=== PATIENT | female | born 1965 | race Caucasian/White ===

== ENCOUNTER → 2020-12-06 08:09 | Outpatient (BNVA) | payer BC, SELFPAY | PROVIDERS: PCP Internal Medicine; Visit Provider Internal Medicine ==

== ENCOUNTER 2020-12-14 09:26 | Outpatient (REF) | payer BC, SELFPAY ==
--- NOTE | ~2020-12-14 | XR_ITS ---
EXAMINATION: XR ANKLE, LEFT CLINICAL INFORMATION: S93.402A - Sprain of unspecified ligament of left ankle, ... COMPARISON: None TECHNIQUE: AP, lateral, and mortise views of the left ankle. FINDINGS: Soft tissues are swollen at the ankle. No fracture or malalignment. Moderate sized enthesopathic spurs are present at the Achilles tendon insertion and plantar fascial origin on the calcaneus. Ankle mortise is symmetric. Bone mineralization is normal. Joint spaces appear relatively well-preserved. XR/XR ankle LT min 3V IMPRESSION: Soft tissue swelling at the left ankle. No acute fractures.
== END 2020-12-14 09:27 | disposition home or self-care (01) ==
LOC: HO.HMGCX 09:26
PROVIDERS: PCP Internal Medicine; Visit Provider Internal Medicine
DX: Z13.89 Encounter for screening for other disorder (principal)
CPT/HCPCS: 73610

== ENCOUNTER → 2020-12-30 11:02 | Outpatient (BNVA) | payer BC, SELFPAY | PROVIDERS: PCP Internal Medicine; Visit Provider Physician Assistant ==

== ENCOUNTER 2021-01-01 05:47 | Outpatient (REF) | payer BC, SELFPAY ==
--- NOTE | ~2021-01-01 | FL_ITS ---
EXAMINATION: XR FLUOROSCOPY WITH IMAGES CLINICAL INFORMATION: Radiculopathy. COMPARISON: None. TECHNIQUE: Fluoroscopy performed by Thao Art. Fluoroscopy time: 0.6 minutes DAP: 4.72 Gycm2 Images: 2 FINDINGS: There are 2 posterior lumbar spine images revealing needle positioned inferior to right L4 and L5 pedicles with contrast opacifying the right epidural space. Visualized L4 , L5 vertebra and intervening disc heights are normal. The SI joints are normal. FL/FL guidance in treatment room IMPRESSION: Fluoroscopy provided to referring physician for pain management.
== END 2021-01-01 05:48 | disposition home or self-care (01) ==
LOC: HO.RADIR 05:47
PROVIDERS: Visit Provider Internal Medicine
DX: M54.16 Radiculopathy, lumbar region (principal)
CPT/HCPCS: 64483; 64484; J1100; Q9967

== ENCOUNTER → 2021-01-10 08:39 | Outpatient (BNVA) | payer BC, SELFPAY | PROVIDERS: PCP Internal Medicine; Visit Provider Internal Medicine ==

== ENCOUNTER → 2021-01-20 13:23 | Outpatient (BNVA) | payer BC, SELFPAY | PROVIDERS: Visit Provider Physician Assistant ==

== ENCOUNTER 2021-02-05 05:34 | Outpatient (REF) | payer BC, SELFPAY | END 2021-02-05 05:35 | disposition home or self-care (01) | LOC: HO.RADIR 05:34 | PROVIDERS: Visit Provider Internal Medicine | DX: G57.11 Meralgia paresthetica, right lower limb (principal) | CPT/HCPCS: J3300 ==

== ENCOUNTER 2021-02-11 08:00 | Outpatient (RCR) | payer BC, SELFPAY ==
--- NOTE | 2021-02-07 09:25 | MHC.PT.EP ---
[facility] [place] Office [place] Office [place] Office [address] Tiffany Coffman [address] [phone] F: [phone] F: [phone] F: [phone] F: [phone] Physical Therapy Plan of Care Date of Evaluation: Date of Surgery: NA Diagnosis: L ANKLE SPRAIN Assessment: Pt IS 55 YO F REFERRED TO PT FROM [facility] FROM [facility] WITH L ANKLE SPRAIN FROM 12/13/20 (FELL WHEN HIT FROM [facility] AT [facility]). XRAY NEGATIVE FOR FX, WORE BOOT FROM ORTHO AND USED CRUTCHES. 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 PRESENTS WITH DECREASED PROPRIOCEPTION L ANKLE WITH SLS, DECREASED ANKLE ROM AND STRENGTH. Pt IS LIMITED IN ABILITY TO EXERCISE AND HORSEBACK RIDE. SHOULD BENEFIT FROM PT. OF NOTE, Pt WITH LB/R HIP ISSUES ALSO (HAS HAD PT LAST YEAR) WITH RECENT NERVE BLOCK FOR R THIGH. FOLLOWED BY PAIN MANAGEMENT. Frequency and Duration: The patient will be seen 2X/WK X6 WKS Short Term Goals: 1. INCREASED AWARENESS ANKLE CARE 2. Pt TO REPORT OVERALL LESS SWELLING/PUFFINESS LAT ANKLE 3. LESS LIMP WITH GT (INCREASED HEEL STRIKE AND TOE PUSH) 4. ABLE TO SLS L AT LEAST 20 SEC Broomcorn Seeder Goals: 1. I HEP WITH DC EX PLAN 2. RETURN TO WORKOUTS/WALKING/HORSEBACK RIDING WITH MIN PAIN/STIFFNESS REPORTED 3. INCREASED L ANKLE ROM 5 DEGREES T/O 4. IMPROVED LEFI Treatment Plan: Modalities to reduce pain, spasms and effusion. Manual therapy to restore motion and function. Therapeutic exercise to improve strength and flexibility. Neuromuscular re-education for posture and balance. Therapeutic activities to return to functional activities of daily living. Electronically signed by: ESTRELLA DALEY PT Please sign and return to therapist. Thank you for your referral.
--- NOTE | 2021-03-07 16:26 | MHC.PT.DC ---
[facility] [place] Office [place] Office [place] Office [address] Tiffany Coffman [address] [phone] F: [phone] F: [phone] F: [phone] F: [phone] Physical Therapy Discharge Report Diagnosis: L ANKLE SPRAIN Date of Surgery: DOI 12/13/2020 Date of Evaluation: 02/07/21 Date of Discharge: 03/07/21 Treatments to Date: 2 Cancellations to Date: 2 No Shows to Date: Discharge Status: Patient Elected to Stop Discharge Summary: 03/07/21 CALLED Pt (SHE HAD CANCELLED LAST SCHEDULED VISIT ON 02/14/21) TO ASK ABOUT PT. SHE SAYS SHE'S DOING OK AND DOESNT NEED MORE PT AT THIS TIME. WILL DC CHART PER NOTE FROM BRYCE GARCES MANAGER AUDIT ON 02/11 'pt noted to have L ankle lateral edema prior to start of ex. Pt reported tired and achy after gentle ROM ex.' Pt IS 55 YO F REFERRED TO PT FROM [facility] FROM [place] WITH L ANKLE SPRAIN FROM 12/13/20 (FELL WHEN HIT FROM [facility]). XRAY NEGATIVE FOR FX, WORE BOOT FROM ORTHO AND USED CRUTCHES. 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 PRESENTS WITH DECREASED PROPRIOCEPTION L ANKLE WITH SLS, DECREASED ANKLE ROM AND STRENGTH. Pt IS LIMITED IN ABILITY TO EXERCISE AND HORSEBACK RIDE. SHOULD BENEFIT FROM PT. OF NOTE, Pt WITH LB/R HIP ISSUES ALSO (HAS HAD PT LAST YEAR) WITH RECENT NERVE BLOCK FOR R THIGH. FOLLOWED BY PAIN MANAGEMENT. Electronically signed by: ESTRELLA DALEY PT Please sign and return to therapist. Thank you for your referral.
== END 2021-03-07 16:26 | disposition home or self-care (01) ==
LOC: HO.PT 08:00
PROVIDERS: Visit Provider Physician Assistant
DX: S93.401D Sprain of unspecified ligament of right ankle, subsequent encounter (principal)
CPT/HCPCS: 97110; 97140; 97162; 97530

== ENCOUNTER 2021-04-25 08:00 | Outpatient (RCR) | payer BC, SELFPAY | END 2021-05-15 15:39 | disposition home or self-care (01) | LOC: HO.PT 08:00 | PROVIDERS: PCP Internal Medicine; Visit Provider Podiatrist | DX: M76.62 Achilles tendinitis, left leg (principal) | CPT/HCPCS: 97110; 97112; 97140; 97161 ==

== ENCOUNTER 2021-10-03 07:29 | Outpatient (REF) | payer BC, SELFPAY ==
[2021-10-03 12:02] LABS: Alanine Aminotransferase 26 U/L (0-31); Albumin Level 4.5 g/dL (3.5-5.0); Alkaline Phosphatase 87 U/L (39-117); Anion Gap 11 (12-20); Aspartate Amino Transferase 20 U/L (5-31); Bilirubin Total 0.2 mg/dL (0.0-1.0); Blood Urea Nitrogen 18 mg/dL (9-16); Calcium 9.3 mg/dL (8.4-10.2); Carbon Dioxide 27 mmol/L (22-29); Chloride 104 mmol/L (96-108); Cholesterol 266 mg/dL; Estimated Glomerular Filt Rate > 60; Glucose Fasting 100 mg/dL (60-99); HDL Cholesterol 69 mg/dL; LDL Cholesterol Calculated 184 mg/dl; Potassium 5.2 mmol/L (3.3-5.1); Sodium 137 mmol/L (135-145); Total Protein 7.3 g/dL (6.5-8.0); Triglycerides 68 mg/dL
[2021-10-08 17:33] LABS: Vitamin D 25-OH, D2 <4 ng/mL; Vitamin D 25-OH, D3 19 ng/mL; Vitamin D 25-OH, Total 19 ng/mL (30-100)
== END 2021-10-03 07:30 | disposition home or self-care (01) ==
LOC: HO.HMGCLDS 07:29
PROVIDERS: Visit Provider Internal Medicine
DX: Z00.01 Encounter for general adult medical examination with abnormal findings (principal); M25.572 Pain in left ankle and joints of left foot; G43.909 Migraine, unspecified, not intractable, without status migrainosus
CPT/HCPCS: 36415; 80053; 80061; 82306; 84443

== ENCOUNTER 2021-10-03 09:05 | Outpatient (REF) | payer BC, SELFPAY ==
--- NOTE | ~2021-10-03 | MM_ITS ---
EXAMINATION: MM SCREENING DIGITAL BREAST TOMOSYNTHESIS, BILATERAL CLINICAL INFORMATION: Screening. Asymptomatic. The lifetime risk of breast cancer based on the Tyrer-Cuzick Model is 13%. COMPARISON: Mammography: 06/13/2018, outside mammography 04/27/2009 ([facility]). TECHNIQUE: Digital breast tomosynthesis is performed in both the craniocaudal and mediolateral oblique views along with computer-aided detection (CAD). Synthesized 2D images are generated from the tomosynthesis. FINDINGS: There are scattered areas of fibroglandular density (ACR BI-RADS breast composition Category b). There are no significant masses, abnormal calcifications, or other abnormalities. Parenchymal pattern similar to prior studies. The axilla and skin contours are unremarkable. MM/MM tomosynthesis screening BI IMPRESSION: No mammographic evidence of malignancy. ASSESSMENT: BI-RADS 1: Negative RECOMMENDATION: Routine annual mammography screening. This patient's information was entered into a reminder system with a target due date for their next mammogram.
== END 2021-10-03 09:06 | disposition home or self-care (01) ==
LOC: HO.MAMMO 09:05
PROVIDERS: Visit Provider Internal Medicine
DX: Z12.31 Encounter for screening mammogram for malignant neoplasm of breast (principal)
CPT/HCPCS: 77063; 77067

== ENCOUNTER 2021-10-16 11:43 | Outpatient (REF) | payer BC, SELFPAY ==
[2021-10-16 13:27] LABS: Influenza A PCR NEGATIVE (Negative); Influenza B PCR NEGATIVE (Negative); Resp Syncy Virus RNA Qual PCR NEGATIVE (Negative); SARS COV2 PCR INHOUSE NEGATIVE (Negative)
== END 2021-10-16 11:44 | disposition home or self-care (01) ==
LOC: HO.LNP 11:43
PROVIDERS: Visit Provider Internal Medicine
DX: Z20.822 Contact with and (suspected) exposure to COVID-19 (principal); R09.89 Other specified symptoms and signs involving the circulatory and respiratory systems
CPT/HCPCS: 0241U

== ENCOUNTER 2022-03-21 08:02 | Outpatient (REF) | payer BC, SELFPAY ==
[2022-03-21 10:58] LABS: MANUAL DIFF FLAG NO
[2022-03-21 11:06] LABS: Basophils Absolute Auto 0.1 X10*3/uL (0.0-0.2); Eosinophils Absolute Auto 0.2 X10*3/uL (0.0-0.4); Eosinophils Percent Auto 2.8 % (0-4); Hematocrit 36.8 % (37.0-47.0); Imm Gran Abs Auto 0.01 X10*3/uL (0.00-0.03); Imm Gran Pct Auto 0.2 % (0.0-0.4); Lymphocytes Absolute Auto 1.7 X10*3/uL (1.2-4.9); Lymphocytes Percent Auto 27.5 % (20-40); Mean Corpuscular HGB Conc 32.6 g/dl (31.0-35.0); Mean Corpuscular Hemoglobin 29.3 pg (27.0-33.0); Mean Corpuscular Volume 89.8 fL (80.0-98.0); Mean Platelet Volume 9.9 fL (9.4-12.3); Monocytes Absolute Auto 0.5 X10*3/uL (0.1-1.2); Neutrophils Absolute Auto 3.6 x10*3/uL (2.0-8.3); Neutrophils Percent Auto 60.5 % (45-73); Platelet Count 296 X10*3/uL (160-400); Red Cell Distribution Width 11.9 % (11.0-16.0)
[2022-03-21 11:21] LABS: Estimated Average Glucose 111 mg/dL; Hemoglobin A1c % 5.5 %
[2022-03-21 11:29] LABS: Alanine Aminotransferase 20 U/L (0-31); Albumin Level 4.2 g/dL (3.5-5.0); Alkaline Phosphatase 81 U/L (39-117); Anion Gap 11 (12-20); Aspartate Amino Transferase 15 U/L (5-31); Bilirubin Total 0.3 mg/dL (0.0-1.0); Blood Urea Nitrogen 17 mg/dL (9-16); Carbon Dioxide 26 mmol/L (22-29); Chloride 107 mmol/L (96-108); Cholesterol 256 mg/dL; Estimated Glomerular Filt Rate > 60; Glucose Fasting 103 mg/dL (60-99); HDL Cholesterol 66 mg/dL; LDL Cholesterol Calculated 164 mg/dl; Potassium 4.4 mmol/L (3.3-5.1); Sodium 140 mmol/L (135-145); Total Protein 6.8 g/dL (6.5-8.0); Triglycerides 131 mg/dL
[2022-03-26 12:33] LABS: Vitamin D 25-OH, D2 <4 ng/mL; Vitamin D 25-OH, D3 14 ng/mL; Vitamin D 25-OH, Total 14 ng/mL (30-100)
== END 2022-03-21 08:03 | disposition home or self-care (01) ==
LOC: HO.HMGCLDS 08:02
PROVIDERS: PCP Internal Medicine; Visit Provider Internal Medicine
DX: R73.01 Impaired fasting glucose (principal); G43.909 Migraine, unspecified, not intractable, without status migrainosus; E55.9 Vitamin D deficiency, unspecified; D64.9 Anemia, unspecified; E78.9 Disorder of lipoprotein metabolism, unspecified; E87.5 Hyperkalemia
CPT/HCPCS: 36415; 80053; 80061; 82306; 83036; 85025

== ENCOUNTER 2022-06-12 07:26 | Outpatient (REF) | payer BC, SELFPAY ==
[2022-06-12 12:21] LABS: Cholesterol 226 mg/dL; HDL Cholesterol 72 mg/dL; LDL Cholesterol Calculated 125 mg/dl; Triglycerides 147 mg/dL
== END 2022-06-12 07:27 | disposition home or self-care (01) ==
LOC: HO.HMGCLDS 07:26
PROVIDERS: PCP Internal Medicine; Visit Provider Internal Medicine
DX: R73.01 Impaired fasting glucose (principal); E78.9 Disorder of lipoprotein metabolism, unspecified
CPT/HCPCS: 36415; 80061

== ENCOUNTER 2022-07-23 07:18 | Emergency (ER) | payer BC, SELFPAY ==
--- NOTE | ~2022-07-23 | CT_ITS ---
EXAMINATION: CT ABDOMEN AND PELVIS WITH CONTRAST CLINICAL INFORMATION: Left lower quadrant acute pain. COMPARISON: None available. TECHNIQUE: Multidetector volumetric images were obtained from the superior aspect of the liver through the pubic symphysis following administration 85 mL of Omnipaque 350 intravenous contrast. Sagittal and coronal reformatted images were obtained on the technologist's workstation. Oral contrast: No This CT examination was performed using dose optimization techniques as appropriate, variously including the following: *Automated exposure control *Adjustment of mA and/or kV according to patient size (this includes techniques or standardized protocols for targeted exams where dose is matched to indication/reason for exam; i.e. extremities or head) *Use of iterative reconstruction technique DLP: 609 mGy-cm FINDINGS: LUNG BASES: Bibasilar atelectasis LIVER, GALLBLADDER, AND BILIARY TREE: The liver is normal in size, shape, and attenuation. No focal hepatic lesion or biliary ductal dilatation is present. The gallbladder is unremarkable with no evidence of radiopaque gallstones, gallbladder wall thickening, or obvious pericholecystic inflammatory changes. PANCREAS: Unremarkable. SPLEEN: Unremarkable. ADRENAL GLANDS: Unremarkable. KIDNEYS AND URETERS: The kidneys are normal in size, shape, and attenuation. No hydronephrosis, hydroureter, or calculi seen. No perinephric stranding. BLADDER: Unremarkable. GASTROINTESTINAL TRACT: The stomach is unremarkable. Normal caliber of the small bowel. No obstruction. Colonic diverticulosis is present. Focal wall thickening with adjacent inflammation involving the proximal sigmoid colon. No free air or fluid collection. ABDOMINAL WALL: No significant hernia is appreciated. LYMPH NODES: Normal. VASCULAR: Normal caliber aorta with mild atherosclerotic calcification. PELVIC VISCERA: The uterus and adnexa are unremarkable. OSSEOUS STRUCTURES: No acute or suspicious osseous abnormality. Mild degenerative changes of the spine. Mild degenerative changes of the hips. CT/CT abdomen pelvis w IV con IMPRESSION: Sigmoid diverticulitis. No free air or fluid collection. Fleischner guidelines were followed.
[2022-07-23 07:21] VITALS: BP 151/94; PULSE 87; RESP 18; TEMP 36.6; O2SAT 98; BMI 27.6
--- NOTE | 2022-07-23 07:44 | ED_ITS ---
HPI - Abdominal Pain General Chief Complaint: Abdominal Pain Stated Complaint: lower abd pain/cramps Time Seen by Provider: 07/23/22 07:32 Source: patient Mode of arrival: ambulatory Limitations: no limitations History of Present Illness MD elicited complaint: abdominal pain Pertinent past history: none Onset (ago): hour(s) (1) Location: LLQ Severity: moderate Pain scale (0-10): 6 Quality: cramping Radiation: RLQ Migration to: no migration Exacerbating factors: movement Relieving factors: nothing Associated symptoms: denies other symptoms Related Data Previous Rx's Medication Instructions Recorded sumatriptan succinate 50 mg tablet 50 mg PO ONCE PRN migraine 08/26/21 headache 90 days #30 tabs cholecalciferol (vitamin D3) 25 25 mcg PO DAILY 90 days #90 caps 03/20/22 mcg (1,000 unit) capsule omeprazole 20 mg capsule,delayed 20 mg PO DAILY 90 days #90 caps 03/20/22 release rosuvastatin 10 mg tablet 10 mg PO DAILY 90 days #90 tabs 06/18/22 tramadol 50 mg tablet 50 mg PO DAILY 30 days #30 tabs 06/26/22 amoxicillin 875 mg-potassium 1 tab PO Q8H 10 days #30 tabs 07/23/22 clavulanate 125 mg tablet Allergies Allergy/AdvReac Type Severity Reaction Status Date / Time No Known Allergies Allergy Verified 07/23/22 07:21 [facility] Past Medical History Medical History Osteoarthritis of right hip Right lumbar radiculitis Surgical History Hx of foot surgery (~2018) Family History Family History Father No problems noted. Mother No problems noted. Brother No problems noted. Brother No problems noted. Sister No problems noted. 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 Cognitive needs: No Hearing needs: No Vision needs: Yes Physical Exam ED Vital Signs: Vital Signs - 24 hr 07/23/22 07:21 07/23/22 09:28 Temperature 98 F 98.7 F Pulse Rate 87 66 Respiratory Rate 18 16 Blood Pressure 151/94 H 134/80 Pulse Oximetry 98 97 Oxygen Delivery Method Room Air Room Air BMI result Body Mass Index 27.6 GEN: Well developed, no acute distress, alert, oriented HEENT: Normocephalic, atraumatic, normal external ears, nose appears normal, no oropharyngeal edema or exudates Eyes: Normal to appearance Neck: Supple, no lymphadenopathy Respiratory: Talks in complete sentences, no respiratory distress, clear to auscultation bilaterally Cardiovascular: Regular rate and rhythm, no murmurs rubs or gallops Abdomen: Soft, left lower quadrant, nondistended, no guarding, no rebound Back: No CVA tenderness Extremities: No clubbing cyanosis or edema Neurologic: No focal neurologic deficits, cranial nerves 2-12 intact, strength is 5/5 bilaterally Skin: No rash Course Course Course Narrative: 56-year-old female presents with left lower quadrant abdominal pain. Examination revealed tenderness without significant guarding but no rebound. She has no CVA tenderness. Broad differential diagnosis currently be considered. Patient have a CT scan. Patient will be provided with analgesics. I will also provide her with IV fluids. Reevaluation(s) Reevaluation #1: His CT scan results are back. She does in fact have diverticulitis. Will be treating for Augmentin 3 times daily for 10 days. 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 She is aware of reasons to return to the hospital. Time: 10:55 Medical Decision Making Medical Decision Making MDM Narrative: 56-year-old female presents with left lower quadrant abdominal pain. Differential diagnosis is broad. Doubt acute catastrophic abdomen such as dissection, ruptured AAA, perforated viscus, mesenteric ischemia. Most likely diagnosis is diverticulitis. Other differentials will be considered as well. Differential Diagnosis Differential Diagnoses: The differential diagnosis associated with the presentation includes (Diverticulitis, colitis, IBD, IBS, mesenteric adenitis, epiploic appendagitis, appendicitis, gastroenteritis, UTI, pyelonephritis) Left lower quadrant abdominal pain Admission/Observation Consideration of admission/observation: Escalation of care including admission/observation considered Lab Data MDM Lab Attestation statement: I reviewed the patient's lab results. 07/23/22 08:16 07/23/22 08:16 Labs: Lab Results 07/23/22 07/23/22 07/23/22 Range/Units 08:16 08:16 08:17 WBC 9.6 (4.8-10.8) X10*3/uL RBC 3.87 L (4.20-5.50) X10*6/uL Hgb 11.5 L (12.0-16.0) g/dl Hct 34.6 L (37.0-47.0) % MCV 89.4 (80.0-98.0) fL MCH 29.7 (27.0-33.0) pg MCHC 33.2 (31.0-35.0) g/dl RDW 12.1 (11.0-16.0) % Plt Count 221 D (160-400) X10*3/uL MPV 9.3 L (9.4-12.3) fL Immature Gran % (Auto) 0.3 (0.0-0.4) % Neut % (Auto) 77.7 H (45-73) % Lymph % (Auto) 11.3 L (20-40) % [place] % (Auto) 9.4 (2-11) % Eos % (Auto) 0.8 (0-4) % Baso % (Auto) 0.5 (0-2) % Lymph # (Auto) 1.1 L (1.2-4.9) X10*3/uL [place] # (Auto) 0.9 (0.1-1.2) X10*3/uL Eos # (Auto) 0.1 (0.0-0.4) X10*3/uL Baso # (Auto) 0.1 (0.0-0.2) X10*3/uL Abs Immat Gran (auto) 0.03 (0.00-0.03) X10*3/uL Absolute Neuts (auto) 7.5 (2.0-8.3) x10*3/uL Absolute Nucleated RBC 0.000 (0.0-0.012) X10*3/uL Nucleated RBC % (auto) 0.0 (0.0-0.2) /100WBC Sodium 145 (135-145) mmol/L Potassium 4.4 (3.3-5.1) mmol/L Chloride 109 H (96-108) mmol/L Carbon Dioxide 27 (22-29) mmol/L Anion Gap 13 (12-20) BUN 15 (9-16) mg/dL Creatinine 0.69 (0.5-1.4) mg/dL Estim Creat Clear Calc 94.6 Estimated GFR > 60 Random Glucose 105 (60-115) mg/dL Calcium 8.7 (8.4-10.2) mg/dL Total Bilirubin 0.3 (0.0-1.0) mg/dL AST 19 (5-31) U/L ALT 22 (0-31) U/L Alkaline Phosphatase 90 (39-117) U/L Total Protein 6.5 (6.5-8.0) g/dL Albumin 4.2 (3.5-5.0) g/dL Beta HCG, Quant < 2 mIU/mL Urine Color Yellow Urine Appearance Clear Urine pH 6.0 (5.0-9.0) Ur Specific [place] 1.025 (1.005-1.025) Urine Protein Trace (Neg-Trace) mg/dL Urine Glucose (UA) Negative (Negative) mg/dL Urine Ketones Negative (Negative) mg/dL Urine Blood Trace H (Negative) Urine Nitrite Negative (Negative) Ur Leukocyte Esterase Trace H (Negative) Urine RBC 0-2 (0-2) /HPF Urine WBC 0-5 (0-5) /HPF Ur Squamous Epith Cells 0-2 (0-2) /HPF Urine Bacteria None Seen (None Seen) Hyaline Casts 0-2 (0-2) /LPF Independent Interpretation I performed an independent interpretation of an: CT Scan (Diverticulosis with inflammatory changes in the sigmoid colon area consistent with acute diverticulitis) Radiology Impression Discussion of test interpretation with radiology: I have reviewed the radiologist's reading. ( CT/CT abdomen pelvis w IV con IMPRESSION: Sigmoid diverticulitis. No free air or fluid collection. Fleischner guidelines were followed. Dictated By:Ganesh Diggs MDSigned By:<Electronically signed by Ganesh Diggs MD in [place]>07/23/22 1007) Tests considered The following testing was considered but not selected: Ultrasound Prescription Management I considered prescription management with: Pain Medication and Antibiotic Medications Administered Discontinued Medications Generic Name Dose Route Start Last Admin Trade Name Freq PRN Reason Stop Dose Admin Sodium Chloride 1,000 mls @ 999 mls/hr 07/23/22 07:45 07/23/22 09:28 Ns IV 07/23/22 08:45 Infused .Q1H1M MARI Infusion Iohexol 100 ml 07/23/22 09:56 07/23/22 09:58 Iohexol 350 Mg/Ml 100 Ml Infus..Btl IV 07/23/22 09:57 85 ml ONCE ONE Administration Ketorolac Tromethamine 15 mg 07/23/22 07:43 07/23/22 08:20 Ketorolac Tromethamine 15 Mg/Ml Vial IVPUSH 07/23/22 07:44 15 mg ONCE ONE Administration Discharge Plan Discharge Clinical Impression: Abdominal pain, Diverticulitis Patient Disposition: Home, Self-Care Instructions: Diverticulitis (ED), Diverticulitis Diet (ED), Abdominal Pain (ED) Prescriptions: New amoxicillin-pot clavulanate 875-125 mg tablet 1 tab PO Q8H 10 Days Qty: 30 0RF No Action rosuvastatin 10 mg tablet 10 mg PO DAILY 90 Days Qty: 90 0RF sumatriptan succinate 50 mg tablet 50 mg PO ONCE PRN (Reason: migraine headache) 90 Days Qty: 30 0RF Rx Instructions: do not exceed 4 doses per 24 hrs omeprazole 20 mg capsule,delayed release(DR/EC) 20 mg PO DAILY 90 Days Qty: 90 1RF cholecalciferol (vitamin D3) 25 mcg (1,000 unit) capsule 25 mcg PO DAILY 90 Days Qty: 90 0RF tramadol 50 mg tablet 50 mg PO DAILY 30 Days Qty: 30 0RF Referrals: Rodney Jeff MD [Primary Care Provider] - 1 week
[2022-07-23] MEDS: Ketorolac Tromethamine 15 MG/ML VIAL IVPUSH (08:20)
[2022-07-23 08:21] LABS: MANUAL DIFF FLAG NO
[2022-07-23] MEDS: 0.9 % Sodium Chloride 1,000 ML 999 ML IV (08:21)
[2022-07-23 08:22] LABS: Basophils Absolute Auto 0.1 X10*3/uL (0.0-0.2); Basophils Percent Auto 0.5 % (0-2); Eosinophils Absolute Auto 0.1 X10*3/uL (0.0-0.4); Eosinophils Percent Auto 0.8 % (0-4); Hematocrit 34.6 % (37.0-47.0); Hemoglobin 11.5 g/dl (12.0-16.0); Imm Gran Abs Auto 0.03 X10*3/uL (0.00-0.03); Imm Gran Pct Auto 0.3 % (0.0-0.4); Lymphocytes Absolute Auto 1.1 X10*3/uL (1.2-4.9); Lymphocytes Percent Auto 11.3 % (20-40); Mean Corpuscular HGB Conc 33.2 g/dl (31.0-35.0); Mean Corpuscular Hemoglobin 29.7 pg (27.0-33.0); Mean Corpuscular Volume 89.4 fL (80.0-98.0); Mean Platelet Volume 9.3 fL (9.4-12.3); Monocytes Absolute Auto 0.9 X10*3/uL (0.1-1.2); Monocytes Percent Auto 9.4 % (2-11); Neutrophils Absolute Auto 7.5 x10*3/uL (2.0-8.3); Neutrophils Percent Auto 77.7 % (45-73); Platelet Count 221 X10*3/uL (160-400); Red Blood Count 3.87 X10*6/uL (4.20-5.50); Red Cell Distribution Width 12.1 % (11.0-16.0); White Blood Count 9.6 X10*3/uL (4.8-10.8)
[2022-07-23 08:30] LABS: Appearance Urine Clear; Color Urine Yellow; Glucose Urine UA Negative (Negative); Leukocyte Esterase Urine Trace (Negative); Nitrite Urine Negative (Negative); Specific Gravity - Urine 1.025 (1.005-1.025); UMIC TRIGGER UACC YES; Urine Blood Trace (Negative); Urine Ketones Negative (Negative); Urine Protein Trace mg/dL (Neg-Trace)
[2022-07-23 08:36] LABS: Bacteria Urine None Seen (None Seen); Hyaline Casts Urine 0-2 /LPF (0-2); RBC Urine 0-2 /HPF (0-2); Squamous Epithelial Cell Urine 0-2 /HPF (0-2); WBC Urine 0-5 /HPF (0-5)
[2022-07-23 08:47] LABS: Alanine Aminotransferase 22 U/L (0-31); Albumin Level 4.2 g/dL (3.5-5.0); Alkaline Phosphatase 90 U/L (39-117); Anion Gap 13 (12-20); Aspartate Amino Transferase 19 U/L (5-31); Bilirubin Total 0.3 mg/dL (0.0-1.0); Blood Urea Nitrogen 15 mg/dL (9-16); Calcium 8.7 mg/dL (8.4-10.2); Carbon Dioxide 27 mmol/L (22-29); Chloride 109 mmol/L (96-108); Creatinine Clr Calc Pharmacy 94.6; Estimated Glomerular Filt Rate > 60; Glucose Random 105 mg/dL (60-115); Potassium 4.4 mmol/L (3.3-5.1); Sodium 145 mmol/L (135-145); Total Protein 6.5 g/dL (6.5-8.0)
[2022-07-23 08:55] LABS: HCG Quantitative < 2 mIU/mL
[2022-07-23 09:28] VITALS: BP 134/80; PULSE 66; RESP 16; TEMP 37.1; O2SAT 97
[2022-07-23] MEDS: iohexoL 350 MG/ML 100 ML INFUS..BTL IV (09:58)
[2022-07-23] MEDS: Amoxicillin/Potassium Clav 875 MG TABLET PO (11:13)
== END 2022-07-23 11:24 | disposition home or self-care (01) ==
PROVIDERS: Emergency Provider Emergency Medicine; PCP Internal Medicine
DX: K57.32 Diverticulitis of large intestine without perforation or abscess without bleeding (principal); E78.5 Hyperlipidemia, unspecified; F17.210 Nicotine dependence, cigarettes, uncomplicated; Z79.02 Long term (current) use of antithrombotics/antiplatelets; Z79.899 Other long term (current) drug therapy
CPT/HCPCS: 36415; 74177; 80053; 81001; 84702; 85025; 96361; 96374; 99284; J1885; Q9967

== ENCOUNTER → 2022-09-10 07:58 | Outpatient (BNVA) | payer BC, SELFPAY | PROVIDERS: PCP Internal Medicine; Referring Provider Internal Medicine; Visit Provider Nurse Practitioner ==

== ENCOUNTER 2023-01-20 11:21 | Outpatient (AMB) | payer BC, SELFPAY ==
--- NOTE | 2023-01-20 11:23 | MHC.PC.OV ---
Vital Signs 01/20/23 11:28 Height 5 ft 4 in Weight 166 lb 6 oz BMI 28.6 BP 122/88 Blood Pressure Location Rt brachial Position Sitting Pulse 72 Pulse Source Pulse Oximeter Pulse Oximetry (%) 99 Oxygen Delivery Method Room Air Intake Visit Reasons: Annual PE Allergies No Known Allergies Allergy (Verified 01/20/23 11:23) Medication List - Last Reconciled 01/20/23 by Rodney Jeff MD cholecalciferol (vitamin D3) 25 mcg PO DAILY 90 days fluconazole (Diflucan) 150 mg PO Q3D 2 doses meloxicam 15 mg PO DAILY 14 days omeprazole 20 mg PO DAILY 90 days rosuvastatin 10 mg PO DAILY 90 days sumatriptan succinate 50 mg PO ONCE PRN 90 days Tobacco use date assessed: 01/20/23 Dental Screening Dental Screen Date: 01/20/23 Did you have a dental visit in the last 12 months?: Yes Did you have a dental problem in the last 6 months where you did not have access to dental care?: No Was dental information given to patient?: Patient has dentist HPI Annual PE HPI Details Patient is a 57-year-old female came in today for physical exam appointment Migraine headaches are stable Lipid disorder patient is taking rosuvastatin 10 mg , due for labs GERD is stable with omeprazole 20 mg she also is taking vitamin-D supplement still has not gone back to work due to chronic hip pain Pain is better, she is not taking any med just advil as needed her left leg is slightly shorter she is now wearing shoe insert Hx Rt hip surgery IFS, diet control, we will continue to monitor Mammogram was October of last year, she will call and book apt [place] [facility] [place] [facility] a year at [facility] Medical History Osteoarthritis of right hip Right lumbar radiculitis Surgical History Hx of foot surgery (~2017) Family History Father No problems noted. Mother No problems noted. Brother No problems noted. Brother No problems noted. Sister No problems noted. 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 1. Little interest or pleasure in doing things: not at all 2. Feeling down, depressed, or hopeless: not at all 3. Trouble falling or staying asleep, or sleeping too much: not at all 4. Feeling tired or having little energy: more than half the days 5. Poor appetite or overeating: more than half the days 6. Feeling bad about yourself - or that you are a failure or have let yourself or your family down: not at all 7. Trouble concentrating on things, such as reading the newspaper or watching television: not at all 8. Moving or speaking so slowly that other people could have noticed. Or the opposite - being so fidgety or restless that you have been moving around a lot more than usual: not at all 9. Thoughts that you would be better off or of hurting yourself in some way: not at all Total score: 4 Depression Screening Interpretation: Negative Depression Screening Done: Yes 55178 - PHQ-9 Billing: Yes Source: Developed by Drs. Jose Jesus, Evy Glass, Stewart Hudson and colleagues, with an educational jameel from [employer]. Thrive Questionnaire Date Thrive assessed: 08/12/22 AUDIT C Alcohol Use Questionnaire (AUDIT-C) 1. How often do you have a drink containing alcohol?: 2-4 times a month 2. How many drinks containing alcohol do you have on a typical day when you are drinking?: 3 or 4 3. How often do you have six or more drinks on one occasion?: Never Total Score: 3 Score Reviewed/Action Taken: Yes DALY-7 AMB Questionnaire DALY-7 Date DALY - 7 assessed: 01/20/23 Feeling nervous, anxious, or on edge: 0 = Not at all Not being able to stop or control worryin = Not at all Worrying too much about different things: 0 = Not at all Trouble relaxin = Not at all Being so restless that it is hard to sit still: 0 = Not at all Becoming easily annoyed or irritable: 0 = Not at all Feeling afraid as if something awful might happen: 0 = Not at all Total DALY-7 score (0-4 normal; 5-9 mild; 10-14 moderate; 15-21 severe): 0 Source: Developed by Drs. Jose Jesus, Evy Glass, Stewart Hudson and colleagues, with an educational jameel from [employer]. DALY-7 Assessment Billing DALY-7 Assessment Tool: DALY-7 Assessment 51117 Review of Systems Const Denies chills, Denies fever(s) and Denies headache(s) Eyes Denies blurry vision ENT Denies headache(s), Denies nasal discharge, Denies nasal obstruction, Denies odynophagia and Denies sinus pain Card Denies chest pain at rest and Denies chest pain with activity Resp Denies cough and Denies hemoptysis GI Denies odynophagia, Denies vomiting and Denies hematemesis Reports as per HPI Skin/Breast Reports as per HPI Neuro Denies Neuro-related abnormal movements, Denies Abnormal speech present, Denies headache(s) and Denies Sensory deficit (Neuro) Psych Denies mood swings and Denies paranoia Endo Reports as per HPI Lisandro/Lymph Reports as per HPI Aller/Immun Reports as per HPI Physical exam (Primary Care) Vital Signs: Last Vital Signs Pulse 72 01/20/23 11:28 BP 122/88 01/20/23 11:28 Pulse Ox 99 01/20/23 11:28 Oxygen Delivery Method Room Air 01/20/23 11:28 BMI result Body Mass Index 28.6 Tobacco/Smoking Status: Tobacco use Status Tobacco use date assessed 01/20/23 01/20/23 11:24 Patient Tobacco Use Status Current everyday Tobacco 01/20/23 11:24 Tobacco use type Cigarette 01/20/23 11:24 e-Cigarette/Vaping Use Never Used 01/20/23 11:24 PHQ-9: PHQ-9 Score PHQ-9: Total score 4 01/20/23 12:16 Depression Screening Interpretation: Negative Thrive Assessment: Date of Thrive Assessment Date Thrive assessed 08/12/22 01/20/23 11:24 Const General: cooperative, comfortable and no acute distress Orientation/consciousness: patient oriented x3 HENMT Head: Yes normocephalic and Yes atraumatic Eyes General: appearance normal, both eyes and all related structures Pupils: Equal, round and reactive pupils present EOM: EOMs intact bilaterally Neck Neck: Yes supple and No lymphadenopathy Thyroid: Thyroid normal Lymphatic: no lymphadenopathy noted Resp Effort & Inspection: normal respiratory effort and able to speak in complete sentences Auscultation: clear to auscultation bilaterally Cardio Heart sounds: S1 normal heart sound present and S2 normal heart sound present GI Palpation (GI): Soft to palpation and nontender Auscultation: normal bowel sounds General: Yes no CVA tenderness Back/Spine/Pelvis Back: no CVA tenderness Skin General skin exam: elasticity normal and turgor normal Neuro General: patient oriented x3 Cranial nerves: Yes Equal, round and reactive pupils present Speech: No Abnormal speech present Sensory Exam: No Sensory deficit (Neuro) Coordination: tandem gait normal and Romberg test negative Extrem General: Yes normal exam except as noted and No edema Office Procedures Flu Questionnaire Does the patient have a severe egg allergy?: No Does the patient have severe life threatening allergies?: No Does the patient have a fever or illness today?: No Has the patient ever had Guillain-[place] Syndrome?: No Has the patient ever had any past reaction to a flu shot?: No Immunizations flu vacc [id number] 6mos up(PF) 60 mcg(15 mcgx4)/0.5 mL IM syringe Performing Provider: Rodney Jeff MD Performing Location[place] [facility] [place] [facility] Administered by: Marcell Joy CMA on 01/20/23 12:03 Dose Route Admin Location Dispensed Lot Number Expiration Date NDC Inspection Machine Tender 0.5 mL IM Left Deltoid 0.5 mL [id number] 10/03/23 [id number] [employer] VIS Given Date VIS Provided VIS Publication Date 01/20/23 Single Vaccine 20 Eligibility Eligibility Date Funding Source Not VFC Eligible 01/20/23 Private Boostrix Tdap 2.5 Lf unit-8 mcg-5 Lf/0.5 mL intramuscular syringe Performing Provider: Rodney Jeff MD Performing Location: [facility] [place] Administered by: Marcell Joy CMA on 01/20/23 12:04 Dose Route Admin Location Dispensed Lot Number Expiration Date NDC Inspection Machine Tender 0.5 mL IM Right Deltoid 0.5 mL [id number] 03/12/25 [id number] [employer] VIS Given Date VIS Provided VIS Publication Date 01/20/23 Single Vaccine 20 Eligibility Eligibility Date Funding Source Not [facility] Eligible 01/20/23 Private Assessment and Plan Assessment & Plan (1) Encounter for general adult medical examination with abnormal findings: Code(s): Z00.01 - Encounter for general adult medical examination with abnormal findings (2) Migraine headache: Code(s): G43.909 - Migraine, unspecified, not intractable, without status migrainosus Qualifiers: Intractability: intractable Migraine type: other Status migrainosus presence: without status migrainosus Qualified Code(s): G43.819 - Other migraine, intractable, without status migrainosus (3) Impaired fasting blood sugar: Code(s): R73.01 - Impaired fasting glucose (4) Vitamin D deficiency: Code(s): E55.9 - Vitamin D deficiency, unspecified (5) Lipid disorder: Code(s): E78.9 - Disorder of lipoprotein metabolism, unspecified (6) Anemia: Code(s): D64.9 - Anemia, unspecified Qualifiers: Anemia type: iron deficiency Iron deficiency anemia type: other iron deficiency Qualified Code(s): D50.8 - Other iron deficiency anemias (7) History of hip replacement, total: Code(s): Z96.649 - Presence of unspecified artificial hip joint Qualifiers: Laterality: right Qualified Code(s): Z96.641 - Presence of right artificial hip joint (8) Short leg syndrome, acquired: Code(s): M21.70 - Unequal limb length (acquired), unspecified site Plan Patient is a 56-year-old female came in today for regular follow-up appointment Migraine headaches are stable Lipid disorder patient is now taking rosuvastatin 10 mg her LDL has improved to 123 GERD is stable with omeprazole 20 mg she also is taking vitamin-D supplement Patient continued to have severe pain lumbar area right-sided radiating down to the right leg along with right hip pain She is seeing specialist at [facility] and is due to have MRI of lumbar spine again. She is taking Aleve alternating with meloxicam which is not helping Patient says that she gets flare ups and she cannot function anymore because of the pain. I am starting her on tramadol 50 mg today she may take that 1 in the morning with Aleve. We will book another appointment in 3 weeks to see how she is doing with the tramadol if it is helping I will titrate it slightly more than 1 tablet a day. Patient says that she is doing all that she can she has stopped smoking and cut down on drinking and she also managed to lose 10 lb thinking it might help with the pain. Orders: Orders Hemoglobin A1c Today E55.9 - Vitamin D deficiency, unspecified, E78.9 - Disorder of lipoprotein metabolism, unspecified, G43.909 - Migraine, unspecified, not intractable, without status migrainosus, R73.01 - Impaired fasting glucose, Z00.01 - Encounter for general adult medical examination with abnormal findings Comprehensive Met. Panel Today E55.9 - Vitamin D deficiency, unspecified, E78.9 - Disorder of lipoprotein metabolism, unspecified, G43.909 - Migraine, unspecified, not intractable, without status migrainosus, R73.01 - Impaired fasting glucose, Z00.01 - Encounter for general adult medical examination with abnormal findings LDL Cholesterol Direct Today E55.9 - Vitamin D deficiency, unspecified, E78.9 - Disorder of lipoprotein metabolism, unspecified, G43.909 - Migraine, unspecified, not intractable, without status migrainosus, R73.01 - Impaired fasting glucose, Z00.01 - Encounter for general adult medical examination with abnormal findings Influenza [id number] Immunization Today Z23 - Encounter for immunization TDaP Immunization Today Z23 - Encounter for immunization Complete Blood Count Auto Diff Today E55.9 - Vitamin D deficiency, unspecified, E78.9 - Disorder of lipoprotein metabolism, unspecified, G43.909 - Migraine, unspecified, not intractable, without status migrainosus, R73.01 - Impaired fasting glucose, Z00.01 - Encounter for general adult medical examination with abnormal findings Vitamin D 25-OH (D2 and D3) Today E55.9 - Vitamin D deficiency, unspecified, E78.9 - Disorder of lipoprotein metabolism, unspecified, G43.909 - Migraine, unspecified, not intractable, without status migrainosus, R73.01 - Impaired fasting glucose, Z00.01 - Encounter for general adult medical examination with abnormal findings Coding Level of Care Code Est Pt Prev Care 40-64y(97182) Diagnoses Encounter for general adult medical examination with abnormal findings Z00.01 Other migraine without status migrainosus, intractable G43.819 Intractability: intractable Migraine type: other Status migrainosus presence: without status migrainosus Impaired fasting blood sugar R73.01 Vitamin D deficiency E55.9 Lipid disorder E78.9 Other iron deficiency anemia D50.8 Anemia type: iron deficiency Iron deficiency anemia type: other iron deficiency History of total right hip replacement Z96.641 Laterality: right Short leg syndrome, acquired M21.70 Additional Codes DALY-7 Assessment Billing - DALY-7 Assessment Tool: DALY-7 Assessment [id number] ([id number])
[2023-01-20 11:28] VITALS: BP 122/88; PULSE 72; O2SAT 99; BMI 28.6
== END 2023-01-20 12:03 | disposition home or self-care (01) ==
PROVIDERS: Visit Provider Internal Medicine
DX: Z00.00 Encounter for general adult medical examination without abnormal findings (principal); G43.819 Other migraine, intractable, without status migrainosus; R73.01 Impaired fasting glucose; E55.9 Vitamin D deficiency, unspecified; Z23 Encounter for immunization; E78.9 Disorder of lipoprotein metabolism, unspecified; D50.8 Other iron deficiency anemias; Z96.641 Presence of right artificial hip joint; M21.70 Unequal limb length (acquired), unspecified site
CPT/HCPCS: 90471; 90472; 90686; 90715; 99396

== ENCOUNTER 2023-01-20 12:07 | Outpatient (REF) | payer BC, SELFPAY ==
[2023-01-20 13:22] LABS: MANUAL DIFF FLAG NO
[2023-01-20 13:54] LABS: Basophils Absolute Auto 0.1 X10*3/uL (0.0-0.2); Basophils Percent Auto 0.9 % (0-2); Eosinophils Absolute Auto 0.1 X10*3/uL (0.0-0.4); Eosinophils Percent Auto 1.4 % (0-4); Hemoglobin 12.1 g/dl (12.0-16.0); Imm Gran Abs Auto 0.01 X10*3/uL (0.00-0.03); Imm Gran Pct Auto 0.2 % (0.0-0.4); Lymphocytes Absolute Auto 1.5 X10*3/uL (1.2-4.9); Lymphocytes Percent Auto 27.7 % (20-40); Mean Corpuscular HGB Conc 32.7 g/dl (31.0-35.0); Mean Corpuscular Hemoglobin 29.1 pg (27.0-33.0); Mean Corpuscular Volume 88.9 fL (80.0-98.0); Monocytes Absolute Auto 0.5 X10*3/uL (0.1-1.2); Monocytes Percent Auto 8.1 % (2-11); Neutrophils Absolute Auto 3.4 x10*3/uL (2.0-8.3); Neutrophils Percent Auto 61.7 % (45-73); Platelet Count 280 X10*3/uL (160-400); Red Blood Count 4.16 X10*6/uL (4.20-5.50); Red Cell Distribution Width 12.7 % (11.0-16.0); White Blood Count 5.6 X10*3/uL (4.8-10.8)
[2023-01-20 14:07] LABS: Estimated Average Glucose 103 mg/dL; Hemoglobin A1c % 5.2 % (<6.0)
[2023-01-20 14:34] LABS: Alanine Aminotransferase 31 U/L (0-31); Albumin Level 4.6 g/dL (3.5-5.0); Alkaline Phosphatase 93 U/L (39-117); Anion Gap 15 (12-20); Aspartate Amino Transferase 24 U/L (5-31); Bilirubin Total 0.3 mg/dL (0.0-1.0); Blood Urea Nitrogen 11 mg/dL (9-16); Carbon Dioxide 25 mmol/L (22-29); Chloride 105 mmol/L (96-108); Estimated Glomerular Filt Rate > 60; Glucose Random 100 mg/dL (60-115); Potassium 3.9 mmol/L (3.3-5.1); Sodium 141 mmol/L (135-145); Total Protein 7.8 g/dL (6.5-8.0)
[2023-01-21 11:13] LABS: LDL Cholesterol Direct 122 mg/dL (<100)
[2023-01-24 14:24] LABS: Vitamin D 25-OH, D2 <4 ng/mL; Vitamin D 25-OH, D3 19 ng/mL; Vitamin D 25-OH, Total 19 ng/mL (30-100)
== END 2023-01-20 12:08 | disposition home or self-care (01) ==
LOC: HO.HMGCLDS 12:07
PROVIDERS: PCP Internal Medicine; Visit Provider Internal Medicine
DX: Z00.01 Encounter for general adult medical examination with abnormal findings (principal); G43.909 Migraine, unspecified, not intractable, without status migrainosus; E55.9 Vitamin D deficiency, unspecified; E78.9 Disorder of lipoprotein metabolism, unspecified; R73.01 Impaired fasting glucose
CPT/HCPCS: 36415; 80053; 82306; 83036; 83721; 85025

== ENCOUNTER 2023-03-24 08:41 | Outpatient (AMB) | payer BC, SELFPAY ==
--- NOTE | 2023-03-24 09:18 | AM.OFFWIN_ITS ---
Intake Vital Signs 03/24/23 09:25 Height 5 ft 4 in Weight 168 lb BMI 28.8 BP 110/80 Blood Pressure Location Lt brachial Position Sitting Pulse 72 Pulse Source Pulse Oximeter Temp 97.3 F Temp Source Temporal Artery Scan Pulse Oximetry (%) 98 Oxygen Delivery Method Room Air Intake Visit Reasons: EST/sinus infection ([phone]) Intake Note: pt is here today for sinus infection started 02-27 Patient Tobacco Use Status: Current everyday Tobacco user Allergies No Known Allergies Allergy (Verified 03/24/23 09:19) Do you need a note to return to daycare/school/sports/work: Yes HPI HPI Comments History of Present Illness Details Patient is a 57-year-old female in today for a sick visit. She states that she started to feel headache, cough, lethargy, sore throat after Thanksgiving where she was around several family members including little kids, whom developed upper respiratory infections after the Thanksgiving. 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 She has taken ikav-jbq-eofmkog medicine like Robitussin with little effect. She denies any chest pain, shortness a breath, vomiting, dizziness, or diarrhea. [facility]LY [facility] Medical History Osteoarthritis of right hip Right lumbar radiculitis Surgical History Hx of foot surgery (~2018) Family History Father No problems noted. Mother No problems noted. Brother No problems noted. Brother No problems noted. Sister No problems noted. 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 Eyes: No Eye Pain, No Swelling, No Redness Cardiovascular : No Chest Pain, No SOB, No Dyspnea on Exertion, No Orthopnea, No Edema, No Palpitations Respiratory : Admits Cough, No Sputum, No Wheezing Gastrointestinal : No Nausea, No Vomiting, No Diarrhea, No Constipation, No abdominal Pain, No Hematochezia, No Melena Neuro : No Weakness, No Numbness, No Dizziness, No Headache All other systems reviewed and are negative Physical Exam Vital Signs: Last Vital Signs Temp 97.3 F 03/24/23 09:25 Pulse 72 03/24/23 09:25 BP 110/80 03/24/23 09:25 Pulse Ox 98 03/24/23 09:25 Oxygen Delivery Method Room Air 03/24/23 09:25 BMI result Body Mass Index 28.8 Const Other: Appearance: Alert.? Oriented X3.? No acute distress.? Head: Normocephalic, atraumatic, no step-offs or deformities Eyes: Pupils equal, round and reactive to light.? ENT: Pharynx cobblestoned. Septum midline. TM intact bilaterally, effusion with no erythema. No mastoid tenderness. Neck: Normal inspection.? Neck supple. CVS: Normal heart rate and rhythm.? Pulses normal.? Respiratory: No respiratory distress.? Breath sounds normal.? Neuro: Oriented X 3.? No motor deficit.? No sensory deficit. CN 2-12 intact Results AMB Rapid Strep AMB Rapid Strep Negative Last Edit by Eri Young CMA on 03/24/23 10:13 Results Reviewed Results Reviewed: Laboratory Last Values Strep Scn Rapid Clinic Negative 03/24/23 10:11 Will call patient with swab results Assessment & Plan Assessment & Plan (1) Upper respiratory infection: Comment: Patient will be given prednisone and benzonatate to be taken as prescribed. Patient has been educated on side effects of the medication and how to take them properly. Patient is agreeable to this plan. Code(s): J06.9 - Acute upper respiratory infection, unspecified Qualifiers: URI type: unspecified URI Qualified Code(s): J06.9 - Acute upper respiratory infection, unspecified Plan Take your medications as prescribed. If you were prescribed antibiotics today, it is important that you take your medication to their entirety, do not skip any doses, do not finish them early. Follow-up with your primary care provider this week. Return to the emergency department with new or worsening symptoms. Such as fevers, chills, chest pain, shortness of breath, nausea, vomiting, dizziness, headache, vision changes, lethargy In case of emergency call 911 Orders: Orders SARS-CoV2/FLU/RSV Today J06.9 - Acute upper respiratory infection, unspecified AMB Rapid Strep Screen Today Z13.9 - Encounter for screening, unspecified Medications: New benzonatate 100 mg PO BID PRN 20 caps 0RF cough prednisone 40 mg (2 x 20 mg) PO DAILY 5 tabs 0RF Coding Level of Care Code Est Pt Level 2 (21317) Diagnoses Upper respiratory tract infection, unspecified type J06.9 URI type: unspecified URI Time Spent (min) 20
[2023-03-24 09:25] VITALS: BP 110/80; PULSE 72; TEMP 36.3; O2SAT 98; BMI 28.8
== END 2023-03-24 10:40 | disposition home or self-care (01) ==
PROVIDERS: PCP Internal Medicine; Visit Provider Nurse Practitioner Primary Care
DX: J06.9 Acute upper respiratory infection, unspecified (principal); J02.9 Acute pharyngitis, unspecified
CPT/HCPCS: 87880; 99212

== ENCOUNTER 2023-03-24 13:53 | Outpatient (REF) | payer BC, SELFPAY ==
[2023-03-24 15:01] LABS: Influenza A PCR NEGATIVE (Negative); Influenza B PCR NEGATIVE (Negative); Resp Syncy Virus RNA Qual PCR NEGATIVE (Negative); SARS COV2 PCR INHOUSE NEGATIVE (Negative)
== END 2023-03-24 13:54 | disposition home or self-care (01) ==
LOC: HO.HMGCLNP 13:53
PROVIDERS: Visit Provider Nurse Practitioner Primary Care
DX: Z11.52 Encounter for screening for COVID-19 (principal); J06.9 Acute upper respiratory infection, unspecified
CPT/HCPCS: 0241U

== ENCOUNTER 2023-07-12 10:59 | Outpatient (AMB) | payer BC, SELFPAY ==
[2023-07-12 10:58] VITALS: BP 118/74; PULSE 69; TEMP 36.7; O2SAT 98; BMI 29.2
--- NOTE | 2023-07-12 10:58 | AM.OFFWIN_ITS ---
Intake Vital Signs 07/12/23 10:58 Height 5 ft 4 in Weight 170 lb BMI 29.2 BP 118/74 Blood Pressure Location Rt brachial Position Sitting Pulse 69 Pulse Source Pulse Oximeter Temp 98.1 F Temp Source Oral Pulse Oximetry (%) 98 Oxygen Delivery Method Room Air Intake Visit Reasons: EP ? UTI Intake Note: pt is here today for c/o UTI symptoms that started night. She states she has cramping and irritation. She also states she has urinary urgency. Patient Tobacco Use Status: Current everyday Tobacco user Allergies No Known Allergies Allergy (Verified 07/12/23 11:24) HPI HPI Comments History of Present Illness Details Patient presents to the walk-in today for sick visit Reports 5 days of dysuria and suprapubic abdominal pain Denies back pain, flank pain, fevers, chills, vomiting, diarrhea Denies hematuria or vaginal discharge Has been taking [id number]-rzv-[id number] azo with some improvement but symptoms persist PFSH Medical History Osteoarthritis of right hip Right lumbar radiculitis Surgical History Hx of foot surgery (~2018) Family History Father No problems noted. Mother No problems noted. Brother No problems noted. Brother No problems noted. Sister No problems noted. 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 Answers questions appropriately. Fully engaged in examination. Skin: warm, dry, intact HEENT: Normocephalic. Hearing intact. Cardiac: External chest normal in appearance. Respiratory: No cough, audible wheezing or stridor. Abdomen: without gross distension. Soft nontender. No CVA tenderness MS: No obvious swelling or deformities. Neurological: Oriented to person, place, time and situation. Thought process intact. No gait abnormalities appreciated. Psychiatric: Appropriate mood and affect. Good judgment and insight. Results AMB Urinalysis, Automated UA Leukoctes 15 Erlinda/uL Last Edit by Stephany Montaño CMA on 07/12/23 11:27 UA Nitrite Positive Last Edit by Stephany Montaño CMA on 07/12/23 11:27 UA Urobilinogen 0.2 mg/dL Last Edit by Stephany Montaño CMA on 07/12/23 11:27 UA Protein 0 mg/dL Last Edit by Stephany Montaño CMA on 07/12/23 11:27 UA pH 6.0 Last Edit by Stephany Montaño CMA on 07/12/23 11:27 UA Blood 0 Calin/uL Last Edit by Stephany Montaño CMA on 07/12/23 11:27 UA Specific [place] 1.005 Last Edit by Stephany Montaño CMA on 07/12/23 11:27 UA Ketone Negative Last Edit by Stephany Montaño CMA on 07/12/23 11:27 UA Bilirubin 0 mg/dL Last Edit by Stephany Montaño CMA on 07/12/23 11:27 UA Glucose 0 mg/dL Last Edit by tSephany Montaño CMA on 07/12/23 11:27 Results Reviewed Results Reviewed: Laboratory Last Values Urine pH (Auto) 6.0 07/12/23 11:27 Specific [place] (Auto) 1.005 07/12/23 11:27 Urine Protein (Auto) 0 mg/dL 07/12/23 11:27 Glucose (UA)(Auto) 0 mg/dL 07/12/23 11:27 Urine Ketones (Auto) Negative 07/12/23 11:27 Urine Blood (Auto) 0 Calin/uL 07/12/23 11:27 Urine Nitrite (Auto) Positive 07/12/23 11:27 Urine Bilirubin (Auto) 0 mg/dL 07/12/23 11:27 Urine Urobilinogen (Auto) 0.2 mg/dL 07/12/23 11:27 Leukocyte Esterase (Auto) 15 Erlinda/uL 07/12/23 11:27 Urinalysis reviewed Assessment & Plan Assessment & Plan (1) UTI (urinary tract infection): Code(s): N39.0 - Urinary tract infection, site not specified Plan Macrobid 100 mg p.o. q.12 hours x7 days Continue with [id number] Pyridium as needed Drink plenty of fluids Follow up with PCP or return to clinic for new fever, back pain or if symptoms persist. Orders: Orders AMB Urinalysis Automated Today Calderon Lawson MD Z13.9 - Encounter for screening, unspecified Medications: New nitrofurantoin monohyd/m-cryst 100 mg (Macrobid) must administer with a meal/food 100 mg PO Q12H 7 days 14 caps 0RF Janey Dixon APRN, [employer] Coding Level of Care Code Est Pt Level 3 (98944) Diagnoses UTI (urinary tract infection) N39.0
== END 2023-07-12 12:12 | disposition home or self-care (01) ==
PROVIDERS: PCP Internal Medicine; Visit Provider Registered Nurse Emergency
DX: R30.0 Dysuria (principal)
CPT/HCPCS: 81003; 99213

== ENCOUNTER 2023-08-13 12:51 | Outpatient (AMB) | payer BC, SELFPAY ==
--- NOTE | 2023-08-13 12:54 | A.OFFPC_ITS ---
Vital Signs 08/13/23 12:55 Height 5 ft 4 in Weight 171 lb BMI 29.3 BP 112/70 Blood Pressure Location Lt brachial Position Sitting Pulse 73 Pulse Source Pulse Oximeter Pulse Oximetry (%) 98 Oxygen Delivery Method Room Air Intake Visit Reasons: 6 month follow up/nerve pain Allergies No Known Allergies Allergy (Verified 07/12/23 11:24) Medication List - Last Reconciled 08/13/23 by Rodney Jeff MD cholecalciferol (vitamin D3) 25 mcg PO DAILY 90 days meloxicam 15 mg PO DAILY 14 days methylprednisolone 4 mg PO DAILY omeprazole 20 mg PO DAILY 90 days rosuvastatin 10 mg PO DAILY 90 days sumatriptan succinate 50 mg PO ONCE PRN 90 days tizanidine 4 mg PO BID PRN Tobacco use date assessed: 08/13/23 Dental Screening Dental Screen Date: 08/13/23 Did you have a dental visit in the last 12 months?: Yes Did you have a dental problem in the last 6 months where you did not have access to dental care?: No Was dental information given to patient?: Patient has dentist HPI 6 month follow up/nerve pain HPI Details Patient is 87-year-old female came in today for her six-month follow-up appointment 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, 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 Mother No problems noted. Brother No problems noted. Brother No problems noted. Sister No problems noted. 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 Jose Jesus, Evy Glass, Stewart Hudson and colleagues, with an educational jameel from [employer]. Review of Systems Const Denies chills and Denies fever(s) ENT Denies epistaxis and Denies nasal discharge Card Denies chest pain Resp Denies chest congestion, Denies cough and Denies hemoptysis GI Denies diarrhea and Denies nausea Skin/Breast Denies rash Neuro Reports no additional complaints Psych Reports no additional complaints Endo Reports no additional complaints Physical exam (Primary Care) Vital Signs: Last Vital Signs Pulse 73 08/13/23 12:55 BP 112/70 08/13/23 12:55 Pulse Ox 98 08/13/23 12:55 Oxygen Delivery Method Room Air 08/13/23 12:55 BMI result Body Mass Index 29.3 Tobacco/Smoking Status: Tobacco use Status Tobacco use date assessed 08/13/23 08/13/23 12:59 Patient Tobacco Use Status Current everyday Tobacco 08/13/23 12:55 Tobacco use type Cigarette 08/13/23 12:55 e-Cigarette/Vaping Use Never Used 08/13/23 12:55 Thrive Assessment: Date of Thrive Assessment Date Thrive assessed 08/12/22 08/13/23 12:55 Const General: cooperative, comfortable and no acute distress Orientation/consciousness: patient oriented x3 HENMT Head: Yes normocephalic Eyes General: appearance normal, both eyes and all related structures Neck Neck: Yes supple Resp Effort & Inspection: normal respiratory effort, no cough and no stridor Cardio Rhythm: regular rhythm Heart sounds: S1 normal heart sound present and S2 normal heart sound present Skin General skin exam: turgor normal Neuro General: patient oriented x3, tone normal and moves all extremities Extrem Right lower extremity: no edema Left lower extremity: no edema Assessment and Plan Assessment & Plan (1) Migraine headache: Code(s): G43.909 - Migraine, unspecified, not intractable, without status migrainosus Qualifiers: Intractability: intractable Migraine type: other Status migrainosus presence: without status migrainosus Qualified Code(s): G43.819 - Other migraine, intractable, without status migrainosus (2) Lipid disorder: Code(s): E78.9 - Disorder of lipoprotein metabolism, unspecified (3) Impaired fasting blood sugar: Code(s): R73.01 - Impaired fasting glucose (4) Chronic GERD: Code(s): K21.9 - Gastro-esophageal reflux disease without esophagitis (5) Right hip pain: Code(s): M25.551 - Pain in right hip (6) Muscle spasm: Code(s): M62.838 - Other muscle spasm Plan Patient is 57-year-old female came in today for her six-month follow-up appointment 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, 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 So currently she is not working She had a visit with the orthopedic this morning And she was prescribed steroid Meloxicam And muscle relaxer Patient has been having lot of muscle spasms in right upper leg She has started taking magnesium supplement [id number] GERD is stable with omeprazole She is due for labs order placed to be done fasting Continue statin for lipid control Headaches are stable patient have a script for sumatriptan Patient has impaired fasting sugar for that she is trying to control her diet She will return in February for physical exam Orders: Orders Complete Blood Count Auto Diff Today E78.9 - Disorder of lipoprotein metabolism, unspecified, G43.819 - Other migraine, intractable, without status migrainosus, R73.01 - Impaired fasting glucose Magnesium Today K21.9 - Gastro-esophageal reflux disease without esophagitis Comprehensive Art. Panel Fast Today E78.9 - Disorder of lipoprotein metabolism, unspecified, G43.819 - Other migraine, intractable, without status migrainosus, K21.9 - Gastro-esophageal reflux disease without esophagitis, M25.551 - Pain in right hip, R73.01 - Impaired fasting glucose Lipid Panel Today E78.9 - Disorder of lipoprotein metabolism, unspecified, G43.819 - Other migraine, intractable, without status migrainosus, K21.9 - Gastro-esophageal reflux disease without esophagitis, M25.551 - Pain in right hip, R73.01 - Impaired fasting glucose Coding Level of Care Code Est Pt Level 4 (23551) Complex EM visit Add On G2211 Diagnoses Other migraine without status migrainosus, intractable G43.819 Intractability: intractable Migraine type: other Status migrainosus presence: without status migrainosus Lipid disorder E78.9 Impaired fasting blood sugar R73.01 Chronic GERD K21.9 Right hip pain M25.551 Muscle spasm M62.838
[2023-08-13 12:55] VITALS: BP 112/70; PULSE 73; O2SAT 98; BMI 29.3
== END 2023-08-13 14:29 | disposition home or self-care (01) ==
PROVIDERS: PCP Internal Medicine; Visit Provider Internal Medicine
DX: G43.819 Other migraine, intractable, without status migrainosus (principal); E78.9 Disorder of lipoprotein metabolism, unspecified; R73.01 Impaired fasting glucose; K21.9 Gastro-esophageal reflux disease without esophagitis; M25.551 Pain in right hip; M62.838 Other muscle spasm
CPT/HCPCS: 99214; G2211

== ENCOUNTER 2023-08-14 07:00 | Outpatient (REF) | payer BC, SELFPAY ==
[2023-08-14 11:08] LABS: MANUAL DIFF FLAG NO
[2023-08-14 11:11] LABS: Basophils Percent Auto 0.1 % (0-2); Eosinophils Absolute Auto 0.1 X10*3/uL (0.0-0.4); Eosinophils Percent Auto 0.9 % (0-4); Hematocrit 37.5 % (37.0-47.0); Hemoglobin 12.5 g/dl (12.0-16.0); Imm Gran Abs Auto 0.04 X10*3/uL (0.00-0.03); Imm Gran Pct Auto 0.4 % (0.0-0.4); Lymphocytes Percent Auto 10.3 % (20-40); Mean Corpuscular HGB Conc 33.3 g/dl (31.0-35.0); Mean Corpuscular Hemoglobin 29.4 pg (27.0-33.0); Mean Corpuscular Volume 88.2 fL (80.0-98.0); Mean Platelet Volume 9.9 fL (9.4-12.3); Monocytes Absolute Auto 0.6 X10*3/uL (0.1-1.2); Monocytes Percent Auto 6.3 % (2-11); Neutrophils Absolute Auto 8.1 x10*3/uL (2.0-8.3); Platelet Count 282 X10*3/uL (160-400); Red Blood Count 4.25 X10*6/uL (4.20-5.50); Red Cell Distribution Width 12.5 % (11.0-16.0); White Blood Count 9.9 X10*3/uL (4.8-10.8)
[2023-08-14 11:24] LABS: Estimated Average Glucose 111 mg/dL; Hemoglobin A1C 119.3579 umol/L; Hemoglobin A1c % 5.5 % (<6.0)
[2023-08-14 11:38] LABS: Alanine Aminotransferase 25 U/L (0-31); Albumin Level 4.6 g/dL (3.5-5.0); Alkaline Phosphatase 85 U/L (39-117); Anion Gap 16 (12-20); Aspartate Amino Transferase 18 U/L (5-31); Bilirubin Total 0.2 mg/dL (0.0-1.0); Blood Urea Nitrogen 12 mg/dL (9-16); Calcium 10.2 mg/dL (8.4-10.2); Carbon Dioxide 22 mmol/L (22-29); Chloride 108 mmol/L (96-108); Cholesterol 226 mg/dL (<200); Estimated Glomerular Filt Rate > 60; Glucose Fasting 120 mg/dL (60-99); HDL Cholesterol 89 mg/dL (>40); LDL Cholesterol Calculated 121 mg/dL (<100); Magnesium 2.1 mg/dL (1.6-2.6); Potassium 4.9 mmol/L (3.3-5.1); Sodium 141 mmol/L (135-145); Total Protein 7.8 g/dL (6.5-8.0); Triglycerides 84 mg/dL (<150)
== END 2023-08-14 07:01 | disposition home or self-care (01) ==
LOC: HO.HMGCLDS 07:00
PROVIDERS: PCP Internal Medicine; Visit Provider Internal Medicine
DX: G43.819 Other migraine, intractable, without status migrainosus (principal); R73.01 Impaired fasting glucose; E78.9 Disorder of lipoprotein metabolism, unspecified; D64.9 Anemia, unspecified; K21.9 Gastro-esophageal reflux disease without esophagitis; M25.551 Pain in right hip
CPT/HCPCS: 36415; 80053; 80061; 83036; 83735; 85025

== ENCOUNTER 2023-10-22 13:59 | Outpatient (REF) | payer BC, SELFPAY ==
--- NOTE | 2023-10-22 | EMG_ITS ---
Chief complaint: Right thigh spasms, shooting pain right lower extremity, numbness/tingling on toes and bottom of both feet Reason for referral: Evaluate for neuropathy versus radiculopathy Referred by: Dr. Yahir Ba Procedure done: Right lower extremity NCS/EMG Precautions and/or limitations: None The limb temperature was monitored continuously and remained between 32-36 degrees C during the performance of the NCS. Nerve Conduction Studies Anti Sensory Summary Table ?Stim Site NR Onset (ms) Norm Onset (ms) Peak (ms) Norm Peak (ms) O-P Amp (?V) Norm O-P Amp Site1 Site2 Delta-0 (ms) Dist (cm) Anshu (m/s) Norm Anshu (m/s) Right Sup Peron Anti Sensory (Ankle) Lateral Leg ? 2.5 3.4 <4.4 7.7 >5.0 Lateral Leg Ankle 2.5 14.0 56 Left Sural Anti Sensory (Lat Mall) Calf ? 2.5 3.1 <4.0 12.4 >5.0 Calf Lat Mall 2.5 14.0 56 Right Sural Anti Sensory (Lat Mall) Calf ? 2.6 3.2 <4.0 8.4 >5.0 Calf Lat Mall 2.6 14.0 54 Motor Summary Table ?Stim Site NR Onset (ms) Norm Onset (ms) O-P Amp (mV) Norm O-P Amp iAmp (mV) Amp (1st) (%) Site1 Site2 Delta-0 (ms) Dist (cm) Anshu (m/s) Norm Anshu (m/s) Right Peroneal Motor (Ext Dig Brev) Ankle ? 3.5 <4.0 3.5 >2.5 4.1 100.0 Ankle Ext Dig Brev 3.5 0.0 B Fib ? 9.6 3.4 4.1 97.1 B Fib Ankle 6.1 32.0 52 >40 Poplt ? 10.5 3.4 4.1 97.1 Poplt B Fib 0.9 5.0 56 >40 Right Tibial Motor (Abd Jett Brev) Ankle ? 3.0 <5 10.0 >2.5 13.3 100.0 Ankle Abd Jett Brev 3.0 0.0 Knee ? 10.7 9.8 11.9 98.0 Knee Ankle 7.7 41.0 53 >40 EMG ?Side Muscle Nerve Root Ins Act Fibs Psw Amp Dur Poly Recrt Int Pat Comment Right AbdHallucis MedPlantar S1-2 Nml Nml Nml Nml Nml 0 Nml Complete Right AntTibialis Dp Br Peron L4-5 Nml Nml Nml Nml Nml 0 Nml Complete Right PostTibialis Tibial L5, S1 Nml Nml Nml Nml Nml 0 Nml Complete Right MedGastroc Tibial S1-2 Nml Nml Nml Nml Nml 0 Nml Complete Right VastusMed Femoral L2-4 Nml Nml Nml Nml Nml 0 Nml Complete Paraspinal EMG ?Side Muscle Nerve Root Ins Act Fibs Psw Comment Right Lumbar Upper Rami Nml Nml Nml Right Lumbar Mid Rami Nml Nml Nml Right Lumbar Lower Rami Nml Nml Nml FINDINGS: All motor and sensory nerves tested showed normal latencies, amplitudes and conduction velocities. Concentric needle EMG was performed in selected muscles of the right lower extremity and lumbar paraspinals. Study did not reveal signs of electric abnormalities as shown in the table above. IMPRESSION: 1. This is a normal study. 2. There is no electrodiagnostic evidence for peroneal neuropathy, tibial neuropathy, lumbosacral plexopathy, lumbar radiculopathy, or peripheral neuropathy. Thank you for your kind referral. Miriam Colin MD, JESSICA Board Certified, [place] Board of Physical Medicine and Rehabilitation (ABPMR) Board Certified, [place] Board of Electrodiagnostic Medicine (ABEM) CODIN [id number] MTDD
== END 2023-10-22 14:00 | disposition home or self-care (01) ==
LOC: HO.NEURO 13:59
PROVIDERS: PCP Internal Medicine; Visit Provider Physical Medicine & Rehabilitation
DX: M79.661 Pain in right lower leg (principal)
CPT/HCPCS: 95886; 95909

== ENCOUNTER → 2023-10-22 14:18 | Outpatient (BNV) | payer BC, SELFPAY | PROVIDERS: PCP Internal Medicine; Visit Provider Physical Medicine & Rehabilitation | DX: R20.2 Paresthesia of skin (principal); R20.0 Anesthesia of skin; M62.838 Other muscle spasm; M79.604 Pain in right leg | CPT/HCPCS: 95886; 95909 ==

== ENCOUNTER 2024-01-18 08:51 | Outpatient (AMB) | payer BC, SELFPAY ==
--- NOTE | 2024-01-18 08:55 | MHC.PC.OV ---
Vital Signs 01/18/24 08:56 Height 5 ft 4 in Weight 175 lb 2 oz BMI 30.1 BP 124/86 Blood Pressure Location Rt brachial Position Sitting Pulse 70 Pulse Source Pulse Oximeter Pulse Oximetry (%) 98 Oxygen Delivery Method Room Air Intake Visit Reasons: Regular visit Allergies No Known Allergies Allergy (Verified 07/12/23 11:24) Medication List - Last Reconciled 01/18/24 by Rodney Jeff MD cholecalciferol (vitamin D3) 25 mcg PO DAILY 90 days omeprazole 20 mg PO DAILY 90 days rosuvastatin 10 mg PO DAILY 90 days Tobacco use date assessed: 08/13/23 Dental Screening Dental Screen Date: 08/13/23 HPI Regular visit HPI Details Patient is a 58-year-old female came in today for her follow-up appointment She is still struggling with pain radiating to right leg She has seen neurologist, MRI was done, it seems as if it is not surgically relevant medical problems However since her symptoms continue and she does have disc space height reduction L4-L5 area Referral to neurosurgeon can be explored, we talked about it today briefly However at this point I am starting her on gabapentin 100 mg capsules She is to start taking 1 for a week and then to every night Patient will return for follow-up on that in 6 weeks She has seen [facility] as well, they have given her SI joint injection which did not help her Physical therapy did not help her either GERD is stable with omeprazole Lipid disorder: Continue rosuvastatin 10 mg Continue vitamin-D supplement BMI is elevated need to lose weight, which is difficult for the patient due to her back pain 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 [facility] Medical History Osteoarthritis of right hip Right lumbar radiculitis Surgical History Hx of foot surgery (~2018) Family History Father No problems noted. Mother No problems noted. Brother No problems noted. Brother No problems noted. Sister No problems noted. 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 [employer] Cognitive needs: No Hearing needs: No Vision needs: Yes Questionnaire Thrive Questionnaire Date Thrive assessed: 01/18/24 I am a: Patient What is your living situation today?: I choose not to answer this question Within the past 12 months, did the food you bought not last and you didn't have the money to get more?: Never true Within the past 12 months, did you worry whether your food would run out before you got money to buy more?: Never true Do you have trouble paying for medicines?: I choose not to answer this question Do you have trouble getting transportation to medical appointments?: No Do you have trouble paying your heating and electricity bill?: I choose not to answer this question Do you have trouble taking care of your child, family member or friend?: I choose not to answer this question Do you have trouble with day-to-day activities such as bathing, preparing meals, shopping, managing finances, etc.?: I choose not to answer this question Are you currently unemployed and looking for a job?: I choose not to answer this question Are you interested in more education?: I choose not to answer this question Please select the resources that you would like help with: None Currently or been in a relationship where the following occur: No concerns reported THRIVE Score: 0 AUDIT C Alcohol Use Questionnaire (AUDIT-C) 1. How often do you have a drink containing alcohol?: 2-4 times a month 2. How many drinks containing alcohol do you have on a typical day when you are drinking?: 3 or 4 3. How often do you have six or more drinks on one occasion?: Never Total Score: 3 Score Reviewed/Action Taken: Yes DALY-7 AMB Questionnaire DALY-7 Date DALY - 7 assessed: 01/18/24 Feeling nervous, anxious, or on edge: 0 = Not at all Not being able to stop or control worryin = Several days Worrying too much about different things: 1 = Several days Trouble relaxin = Several days Being so restless that it is hard to sit still: 0 = Not at all Becoming easily annoyed or irritable: 0 = Not at all Feeling afraid as if something awful might happen: 0 = Not at all Total DALY-7 score (0-4 normal; 5-9 mild; 10-14 moderate; 15-21 severe): 3 Source: Developed by Drs. Jose Jesus, Evy Glass, Stewart Hudson and colleagues, with an educational jameel from [employer]. DALY-7 Assessment Billing DALY-7 Assessment Tool: DALY-7 Assessment 05986 Review of Systems Const Denies chills and Denies fever(s) ENT Denies epistaxis and Denies nasal discharge Card Denies chest pain Resp Denies chest congestion, Denies cough and Denies hemoptysis GI Denies diarrhea and Denies nausea Skin/Breast Denies rash Neuro Reports no additional complaints Psych Reports no additional complaints Endo Reports no additional complaints Physical exam (Primary Care) Vital Signs: Last Vital Signs Pulse 70 01/18/24 08:56 BP 124/86 01/18/24 08:56 Pulse Ox 98 01/18/24 08:56 Oxygen Delivery Method Room Air 01/18/24 08:56 BMI result Body Mass Index 30.1 Tobacco/Smoking Status: Tobacco use Status Tobacco use date assessed 08/13/23 01/18/24 08:58 Patient Tobacco Use Status Current everyday Tobacco 01/18/24 08:58 Tobacco use type Cigarette 01/18/24 08:58 e-Cigarette/Vaping Use Never Used 01/18/24 08:58 Thrive Assessment: Date of Thrive Assessment Date Thrive assessed 01/18/24 01/18/24 09:05 Currently or been in a relationship where the following occur: No concerns reported Const General: cooperative, comfortable and no acute distress Orientation/consciousness: patient oriented x3 HENMT Head: Yes normocephalic Eyes General: appearance normal, both eyes and all related structures Neck Neck: Yes supple Resp Effort & Inspection: normal respiratory effort, no cough and no stridor Cardio Rhythm: regular rhythm Heart sounds: S1 normal heart sound present and S2 normal heart sound present Skin General skin exam: turgor normal Neuro Other: Neuro exam is nonfocal, straight leg negative bilateral General: patient oriented x3, tone normal and moves all extremities Extrem Right lower extremity: no edema Left lower extremity: no edema Coding Level of Care Code Est Pt Level 4 (53020) Diagnoses Right hip pain M25.551 Impaired fasting blood sugar R73.01 Vitamin D deficiency E55.9 Lipid disorder E78.9 Additional Codes DALY-7 Assessment Billing - DALY-7 Assessment Tool: DALY-7 Assessment 08599 ([id number]) Assessment & Plan Assessment & Plan (1) Right hip pain: Code(s): M25.551 - Pain in right hip Category: Medical (2) Impaired fasting blood sugar: Code(s): R73.01 - Impaired fasting glucose Category: Medical (3) Vitamin D deficiency: Code(s): E55.9 - Vitamin D deficiency, unspecified Category: Medical (4) Lipid disorder: Code(s): E78.9 - Disorder of lipoprotein metabolism, unspecified Category: Medical Plan Patient is a 58-year-old female came in today for her follow-up appointment She is still struggling with pain radiating to right leg She has seen neurologist, MRI was done, it seems as if it is not surgically relevant medical problems However since her symptoms continue and she does have disc space height reduction L4-L5 area Referral to neurosurgeon can be explored, we talked about it today briefly However at this point I am starting her on gabapentin 100 mg capsules She is to start taking 1 for a week and then to every night Patient will return for follow-up on that in 6 weeks She has seen [facility] as well, they have given her SI joint injection which did not help her Physical therapy did not help her either GERD is stable with omeprazole Lipid disorder: Continue rosuvastatin 10 mg Continue vitamin-D supplement BMI is elevated need to lose weight, which is difficult for the patient due to her back pain 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 Orders: Orders Comprehensive Met. Panel Today E55.9 - Vitamin D deficiency, unspecified, E78.9 - Disorder of lipoprotein metabolism, unspecified, M25.551 - Pain in right hip, R73.01 - Impaired fasting glucose LDL Cholesterol Direct Today E55.9 - Vitamin D deficiency, unspecified, E78.9 - Disorder of lipoprotein metabolism, unspecified, M25.551 - Pain in right hip, R73.01 - Impaired fasting glucose Complete Blood Count Auto Diff Today E55.9 - Vitamin D deficiency, unspecified, E78.9 - Disorder of lipoprotein metabolism, unspecified, M25.551 - Pain in right hip, R73.01 - Impaired fasting glucose Comprehensive [place]. Panel Fast Today E55.9 - Vitamin D deficiency, unspecified, E78.9 - Disorder of lipoprotein metabolism, unspecified, M25.551 - Pain in right hip, R73.01 - Impaired fasting glucose Lipid Panel Today E55.9 - Vitamin D deficiency, unspecified, E78.9 - Disorder of lipoprotein metabolism, unspecified, M25.551 - Pain in right hip, R73.01 - Impaired fasting glucose Complete Blood Count Auto Diff Today E55.9 - Vitamin D deficiency, unspecified, E78.9 - Disorder of lipoprotein metabolism, unspecified, M25.551 - Pain in right hip, R73.01 - Impaired fasting glucose Vitamin D 25-OH (D2 and D3) Today E55.9 - Vitamin D deficiency, unspecified, E78.9 - Disorder of lipoprotein metabolism, unspecified, M25.551 - Pain in right hip, R73.01 - Impaired fasting glucose Hemoglobin A1c Today E55.9 - Vitamin D deficiency, unspecified, E78.9 - Disorder of lipoprotein metabolism, unspecified, M25.551 - Pain in right hip, R73.01 - Impaired fasting glucose Medications: New gabapentin 200 mg (2 x 100 mg) PO BEDTIME 90 days 180 caps 0RF
[2024-01-18 08:56] VITALS: BP 124/86; PULSE 70; O2SAT 98; BMI 30.1
== END 2024-01-18 09:22 | disposition home or self-care (01) ==
PROVIDERS: PCP Internal Medicine; Visit Provider Internal Medicine
DX: M25.551 Pain in right hip (principal); R73.01 Impaired fasting glucose; E55.9 Vitamin D deficiency, unspecified; E78.9 Disorder of lipoprotein metabolism, unspecified

== ENCOUNTER → 2024-01-18 08:51 | Outpatient (BNVA) | payer BC, SELFPAY | PROVIDERS: PCP Internal Medicine; Visit Provider Internal Medicine | DX: M25.551 Pain in right hip (principal); R73.01 Impaired fasting glucose; E55.9 Vitamin D deficiency, unspecified; E78.9 Disorder of lipoprotein metabolism, unspecified | CPT/HCPCS: 96127 ==

== ENCOUNTER 2024-01-26 07:10 | Outpatient (REF) | payer BC, SELFPAY ==
[2024-01-26 10:08] LABS: MANUAL DIFF FLAG NO
[2024-01-26 10:18] LABS: Basophils Absolute Auto 0.1 X10*3/uL (0.0-0.2); Basophils Percent Auto 0.9 % (0-2); Eosinophils Absolute Auto 0.1 X10*3/uL (0.0-0.4); Eosinophils Percent Auto 1.8 % (0-4); Hematocrit 35.8 % (37.0-47.0); Hemoglobin 11.7 g/dl (12.0-16.0); Imm Gran Abs Auto 0.01 X10*3/uL (0.00-0.03); Imm Gran Pct Auto 0.2 % (0.0-0.4); Lymphocytes Absolute Auto 1.3 X10*3/uL (1.2-4.9); Lymphocytes Percent Auto 23.8 % (20-40); Mean Corpuscular HGB Conc 32.7 g/dl (31.0-35.0); Mean Corpuscular Hemoglobin 29.3 pg (27.0-33.0); Mean Corpuscular Volume 89.7 fL (80.0-98.0); Mean Platelet Volume 9.9 fL (9.4-12.3); Monocytes Absolute Auto 0.6 X10*3/uL (0.1-1.2); Monocytes Percent Auto 10.3 % (2-11); Neutrophils Absolute Auto 3.4 x10*3/uL (2.0-8.3); Platelet Count 265 X10*3/uL (160-400); Red Blood Count 3.99 X10*6/uL (4.20-5.50); Red Cell Distribution Width 12.1 % (11.0-16.0); White Blood Count 5.5 X10*3/uL (4.8-10.8)
[2024-01-26 10:36] LABS: Estimated Average Glucose 114 mg/dL; Hemoglobin A1c % 5.6 % (<6.0); Total Hemoglobin (HGBA1C) 2947.9497 umol/L
[2024-01-26 11:22] LABS: Alanine Aminotransferase 57 U/L (0-31); Albumin Level 4.2 g/dL (3.5-5.0); Alkaline Phosphatase 79 U/L (39-117); Anion Gap 11 (12-20); Aspartate Amino Transferase 51 U/L (5-31); Bilirubin Total 0.4 mg/dL (0.0-1.0); Blood Urea Nitrogen 11 mg/dL (9-16); Calcium 9.5 mg/dL (8.4-10.2); Carbon Dioxide 26 mmol/L (22-29); Chloride 109 mmol/L (96-108); Cholesterol 206 mg/dL (<200); Estimated Glomerular Filt Rate > 60; Glucose Fasting 103 mg/dL (60-99); HDL Cholesterol 74 mg/dL (>40); LDL Cholesterol Calculated 116 mg/dL (<100); Potassium 4.2 mmol/L (3.3-5.1); Sodium 142 mmol/L (135-145); Total Protein 7.1 g/dL (6.5-8.0); Triglycerides 81 mg/dL (<150)
[2024-01-28 05:28] LABS: LDL Cholesterol Direct 118 mg/dL (<100)
[2024-02-01 14:08] LABS: Vitamin D 25-OH, D2 <4 ng/mL; Vitamin D 25-OH, D3 22 ng/mL; Vitamin D 25-OH, Total 22 ng/mL (30-100)
== END 2024-01-26 07:11 | disposition home or self-care (01) ==
LOC: HO.HMGCLDS 07:10
PROVIDERS: PCP Internal Medicine; Visit Provider Internal Medicine
DX: R73.01 Impaired fasting glucose (principal); E55.9 Vitamin D deficiency, unspecified; E78.9 Disorder of lipoprotein metabolism, unspecified; M25.551 Pain in right hip
CPT/HCPCS: 36415; 80053; 80061; 82306; 83036; 83721; 85025

== ENCOUNTER 2024-02-04 08:30 | Outpatient (AMB) | payer BC, SELFPAY ==
--- NOTE | 2024-02-04 08:31 | MHC.PC.OV ---
Vital Signs 02/04/24 08:32 Height 5 ft 4 in Weight 171 lb BMI 29.3 BP 100/70 Blood Pressure Location Rt brachial Position Sitting Pulse 76 Pulse Source Pulse Oximeter Pulse Oximetry (%) 97 Oxygen Delivery Method Room Air Intake Visit Reasons: Annual PE Allergies No Known Allergies Allergy (Verified 02/04/24 08:33) Medication List - Last Reconciled 02/04/24 by Rodney Jeff MD gabapentin 200 mg (2 x 100 mg) PO BEDTIME 90 days omeprazole 20 mg PO DAILY 90 days rosuvastatin 10 mg PO DAILY 90 days tramadol 50 mg PO DAILY PRN 15 days Tobacco use date assessed: 02/04/24 Dental Screening Dental Screen Date: 02/04/24 Did you have a dental visit in the last 12 months?: No Did you have a dental problem in the last 6 months where you did not have access to dental care?: No Was dental information given to patient?: Patient has dentist HPI Annual PE HPI Details 58-year-old female came in today for physical examination Colonoscopy was 2020 [facility] located at [facility] patient have to call in book the appointment Due for mammogram, tells me that she will book appointment herself He continued to have back pain radiating to right leg Gabapentin did not help her, she was given 200 mg of gabapentin at night That is making patient do tired she will stop that Instead to patient may take tramadol 50 mg at night, 90 tablets sent She is aware of side effects Labs done of this month Showed hemoglobin of 11.7 which does fluctuate up and down for the patient Fasting sugar was 103 patient is aware that she is prediabetic Her LFTs are slightly elevated , we will repeat labs again in 3 months for that Vitamin-D level is low she needs to continue supplement Patient will return in 3 months for follow-up appointment For her back I have placed referral to neurosurgery for evaluation. Detail on her back please see my last visit note PFSH Medical History Osteoarthritis of right hip Right lumbar radiculitis Surgical History Hx of foot surgery (~2018) Family History Father No problems noted. Mother No problems noted. Brother No problems noted. Brother No problems noted. Sister No problems noted. 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 1. Little interest or pleasure in doing things: not at all 2. Feeling down, depressed, or hopeless: not at all 3. Trouble falling or staying asleep, or sleeping too much: not at all 4. Feeling tired or having little energy: nearly every day 5. Poor appetite or overeating: nearly every day 6. Feeling bad about yourself - or that you are a failure or have let yourself or your family down: not at all 7. Trouble concentrating on things, such as reading the newspaper or watching television: not at all 8. Moving or speaking so slowly that other people could have noticed. Or the opposite - being so fidgety or restless that you have been moving around a lot more than usual: not at all 9. Thoughts that you would be better off or of hurting yourself in some way: not at all Total score: 6 Depression Screening Interpretation: Negative Depression Screening Done: Yes 24284 - PHQ-9 Billing: Yes Source: Developed by Drs. Jose Jesus, Evy Glass, Stewart Hudson and colleagues, with an educational jameel from [employer]. Thrive Questionnaire Date Thrive assessed: 02/04/24 I am a: Patient What is your living situation today?: I choose not to answer this question Within the past 12 months, did the food you bought not last and you didn't have the money to get more?: Never true Within the past 12 months, did you worry whether your food would run out before you got money to buy more?: Never true Do you have trouble paying for medicines?: I choose not to answer this question Do you have trouble getting transportation to medical appointments?: No Do you have trouble paying your heating and electricity bill?: I choose not to answer this question Do you have trouble taking care of your child, family member or friend?: I choose not to answer this question Do you have trouble with day-to-day activities such as bathing, preparing meals, shopping, managing finances, etc.?: I choose not to answer this question Are you currently unemployed and looking for a job?: I choose not to answer this question Are you interested in more education?: I choose not to answer this question Please select the resources that you would like help with: None Currently or been in a relationship where the following occur: I choose not to answer THRIVE Score: 0 AUDIT C Alcohol Use Questionnaire (AUDIT-C) 1. How often do you have a drink containing alcohol?: Monthly or less 2. How many drinks containing alcohol do you have on a typical day when you are drinking?: 1 or 2 Total Score: 1 DALY-7 AMB Questionnaire DALY-7 Date DALY - 7 assessed: 01/18/24 Worrying too much about different things: 0 = Not at all Trouble relaxin = Not at all Source: Developed by Drs. Jose Jesus, Evy Glass, Stewart Hudson and colleagues, with an educational jameel from [employer]. Review of Systems Const Denies chills, Denies fever(s) and Denies headache(s) Eyes Denies blurry vision ENT Denies headache(s), Denies nasal discharge, Denies nasal obstruction, Denies odynophagia and Denies sinus pain Card Denies chest pain at rest and Denies chest pain with activity Resp Denies cough and Denies hemoptysis GI Denies diarrhea, Denies odynophagia, Denies vomiting and Denies hematemesis Reports as per HPI Musc Denies abnormal gait Skin/Breast Reports as per HPI Neuro Denies Neuro-related abnormal movements, Denies Abnormal speech present, Denies abnormal gait and Denies headache(s) Psych Denies mood swings and Denies paranoia Endo Reports as per HPI Lisandro/Lymph Reports as per HPI Aller/Immun Reports as per HPI Physical exam (Primary Care) Vital Signs: Last Vital Signs Pulse 76 02/04/24 08:32 BP 100/70 02/04/24 08:32 Pulse Ox 97 02/04/24 08:32 Oxygen Delivery Method Room Air 02/04/24 08:32 BMI result Body Mass Index 29.3 Tobacco/Smoking Status: Tobacco use Status Tobacco use date assessed 02/04/24 02/04/24 08:38 Patient Tobacco Use Status Former Tobacco user 02/04/24 08:38 Tobacco use type Cigarette 02/04/24 08:33 e-Cigarette/Vaping Use Never Used 02/04/24 08:33 PHQ-9: PHQ-9 Score PHQ-9: Total score 6 02/04/24 08:48 Depression Screening Interpretation: Negative Thrive Assessment: Date of Thrive Assessment Date Thrive assessed 02/04/24 02/04/24 08:38 Currently or been in a relationship where the following occur: I choose not to answer Const General: cooperative, comfortable and no acute distress Orientation/consciousness: patient oriented x3 HENMT Head: Yes normocephalic and Yes atraumatic Eyes General: appearance normal, both eyes and all related structures Pupils: Equal, round and reactive pupils present EOM: EOMs intact bilaterally Neck Neck: Yes supple and No lymphadenopathy Thyroid: Thyroid normal Lymphatic: no lymphadenopathy noted Chest Breast/axilla palpation: normal palpation of the breasts Resp Effort & Inspection: normal respiratory effort and able to speak in complete sentences Auscultation: clear to auscultation bilaterally Cardio Heart sounds: S1 normal heart sound present and S2 normal heart sound present GI Palpation (GI): Soft to palpation and nontender Auscultation: normal bowel sounds General: Yes no CVA tenderness Back/Spine/Pelvis Back: no CVA tenderness Skin General skin exam: elasticity normal and turgor normal Neuro General: patient oriented x3 and gait normal Cranial nerves: Yes Equal, round and reactive pupils present Speech: No Abnormal speech present Extrem General: Yes normal exam except as noted and No edema Coding Level of Care Code Est Pt Level 4 (83995) Est Pt Prev Care 40-64y(23582) Diagnoses Encounter for general adult medical examination with abnormal findings Z00.01 Right lumbar radiculitis M54.16 Sciatica of right side M54.31 Laterality: right LFT elevation R79.89 Impaired fasting blood sugar R73.01 Vitamin D deficiency E55.9 Other iron deficiency anemia D50.8 Anemia type: iron deficiency Iron deficiency anemia type: other iron deficiency Assessment & Plan Assessment & Plan (1) Encounter for general adult medical examination with abnormal findings: Code(s): Z00.01 - Encounter for general adult medical examination with abnormal findings Category: Medical (2) Right lumbar radiculitis: Code(s): M54.16 - Radiculopathy, lumbar region Category: Medical (3) Sciatica: Code(s): M54.30 - Sciatica, unspecified side Category: Medical Qualifiers: Laterality: right Qualified Code(s): M54.31 - Sciatica, right side (4) LFT elevation: Code(s): R79.89 - Other specified abnormal findings of blood chemistry Category: Medical (5) Impaired fasting blood sugar: Code(s): R73.01 - Impaired fasting glucose Category: Medical (6) Vitamin D deficiency: Code(s): E55.9 - Vitamin D deficiency, unspecified Category: Medical (7) Anemia: Code(s): D64.9 - Anemia, unspecified Category: Medical Qualifiers: Anemia type: iron deficiency Iron deficiency anemia type: other iron deficiency Qualified Code(s): D50.8 - Other iron deficiency anemias Plan 58-year-old female came in today for physical examination Colonoscopy was 2020 [facility] located at [facility] patient have to call in book the appointment Due for mammogram, tells me that she will book appointment herself He continued to have back pain radiating to right leg Gabapentin did not help her, she was given 200 mg of gabapentin at night That is making patient do tired she will stop that Instead to patient may take tramadol 50 mg at night, 90 tablets sent She is aware of side effects Labs done of this month Showed hemoglobin of 11.7 which does fluctuate up and down for the patient Fasting sugar was 103 patient is aware that she is prediabetic Her LFTs are slightly elevated , we will repeat labs again in 3 months for that Vitamin-D level is low she needs to continue supplement Patient will return in 3 months for follow-up appointment For her back I have placed referral to neurosurgery for evaluation. Detail on her back please see my last visit note Orders: Orders Comprehensive Met. Panel Today R79.89 - Other specified abnormal findings of blood chemistry Referrals Neurosurgery Referral M54.16 - Radiculopathy, lumbar region, M54.31 - Sciatica, right side Medications: Changed From tramadol 50 mg PO DAILY 15 days PRN 15 tabs 0RF pain To tramadol 50 mg PO .qhs 90 days 90 tabs 0RF pain
[2024-02-04 08:32] VITALS: BP 100/70; PULSE 76; O2SAT 97; BMI 29.3
== END 2024-02-04 08:59 | disposition home or self-care (01) ==
LOC: HO.HMCC 08:31
PROVIDERS: PCP Internal Medicine; Visit Provider Internal Medicine
DX: Z00.00 Encounter for general adult medical examination without abnormal findings (principal); M54.16 Radiculopathy, lumbar region; M54.31 Sciatica, right side; R73.01 Impaired fasting glucose; E55.9 Vitamin D deficiency, unspecified; D50.8 Other iron deficiency anemias

== ENCOUNTER → 2024-02-04 08:30 | Outpatient (BNVA) | payer BC, SELFPAY | PROVIDERS: PCP Internal Medicine; Visit Provider Internal Medicine ==

== ENCOUNTER 2024-02-09 13:42 | Outpatient (AMB) | payer BC, SELFPAY ==
--- NOTE | 2024-02-09 14:00 | HO.SPINEOV ---
Intake Visit Reasons: LBP Intake Note: Ms. Perez is here today c/o low back pain and stiffness that radiates down to the right leg and toes. Scholarship Counselor Required: No Allergies No Known Allergies Allergy (Verified 02/09/24 14:01) Assessment & Plan Assessment & Plan (1) Lumbar radiculopathy: Code(s): M54.16 - Radiculopathy, lumbar region Category: Medical Plan Dear Dr. Jeff, Thank you for referring Kim to our office today. She is a pleasant 58 y/o female who comes in today with a CC of low back pain with shooting pains into her right lower extremity. She reports that the radiation of pain starts in her low back shoots over the right hip, down the right lateral thigh, and terminates near the right ankle. She also has had intermittent shooting pains into her right groin in the past, but feels as though this was somewhat addressed by her right-sided total hip arthroplasty, which she had completed in 2022. She denies any known inciting incident for her low back pain but does state that she has a ?disc bulge at L4-5 that she has had for the past 7 years. 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 She has been evaluated by [facility], [facility], and has had several different interventions attempted to help alleviate her pain. She has been to physical therapy, she has tried care team coordinator scheduler, she has tried several epidural steroid injections, SI joint injections, and found none of these to be helpful. In addition to this, she has tried a plethora of ndqe-jol-okmsodi medications including Tylenol, ibuprofen, and lidocaine patches. She has also tried prescription pain control such as gabapentin and tramadol. PMH: Right total hip arthroplasty 2022. GERD, hyperlipidemia. Social hx: The patient does not smoke, reports no substance use. Medications: Omeprazole, rosuvastatin. Allergies: NKDA. Physical exam: The patient has 5/5 strength in her upper and lower extremities. Her reflexes are 2+ intact. She has no significant sensational deficits. She ambulates well and rises from a seated position without difficulty. (-) Mcbride's, (-) clonus, (-) bilateral straight leg raise, (-) Marie's. Imaging review: MRI of the lumbar spine completed at [facility] in October of this year shows some evidence of slight degenerative disc at L3-4 L4-5. There is a small posterior disc bulge at L4-5 causing what I would call mild-moderate bilateral foraminal stenosis at this level. She does have quite a bit of facet arthropathy seen in the lower portion of the lumbar spine. Impression: Kim is a pleasant 58-year-old female who comes in today with a chief complaint of low back pain and shooting pains down her right lower extremity. I can not find anything on physical exam testing or imaging that would support a surgical intervention to help alleviate this issue. She did have partial resolution of this radiculopathy after her right total hip arthroplasty so I am curious if this may be the originating cause versus her lumbar spine. She does have facet arthropathy in her lumbar spine which appears to be advanced most between L3-5. I discussed the possibility of referring her to our colleagues in pain management for both evaluation of pain control and discussion of facet injections. She is agreeable to this and I will place the referral for her. Thank you for allowing us to care for your patient. The total time spent with this visit with this patient was 45 minutes reviewing history, physical exam, MRI imaging review, and implementation of treatment plan or further diagnostic testing Soto Fall MD,PhD [facility] Coding Level of Care Code New Pt Level 4 (64033) Diagnoses Lumbar radiculopathy M54.16
== END 2024-02-09 14:50 | disposition home or self-care (01) ==
LOC: HO.HNS 13:43
PROVIDERS: PCP Internal Medicine; Referring Provider Internal Medicine; Visit Provider Physician Assistant
DX: M54.16 Radiculopathy, lumbar region (principal)
CPT/HCPCS: 99204

== ENCOUNTER 2024-02-25 09:38 | Outpatient (AMB) | payer BC, SELFPAY ==
--- NOTE | 2024-02-25 09:44 | MHC.OFFVIS ---
Vital Signs 02/25/24 09:53 Height 5 ft 4 in Weight 176 lb 2 oz BMI 30.2 BP 136/92 H Blood Pressure Location Lt brachial Position Sitting Pulse 68 Pulse Source Pulse Oximeter Pulse Oximetry (%) 96 Oxygen Delivery Method Room Air Intake Visit Reasons: Spondylosis w/o Myelopathy or Radiculopathy Intake Note: Pain today 07/13 Yoke Presser Required: No Accompanied by: Self / Same As Patient Allergies No Known Allergies Allergy (Verified 02/25/24 09:54) HPI HPI Spondylosis w/o Myelopathy or Radiculopathy: Details: Patient is a 58 years old female presents today for evaluation of right sided low back pain radiating into right lateral hip and thigh. She was seen in our office in [address] Harris and underwent injections as noted below. Patient reports her right groin pain has resolved with right hip replacement. Back pain with intermittent sciatica has been longstanding issue for patient. She reports right sided lower back pain that radiates right leg with movements, changing positions, driving, sleeping and daily activities. Pain is localized to right lateral heat in consistent with greater trochanteric bursitis. Pain is described as constant aching, cramping, numbness, tingling, tiring, sharp, cramping, heavy, and tiring. She has completed physical therapy, TENS unit and chiropractic adjustments and continues home stretching exercises is minimal improvements. Patient was evaluated by [facility] [place] this month and was deemed non-surgical and was told her pain is mostly facet-mediated. Lumbar spine MRI was completed at [place], full report is not available today. Imaging review from [facility] [place] is noted below. Recent EMG/NVC study was normal. Patient has tried to manage her symptoms with [id number] medications including Tylenol, ibuprofen, lidocaine patches as well as prescribed medication such as gabapentin and tramadol without significant pain relief. Denies any fever or chills, abdominal or groin pain, weakness, footdrop, bladder or bowel dysfunction or saddle anesthesia. Past Procedures: 02/05/21: Dx L lat femoral cutaneous nerve block w/fluoro- good relief 01/01/21:? Right L4, L5 TFESI - >50% relief that is ongoing one week out? PSSP Procedrues: 08/2023: Right Diagnostic SIJ injection- no pain relief [facility]OS Procedures: 10/2022: Right hip replacement-helped with groin pain PRIOR 12/06/20 Dr. Harris: Patient is a 55-year-old female presenting with a history of back pain and sciatica ongoing for years. Patient presents with pain in her right lower-back and buttock area radiating down to the outside of the right foot. She endorses some tingling on the right big toe. The pain is described as an ?achy? feeling associated with numbness. She is unable to sleep or function normally. Patient states she struggles to properly lay down in a comfortable position due to the pain. Movements increase the pain and heat application decrease the pain. She explicitly denies left-sided involvement. She does not feel that the pain is midline. She reports 1 incident after bowling about 8 years ago where she felt sudden, excruciating right-sided pain around the lower back and hip the following morning. Denies any other history of trauma to the right side. She did have an x-ray of the hip last year that showed mild osteoarthritis. Patient has had one BERTA in the past with minimal relief. She is undergoing physical therapy which provides temporary relief, she is also undergoing chiropractic treatment which does not provide relief, and TENs therapy which provides temporary relief. Patient uses Tylenol and Aleve which does not provide much relief either. 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 She also rides horses avidly and reports feeling better after rides. Denies impact during rides. Location Right lower-back, buttock area radiating down to the right foot Duration Many years Characteristics of symptom or complaint Achy , Tingling , associated with numbness Aggravating or associated factors Movement Relieving factors Heat application, oral medication Treatment Tylenol, Aleve [facility] Medical History (Updated 02/27/24 @ 19:00 by GREG Nicholas) Lumbar degenerative disc disease Right ankle sprain Left ankle sprain Anemia Constipation Chronic GERD Sinusitis Sore throat, chronic Vitamin D deficiency Impaired fasting blood sugar Lipid disorder Facet arthropathy Ankle pain, left Migraine headache Meralgia paresthetica of right side Osteoarthritis of right hip Right lumbar radiculitis Surgical History (Updated 02/27/24 @ 18:56 by GREG Nicholas) History of hip replacement, total Hx of foot surgery (~2018) Family History Father No problems noted. Mother No problems noted. Brother No problems noted. Brother No problems noted. Sister No problems noted. 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 Alert and oriented. Mood and affect appropriate. Follows and participates in conversation appropriately. Respiratory effort is unlabored. Able to transition from sit to stand unassisted. Able to stand and walk on toes (L5-S1) and heels (L4-L5). General: Yes no CVA tenderness Back/Spine/Pelvis Other: Patient is able to walk and stand on heels and tip toes with no difficulties demonstrating good motor tone. No limping. Mild pain with facet loading bilaterally. Demonstrates 5/5 left and 4/5 right strength of quadriceps bilaterally as well as flexion/dorsiflexion of bilateral feet against resistance. 2+ pedal pulses bilaterally. Straight leg rise with dorsiflexion negative bilaterally. +2 patellar and achilles reflexes bilaterally. Carmel sign, limited on the right Osmar?s, Pelvic compression and Stinchfield tests are positive on the right, negative on the left. No groin pain with I/E hip rotations. Significant TTP right GTB. Valsalva maneuver negative. Leg discrepancy noted, right shorter than left, patient wears right shoe inserts. Back: no CVA tenderness Cervical Spine: cervical ROM normal, No cervical muscular tenderness, No Cervical spine tenderness and No step off deformity Thoracic/Lumbar Spine: thoracic and lumbar spine normal to inspection, No Thoracic/lumbar spine scar(s), thoraco-lumbar ROM normal, Lasegue's sign negative, straight leg raise negative bilaterally, No thoracic spinal tenderness and No lumbar spinal tenderness Pelvis: no buttock tenderness Sacroiliac joints: on the right tender to palpation and on the left nontender Extrem General: Yes capillary refill normal, Yes no clubbing, cyanosis or edema and Yes no calf tenderness Results Reviewed Results Reviewed: Lumbar Spine MRI (January 2020): Diffuse disc bulge at the L4-L5 level abutting the traversing nerve root at this level without obvious compression. Mild modic changes with degeneration at L4/L5 endplates. Hip X-Ray (July 2019): Mild early degenerative arthritic changes in the hip. [facility] [place] Imaging review 02/2024, Soto Lara PA-C: MRI of the lumbar spine completed at [facility] in October of this year shows some evidence of slight degenerative disc at L3-4 L4-5. There is a small posterior disc bulge at L4-5 causing what I would call mild-moderate bilateral foraminal stenosis at this level. She does have quite a bit of facet arthropathy seen in the lower portion of the lumbar spine. NE electromyogram (EMG); NE nerve conduction velocity 11/01/23 FINDINGS: All motor and sensory nerves tested showed normal latencies, amplitudes and conduction velocities. Concentric needle EMG was performed in selected muscles of the right lower extremity and lumbar paraspinals. Study did not reveal signs of electric abnormalities as shown in the table above. IMPRESSION: 1. This is a normal study. 2. There is no electrodiagnostic evidence for peroneal neuropathy, tibial neuropathy, lumbosacral plexopathy, lumbar radiculopathy, or peripheral neuropathy. Assessment & Plan Assessment & Plan (1) Facet arthropathy: Code(s): M47.819 - Spondylosis without myelopathy or radiculopathy, site unspecified Category: Medical (2) Greater trochanteric bursitis of right hip: Code(s): M70.61 - Trochanteric bursitis, right hip Category: Medical (3) Lumbar degenerative disc disease: Code(s): M51.369 - Other intervertebral disc degeneration, lumbar region without mention of lumbar back pain or lower extremity pain Category: Medical Plan Schedule for right therapeutic GTB injection with local and fluoroscopy for ongoing right lateral hip pain. For axial low back pain, will consider lumbar diagnostic medial branch blocks for potential RFA, Sprint PNS trial or therapeutic injections. All questions were answered and the patient is in agreement of plan. Follow-up after injection and sooner as needed. Anticoagulants: Patient not on anticoagulants. Justification for interventional therapy: ? Patient with average pain > 6/10 and struggles to perform ADLs, sleep and work normally. ? Patient has tried and failed massage therapy, physical therapy, chiropractic interventions, TENS unit, NSAIDs, injections (TFESI, SIJ) The risks, consequences, alternatives, and benefits of various treatment options were discussed with the patient in great detail, including conservative management, injections and procedures. Medications: Discontinued gabapentin Discontinued Reason: Patient no longer taking 200 mg (2 x 100 mg) PO BEDTIME 90 days 180 caps 0RF Coding Level of Care Code New Pt Level 4 (12577) Complex EM visit Add On G2211 Diagnoses Facet arthropathy M47.819 Greater trochanteric bursitis of right hip M70.61 Lumbar degenerative disc disease M51.369
[2024-02-25 09:53] VITALS: BP 136/92; PULSE 68; O2SAT 96; BMI 30.2
== END 2024-02-25 10:30 | disposition home or self-care (01) ==
PROVIDERS: PCP Internal Medicine; Referring Provider Physician Assistant; Visit Provider Nurse Practitioner Family
DX: M47.819 Spondylosis without myelopathy or radiculopathy, site unspecified (principal); M70.61 Trochanteric bursitis, right hip; M51.369 Other intervertebral disc degeneration, lumbar region without mention of lumbar back pain or lower extremity pain
CPT/HCPCS: 99204

== ENCOUNTER 2024-03-07 10:04 | Outpatient (AMB) | payer BC, SELFPAY ==
[2024-03-07 10:13] VITALS: BP 122/74; PULSE 78; O2SAT 98; BMI 29.6
--- NOTE | 2024-03-07 10:13 | A.OFFPC_ITS ---
Vital Signs 03/07/24 10:13 Height 5 ft 4 in Weight 172 lb 4 oz BMI 29.6 BP 122/74 Blood Pressure Location Rt brachial Position Sitting Pulse 78 Pulse Source Pulse Oximeter Pulse Oximetry (%) 98 Oxygen Delivery Method Room Air Intake Visit Reasons: 6 weeks f/up Allergies No Known Allergies Allergy (Verified 03/07/24 10:14) Medication List - Last Reconciled 03/07/24 by Rodney Jeff MD omeprazole 20 mg PO DAILY 90 days rosuvastatin 10 mg PO DAILY 90 days Tobacco use date assessed: 03/07/24 Dental Screening Dental Screen Date: 03/07/24 Did you have a dental visit in the last 12 months?: Yes Did you have a dental problem in the last 6 months where you did not have access to dental care?: No Was dental information given to patient?: Patient has dentist HPI 6 weeks f/up HPI Details Chief Complaint Persistent lumbar pain with radiation and associated difficulty in mobility. Assessment and Plan 58-year-old female with history of lumba r disc herniation and lumbar spondylosis, presenting with chronic lumbar pain and sciatica. The patient sees multiple specialists, with a consensus that the disc herniation does not justify surgical intervention. Pain management strategies have been initiated, including a bursa injection and physical therapy. The patient experiences significant functional limitations and reports poor response to previous therapies including physical therapy. Tramadol provides some pain relief but is insufficient when taken sporadically. No neurologic deficits were noted in prior evaluations, with normal nerve conduction tests. Current symptoms and treatment plan were reviewed, and an increase in tramadol dosage was recommended to manage pain and improve functionality. 1. Chronic Lumbar Pain For chronic lumbar pain, patient education and counseling on pain management involving increased tramadol use were provided. Risk of dependence and potential side effects such as constipation were addressed, with advice on moderation and future medical review. 2. Lumbar Disc Herniation The lumbar disc herniation continues to require non-surgical management. Neurological evaluations have shown no significant nerve compression. Pain management includes bursa injections and consideration of physical therapy despite previous limited response. Further surgical intervention is not indicated at this time. 3. Sciatica The symptoms of sciatica were primarily discussed with relation to pain radiating to the lower limb. Conservative management with physical therapy and medication adjustments of tramadol were advised. Emphasis on moderating activity and use of assistive devices like a cane was discussed. 4. Lumbar Spondylosis Arthritis The patient's lumbar spondylosis was assessed with consideration of pain management strategies. Exercise, stretching, and physical therapy were recommended. Tramadol is advised to be taken up to three times daily to aid in functional activities. Follow-up and monitoring for possible need of stronger analgesics are pending patient response. Problem List - Lumbar Disc Herniation - Lumbar Spondylosis (Arthritis) - Sciatica - Chronic Lumbar Pain Patient Instructions - Take tramadol as prescribed, up to thr ee times daily, being cautious of potential side effects like constipation and dependence. - Continue with prescribed sports physical therapist apy exercises at home, focusing on lumbar strengthening and stretching. - Attend the appointment with the physic al therapist for further management guidance. - Use the assistive cane as needed for m obility support. - Schedule follow-up appointments every three months for pain management review. - Maintain a regular activity level as t olerated, avoiding activities that worsen pain. - Contact the clinic if the pain persist s, worsens, or if there are any medication-related side effects. - Book an appointment with the pharmacy if issues arise in prescription refill. [facility] Medical History Lumbar degenerative disc disease Right ankle sprain Left ankle sprain Anemia Constipation Chronic GERD Sinusitis Sore throat, chronic Vitamin D deficiency Impaired fasting blood sugar Lipid disorder Facet arthropathy Ankle pain, left Migraine headache Meralgia paresthetica of right side Osteoarthritis of right hip Right lumbar radiculitis Surgical History History of hip replacement, total Hx of foot surgery (~2018) Family History Father No problems noted. Mother No problems noted. Brother No problems noted. Brother No problems noted. Sister No problems noted. 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 Cognitive needs: No Hearing needs: No Vision needs: Yes Questionnaire Thrive Questionnaire Date Thrive assessed: 03/07/24 I am a: Patient What is your living situation today?: I choose not to answer this question Within the past 12 months, did the food you bought not last and you didn't have the money to get more?: Never true Within the past 12 months, did you worry whether your food would run out before you got money to buy more?: Never true Do you have trouble paying for medicines?: I choose not to answer this question Do you have trouble getting transportation to medical appointments?: No Do you have trouble paying your heating and electricity bill?: I choose not to answer this question Do you have trouble taking care of your child, family member or friend?: I choose not to answer this question Do you have trouble with day-to-day activities such as bathing, preparing meals, shopping, managing finances, etc.?: I choose not to answer this question Are you currently unemployed and looking for a job?: I choose not to answer this question Are you interested in more education?: I choose not to answer this question Please select the resources that you would like help with: None Currently or been in a relationship where the following occur: I choose not to answer THRIVE Score: 0 AUDIT C Alcohol Use Questionnaire (AUDIT-C) 1. How often do you have a drink containing alcohol?: Monthly or less 2. How many drinks containing alcohol do you have on a typical day when you are drinking?: 1 or 2 3. How often do you have six or more drinks on one occasion?: Never Total Score: 1 Score Reviewed/Action Taken: Yes DALY-7 AMB Questionnaire DALY-7 Date DALY - 7 assessed: 01/18/24 Source: Developed by Drs. Jose Jesus, Evy Glass, Stewart Hudson and colleagues, with an educational jameel from [employer]. Review of Systems Const Denies chills and Denies fever(s) ENT Denies epistaxis and Denies nasal discharge Card Denies chest pain Resp Denies chest congestion, Denies cough and Denies hemoptysis GI Denies diarrhea and Denies nausea Skin/Breast Denies rash Neuro Reports no additional complaints Psych Reports no additional complaints Endo Reports no additional complaints Physical exam (Primary Care) Vital Signs: Last Vital Signs Pulse 78 03/07/24 10:13 BP 122/74 03/07/24 10:13 Pulse Ox 98 03/07/24 10:13 Oxygen Delivery Method Room Air 03/07/24 10:13 BMI result Body Mass Index 29.6 Tobacco/Smoking Status: Tobacco use Status Tobacco use date assessed 03/07/24 03/07/24 10:15 Patient Tobacco Use Status Former Tobacco user 03/07/24 10:15 Tobacco use type Cigarette 03/07/24 10:15 e-Cigarette/Vaping Use Never Used 03/07/24 10:15 Thrive Assessment: Date of Thrive Assessment Date Thrive assessed 03/07/24 03/07/24 10:15 Currently or been in a relationship where the following occur: I choose not to answer Const General: cooperative, comfortable and no acute distress Orientation/consciousness: patient oriented x3 HENMT Head: Yes normocephalic Eyes General: appearance normal, both eyes and all related structures Neck Neck: Yes supple Resp Effort & Inspection: normal respiratory effort, no cough and no stridor Cardio Rhythm: regular rhythm Heart sounds: S1 normal heart sound present and S2 normal heart sound present Skin General skin exam: turgor normal Neuro General: patient oriented x3, tone normal and moves all extremities Gait exam (Neuro): Antalgic gait present Extrem Right lower extremity: no edema Left lower extremity: no edema Coding Level of Care Code Est Pt Level 4 (01157) Diagnoses Right lumbar radiculitis M54.16 Facet arthropathy M47.819 Degeneration of intervertebral disc of lumbar region, unspecified whether pain present M51.369 Disc-related pain type: unspecified whether pain present Muscle spasm M62.838 Pain management R52 Assessment & Plan Assessment & Plan (1) Right lumbar radiculitis: Code(s): M54.16 - Radiculopathy, lumbar region Category: Medical (2) Facet arthropathy: Code(s): M47.819 - Spondylosis without myelopathy or radiculopathy, site unspecified Category: Medical (3) Lumbar degenerative disc disease: Code(s): M51.369 - Other intervertebral disc degeneration, lumbar region without mention of lumbar back pain or lower extremity pain Category: Medical Qualifiers: Disc-related pain type: unspecified whether pain present Qualified Code(s): M51.369 - Other intervertebral disc degeneration, lumbar region without mention of lumbar back pain or lower extremity pain (4) Muscle spasm: Code(s): M62.838 - Other muscle spasm Category: Medical (5) Pain management: Code(s): R52 - Pain, unspecified Category: Medical Plan Chief Complaint Persistent lumbar pain with radiation and associated difficulty in mobility. Assessment and Plan 58-year-old female with history of lumbar disc herniation and lumbar spondylosis, presenting with chronic lumbar pain and sciatica. The patient sees multiple specialists, with a consensus that the disc herniation does not justify surgical intervention. Pain management strategies have been initiated, including a bursa injection and physical therapy. The patient experiences significant functional limitations and reports poor response to previous therapies including physical therapy. Tramadol provides some pain relief but is insufficient when taken sporadically. No neurologic deficits were noted in prior evaluations, with normal nerve conduction tests. Current symptoms and treatment plan were reviewed, and an increase in tramadol dosage was recommended to manage pain and improve functionality. 1. Chronic Lumbar Pain For chronic lumbar pain, patient education and counseling on pain management involving increased tramadol use were provided. Risk of dependence and potential side effects such as constipation were addressed, with advice on moderation and future medical review. 2. Lumbar Disc Herniation The lumbar disc herniation continues to require non-surgical management. Neurological evaluations have shown no significant nerve compression. Pain management includes bursa injections and consideration of physical therapy despite previous limited response. Further surgical intervention is not indicated at this time. 3. Sciatica The symptoms of sciatica were primarily discussed with relation to pain radiating to the lower limb. Conservative management with physical therapy and medication adjustments of tramadol were advised. Emphasis on moderating activity and use of assistive devices like a cane was discussed. 4. Lumbar Spondylosis Arthritis The patient's lumbar spondylosis was assessed with consideration of pain management strategies. Exercise, stretching, and physical therapy were recommended. Tramadol is advised to be taken up to three times daily to aid in functional activities. Follow-up and monitoring for possible need of stronger analgesics are pending patient response. Problem List - Lumbar Disc Herniation - Lumbar Spondylosis (Arthritis) - Sciatica - Chronic Lumbar Pain Patient Instructions - Take tramadol as prescribed, up to three times daily, being cautious of potential side effects like constipation and dependence. - Continue with prescribed physical therapy exercises at home, focusing on lumbar strengthening and stretching. - Attend the appointment with the physical therapist for further management guidance. - Use the assistive cane as needed for mobility support. - Schedule follow-up appointments every three months for pain management review. - Maintain a regular activity level as tolerated, avoiding activities that worsen pain. - Contact the clinic if the pain persists, worsens, or if there are any medication-related side effects. - Book an appointment with the pharmacy if issues arise in prescription refill. Medications: Changed From tramadol 50 mg PO .qhs 90 days 90 tabs 0RF pain To tramadol 50 mg PO Q8H 270 tabs 0RF pain 90 days
== END 2024-03-07 10:48 | disposition home or self-care (01) ==
PROVIDERS: PCP Internal Medicine; Visit Provider Internal Medicine
DX: M54.16 Radiculopathy, lumbar region (principal); M47.819 Spondylosis without myelopathy or radiculopathy, site unspecified; M51.369 Other intervertebral disc degeneration, lumbar region without mention of lumbar back pain or lower extremity pain; M62.838 Other muscle spasm; R52 Pain, unspecified

== ENCOUNTER 2024-03-13 09:39 | Outpatient (AMB) | payer BC, SELFPAY ==
--- NOTE | 2024-03-13 09:42 | MHC.OFFVIS ---
Vital Signs 03/13/24 09:44 Height 5 ft 4 in Weight 172 lb BMI 29.5 BP 118/63 Blood Pressure Location Lt brachial Position Sitting Respiration 15 Pulse 76 Pulse Source Pulse Oximeter Pulse Oximetry (%) 97 Oxygen Delivery Method Room Air Intake Visit Reasons: Right theraputic GTB Allergies No Known Allergies Allergy (Verified 03/13/24 09:45) Medication List - Last Reconciled 03/13/24 by Jeny Guadarrama LPN omeprazole 20 mg PO DAILY 90 days rosuvastatin 10 mg PO DAILY 90 days HPI HPI Right theraputic GTB: Details: 58-year-old female who presents today to the office for a right therapeutic GTB. She reports pain and tightness in her buttock region on the sides and front of her quads. The pain is more localized and is an aching sensation. She saw [facility] about two years ago and had a few MRI scans that showed worsening of the hip after the hip replacement in September 2022. She was referred to a neurologist who referred her to us. She has received sacroiliac joint injection and trochanteric bursa injections. She had done physical therapy and massage manipulation at [facility] and [facility]. She has also done stretches with the piriformis and sciatica region without much relief.?She has tried lidocaine, topical creams, and patches without any relief. 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 Denies any recent cough, cold, infection, fever or other significant changes in medical history since last office visit.? Past procedures 02/05/21: Ultrasound-guided lateral femoral cutaneous nerve block, right. 01/01/21: Transforaminal epidural steroid injection, Right L4 and L5:- >50% relief that is ongoing one week out. [facility] Medical History Lumbar degenerative disc disease Right ankle sprain Left ankle sprain Anemia Constipation Chronic GERD Sinusitis Sore throat, chronic Vitamin D deficiency Impaired fasting blood sugar Lipid disorder Facet arthropathy Ankle pain, left Migraine headache Meralgia paresthetica of right side Osteoarthritis of right hip Right lumbar radiculitis Surgical History History of hip replacement, total Hx of foot surgery (~2018) Family History Father No problems noted. Mother No problems noted. Brother No problems noted. Brother No problems noted. Sister No problems noted. 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 Alert and oriented. Mood and affect appropriate. Follows and participates in conversation appropriately. Respiratory effort is unlabored. Able to transition from sit to stand unassisted. Ambulates with bilaterally normal heel strike and toe off. Office Procedures AMB Joint Injection/Aspiration Joint Injection/Aspiration Details: Right greater trochanteric bursa injection, US guided. Primary Site: other (Right greater trochanteric bursa) Injected: 20 mg of, Kenalog, with 3 mL of (0.25% ropivacaine) and other (Around the right greater trochanter) Approach Used: other (lateral) Procedure: The patient tolerated the procedure well Coding Details: An ultrasound image of the injection was taken and stored in the permanent record. - Glenohumeral/Tronchanteric Bursa/Intraarticular (Right, US guided) Procedure code (CPT) selection complete Results Reviewed Results Reviewed: No imaging is available for review. Assessment & Plan Assessment & Plan (1) Lumbar degenerative disc disease: Code(s): M51.369 - Other intervertebral disc degeneration, lumbar region without mention of lumbar back pain or lower extremity pain Category: Medical Qualifiers: Disc-related pain type: unspecified whether pain present Qualified Code(s): M51.369 - Other intervertebral disc degeneration, lumbar region without mention of lumbar back pain or lower extremity pain (2) Lumbar radiculopathy: Code(s): M54.16 - Radiculopathy, lumbar region Category: Medical (3) Osteoarthritis of right hip: Code(s): M16.11 - Unilateral primary osteoarthritis, right hip Category: Medical (4) Greater trochanteric bursitis of right hip: Code(s): M70.61 - Trochanteric bursitis, right hip Category: Medical Plan Patient is status post right greater trochanteric bursa injection, US guided. Patient tolerated procedure well and was discharged home in stable condition with discharge instructions.? All questions were answered. Follow up as needed. Scribed for Dr. Harris by Colin Jimenez, manager medical affairs, on 03/13/2024. I, Dr. Harris, have personally reviewed and agree with the information entered by the scribe. Coding Level of Care Code Est Pt Level 4 (36062) Diagnoses Degeneration of intervertebral disc of lumbar region, unspecified whether pain present M51.369 Disc-related pain type: unspecified whether pain present Lumbar radiculopathy M54.16 Osteoarthritis of right hip M16.11 Greater trochanteric bursitis of right hip M70.61 CPT Codes Coding - Joint 7: 81070 - Glenohumeral/Tronchanteric Bursa/Intraarticular ([id number])
[2024-03-13 09:44] VITALS: BP 118/63; PULSE 76; RESP 15; O2SAT 97; BMI 29.5
== END 2024-03-13 10:13 | disposition home or self-care (01) ==
PROVIDERS: PCP Internal Medicine; Visit Provider Internal Medicine
DX: M70.61 Trochanteric bursitis, right hip (principal); M16.11 Unilateral primary osteoarthritis, right hip
CPT/HCPCS: 20611

== ENCOUNTER → 2024-03-13 09:39 | Outpatient (BNVA) | payer BC, SELFPAY | PROVIDERS: PCP Internal Medicine; Visit Provider Internal Medicine | DX: M16.11 Unilateral primary osteoarthritis, right hip (principal); M70.61 Trochanteric bursitis, right hip; M51.369 Other intervertebral disc degeneration, lumbar region without mention of lumbar back pain or lower extremity pain; M54.16 Radiculopathy, lumbar region | CPT/HCPCS: 20611; J2795; J3301 ==

== ENCOUNTER 2024-04-27 14:06 | Outpatient (AMB) | payer BC, SELFPAY ==
--- NOTE | 2024-04-27 14:17 | A.OFFVIS_ITS ---
Vital Signs 3 04/27/24 14:20 Height 5 ft 4 in Weight 166 lb BMI 28.5 BP 117/69 Blood Pressure Location Lt brachial Position Sitting Pulse 77 Pulse Source Pulse Oximeter Pulse Oximetry (%) 98 Oxygen Delivery Method Room Air Intake Visit Reasons: s/p right theraputic SIJ inj/no showed on 04/10 Intake Note: Pain today 08/12 Program Manager Transportation Required: No Accompanied by: Self / Same As Patient Allergies No Known Allergies Allergy (Verified 04/27/24 14:22) HPI Comments Details: Patient presents today to assess response to Right Therapeutic GTB on 03/13/[address] Harris. Patient reports 60% pain relief since injection with partial improvement in her daily activities and functioning, mobility and sleep. She is currently in formal PT and active home exercise program but continues to experience persistent low back pain with radiation into her right lower extremity in L4-L5 distribution with associated parasthesias, numbness and tingling, and weakness. We will proceed with Right L4-L5 TFESI injection as next steps both for diagnostic and therapeutic purposes. Denies any recent fever or chills, cough, cold, infection, abdominal or groin pain, bladder or bowel dysfunction, saddle anesthesia, foot drop or any significant changes in medical history since last office visit. Past Procedures: 03/13/24: Right Therapeutic GTB injection-60% pain relief PRIOR Dr. Harris 03/13/24: 58-year-old female who presents today to the office for a right therapeutic GTB. She reports pain and tightness in her buttock region on the sides and front of her quads. The pain is more localized and is an aching sensation. She saw [facility] about two years ago and had a few MRI scans that showed worsening of the hip after the hip replacement in September 2022. She was referred to a neurologist who referred her to us. She has received sacroiliac joint injection and trochanteric bursa injections. She had done physical therapy and massage manipulation at [facility]. She has also done stretches with the piriformis and sciatica region without much relief.?She has tried lidocaine, topical creams, and patches without any relief. 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 Denies any recent cough, cold, infection, fever or other significant changes in medical history since last office visit.? Past procedures 02/05/21: Ultrasound-guided lateral femoral cutaneous nerve block, right. 01/01/21: Transforaminal epidural steroid injection, Right L4 and L5:- >50% relief that is ongoing one week out. [facility] Medical History Lumbar degenerative disc disease Right ankle sprain Left ankle sprain Anemia Constipation Chronic GERD Sinusitis Sore throat, chronic Vitamin D deficiency Impaired fasting blood sugar Lipid disorder Facet arthropathy Ankle pain, left Migraine headache Meralgia paresthetica of right side Osteoarthritis of right hip Right lumbar radiculitis Surgical History History of hip replacement, total Hx of foot surgery (~2018) Family History Father No problems noted. Mother No problems noted. Brother No problems noted. Brother No problems noted. Sister No problems noted. 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 Alert and oriented. Mood and affect appropriate. Follows and participates in conversation appropriately. Respiratory effort is unlabored. Able to transition from sit to stand unassisted. Able to stand and walk on toes (L5-S1) and heels (L4-L5). General: Yes no CVA tenderness Back/Spine/Pelvis Other: Patient is able to walk and stand on heels and tip toes with mild difficulty on the right otherwise demonstrating good motor tone. No limping. Mild pain with facet loading bilaterally. Demonstrates 5/5 left and 4/5 right strength of quadriceps bilaterally as well as flexion/dorsiflexion of bilateral feet against resistance. 2+ pedal pulses bilaterally. Straight leg rise with dorsiflexion is positive on the right. +2 patellar and +1 achilles reflexes bilaterally. Carmel sign, limited on the right Osmar?s, Pelvic compression and Stinchfield tests are positive on the right, negative on the left. No groin pain with I/E hip rotations. Mild TTP right GTB. Valsalva maneuver negative. Leg discrepancy noted, right shorter than left, patient wears right shoe inserts. Back: no CVA tenderness Cervical Spine: cervical ROM normal, No cervical muscular tenderness, No Cervical spine tenderness and No step off deformity Thoracic/Lumbar Spine: thoracic and lumbar spine normal to inspection, No Thoracic/lumbar spine scar(s), thoraco-lumbar ROM normal, Lasegue's sign positive on the right and diffuse, No thoracic spinal tenderness and lumbar spinal tenderness at L4 and at L5 Pelvis: buttock tenderness on the right Sacroiliac joints: on the right tender to palpation and on the left nontender Extrem General: Yes capillary refill normal, Yes no clubbing, cyanosis or edema and Yes no calf tenderness Results Reviewed Results Reviewed: Assessment & Plan Assessment & Plan (1) Facet arthropathy: Code(s): M47.819 - Spondylosis without myelopathy or radiculopathy, site unspecified Category: Medical (2) Greater trochanteric bursitis of right hip: Code(s): M70.61 - Trochanteric bursitis, right hip Category: Medical (3) Lumbar degenerative disc disease: Code(s): M51.369 - Other intervertebral disc degeneration, lumbar region without mention of lumbar back pain or lower extremity pain Category: Medical Qualifiers: Disc-related pain type: unspecified whether pain present Qualified Code(s): M51.369 - Other intervertebral disc degeneration, lumbar region without mention of lumbar back pain or lower extremity pain (4) Lumbar radiculopathy: Code(s): M54.16 - Radiculopathy, lumbar region Category: Medical Plan Patient is 1.5 months status right therapeutic GTB injection with partial relief in her right hip pain. She continues to endorse right sided radiculopathy impacting her ADLs, mobility and sleep. Schedule for right L4-L5 TFESI with local and fluoroscopy for ongoing right sided radicular low back pain. All questions were answered and the patient is in agreement of plan. Follow-up after injection and sooner as needed. Anticoagulants: Patient not on anticoagulants. Justification for interventional therapy: ? Patient with average pain > 6/10 and struggles to perform ADLs, sleep and work normally. ? Patient has tried and failed massage therapy, physical therapy, chiropractic interventions, TENS unit, NSAIDs, injections The risks, consequences, alternatives, and benefits of various treatment options were discussed with the patient in great detail, including conservative management, injections and procedures. Patient is aware of hyperglycemic effects of steroid injections. Coding Level of Care Code Est Pt Level 4 (24229) Complex EM visit Add On G2211 Diagnoses Facet arthropathy M47.819 Greater trochanteric bursitis of right hip M70.61 Degeneration of intervertebral disc of lumbar region, unspecified whether pain present M51.369 Disc-related pain type: unspecified whether pain present Lumbar radiculopathy M54.16
[2024-04-27 14:20] VITALS: BP 117/69; PULSE 77; O2SAT 98; BMI 28.5
== END 2024-04-27 14:48 | disposition home or self-care (01) ==
PROVIDERS: PCP Internal Medicine; Visit Provider Nurse Practitioner Family
DX: M47.819 Spondylosis without myelopathy or radiculopathy, site unspecified (principal); M70.61 Trochanteric bursitis, right hip; M51.369 Other intervertebral disc degeneration, lumbar region without mention of lumbar back pain or lower extremity pain; M54.16 Radiculopathy, lumbar region
CPT/HCPCS: 99214

== ENCOUNTER 2024-05-09 08:38 | Outpatient (AMB) | payer BC, SELFPAY ==
[2024-05-09 08:40] VITALS: BP 122/80; PULSE 84; RESP 16; TEMP 36.9; O2SAT 98; BMI 29.4
--- NOTE | 2024-05-09 08:40 | A.OFFPC_ITS ---
Vital Signs 05/09/24 08:40 Height 5 ft 4 in Weight 171 lb 2 oz BMI 29.4 BP 122/80 Blood Pressure Location Rt brachial Position Sitting Respiration 16 Pulse 84 Pulse Source Pulse Oximeter Temp 98.4 F Temp Source Oral Pulse Oximetry (%) 98 Oxygen Delivery Method Room Air Intake Visit Reasons: 3 months follow up Allergies No Known Allergies Allergy (Verified 05/09/24 08:40) Medication List - Last Reconciled 05/09/24 by Rodney Jeff MD omeprazole 20 mg PO DAILY 90 days rosuvastatin 10 mg PO DAILY 90 days Tobacco use date assessed: 05/09/24 Dental Screening Dental Screen Date: 05/09/24 Did you have a dental visit in the last 12 months?: Yes Did you have a dental problem in the last 6 months where you did not have access to dental care?: No Was dental information given to patient?: Patient has dentist HPI 3 months follow up HPI Details The patient is a 58-year-old female presenting with chronic pain management and follow-up for lumbar spine issues. - Reports history of chronic lumbar pain related to diagnosed lumbar disc herniation, lumbar spondylosis, and sciatica on the right side. - Experienced initial improvement in phy sical therapy focused on the piriformis area, but current stagnation in progress. - Performs home exercises regularly, daniel ntains a healthy lifestyle, and has discontinued smoking and alcohol use. - Diagnostic epidural planned to evaluat e nerve involvement related to her lumbar issues. - Medications including Tramadol and Oxy codone were prescribed but not filled by the pharmacy, currently utilizes Tylenol for relief. - Current functional status significantl y impacted, unable to work for over a year. Problem List - Chronic Lumbar Pain - Lumbar Disc Herniation - Lumbar Spondylosis - Sciatica - Piriformis Syndrome Patient Instructions - Continue with prescribed physical therapy technician apy and home exercise routine as recommended. - Follow up with Dr. Juan and Dr. Alexandra Sun on respective appointment dates for further evaluation and management of back pain. - Consider exploring Social Security Dis ability benefits for potential financial assistance. - Monitor and document any changes in sy mptoms or new symptoms and report to healthcare providers. - Maintain a healthy lifestyle, includin g a nutritious diet, hydration, and avoiding smoking and alcohol. Review of Systems - Musculoskeletal: Reports chronic lumba r pain and a history of lumbar disc herniation, spondylosis, and sciatica on the right side. - Neurological: Denies changes in sensat ion or motor function. - Cardiovascular: Reports a heart rate r unning below 60 but without associated symptoms. 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 Mother No problems noted. Brother No problems noted. Brother No problems noted. Sister No problems noted. 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 1. Little interest or pleasure in doing things: not at all 2. Feeling down, depressed, or hopeless: not at all 3. Trouble falling or staying asleep, or sleeping too much: not at all 4. Feeling tired or having little energy: nearly every day 5. Poor appetite or overeating: nearly every day 6. Feeling bad about yourself - or that you are a failure or have let yourself or your family down: not at all 7. Trouble concentrating on things, such as reading the newspaper or watching television: not at all 8. Moving or speaking so slowly that other people could have noticed. Or the opposite - being so fidgety or restless that you have been moving around a lot more than usual: not at all 9. Thoughts that you would be better off or of hurting yourself in some way: not at all Total score: 6 Depression Screening Interpretation: Negative Depression Screening Done: Yes 72907 - PHQ-9 Billing: Yes Source: Developed by Drs. Jose Jesus, Evy Glass, Stewart Hudson and colleagues, with an educational jameel from [employer]. Thrive Questionnaire Date Thrive assessed: 05/09/24 I am a: Patient What is your living situation today?: I have a steady place to live Within the past 12 months, did the food you bought not last and you didn't have the money to get more?: Never true Within the past 12 months, did you worry whether your food would run out before you got money to buy more?: Never true Do you have trouble paying for medicines?: No Do you have trouble getting transportation to medical appointments?: No Do you have trouble paying your heating and electricity bill?: No Do you have trouble taking care of your child, family member or friend?: No Do you have trouble with day-to-day activities such as bathing, preparing meals, shopping, managing finances, etc.?: I choose not to answer this question Are you currently unemployed and looking for a job?: No Are you interested in more education?: No Please select the resources that you would like help with: None Currently or been in a relationship where the following occur: I choose not to answer THRIVE Score: 0 AUDIT C Alcohol Use Questionnaire (AUDIT-C) 1. How often do you have a drink containing alcohol?: Monthly or less 2. How many drinks containing alcohol do you have on a typical day when you are drinking?: 1 or 2 3. How often do you have six or more drinks on one occasion?: Never Total Score: 1 Score Reviewed/Action Taken: Yes DALY-7 AMB Questionnaire DALY-7 Date DALY - 7 assessed: 05/09/24 Feeling nervous, anxious, or on edge: 0 = Not at all Not being able to stop or control worryin = Several days Worrying too much about different things: 1 = Several days Trouble relaxin = Several days Being so restless that it is hard to sit still: 0 = Not at all Becoming easily annoyed or irritable: 1 = Several days Feeling afraid as if something awful might happen: 0 = Not at all Total DALY-7 score (0-4 normal; 5-9 mild; 10-14 moderate; 15-21 severe): 4 Source: Developed by Drs. Jose Jesus, Evy Glass, Stewart Hudson and colleagues, with an educational jameel from [employer]. DALY-7 Assessment Billing DALY-7 Assessment Tool: DALY-7 Assessment 63467 Physical exam (Primary Care) Vital Signs: Last Vital Signs Temp 98.4 F 05/09/24 08:40 Pulse 84 05/09/24 08:40 Resp 16 05/09/24 08:40 BP 122/80 05/09/24 08:40 Pulse Ox 98 05/09/24 08:40 Oxygen Delivery Method Room Air 05/09/24 08:40 BMI result Body Mass Index 29.4 Tobacco/Smoking Status: Tobacco use Status Tobacco use date assessed 05/09/24 05/09/24 08:43 Patient Tobacco Use Status Former Tobacco user 05/09/24 08:43 Tobacco use type Cigarette 05/09/24 08:43 e-Cigarette/Vaping Use Never Used 05/09/24 08:43 PHQ-9: PHQ-9 Score PHQ-9: Total score 6 05/09/24 09:08 Depression Screening Interpretation: Negative Thrive Assessment: Date of Thrive Assessment Date Thrive assessed 05/09/24 05/09/24 08:43 Currently or been in a relationship where the following occur: I choose not to answer Coding Level of Care Code Est Pt Level 3 (10895) Diagnoses Facet arthropathy M47.819 Degeneration of intervertebral disc of lumbar region, unspecified whether pain present M51.369 Disc-related pain type: unspecified whether pain present Lumbar radiculopathy M54.16 Additional Codes DALY-7 Assessment Billing - DALY-7 Assessment Tool: DALY-7 Assessment 99654 ([id number]) PHQ-9 - 14544 - PHQ-9 Billing: Yes ([id number]) Assessment & Plan Assessment & Plan (1) Facet arthropathy: Code(s): M47.819 - Spondylosis without myelopathy or radiculopathy, site unspecified Category: Medical (2) Lumbar degenerative disc disease: Code(s): M51.369 - Other intervertebral disc degeneration, lumbar region without mention of lumbar back pain or lower extremity pain Category: Medical Qualifiers: Disc-related pain type: unspecified whether pain present Qualified Code(s): M51.369 - Other intervertebral disc degeneration, lumbar region without mention of lumbar back pain or lower extremity pain (3) Lumbar radiculopathy: Code(s): M54.16 - Radiculopathy, lumbar region Category: Medical Plan The patient is a 58-year-old female presenting with chronic pain management and follow-up for lumbar spine issues. - Reports history of chronic lumbar pain related to diagnosed lumbar disc herniation, lumbar spondylosis, and sciatica on the right side. - Experienced initial improvement in physical therapy focused on the piriformis area, but current stagnation in progress. - Performs home exercises regularly, maintains a healthy lifestyle, and has discontinued smoking and alcohol use. - Diagnostic epidural planned to evaluate nerve involvement related to her lumbar issues. - Medications including Tramadol and Oxycodone were prescribed but not filled by the pharmacy, currently utilizes Tylenol for relief. - Current functional status significantly impacted, unable to work for over a year. Problem List - Chronic Lumbar Pain - Lumbar Disc Herniation - Lumbar Spondylosis - Sciatica - Piriformis Syndrome Patient Instructions - Continue with prescribed physical therapy and home exercise routine as recommended. - Follow up with Dr. Juan and Dr. Rivas on respective appointment dates for further evaluation and management of back pain. - Consider exploring Social Security Disability benefits for potential financial assistance. - Monitor and document any changes in symptoms or new symptoms and report to healthcare providers. - Maintain a healthy lifestyle, including a nutritious diet, hydration, and avoiding smoking and alcohol.
--- OUTSIDE RECORDS SUMMARY | 2024-05-09 08:55 | XMS_ITS | Data Portability ---
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 Plan of Treatment Reminders Order Date Submit Date Provider Last Modified By Organization Details Last Modified Time Details Appointments None recorded. Lab None recorded. Referral None recorded. Procedures None recorded. Surgeries None recorded. Imaging XR, hip, unilatera l, 2 or 3 view - rm 209, rthr 10/20/22 SJK, pain in right hip 2023 [email or web address] Not available 16:03:49 Medication Orders meloxicam 15 mg tablet [address] [facility]/Pharmacy #[id number], [address] [place], [address], 4 09:57:55 Medrol (Satya) 4 mg tablets in a dose pack [address]23 [address] [facility]/Pharmacy #[id number], [address] [place], [address], 4 09:57:56 tizanidin e 4 mg tablet [address] [facility]/Pharmacy #[id number], [address] [place], [address], 4 09:57:56 Patient TargetsNo targets recorded. Patient InstructionsNo instructions recorded. Reason for Referral None Reported. Results Created Date Observation Date Name Description Value Unit Range Abnormal Flag Note LastModifiedBy Organization Detail LastModifiedTime 07/20/19 24 07/21/2023 CBC WITH DIFFE RENTI AL/PL ATELE T WBC 6.0 x10e3 /uL 3.4-10 .8 Not Available [facility] ([facility]) [address] [facility], [place], [address], 07/21/2023 08:09:11 07/20/19 24 07/21/2023 CBC WITH DIFFE RENTI AL/PL ATELE T RBC 3.76 x10e6 /uL 3.77-5 .28 below low normal Not Available [facility] ([facility]) [address] [facility], [place], [address], 07/21/2023 08:09:11 07/20/19 24 07/21/2023 CBC WITH DIFFE RENTI AL/PL ATELE T hemoglobin 11.7 g/dL 11.1-1 5.9 Not Available [facility] ([facility]) [address] [facility], [place], [address], 07/21/2023 08:09:11 07/20/19 24 07/21/2023 CBC WITH DIFFE RENTI AL/PL ATELE T hematocrit 33.2 % 34.0-4 6.6 below low normal Not Available [facility] ([facility]) [address] [place], [address], 07/21/2023 08:09:11 07/20/19 24 07/21/2023 CBC WITH DIFFE RENTI AL/PL ATELE T MCV 88 fL 79-97 Not Available [facility] ([facility]) [address] [place], [address], 07/21/2023 08:09:11 07/20/19 24 07/21/2023 CBC WITH DIFFE RENTI AL/PL ATELE T MCH 31.1 pg 26.6-3 3.0 Not Available [facility] ([facility]) [address] [place], [address], 07/21/2023 08:09:11 07/20/19 24 07/21/2023 CBC WITH DIFFE RENTI AL/PL ATELE T MCHC 35.2 g/dL 31.5-3 5.7 Not Available [facility] ([facility]) [address] [facility], [place], [address], 07/21/2023 08:09:11 07/20/19 24 07/21/2023 CBC WITH DIFFE RENTI AL/PL ATELE T RDW 12.2 % 11.7-1 5.4 Not Available [facility] ([facility]) [address] [facility], [place], [address], 07/21/2023 08:09:11 07/20/19 24 07/21/2023 CBC WITH DIFFE RENTI AL/PL ATELE T platelets 255 x10e3 /uL 150-45 0 Not Available [facility] ([facility]) [address] [facility], [place], [address], 07/21/2023 08:09:11 07/20/19 24 07/21/2023 CBC WITH DIFFE RENTI AL/PL ATELE T neutrophils 58 % not estab. Not Available [facility] ([facility]) [address] [facility], [place], [address], 07/21/2023 08:09:11 07/20/19 24 07/21/2023 CBC WITH DIFFE RENTI AL/PL ATELE T lymphs 30 % not estab. Not Available [facility] ([facility]) [address] [facility], [place], [address], 07/21/2023 08:09:11 07/20/19 24 07/21/2023 CBC WITH DIFFE RENTI AL/PL ATELE T monocytes 10 % not estab. Not Available [facility] ([facility]) [address] [facility], [place], [address], 07/21/2023 08:09:11 07/20/19 24 07/21/2023 CBC WITH DIFFE RENTI AL/PL ATELE T eos 1 % not estab. Not Available [facility] ([facility]) [address] [facility], [place], [address], 07/21/2023 08:09:11 07/20/19 24 07/21/2023 CBC WITH DIFFE RENTI AL/PL ATELE T basos 1 % not estab. Not Available [facility] (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) [address] [place], [address], 07/21/2023 08:09:11 07/20/19 24 07/21/2023 CBC WITH DIFFE RENTI AL/PL ATELE T neutrophils (absolute) 3.6 x10e3 /uL 1.4-7. 0 Not Available [facility] ([facility]) [address] [place], [address], 07/21/2023 08:09:11 07/20/19 24 07/21/2023 CBC WITH DIFFE RENTI AL/PL ATELE T lymphs (absolute) 1.8 x10e3 /uL 0.7-3. 1 Not Available [facility] ([facility]) [address] [place], [address], 07/21/2023 08:09:11 07/20/19 24 07/21/2023 CBC WITH DIFFE RENTI AL/PL ATELE T monocytes(ab solute) 0.6 x10e3 /uL 0.1-0. 9 Not Available [facility] ([facility]) [address] [place], [address], 07/21/2023 08:09:11 07/20/19 24 07/21/2023 CBC WITH DIFFE RENTI AL/PL ATELE T eos (absolute) 0.1 x10e3 /uL 0.0-0. 4 Not Available [facility] ([facility]) [address] [facility], [place], [address], 07/21/2023 08:09:11 07/20/19 24 07/21/2023 CBC WITH DIFFE RENTI AL/PL ATELE T baso (absolute) 0.0 x10e3 /uL 0.0-0. 2 Not Available [facility] ([facility]) [address] [facility], [place], [address], 07/21/2023 08:09:11 07/20/19 24 07/21/2023 CBC WITH DIFFE RENTI AL/PL ATELE T immature granulocytes 0 % not estab. Not Available [facility] ([facility]) [address] [facility], [place], [address], 07/21/2023 08:09:11 07/20/19 24 07/21/2023 CBC WITH DIFFE RENTI AL/PL ATELE T immature grans (abs) 0.0 x10e3 /uL 0.0-0. 1 Not Available [facility] (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) [address] [facility], [place], [address], 07/21/2023 08:09:11 07/20/19 24 07/21/2023 SEDIM ENTAT ION RATE- WESTE RGREN sedimentatio n rate-westerg robert 15 mm/HR 0-40 Not Available [facility] ([facility]) [address] [facility], [place], [address], 07/21/2023 08:09:12 07/20/19 24 07/21/2023 C-QUIANA CTIVE PROTE IN, QUANT C-reactive protein, quant <1 mg/L 0-10 Not Available [facility] ([facility]) [address] [facility], [place], [address], 07/21/2023 08:09:12 12/04/19 24 11/01/2021 imagi ng/di agnos tic resul t No observ ation record ed. [email or web address] Not Available 11/05 06:34:32 12/04/19 24 06/27/2022 imagi ng/di agnos tic resul t No observ ation record ed. [email or web address] Not Available 11/05 06:34:39 Result Notes None recorded. Problems Name Problem SNOMED Code Status Onset Date Resolution Date Notes Provider Name and Address Organization Details Recorded Time No complaints 685200991 Active Status : 'A'; Not Available [facility] 4 09:25:19 Problem Notes None recorded. Procedures Surgical History Date Name Laterality Status Provider Name and Address Organization Details Recorded Time 4 Hip Kenalog 2cc Injection, L/R completed Fox Yip PA-C [address] [facility] [address], [place], [address], [facility] 08/13/2023 12:37:47 Imaging Results Imaging Date Name Status LastModified by Organiz ation Details LastModified Time 11/01/2021 imaging/diag nostic result completed Information not available 12/04/2023 06:34:32 06/27/2022 imaging/diag nostic result completed Information not available 12/04/2023 06:34:39 Procedure Notes None recorded. Medical Equipment None Reported. Allergies No known drug allergies Medications Name Sig Start Date Stop Date Status Note LastModified by Organization Details LastModified Time celecoxib 200 mg capsule TAKE 1 CAPSULE BY MOUTH EVERY DAY DIRECTED active Not Available Not Available No t Available amoxicillin 500 mg capsule TAKE 1 CAPSULE BY MOUTH EVERY 8 HOURS UNTIL FINISHED active Not Available Not Available No t Available tizanidine 4 mg tablet TAKE 1 TABLET BY MOUTH EVERY 8 HOURS DIRECTED FOR 7 DAYS active Not Available Not Available N ot Available fluconazole 150 mg tablet TAKE 1 TABLET TODAY, MAY TAKE 2ND DOSE 72 HOURS AFTER 1ST DOSE IF SYMPTOMS PERSIST active Not Available Not Available No t Available meloxicam 15 mg tablet TAKE 1 TABLET BY MOUTH ONCE A DAY TAKE WITH FOOD OR MILK active Not Available Not Available No t Available prednisone 20 mg tablet TAKE 2 TABLETS BY MOUTH DAILY active Not Available Not Available Not Available metronidazol e 500 mg tablet TAKE 1 TABLET BY MOUTH EVERY 8 HOURS FOR 7 DAYS active Not Available Not Available No t Available tramadol 50 mg tablet TAKE 1 TO 2 TABLETS BY MOUTH EVERY 6 HOURS NEEDED FOR MILD PAIN. DO NOT EXCEED 8 TABLETS (400MG) PER DAY. active Not Available Not Available No t Available hydromorphon e 2 mg tablet TAKE 1 TO 2 TABLETS BY MOUTH EVERY 4 HOURS NEEDED FOR MODERATE TO SEVERE PAIN active Not Available Not Available Not Available benzonatate 100 mg capsule TAKE 1 CAPSULE BY MOUTH TWICE A DAY NEEDED FOR COUGH active Not Available Not Available No t Available omeprazole 20 mg capsule,netta yed release TAKE 1 CAPSULE BY MOUTH EVERY DAY FOR 90 DAYS active Not Available Not Available No t Available levofloxacin 500 mg tablet TAKE 1 TABLET BY MOUTH EVERY DAY FOR 7 DAYS active Not Available Not Available No t Available estradiol 0.01% (0.1 mg/gram) vaginal cream INSERT 0.5 G INTRAVAGINA LLY AND APPLY TO AFFECTED AREA DAILY FOR 2 WEEKS, THEN TWICE WEEKLY. active Not Available Not Available No t Available methylpredni solone 4 mg tablets in a dose pack TAKE 6 TABLETS ON DAY 1 DIRECTED ON PACKAGE AND DECREASE BY 1 TAB EACH DAY FOR A TOTAL OF 6 DAYS active Not Available Not Available No t Available ondansetron 4 mg disintegrati ng tablet TAKE 1 TABLET BY MOUTH EVERY 8 HOURS NEEDED FOR NAUSEA/VOMI TING active Not Available Not Available No t Available rosuvastatin 10 mg tablet 10 MG ORALLY DAILY FOR 90 DAYS active Not Available Not Available No t Available nitrofuranto in monohydrate/ macrocrystal s 100 mg capsule TAKE 1 CAPSULE BY MOUTH EVERY 12 HOURS FOR 7 DAYS WITH MEALS active Not Available Not Available N ot Available Vitals Date Recorded Body height Body mass index (BMI) Body weight Provider Name and Address Organization Details Last Updated DateTime 08/13/2023 165.1 cm 27.6 kg/m2 26402.33 g MYRNA MACARIO [facility] 08/13/2023 09:29:50 Social History None recorded. Functional Status None recorded. Mental Status None recorded. Family History Nothing Reported. Medical History No medical history recorded. Gynecological HistoryNo gynecological history recorded. Obstetrics History GPAL:G 0 P 0 0 0 0 Past Encounters Encounter ID Performer Location Encounter Start Date Encounter Closed Date Diagnosis/Indication Diagnosis SNOMED-CT Code Diagnosis ICD10 Code Diagnosis Note [id number] [facility] [address] [place], [place] [address] 08/13/2023 09:06:51 08/25/2023 16:03:49 History of total replacement of right hip joint 2762984027 95612 Z96.641 Trochanter ic bursitis of right hip 9688700635 37257 M70.61 Lumbar radiculopathy 128 764182 M54.16 Health Concerns Section Related Observation LastModified by Organization Detai ls LastModified Time None Recorded Concern Status LastModified by Organization Details LastModified Time None Recorded Advance Directives Directive None Recorded Payers Encounter Date Sequence Insurance Name Policy Number Policy Escobedo Covered Member ID Escobedo Member ID Guarantor Name 08/13/2023 1 LIANG-[place]: LIANG (PPO) [id number] 1 Fox Gorman [id number] Kim Gorman Notes Date Note Type Note Provider Name and Address Organization Details Recorded Time 08/13/2023 text/html I am seeing the patient today under the supervision of Dr. Fleming who was available but who did not see the patient. HPI:Patient is a 57-year-old female with a history of a right total hip replacement by Dr. Toth on 10/20/2022. Patient saw him at her three-month follow-up and was diagnosed with some trochanteric bursitis and received a cortisone injection at that point. This injection provided her with good relief for a few months after that period patient was subsequently seen by myself approximately 4 months ago.At that time pain wasn't that significance so we discussed some light stretching, pulling back on some of the activities that she was doing as well as continuing with meloxicam which she was prescribed at that point. Patient states over the last 6 weeks she has had pretty significant increasing pain. Pain is located on the lateral aspect of her right hip. Denies any groin pain. States that she does get pain in the anterior aspect of her thigh. She gets sharp stabbing pain occasionally with muscle spasms in this region. Patient also complains of mild numbness and tingling in her foot occasionally. Of note she does have a history of low back problems and has received multiple rounds of physical therapy as well as previous injections into the spine. Denies any recent injuries or falls. Patient has tried to stay active with walking, stretching as well as doing yoga. She has been utilizing ibuprofen as well as CBD oil as-needed for pain relief. Denies any changes to her bowel or bladder. Denies any saddle paresthesias. Past family, medical, social history and review of systems has been reviewed, updated and is located in the patient? s chart. Examination:Well appearing 57-year-old female in no acute distress. She is alert and oriented x3. She ambulates with a symmetric gait. Right hip reveals no erythema,Warmth, ecchymosis, or swelling. Well-healed surgical incision. There is tenderness to palpation over the greater trochanter. No tenderness palpation over the anterior aspect of the hip over the ASIS or CONTRERAS.Mild tenderness over the distal anterior thigh. Range of motion of the hip full with flexion, internal and external rotation. None of these maneuvers elicit discomfort within the hip joint. Mild stiffness at the endpoints. Negative KERRIE test. Patient did have some spasming of her quadriceps muscle with Stinchfield testing. No pain elicited.Negative straight leg raise. Calf is soft and nontender. 2 views of the right hip obtained and reviewed in the office today reveal right total hip arthroplasty in good alignment. No evidence of any osteolyses or loosening. No evidence of any stem subsidence. X-rays unchanged from previous. No evidence of fracture. Impression:Right hip trochanteric bursitis, quadriceps muscle spasms, possible lumbar radiculopathy Plan:Reassured the patient today that her right total hip replacement is in good alignment and based on her symptoms doesn't seem like this is the main concern today. I do think that the patient has developed some trochanteric bursitis. There is a possibility that she does have some lumbar radicular symptoms with the numbness and tingling occurring in the foot. I did have a conversation with her and encouraged her to follow-up with her primary care physician for electrolyte testing to make sure everything is normal. Patient does actually have a PCP appointment this afternoon. In terms of her pain we discussed treatment options. Patient denied outpatient therapy today but states that she will continue doing her exercises for her lower back as well as her right hip on her own. She was given a prescription today for Medrol Dosepak, meloxicam as well as tizanidine. I did staff counselor the patient on how to utilize all these medications. Also opted for a bursal injection today. Please see procedure note for this injection. She will continue to monitor her symptoms over the next couple of weeks. We will schedule a follow-up in about 8 weeks for reevaluation. Patient agrees with this treatment plan. At this time all patient's questions and concerns were answered today. Fox Yip PA-C [address] [place], [place] [address] [address], [place], [address], [facility] 08/13/2023 12:38:45 OBGyn Episode No OBEpisode recorded.
== END 2024-05-09 09:39 | disposition home or self-care (01) ==
PROVIDERS: PCP Internal Medicine; Visit Provider Internal Medicine
DX: M47.819 Spondylosis without myelopathy or radiculopathy, site unspecified (principal); M51.369 Other intervertebral disc degeneration, lumbar region without mention of lumbar back pain or lower extremity pain; M54.16 Radiculopathy, lumbar region

== ENCOUNTER → 2024-05-09 08:38 | Outpatient (BNVA) | payer BC, SELFPAY | PROVIDERS: PCP Internal Medicine; Visit Provider Internal Medicine | DX: M47.819 Spondylosis without myelopathy or radiculopathy, site unspecified (principal); M51.369 Other intervertebral disc degeneration, lumbar region without mention of lumbar back pain or lower extremity pain; M54.16 Radiculopathy, lumbar region | CPT/HCPCS: 96127 ==

== ENCOUNTER 2024-05-18 07:32 | Outpatient (REF) | payer BC, SELFPAY ==
--- NOTE | ~2024-05-18 | FL_ITS ---
EXAMINATION: FL GUIDANCE ONLY HISTORY: M54.16 - Radiculopathy, lumbar region COMPARISON: None available. TECHNIQUE: Fluoroscopy time: 0.1 minutes. Cumulative Dose: 6.13 mGy. DAP: 0.0472 mGym2 Images: 3. FINDINGS: Fluoroscopic spot films of the lumbar spine demonstrate a needle and contrast in the region of the right L4-5 facet joint. FL/FL guidance in treatment room IMPRESSION: Fluoroscopy during procedure. Please see procedure report for additional information. Electronically signed by: Jose Desir MD 05/18/2024 10:36 AM JOSE WOLFE
--- OUTSIDE RECORDS SUMMARY | 2024-05-18 07:34 | XMS_ITS ---
Author Organization [facility] Address [address] [place] [address] Care Team Providers Care Process Development Technician Name Role Phone Tomer JONES, Rodney Primary Care Provider Joss Can Unavailable [phone] Rashad Cisneros [phone] Encounters Encounter Location Date Provider Diagnosis [address] [id number] 05/18/2024 Rashad Cisneros Plan Of Treatment Next Appt Details Provider Name:Rashad Cisneros, 05/18/2024 02:00:00 PM, [address] [place] [address], [address], Progress Notes * Kim GORMAN ADOB:[birth year] (58 yo F)Acc No.[id number]:05/18/2024 Progress Note Patient:?Kim GORMAN Provider:?Rashad Cisneros D.P.M. :1965???Age:58 Y???Sex:Female D ate:05/18/2024 Address:[address] [place] [address] [id number] Pcp:Rodney Jeff MD Subjective: * Chief Complaints: * ??? * Medical History:? Objective: * Vitals:? Assessment: Plan: * Treatment: * Images: * The named appointment provid er may or may not be the originator of this progress note, and it is not deemed complete until electronically signed by the appointment provider. Sign off status: Pending * Provider:?Rashad Cisneros D.P.M. Date:?05/06 Generated for Tejal lee/Ruben/Rashid on:?05/18/2024 07:34 AM EST
--- OUTSIDE RECORDS SUMMARY | 2024-05-18 07:34 | XMS_ITS | Patient Health Record ---
Author Organization [facility] Address [address] [place] [address] Care Team Providers Care Supervisor Elementary Education Name Role Phone Tomer JONES, [facility] Primary Care Provider Joss Can Unavailable [phone] Rashad Cisneros Unavailable [phone] Allergies No Known Allergies Reason For Referral No Information Medications Medication SIG (Take, Route, Frequency, Duration) Notes Start Date End Date Status Diclofenac Not-Takin g Augmentin 500-125 MG 1 tablet Orally merry ry 8 hrs for 10 days 03/14/2019 Not-Taking Diflucan 200 MG 1 tablet Orally Once a day for 10 day(s) Not-Taking Immunizations Vaccine Route Administration Date Status Comme nts Influenza Unknown 02/10/2019 Administered Social History Tobacco Use: Social History Observation Description Date Details (start date - stop date) Current Smoker NA - NA Tobacco Use/Smoking Question Answer Notes Are you a: current smoker How often do you smoke cigarettes? some days, bu t not every day How many cigarettes a day do you smoke? 11-20 How soon after you wake up d o you smoke your first cigarette? after 60 minutes Are you interested in quitting? Thinking about q uitting Additional Findings: Tobacco User Modera te cigarette smoker (10-19 cigs/day) Additional Findings: Tobacco Non-User Current no n-smoker Alcohol Screen Question Answer Notes Did you have a drink containing alcohol in the p ast year? Yes Points 0 Interpretation Negative Tobacco use other than smoking: Question Answer Notes Are you an other tobacco user? No Problems Problem Type SNOMED Code ICD Code Onset Dates Problem Status W/U Status Risk Notes Problem Acquired hallux rigidus (6478426) Hallux rigidus, right foot (M20.21) Active confirmed Plan Of Treatment Pending Test Test Name Order Date X ray : Foot, left 2V 12/28/2017 X ray : Foot, right 3V 03/14/2018 X ray : Foot, right 3V 03/23/2018 X ray : Foot, right 3V 11/15/2017 52347 I&D ABSCESS- SIMPLE,SINGLE 019 , C4456-VGLME/INJECT, JOINT/BURSA 0 06/10/2018,[id number] TENDON SHEATH/LIGAMENT 0 06/10/2018,[id number] TENDON SHEATH/LIGAMENT 1 05/19/2020 Next Appt Details Provider Name:Rashad Cisneros, 05/18/2024 02:00:00 PM, [address] [facility], [place], [address], Insurance Providers Payer Name Payer Address Payer Phone Subscriber Number Group Number Insured Name Patient Relationship to Insured Coverage Start Date Coverage End Date [facility] [address] [place] [address] [phone] [id number] Fox Gorman Spouse - patient is the spouse of the insured Medical (General) History Medical History History ICD Code Chicken pox Surgical History Surgery Date(Month/Year) Vidhya Bergman 03/10/2018
== END 2024-05-18 07:33 | disposition home or self-care (01) ==
LOC: CF 07:32
PROVIDERS: Visit Provider Internal Medicine
DX: M54.16 Radiculopathy, lumbar region (principal)
CPT/HCPCS: 64483; J1100; J2003; Q9967

== ENCOUNTER 2024-05-18 09:17 | Outpatient (AMB) | payer BC, SELFPAY ==
[2024-05-18 09:22] VITALS: BP 100/68; PULSE 69; O2SAT 98; BMI 29.2
--- NOTE | 2024-05-18 09:22 | A.OFFVIS_ITS ---
Vital Signs 05/18/24 09:22 Height 5 ft 4 in Weight 170 lb BMI 29.2 BP 100/68 Blood Pressure Location Lt brachial Position Sitting Pulse 69 Pulse Source Pulse Oximeter Pulse Oximetry (%) 98 Oxygen Delivery Method Room Air Intake Visit Reasons: Right L4-L5 TFESI Supervisor Shipfitters Required: No Allergies No Known Allergies Allergy (Verified 05/18/24 09:23) Medication List - Last Reconciled 05/18/24 by Maeve Delarosa, SUBSURFACE AUGMENTEE OPERATOR omeprazole 20 mg PO DAILY 90 days rosuvastatin 10 mg PO DAILY 90 days HPI HPI Right L4-L5 TFESI: Details: Patient presents for scheduled procedure. Denies any recent cough, cold, infection, fever or other significant changes in medical history since last office visit. [facility] Medical History Lumbar degenerative disc disease Right ankle sprain Left ankle sprain Anemia Constipation Chronic GERD Sinusitis Sore throat, chronic Vitamin D deficiency Impaired fasting blood sugar Lipid disorder Facet arthropathy Ankle pain, left Migraine headache Meralgia paresthetica of right side Osteoarthritis of right hip Right lumbar radiculitis Surgical History History of hip replacement, total Hx of foot surgery (~2018) Family History Father No problems noted. Mother No problems noted. Brother No problems noted. Brother No problems noted. Sister No problems noted. 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 The patient was placed in the prone position on the fluoroscopy table. The lumbosacral area was prepped with chloraprep, allowed to dry and draped in ster ile fashion. Using fluoroscopy, the skin overlying our target was anesthetized with 0.5% lidocaine. A 22 gauge 3.5 inch spinal needle was advanced to the safe triangle in the upper pole of the right L4 foramen. No paresthesias were elicited with needle placement and aspiration was negative for blood and CSF. Correct needle position was confirmed with approximately 1 ml contrast dye (Omnipaque 180 mg/ml) injected under real-time fluoroscopy. No evidence of vascular or intrathecal uptake was seen and there was both epidural and peripheral spread of the contrast agent. 10 mg dexamethasone plus 1 ml containing 0.5% lidocaine was slowly injected. The needle was flushed and removed. The skin was cleansed and a sterile bandages were applied. The patient tolerated the procedure well and no complications were encountered. Following the procedure the patient's vital signs were stable. The patient was discharged home in good condition with post-procedural instructions. Time Out: Immediately prior to the procedure, the following was verbally confirmed that there is a signed consent form and that the correct patient, planned procedure, site and side are consistent with documentation and that necessary equipment and/or blood products are available prior to the start of the case. Complications: none EBL: <5 cc 71125 - Lumbar/Sacral Procedure code (CPT) selection complete Assessment & Plan Assessment & Plan (1) Lumbar radiculopathy: Code(s): M54.16 - Radiculopathy, lumbar region Category: Medical Plan Patient is status post right L4-5 TFESI. Patient tolerated procedure well and was discharged home in stable condition with discharge instructions. All questions were answered. We will follow-up via telephone or in clinic to assess response to therapy. A follow-up appointment was made during today's visit. Orders: Orders FL guidance in treatment room Today Janey Dixon APRN, INSURANCE LICENSING SUPERVISOR M54.16 - Radiculopathy, lumbar region AMB Transforaminal Epidural Steroid Injection Today Todd Harris MD M54.16 - Radiculopathy, lumbar region Coding Level of Care Code Procedure Only Diagnoses Lumbar radiculopathy M54.16 CPT Codes Transforaminal Epidural Steroid Inj - TESI 3: 81928 - Lumbar/Sacral ([id number])
--- OUTSIDE RECORDS SUMMARY | 2024-05-18 09:42 | XMS_ITS | Data Portability ---
Author Organization [facility] Address [address] [place] [address] Care Team Providers Care General Manager [employer] Name Role Phone FERNANDO OROZCO Primary Care Provider [phone] Assessment No assessment recorded. Plan of Treatment [...] Medication Orders meloxicam [address] [id number], [address] [place], [address], 4 09:57:55 Medrol (Satya) 4 mg tablets in a dose pack [address] [id number], [address] [place], [address], 4 09:57:56 tizanidin e 4 mg tablet [address] [id number], [address] [place], [address], 4 09:57:56 Patient TargetsNo targets recorded. Patient InstructionsNo instructions recorded. Reason for Referral None Reported. Results Created Date Observation Date Name Description Value Unit Range Abnormal Flag Note LastModifiedBy Organization Detail LastModifiedTime 07/20/19 24 07/21/2023 CBC WITH DIFFE RENTI AL/PL ATELE T WBC 6.0 x10e3 /uL 3.4-10 .8 Not Available [facility] ([facility]) [address] [facility], [place], [address], 07/21/2023 08:09:11 07/20/19 24 07/21/2023 CBC WITH DIFFE RENTI AL/PL ATELE T RBC 3.76 x10e6 /uL 3.77-5 .28 below low normal Not Available [facility] ([facility]) [address] [facility], [place], [address], 07/21/2023 08:09:11 07/20/19 24 07/21/2023 CBC WITH DIFFE RENTI AL/PL ATELE T hemoglobin 11.7 g/dL 11.1-1 5.9 Not Available [facility] ([facility]) [address] [facility], [place], [address], 07/21/2023 08:09:11 07/20/19 24 07/21/2023 CBC WITH DIFFE RENTI AL/PL ATELE T hematocrit 33.2 % 34.0-4 6.6 below low normal Not Available [facility] ([facility]) [address] [place], [address], 07/21/2023 08:09:11 07/20/19 24 07/21/2023 CBC WITH DIFFE RENTI AL/PL ATELE T MCV 88 fL 79-97 Not Available [facility] ([facility]) [address] [place], [address], 07/21/2023 08:09:11 07/20/19 24 07/21/2023 CBC WITH DIFFE RENTI AL/PL ATELE T MCH 31.1 pg 26.6-3 3.0 Not Available [facility] ([facility]) [address] [place], [address], 07/21/2023 08:09:11 07/20/19 24 07/21/2023 CBC WITH DIFFE RENTI AL/PL ATELE T MCHC 35.2 g/dL 31.5-3 5.7 Not Available [facility] ([facility]) [address] [facility], [place], [address], 07/21/2023 08:09:11 07/20/19 24 07/21/2023 CBC WITH DIFFE RENTI AL/PL ATELE T RDW 12.2 % 11.7-1 5.4 Not Available [facility] ([facility]) [address] [facility], [place], [address], 07/21/2023 08:09:11 07/20/19 24 07/21/2023 CBC WITH DIFFE RENTI AL/PL ATELE T platelets 255 x10e3 /uL 150-45 0 Not Available [facility] ([facility]) [address] [facility], [place], [address], 07/21/2023 08:09:11 07/20/19 24 07/21/2023 CBC WITH DIFFE RENTI AL/PL ATELE T neutrophils 58 % not estab. Not Available [facility] ([facility]) [address] [facility], [place], [address], 07/21/2023 08:09:11 07/20/19 24 07/21/2023 CBC WITH DIFFE RENTI AL/PL ATELE T lymphs 30 % not estab. Not Available [facility] ([facility]) [address] [facility], [place], [address], 07/21/2023 08:09:11 07/20/19 24 07/21/2023 CBC WITH DIFFE RENTI AL/PL ATELE T monocytes 10 % not estab. Not Available [facility] ([facility]) [address] [facility], [place], [address], 07/21/2023 08:09:11 07/20/19 24 07/21/2023 CBC WITH DIFFE RENTI AL/PL ATELE T eos 1 % not estab. Not Available [facility] ([facility]) [address] [facility], [place], [address], 07/21/2023 08:09:11 07/20/19 24 07/21/2023 CBC WITH DIFFE RENTI AL/PL ATELE T basos 1 % not estab. Not Available [facility] ([facility]) [address] [facility], [place], [address], 07/21/2023 08:09:11 07/20/19 24 07/21/2023 CBC WITH DIFFE RENTI AL/PL ATELE T immature cells WOOL TAMPER Not Available [facility] ([facility]) [address] [place], [address], 07/21/2023 08:09:11 07/20/19 24 07/21/2023 CBC WITH DIFFE RENTI AL/PL ATELE T neutrophils (absolute) 3.6 x10e3 /uL 1.4-7. 0 Not Available [facility] ([facility]) [address] [place], [address], 07/21/2023 08:09:11 07/20/19 24 07/21/2023 CBC WITH DIFFE RENTI AL/PL ATELE T lymphs (absolute) 1.8 x10e3 /uL 0.7-3. 1 Not Available [facility] ([facility]) [address] [place], [address], 07/21/2023 08:09:11 07/20/19 24 07/21/2023 CBC WITH DIFFE RENTI AL/PL ATELE T monocytes(ab solute) 0.6 x10e3 /uL 0.1-0. 9 Not Available [facility] ([facility]) [address] [place], [address], 07/21/2023 08:09:11 07/20/19 24 07/21/2023 CBC WITH DIFFE RENTI AL/PL ATELE T eos (absolute) 0.1 x10e3 /uL 0.0-0. 4 Not Available [facility] ([facility]) [address] [facility], [place], [address], 07/21/2023 08:09:11 07/20/19 24 07/21/2023 CBC WITH DIFFE RENTI AL/PL ATELE T baso (absolute) 0.0 x10e3 /uL 0.0-0. 2 Not Available [facility] ([facility]) [address] [facility], [place], [address], 07/21/2023 08:09:11 07/20/19 24 07/21/2023 CBC WITH DIFFE RENTI AL/PL ATELE T immature granulocytes 0 % not estab. Not Available [facility] ([facility]) [address] [facility], [place], [address], 07/21/2023 08:09:11 07/20/19 24 07/21/2023 CBC WITH DIFFE RENTI AL/PL ATELE T immature grans (abs) 0.0 x10e3 /uL 0.0-0. 1 Not Available [facility] ([facility]) [address] [facility], [place], [address], 07/21/2023 08:09:11 07/20/19 24 07/21/2023 CBC WITH DIFFE RENTI AL/PL ATELE T NRBC WOOL TAMPER Not Available [facility] ([facility]) [address] [facility], [place], [address], 07/21/2023 08:09:11 07/20/19 24 07/21/2023 CBC WITH DIFFE RENTI AL/PL ATELE T hematology comments: WOOL TAMPER Not Available [facility] ([facility]) [address] [facility], [place], [address], 07/21/2023 08:09:11 07/20/19 24 07/21/2023 SEDIM ENTAT ION RATE- WESTE RGREN sedimentatio n rate-westerg robert 15 mm/HR 0-40 Not Available [facility] ([facility]) [address] [facility], [place], [address], 07/21/2023 08:09:12 07/20/19 24 07/21/2023 C-QUIANA CTIVE PROTE IN, QUANT C-reactive protein, quant <1 mg/L 0-10 Not Available [facility] ([facility]) [address] [facility], [place], [address], 07/21/2023 08:09:12 12/04/19 24 11/01/2021 imagi ng/di [...] Address Organization Details Recorded Time No complaints [id number] Active Status : 'A'; Not Available [facility] 4 09:25:19 Problem Notes None recorded. Procedures Surgical History Date Name Laterality Status Provider Name and Address Organization Details Recorded Time 4 Hip Kenalog 2cc Injection, L/R completed Fox Yip PA-C [address] [facility] [address], [place], [address], [facility] 08/13/2023 12:37:47 Imaging Results [...] Updated DateTime 08/13/2023 165.1 cm 27.6 kg/m2 16510.33 g MYRNA MACARIO Chaves N [facility] 08/13/2023 09:29:50 Social History None recorded. Functional Status None recorded. Mental Status None recorded. Family History Nothing Reported. Medical History No medical history recorded. Gynecological HistoryNo gynecological history recorded. Obstetrics History GPAL:G 0 P 0 0 0 0 Past Encounters Encounter ID Performer Location Encounter Start Date Encounter Closed Date Diagnosis/Indication Diagnosis SNOMED-CT Code Diagnosis ICD10 Code Diagnosis Note [id number] [facility] [address], [place] [address] 08/13/2023 09:06:51 08/25/2023 16:03:49 History of total replacement of right hip joint 5880760373 50946 Z96.641 Trochanter ic bursitis of right hip 0087415419 10856 M70.61 Lumbar radiculopathy 128 383686 M54.16 Health Concerns Section Related Observation LastModified by Organization Detai ls LastModified Time None Recorded Concern Status LastModified by Organization Details LastModified Time None Recorded Advance Directives Directive None Recorded Payers Encounter Date Sequence Insurance Name Policy Number Policy Escobedo Covered Member ID Escobedo Member ID Guarantor Name 08/13/2023 1 [place]: LIANG (PPO) [id number] 1 Fox Gorman [id number] Kim Gorman Notes Date Note Type [...] meloxicam as well as tizanidine. I did corporate counselor the patient on how to utilize [...] concerns were answered today. Fox Yip PA-C [address] [place], [place] [address] [address], [place], [address], [facility] 08/13/2023 12:38:45 OBGyn Episode No OBEpisode recorded.
== END 2024-05-18 10:13 | disposition home or self-care (01) ==
LOC: HO.PMCPRC 09:17
PROVIDERS: PCP Internal Medicine; Visit Provider Internal Medicine
DX: M54.16 Radiculopathy, lumbar region (principal)
CPT/HCPCS: 64483

== ENCOUNTER 2024-06-08 08:30 | Outpatient (AMB) | payer BC, SELFPAY ==
--- NOTE | 2024-06-08 08:34 | A.OFFPC_ITS ---
Intake Visit Reasons: Percocet initiation Allergies No Known Allergies Allergy (Verified 06/08/24 08:34) Medication List - Last Reconciled 06/08/24 by Rodney Jeff MD omeprazole 20 mg PO DAILY 90 days rosuvastatin 10 mg PO DAILY 90 days Tobacco use date assessed: 06/08/24 Dental Screening Dental Screen Date: 06/08/24 Did you have a dental visit in the last 12 months?: Yes Did you have a dental problem in the last 6 months where you did not have access to dental care?: No Was dental information given to patient?: Patient has dentist HPI Percocet initiation HPI Details History - The patient is a 58-year-old female pr esenting with severe back and right leg pain. - The pain has markedly increased over t he past week, leading to immobility. - Previous pain relief attempts with pedro apentin and sacroiliac joint injection were ineffective. - An MRI indicated disc space reduction at L4-L5, associated with atrophy and tendinopathy. i dont have that report - Scheduled nerve injection is planned, based on MRI findings. through specialist - Discussions around pain management inc luded the use of narcotics as needed, with attention to potential side effects such as drowsiness, addiction risk, and constipation. Problem List - Tendinopathy - Pain radiating to the right leg - Lumbar disc space reduction at L4-L5 Patient Instructions - Take narcotic pain medication only as needed for severe pain; it is not required to take it routinely. - Be cautious of drowsiness and do not d rive while taking this medication. - Monitor and address potential side eff ects like constipation. - Use caution and only take it once to a ssess the body's response. 21 tabs sent of percocet we will set up another visit in 2 wks to follow up Review of Systems - General: No fever no chills - Neurological: No headaches no dizziness - Ear nose throat: No sore throat no hearing difficulty no ear pain - Cardiovascular: No syncope, no chest pain, no palpitations - Gastrointestinal: No nausea vomiting or diarrhea - Endocrine: No polyuria polydipsia no heat intolerance - Genitourinary: No dysuria , no blood in urine [facility] History Lumbar degenerative disc disease Right ankle sprain Left ankle sprain Anemia Constipation Chronic GERD Sinusitis Sore throat, chronic Vitamin D deficiency Impaired fasting blood sugar Lipid disorder Facet arthropathy Ankle pain, left Migraine headache Meralgia paresthetica of right side Osteoarthritis of right hip Right lumbar radiculitis Surgical History History of hip replacement, total Hx of foot surgery (~2018) Family History Father No problems noted. Mother No problems noted. Brother No problems noted. Brother No problems noted. Sister No problems noted. 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 Jose Jesus, Evy Glass, Stewart Hudson and colleagues, with an educational jameel from [employer]. Physical exam (Primary Care) Tobacco/Smoking Status: Tobacco use Status Tobacco use date assessed 06/08/24 06/08/24 08:35 Patient Tobacco Use Status Former Tobacco user 06/08/24 08:35 Tobacco use type Cigarette 06/08/24 08:35 e-Cigarette/Vaping Use Never Used 06/08/24 08:35 Thrive Assessment: Date of Thrive Assessment Date Thrive assessed 05/09/24 06/08/24 08:35 Telehealth Telehealth Telehealth Platform: [facility] Location of provider rendering services: practice address Location of patient: address on file Patient Identification confirmed using: Name, : Yes Telehealth method: video (attempted) Patient verbally consented to treatment: Yes Patient verbally consented to billing insurance company: Yes Patient informed of any privacy concerns related to visit: Yes Minutes spent on Phone/Video with Pt.: 13 Coding Level of Care Code Tele Est Pt Level 3 (17009) Diagnoses Pain management R52 Degeneration of intervertebral disc of lumbar region, unspecified whether pain present M51.369 Disc-related pain type: unspecified whether pain present Facet arthropathy M47.819 Lumbar radiculopathy M54.16 Assessment & Plan Assessment & Plan (1) Pain management: Code(s): R52 - Pain, unspecified Category: Medical (2) Lumbar degenerative disc disease: Code(s): M51.369 - Other intervertebral disc degeneration, lumbar region without mention of lumbar back pain or lower extremity pain Category: Medical Qualifiers: Disc-related pain type: unspecified whether pain present Qualified Code(s): M51.369 - Other intervertebral disc degeneration, lumbar region without mention of lumbar back pain or lower extremity pain (3) Facet arthropathy: Code(s): M47.819 - Spondylosis without myelopathy or radiculopathy, site unspecified Category: Medical (4) Lumbar radiculopathy: Code(s): M54.16 - Radiculopathy, lumbar region Category: Medical Plan History - The patient is a 58-year-old female presenting with severe back and right leg pain. - The pain has markedly increased over the past week, leading to immobility. - Previous pain relief attempts with gabapentin and sacroiliac joint injection were ineffective. - An MRI indicated disc space reduction at L4-L5, associated with atrophy and tendinopathy. i dont have that report - Scheduled nerve injection is planned, based on MRI findings. through specialist - Discussions around pain management included the use of narcotics as needed, with attention to potential side effects such as drowsiness, addiction risk, and constipation. Problem List - Tendinopathy - Pain radiating to the right leg - Lumbar disc space reduction at L4-L5 Patient Instructions - Take narcotic pain medication only as needed for severe pain; it is not required to take it routinely. - Be cautious of drowsiness and do not drive while taking this medication. - Monitor and address potential side effects like constipation. - Use caution and only take it once to assess the body's response. 21 tabs sent of percocet we will set up another visit in 2 wks to follow up Medications: New oxycodone-acetaminophen 5-325 mg (Percocet) Partial Fill upon patient request. 1 tab PO Q8H 7 days PRN 21 tabs 0RF pain M47.819 - Spondylosis without myelopathy or radiculopathy, site unspecified, M51.369 - Other intervertebral disc degeneration, lumbar region without mention of lumbar back pain or lower extremity pain, M54.16 - Radiculopathy, lumbar region, R52 - Pain, unspecified
--- OUTSIDE RECORDS SUMMARY | 2024-06-08 08:54 | XMS_ITS ---
Author Organization [facility] [place] k[place] Address [address] [place] [address] Care Team Providers Care Phone Screener Name Role Phone Tomer JONES, [facility] Primary [facility] Provider Rashad Coronado [phone] Allergies No Known Allergies REASON FOR VISIT Foot pain Medications Medication SIG (Take, Route, Frequency, Duration) Notes Start Date End Date Status Omeprazole Active Rosuvastatin Calcium 10 MG 1 tablet Orally Once a day Active Diclofenac Not-Takin g Diflucan 200 MG 1 tablet Orally Once a day for 10 day(s) Not-Taking Augmentin 500-125 MG 1 tablet Orally merry ry 8 hrs for 10 days 03/14/2019 Not-Taking Social History Tobacco Use: Social History Observation Description Date Details (start date - stop date) Never Smoker NA - NA Alcohol Screen Question Answer Notes Did you have a drink containing alcohol in the p ast year? Yes Points 0 Interpretation Negative Tobacco use other than smoking: Question Answer Notes Are you an other tobacco user? No Tobacco Control (Standard) Question Answer Notes Tobacco use: Nonsmoker Additional Findings: Tobacco non-user Current no nsmoker Vital Signs Height 5ft 5 in in 05/18/2024 Weight 162.6 lbs 05/18/2024 BMI 27.06 kg/m2 05/18/2024 Blood pressure systolic 131 mm Hg 05/18/19 25 Blood pressure diastolic 84 mm Hg 025 Heart Rate 76 /min 05/18/2024 Encounters Encounter Location Date Provider Diagnosis [address] [place] [address] 05/18/2024 Rashad Cisneros Pain in left foot M79.672 and Metatarsalgia, left foot M77.42 Assessments Encounter Date Diagnosis (ICD Code) Assessment Notes Treatment Notes Treatment Clinical Notes Section Notes 05/18/2024 Pain in left foot (ICD-10 - M79.672) 05/18/2024 Metatarsalgia, left foot (ICD-10 - M77.42) Plan Of Treatment Next Appt Details Follow Up: prn, Reason: Progress Notes * Kim GORMAN ADOB:[birth year] (58 yo F)Acc No.[id number]:05/18/2024 Progress Note Patient:?Kim GORMAN A Provider:?Rashad Cisneros D.P.M. :1965???Age:58 Y???Sex:Female D ate:05/18/2024 Address:[address] [place] [address] Pcp:Rodney Jeff MD Subjective: * Chief Complaints: * ???Foot pain * HPI: ???Foot Pain:?Location:?Bottom, Forefoot, LEFT. Pt feels she has a leg length discrepancy with the left limb being shorter.?Duration:?several months.?Onset:?secondary to right hip rplacement surgery.?Course:?worse.?Aggravated:?standing, walking.?Treatments:?rest/alter normal daily activity.?Severity/Quality:?moderate.? * ROS:?General/Constitutional:?Nausea?denies.?Vomiting?denies.?Hunger Thirst?denies.?Loss appetite?denies.?Chills?denies.?Fatigue?denies.?Fever?denies.?Night Sweats?denies.?Unexplained weight loss?denies.?Unexplained weight gain?denies.?HEENTM:?Dentures?denies.?Dizziness?denies.?Glasses/contacts?admits.?Retinopathy?de nies.?Blurred/double vision?denies.?TMJ?denies.?Discharge/drainage?denies.?Implants?denies.?Sore throat?denies.?Dental implants?denies.?Hard of hearing ?denies.?Difficulty chewing/swallowing/speaking?denies.?Nose bleeds?denies.?Sore mouth?denies.?Respiratory:?On Oxygen?denies.?Pneumonia/pleurisy?denies.?Bronchitis?denies.?Emphysema?denies.?C oughing?denies.?Cough blood?denies.?Shortness of breath?denies.?Wheezing?denies.?Cardiovascular:?Pacemaker?denies.?MVP?denies.?WPW?denies.?CHF?denies.?Heart attack?denies.?Septal defect?denies.?Rapid beat?denies.?Chest pain ?denies.?Atrial Fib.?denies.?Murmur/Palpitations?denies.?Gastrointestinal:?Hemorrhoids?denies.?Stomach/Abdominal pain?denies.?Dark blood stool?denies.?Irritable bowel ?denies.?Constipation?denies.?Diarrhea?denies.?Hematology:?Swelling?denies.?Clots?denies.?Varicose Veins?denies.?Bruising?denies.?Bleeding problem?denies.?Genitourinary:?Blood urine?denies.?Frequent/Painfu/urination/bladder control?denies.?Kidney stones?denies.?Infection (UTI)?denies.?Nephropathy?denies.?sex trans dis (STD)?denies.?Prostate?denies.?Musculoskeletal:?Hammertoes?denies.?Bunions?denies.?Back Pain?denies.?Muscle Cramps/ Resting?denies.?Muscle cramps / walking?denies.?Generalized aches and pains?denies.?Weakness?denies.?Integ.:?[place]?denies.?Scars?denies.?Corns/calluses?denies.?Ingrown nails?denies.?Painful nails?denies.?Open Sores?denies.?Rashes?denies.?Neurologic:?Difficulty sleeping?denies.?Brain disorder?denies.?Numbness?denies.?Balance trouble?denies.?Confusion?denies.?Fainting/blackouts?denies.?Tingling?denies.?Tr emors?denies.? * Medical History:? * Surgical History:?Kee R 03/10/2018Hip replacement right 10/20/2022 * Hospitalization/Major Diagno stic Procedure:?Denies Past Hospitalization * Family History:?Mother: leonel elliott, diagnosed with Other malignant neoplasm of unspecified site.?Father: .?Maternal Grand Father: heart attack.?Siblings: cancer.?Spouse: alive.? * Social History:?Tobacco Use:?Tobacco use other than smoking?Are you an other tobacco user??No ?Tobacco Control (Standard)?Tobacco use:?Nonsmoker ?Additional Findings: Tobacco non-user?Current nonsmoker ???Drugs/Alcohol:?Drugs?Have you used drugs other than those for medical reasons in the past 12 months??No ?Alcohol Screen?Did you have a drink containing alcohol in the past year??Yes ?Points?0 ?Interpretation?Negative ???Miscellaneous:?Caffeine: yes. ?Children: no. ?Exercise: yes, gym, 2-3 times per week. ?Marital status: . 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 * Medications:?TakingOmeprazol e Rosuvastatin Calcium 10 MG Tablet 1 tablet Orally Once a day Taking Omeprazole Taking Rosuvastatin Calcium 10 MG Tablet 1 tablet Orally Once a day Not-Taking/PRNDiclofenac Diflucan 200 MG Tablet 1 tablet Orally Once a day Augmentin 500-125 MG Tablet 1 tablet Orally every 8 hrs Medication List reviewed and reconciled with the patientNot-Taking/PRN Diclofenac Not-Taking/PRN Diflucan 200 MG Tablet 1 tablet Orally Once a day Not-Taking/PRN Augmentin 500-125 MG Tablet 1 tablet Orally every 8 hrs Medication List reviewed and reconciled with the patient * Allergies:?N.K.D.A.yes[Aller gies Verified] Objective: * Vitals:?Ht:5ft 5 in, Wt:162. 6, BMI:27.06, Shoe size:8.5, BP:131/84mm Hg, HR:76/min, Ht-cm: 165.1 cm, Wt-k.75 kg. * Examination: ???General Examination: ?GENERAL APPEARANCE:?Reveals a pleasant, alert, well-nourished, well- developed, well hydrated individual, who demonstrates proper attention to hygiene/body habitus, and is in no acute distress, Pt serves as own?historian for office visit today.?ORIENTED:?person, place, and time.?Neurological: ?SENSORY:?Neurological exam reveals intact sensorium, pain sensation normal, vibration sensation intact, pinprick sensation is normal in the lower extremities, Pt denies, anesthesia, burning, paresthesia, tingling, B/L.?TINEL'S COMPRESSION:? Negative tarsal tunnel, veronika pedis, and medial calcaneal nerves, Left.?DEEP TENDON REFLEXES:?Achilles, 2/4, B/L.?Vascular: ?DP PULSES (B):?3/4, B/L.?PT PULSES (B):?3/4, B/L.?CAPILLARY FILL TIME:?immediate, all digits, B/L.?TROPHIC CONDITION-TEXTURE/ELASTICITY/TURGOR/HAIR GROWTH (B):?normal, B/L.?TEMPERTURE GRADIENT (C):?warm to cool, proximal to distal, B/L.?PIGMENTATION:?normal, B/L.?EDEMA (C):?absent, B/L.?Dermatologic: ?SKIN FINDINGS:?Skin exam reveals normal texture, elasticity, and turgor. There are no masses. The interspaces are clear.?Orthopedic: ?MUSCLE STRENGTH:?5/5 all groups in a symmetrical fashion , B/L.?GAIT ABNORMALITY:?WNL.? No pelvis or shoulder tilt, imbalance or any other sign of leg length?discrepancy..?MPJ PATHOLOGY:?minimal pain sub 1-5 MPJ's with ROM.?FOOTWEAR:?Shoe gearwere inspected and noted to be worn, but in good condition giving proper support at the present time.? Assessment: * Assessment: 1.?Metatarsalgia, left foot - M77.42 (Primary)???Specify :Acute problem, Uncomplicated (3)???2.?Pain in left foot - M79.672??? Plan: * Treatment: * Procedure Codes:? * Preventive Medicine:? ??Counseling:?Discussion:?-13: Office or other outpatient visit for the evaluation and management of an established patient, which required a medically appropriate history and/or examination and LOW level of DECISION MAKING for: 1 STABLE ACUTE UNCOMPLICATED PROBLEM, 2 OR MORE MINOR PROBLEMS, OR 1 STABLE CHRONIC PROBLEM, THAT POSE(S) A LOW RISK FOR MORBIDITY/MORTALITY. The visit on the day of the encounter encompassed interpreting the data and educating the patient as to the nature of their condition, treatment options available according to their individual PMH, meds, allergies, and overall health/living conditions, as well as any potential risks or complications that may occur from a failure to adhere to, and participate in, the recommended course of therapy. The discussion included a complete verbal, and/or written explanation of the examination results, any x-rays taken, the proposed diagnosis, and outline of the treatment plan. A schedule for future care needs was also explained. The patient verbalized an understanding of the instructions at this time and agreed to be an active participant in their treatment. If the patient should think of any questions or concerns after the visit, I have encouraged the patient to call the office.?Metatarsalgea:?I explained to the patient the possible etiologies of their Metatarsalgea Foot pain, including foot type/shoegear/activity level/exercise routine and the risks/benefits of all the different treatment options for pain including: No treatment at all, Rest, Ice, NSAIDs(only if well tolerated after meals), New/supportive Shoe gear, Strappings and Tapings, Foot/Ankle AFO Bracing, Stretching exercises, Deep Tissue Massage, Arch support/shoe inserts, Custom orthoses, Topical analgesics including Aspercream/Voltaren gel, Physical Therapy, Cortisone injection therapy, EPAT/ESWT. Advantages and disadvantages of each option were discussed and the patients questions re: shoe gear, custom vs prefabricated inserts, activity level, PO vs Topical medications (and their respective potential complications/drug interactions/side effects), and consistency in home treatment regimens for optimal success were answered to their verbally confirmed satisfaction.?Orthotics:?I explained to the patient the benefits of OT use. I explained that orthoses are medically necessary to decrease the foot pain through proper mechanical control, support of their foot, decrease pain under the painful metatarsal by supplementing the soft tissue, cushion the forefoot by supplementing the soft tissue.?P.R.I.C.E.:?The patient was counseled on the use of P.R.I.C.E. and NSAIDS (if well tolerated) to aid in the recovery from their painful condition.?Shoe Gear Counseling:?The patient and I reviewed the types of shoes they should be wearing. My recommendation included obtaining a well-fitted shoe with a good supportive, non-foldable nor twistable sole, plenty of toe/room for the forefoot, and proper arch support. Based on todays examination, I recommended the patient look for new shoes, by having their feet professionally measured. We discussed that generally the best time of the day for a shoe fitting is the afternoon. Different shoes types and brands to best match the patients occupation and vocation were discussed. Specific brand selection will be up to the patient, their individual foot condition/deformities, and fit. The patient and I reviewed the standard new shoe break in period by wearing them for a few hours a day while checking for redness or sores as wear time is increased. The patient verbally confirmed to understanding the information discussed.? * Follow Up:?prn * Images: * Sign off status: Completed true * Provider:?Rashad Cisneros D.P.M. Date:?05/06 Generated for Tejal lee/Ruben/Braydenitting on:?06/08/2024 08:54 AM EST History and Physical Notes * HPI (History of Present Illness) Category Sub-Category Detail Notes Category Not es Foot Pain Location: Bottom, Forefoot , LEFT. Pt feels she has a leg length discrepancy with the left limb being shorter Duration: several months Onset: secondary to right h ip rplacement surgery Course: worse Aggravated: standing, walking Treatments: rest/alter normal da colin activity Severity/Quality: moderate Misc: Examination Category Sub-Category Detail Notes Category Not es Neurological SENSORY: Neurological exa m reveals intact sensorium, pain sensation normal, vibration sensation intact, pinprick sensation is normal in the lower extremities, Pt denies, anesthesia, burning, paresthesia, tingling, B/L TINEL'S COMPRESSION: Negative tarsal courtney fidelina, veronika pedis, and medial calcaneal nerves, Left DEEP TENDON REFLEXES: Achilles, 2/4, B/L Dermatologic SKIN FINDINGS: Skin exam reveal s normal texture, elasticity, and turgor. There are no masses. The interspaces are clear Orthopedic GAIT ABNORMALITY: WNL. No pelvis or shoulder tilt, imbalance or any other sign of leg length discrepancy. FOOTWEAR: Shoe gearwere inspec guanako and noted to be worn, but in good condition giving proper support at the present time MPJ PATHOLOGY: minimal pain sub 1-5 MPJ's with ROM MUSCLE STRENGTH: 5/5 all groups in a symmetrical fashion , B/L General Examination GENERAL APPEARANCE: Reveals a pleasant, alert, well- nourished, well-developed, well hydrated individual, who demonstrates proper attention to hygiene/body habitus, and is in no acute distress, Pt serves as own historian for office visit today ORIENTED: person, place, and t alina Vascular DP PULSES (B): 3/4, B/L PT PULSES (B): 3/4, B/L CAPILLARY FILL TIME: immediate, all digi ts, B/L TEMPERTURE GRADIENT (C): warm to cool, p roximal to distal, B/L TROPHIC CONDITION-TEXTURE/ELASTICITY/TURGOR/HAIR GROWTH (B): normal, B/L EDEMA (C): absent, B/L PIGMENTATION: normal, B/L
--- OUTSIDE RECORDS SUMMARY | 2024-06-08 08:54 | XMS_ITS | Patient Health Record ---
[facility] [place] Address [address] [place] [address] Care Team Providers Care Talent Acquisition Lead Name Role Phone Tomer JONES, [facility] Provider Rashad Coronado [phone] Allergies No Known Allergies Reason For Referral [...] 8 hrs for 10 days 03/14/2019 Not-Taking Immunizations Vaccine Route Administration Date Status [...] Tobacco non-user Current no nsmoker Vital Signs Heart Rate 76 /min 05/18/2024 Blood pressure diastolic 84 mm Hg 05/18/2024 Height 5ft 5 in in 05/18/2024 Blood pressure systolic 131 mm Hg 05/18/2024 Weight 162.6 lbs 05/18/2024 BMI 27.06 kg/m2 05/18/2024 Encounters Encounter [facility] Date [facility] [place] [address] 05/18/2024 Rashad Cisneros Pain in left foot M79.672 and Metatarsalgia, left foot M77.42 Assessments Encounter Date Diagnosis (ICD Code) Assessment Notes Treatment Notes Treatment Clinical Notes Section Notes 05/18/2024 Metatarsalgia, left foot (ICD-10 - M77.42) 05/18/2024 Pain in left foot (ICD-10 - M79.672) Plan Of Treatment Pending Test Test Name Order Date X ray : Foot, left 2V 12/28/2017 X ray : Foot, right 3V 03/14/2018 X ray : Foot, right 3V 03/23/2018 X ray : Foot, right 3V 11/15/2017 [id number] I&D ABSCESS- SIMPLE,SINGLE 019 [id number], [id number]/INJECT, JOINT/BURSA 0 06/10/2018 [id number] TENDON SHEATH/LIGAMENT 0 06/10/2018 [id number] TENDON SHEATH/LIGAMENT 1 05/19/2020 Insurance Providers Payer Name Payer Address Payer Phone Subscriber Number Group Number Insured Name Patient Relationship to Insured Coverage Start Date Coverage End Date [facility] [address] [place] [address] [id number] Spouse - patient is the spouse of the insured 3 Medical (General) History Medical History History ICD Code Chicken pox Surgical History Surgery Date(Month/Year) Vidhya Bergman 03/10/2018 Hip replacement right 10/20/2022
== END 2024-06-08 09:01 | disposition home or self-care (01) ==
LOC: HO.HMCC 08:30
PROVIDERS: PCP Internal Medicine; Visit Provider Internal Medicine
DX: M51.369 Other intervertebral disc degeneration, lumbar region without mention of lumbar back pain or lower extremity pain (principal); M47.819 Spondylosis without myelopathy or radiculopathy, site unspecified; M54.16 Radiculopathy, lumbar region

== ENCOUNTER → 2024-06-08 08:30 | Outpatient (BNVA) | payer BC, SELFPAY | PROVIDERS: PCP Internal Medicine; Visit Provider Internal Medicine ==

== ENCOUNTER 2024-06-22 08:04 | Outpatient (AMB) | payer BC, SELFPAY ==
--- NOTE | 2024-06-22 08:15 | A.OFFPC_ITS ---
Intake Visit Reasons: f/u after starting pain med Allergies No Known Allergies Allergy (Verified 06/22/24 08:16) Medication List - Last Reconciled 06/22/24 by Rodney Jeff MD omeprazole 20 mg PO DAILY 90 days oxycodone-acetaminophen 5-325 mg (Percocet) 1 tab PO Q8H PRN 7 days rosuvastatin 10 mg PO DAILY 90 days Tobacco use date assessed: 06/22/24 Dental Screening Dental Screen Date: 06/22/24 Did you have a dental visit in the last 12 months?: Yes Did you have a dental problem in the last 6 months where you did not have access to dental care?: No Was dental information given to patient?: Patient has dentist HPI f/u after starting pain med HPI Details History - The patient is a 58-year-old female pr esenting with chronic pain management. - Reports enduring back and right leg pa in, historically severe but presently manageable. Pain intensity fluctuates, with significant discomfort experienced during a five-day episode three weeks prior. - Underwent a corticosteroid injection a t pain management two months ago in the trochanteric bursa region, leading to temporary relief before reemergence of symptoms. - Uses lidocaine cream, acetaminophen, a nd ibuprofen intermittently to manage pain's impact on daily functioning. - Previously pursued physical therapy wi th initial success, yet benefits have waned over time. - Demonstrates reluctance towards utiliz ing prescribed Percocet, owing to concerns over side effects, preferring treatments less likely to disrupt routine and mobility. - Numerous orthopedics consulted previou sly, with current hesitancy towards additional referrals due to underwhelming past experiences. Problem List - Chronic Pain - Right Leg Pain - Trochanteric Bursitis Patient Instructions - Begin with half a Percocet tablet if p ain becomes intolerable, increasing to a full tablet if necessary, while monitoring effects. - Consider taking prescribed medication at night to manage nighttime pain. - Explore non-pharmacological pain manag ement strategies during the day, such as regular breaks and pacing activities. - Resume activity gradually, such as nei ghborhood walks, ensuring alignment with pain tolerance. - Maintain communication regarding pain levels and medication efficacy. - Contact if further assistance or more medication is needed. Review of Systems. - General: No fever no chills - Neurological: No headaches no dizziness - Ear nose throat: No sore throat no hearing difficulty no ear pain - Cardiovascular: No syncope, no chest pain, no palpitations - Gastrointestinal: No nausea vomiting or diarrhea PFSH Medical History Lumbar degenerative disc disease Right ankle sprain Left ankle sprain Anemia Constipation Chronic GERD Sinusitis Sore throat, chronic Vitamin D deficiency Impaired fasting blood sugar Lipid disorder Facet arthropathy Ankle pain, left Migraine headache Meralgia paresthetica of right side Osteoarthritis of right hip Right lumbar radiculitis Surgical History History of hip replacement, total Hx of foot surgery (~2018) Family History Father No problems noted. Mother No problems noted. Brother No problems noted. Brother No problems noted. Sister No problems noted. 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 How often do you have a drink containing alcohol?: Monthly or less 2. How many drinks containing alcohol do you have on a typical day when you are drinking?: 1 or 2 3. How often do you have six or more drinks on one occasion?: Never Total Score: 1 Score Reviewed/Action Taken: Yes DALY-7 AMB Questionnaire DALY-7 Date DALY - 7 assessed: 05/09/24 Source: Developed by Drs. Jose Jesus, Evy Glass, Stewart Hudson and colleagues, with an educational jameel from [employer]. Physical exam (Primary Care) Tobacco/Smoking Status: Tobacco use Status Tobacco use date assessed 06/22/24 06/22/24 08:16 Patient Tobacco Use Status Former Tobacco user 06/22/24 08:16 Tobacco use type Cigarette 06/22/24 08:16 e-Cigarette/Vaping Use Never Used 06/22/24 08:16 Thrive Assessment: Date of Thrive Assessment Date Thrive assessed 05/09/24 06/22/24 08:16 Telehealth Telehealth Telehealth Platform: [employer] Location of provider rendering services: practice address Patient Identification confirmed using: Name, : Yes Telehealth method: video Patient verbally consented to treatment: Yes Patient verbally consented to billing insurance company: Yes Patient informed of any privacy concerns related to visit: Yes Minutes spent on Phone/Video with Pt.: 12 Coding Level of Care Code Tele Est Pt Level 3 (14383) Diagnoses Pain management R52 Degeneration of intervertebral disc of lumbar region, unspecified whether pain present M51.369 Disc-related pain type: unspecified whether pain present Facet arthropathy M47.819 Lumbar radiculopathy M54.16 Assessment & Plan Assessment & Plan (1) Pain management: Code(s): R52 - Pain, unspecified Category: Medical (2) Lumbar degenerative disc disease: Code(s): M51.369 - Other intervertebral disc degeneration, lumbar region without mention of lumbar back pain or lower extremity pain Category: Medical Qualifiers: Disc-related pain type: unspecified whether pain present Qualified Code(s): M51.369 - Other intervertebral disc degeneration, lumbar region without mention of lumbar back pain or lower extremity pain (3) Facet arthropathy: Code(s): M47.819 - Spondylosis without myelopathy or radiculopathy, site unspecified Category: Medical (4) Lumbar radiculopathy: Code(s): M54.16 - Radiculopathy, lumbar region Category: Medical Plan History - The patient is a 58-year-old female presenting with chronic pain management. - Reports enduring back and right leg pain, historically severe but presently manageable. Pain intensity fluctuates, with significant discomfort experienced during a five-day episode three weeks prior. - Underwent a corticosteroid injection at pain management two months ago in the trochanteric bursa region, leading to temporary relief before reemergence of symptoms. - Uses lidocaine cream, acetaminophen, and ibuprofen intermittently to manage pain's impact on daily functioning. - Previously pursued physical therapy with initial success, yet benefits have waned over time. - Demonstrates reluctance towards utilizing prescribed Percocet, owing to concerns over side effects, preferring treatments less likely to disrupt routine and mobility. - Numerous orthopedics consulted previously, with current hesitancy towards additional referrals due to underwhelming past experiences. Problem List - Chronic Pain - Right Leg Pain - Trochanteric Bursitis Patient Instructions - Begin with half a Percocet tablet if pain becomes intolerable, increasing to a full tablet if necessary, while monitoring effects. - Consider taking prescribed medication at night to manage nighttime pain. - Explore non-pharmacological pain management strategies during the day, such as regular breaks and pacing activities. - Resume activity gradually, such as neighborhood walks, ensuring alignment with pain tolerance. - Maintain communication regarding pain levels and medication efficacy. - Contact if further assistance or more medication is needed. Review of Systems. - General: No fever no chills - Neurological: No headaches no dizziness - Ear nose throat: No sore throat no hearing difficulty no ear pain - Cardiovascular: No syncope, no chest pain, no palpitations - Gastrointestinal: No nausea vomiting or diarrhea
== END 2024-06-22 08:42 | disposition home or self-care (01) ==
LOC: HO.HMCC 08:04
PROVIDERS: PCP Internal Medicine; Visit Provider Internal Medicine
DX: M51.369 Other intervertebral disc degeneration, lumbar region without mention of lumbar back pain or lower extremity pain (principal); M47.819 Spondylosis without myelopathy or radiculopathy, site unspecified; M54.16 Radiculopathy, lumbar region

== ENCOUNTER → 2024-06-22 08:04 | Outpatient (BNVA) | payer BC, SELFPAY | PROVIDERS: PCP Internal Medicine; Visit Provider Internal Medicine ==

== ENCOUNTER 2024-07-14 10:43 | Outpatient (AMB) | payer BC, SELFPAY ==
[2024-07-14 10:45] VITALS: BP 112/74; PULSE 56; O2SAT 98; BMI 28.4
--- NOTE | 2024-07-14 10:45 | A.OFFPC_ITS ---
Vital Signs 07/14/24 10:45 Height 5 ft 4 in Weight 165 lb 6 oz BMI 28.4 BP 112/74 Blood Pressure Location Rt brachial Position Sitting Pulse 56 Pulse Source Pulse Oximeter Pulse Oximetry (%) 98 Oxygen Delivery Method Room Air Intake Visit Reasons: pain in her left thumb Allergies No Known Allergies Allergy (Verified 07/14/24 10:45) Medication List - Last Reconciled 07/14/24 by Rodney Jeff MD omeprazole 20 mg PO DAILY 90 days oxycodone-acetaminophen 5-325 mg (Percocet) 1 tab PO Q8H PRN 7 days rosuvastatin 10 mg PO DAILY 90 days Tobacco use date assessed: 07/14/24 Dental Screening Dental Screen Date: 07/14/24 Did you have a dental visit in the last 12 months?: Yes Did you have a dental problem in the last 6 months where you did not have access to dental care?: No Was dental information given to patient?: Patient has dentist HPI pain in her left thumb HPI Details History - The patient is a 58-year-old female pr esenting with right thumb pain, suspected to be related to tendinitis. - The symptoms have persisted for over a month despite interventions including rest, ice, and ibuprofen. - Pain is described as occurring when gr asping objects and involves the thumb and adjoining areas. - The patient has made significant lifes tyle changes, including weight loss, yoga, and smoking cessation, contributing to improvement in other unrelated pains. - The patient noted that activities such as prolonged grasping and knitting may be aggravating factors. Problem List - Tendinitis left thumb Patient Instructions - Limit use of the right thumb and avoid activities involving repetitive thumb movement. - Attend the scheduled appointment with a hand specialist in [place]. - Consider a cortisone injection for rel ief of pain and inflammation. - Continue with lifestyle practices that have been effective in overall health improvement. Review of Systems - General: No fever no chills - Neurological: No headaches no dizziness - Ear nose throat: No sore throat no hearing difficulty no ear pain - Cardiovascular: No syncope, no chest pain, no palpitations - Gastrointestinal: No nausea vomiting or diarrhea - Endocrine: No polyuria polydipsia no heat intolerance - Genitourinary: No dysuria , no blood in urine Physical Exam General: No acute distress HEENT: No acute findings Neck: Supple Respiratory system: Able to talk in full sentences, no audible wheeze Cardiovascular: S1-S2 regular in rate and rhythm Gastrointestinal: No pain Extremities: Tenderness noted over extensor left thumb tendon with pressure, ROM intact, Nonvascular intact MENTAL HEALTH NURSE: Alert awake oriented x3 motor sensory intact Skin: Normal turgor [facility] Medical History Lumbar degenerative disc disease Right ankle sprain Left ankle sprain Anemia Constipation Chronic GERD Sinusitis Sore throat, chronic Vitamin D deficiency Impaired fasting blood sugar Lipid disorder Facet arthropathy Ankle pain, left Migraine headache Meralgia paresthetica of right side Osteoarthritis of right hip Right lumbar radiculitis Surgical History History of hip replacement, total Hx of foot surgery (~2018) Family History Father No problems noted. Mother No problems noted. Brother No problems noted. Brother No problems noted. Sister No problems noted. 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 1. Little interest or pleasure in doing things: not at all 2. Feeling down, depressed, or hopeless: not at all 3. Trouble falling or staying asleep, or sleeping too much: not at all 4. Feeling tired or having little energy: not at all 5. Poor appetite or overeating: not at all 6. Feeling bad about yourself - or that you are a failure or have let yourself or your family down: not at all 7. Trouble concentrating on things, such as reading the newspaper or watching television: not at all 8. Moving or speaking so slowly that other people could have noticed. Or the opposite - being so fidgety or restless that you have been moving around a lot more than usual: not at all 9. Thoughts that you would be better off or of hurting yourself in some way: not at all Total score: 0 Depression Screening Interpretation: Negative Depression Screening Done: Yes 94457 - PHQ-9 Billing: Yes Source: Developed by Drs. Jose Jesus, Evy Glass, Stewart Hudson and colleagues, with an educational jameel from [employer]. Thrive Questionnaire Date Thrive assessed: 07/14/24 I am a: Patient What is your living situation today?: I have a steady place to live Within the past 12 months, did the food you bought not last and you didn't have the money to get more?: Never true Within the past 12 months, did you worry whether your food would run out before you got money to buy more?: Never true Do you have trouble paying for medicines?: No Do you have trouble getting transportation to medical appointments?: No Do you have trouble paying your heating and electricity bill?: No Do you have trouble taking care of your child, family member or friend?: No Do you have trouble with day-to-day activities such as bathing, preparing meals, shopping, managing finances, etc.?: I choose not to answer this question Are you currently unemployed and looking for a job?: No Are you interested in more education?: No Please select the resources that you would like help with: None Currently or been in a relationship where the following occur: I choose not to answer THRIVE Score: 0 AUDIT C Alcohol Use Questionnaire (AUDIT-C) 1. How often do you have a drink containing alcohol?: Monthly or less 2. How many drinks containing alcohol do you have on a typical day when you are drinking?: 1 or 2 3. How often do you have six or more drinks on one occasion?: Never Total Score: 1 Score Reviewed/Action Taken: Yes DALY-7 AMB Questionnaire DALY-7 Date DALY - 7 assessed: 07/14/24 Feeling nervous, anxious, or on edge: 0 = Not at all Not being able to stop or control worryin = Not at all Worrying too much about different things: 0 = Not at all Trouble relaxin = Not at all Being so restless that it is hard to sit still: 0 = Not at all Becoming easily annoyed or irritable: 0 = Not at all Feeling afraid as if something awful might happen: 0 = Not at all Total DALY-7 score (0-4 normal; 5-9 mild; 10-14 moderate; 15-21 severe): 0 Source: Developed by Drs. Jose Jesus, Evy Glass, Stewart Hudson and colleagues, with an educational jameel from [employer]. DALY-7 Assessment Billing DALY-7 Assessment Tool: DALY-7 Assessment 14727 Physical exam (Primary Care) Vital Signs: Last Vital Signs Pulse 56 07/14/24 10:45 BP 112/74 07/14/24 10:45 Pulse Ox 98 07/14/24 10:45 Oxygen Delivery Method Room Air 07/14/24 10:45 BMI result Body Mass Index 28.4 Tobacco/Smoking Status: Tobacco use Status Tobacco use date assessed 07/14/24 07/14/24 10:54 Patient Tobacco Use Status Former Tobacco user 07/14/24 10:54 Tobacco use type Cigarette 07/14/24 10:54 e-Cigarette/Vaping Use Never Used 07/14/24 10:54 PHQ-9: PHQ-9 Score PHQ-9: Total score 0 07/14/24 10:54 Depression Screening Interpretation: Negative Thrive Assessment: Date of Thrive Assessment Date Thrive assessed 07/14/24 07/14/24 10:54 Currently or been in a relationship where the following occur: I choose not to answer Coding Level of Care Code Est Pt Level 3 (80515) Diagnoses Tendinitis, de Quervain's M65.4 Additional Codes DALY-7 Assessment Billing - DALY-7 Assessment Tool: DALY-7 Assessment 07750 ([id number]) PHQ-9 - 93599 - PHQ-9 Billing: Yes ([id number]) Assessment & Plan Assessment & Plan (1) Tendinitis, de Quervain's: Code(s): M65.4 - Radial styloid tenosynovitis [de Quervain] Category: Medical Plan History - The patient is a 58-year-old female presenting with right thumb pain, suspected to be related to tendinitis. - The symptoms have persisted for over a month despite interventions including rest, ice, and ibuprofen. - Pain is described as occurring when grasping objects and involves the thumb and adjoining areas. - The patient has made significant lifestyle changes, including weight loss, yoga, and smoking cessation, contributing to improvement in other unrelated pains. - The patient noted that activities such as prolonged grasping and knitting may be aggravating factors. Problem List - Tendinitis left thumb Patient Instructions - Limit use of the right thumb and avoid activities involving repetitive thumb movement. - Attend the scheduled appointment with a hand specialist in [place]. - Consider a cortisone injection for relief of pain and inflammation. - Continue with lifestyle practices that have been effective in overall health improvement. Orders: Referrals Orthopedics Referral M65.4 - Radial styloid tenosynovitis [de Quervain]
--- OUTSIDE RECORDS SUMMARY | 2024-07-14 11:38 | XMS_ITS | Patient Health Record ---
[facility] David Address [address] [place] [address] Care Team Providers Care Battery Service Technician Name Role Phone Tomer JONES, [facility] Provider Rashad Coronado [phone] Allergies No Known Allergies Reason For Referral [...] 05/18/2024 Encounters Encounter Location Date [facility] [address] [place] [address] ALENA Gee [address] 05/18/2024 Rashad Cisneros Pain in left foot [...] X ray : Foot, right 3V 11/15/2017 76975 I&D ABSCESS- SIMPLE,SINGLE 019 73585, [id number]/INJECT, JOINT/BURSA 0 06/10/2018 [id number] TENDON SHEATH/LIGAMENT 0 06/10/2018 74500,[id number] TENDON SHEATH/LIGAMENT 1 05/19/2020 Insurance Providers Payer Name Payer Address Payer Phone Subscriber Number Group Number Insured Name Patient Relationship to Insured Coverage Start Date Coverage End Date [facility] [address] [place] [address] [id number] Spouse - patient is the spouse of the insured 3 Medical (General) History Medical History History ICD Code Chicken pox Surgical History Surgery Date(Month/Year) Vidhya Bergman 03/10/2018 Hip replacement right 10/20/2022
--- OUTSIDE RECORDS SUMMARY | 2024-07-14 11:38 | XMS_ITS ---
[facility] [place] Address [address] [place] [address] Care Team Providers Care Liberal Arts Dean Name Role Phone [facility]er [facility], [facility] Primary [facility] Provider Rashad Coronado [phone] Allergies No Known Allergies REASON FOR VISIT [...] 05/18/2024 Encounters Encounter Location Date Provider Diagnosis [address] [place] [address] 05/18/2024 Rashad Cisneros Pain in left foot M79.672 and Metatarsalgia, left foot M77.42 Assessments Encounter Date Diagnosis (ICD Code) Assessment Notes Treatment Notes Treatment Clinical Notes Section Notes 05/18/2024 Pain in left foot (ICD-10 - M79.672) 05/18/2024 Metatarsalgia, left foot (ICD-10 - M77.42) Plan Of Treatment Next Appt Details Follow Up: prn, Reason: Progress Notes * Kim GORMAN ADOB:[birth year] (58 yo F)Acc No.[id number]:05/18/2024 Progress Note Patient:?Kim GORMAN A Provider:?Rashad Cisneros D.P.M. :1965???Age:58 Y???Sex:Female D ate:05/18/2024 Address:[address] [place] [address] Pcp:Rodney Jeff MD Subjective: * Chief Complaints: [...] per week. ?Marital status: . 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 * Medications:?TakingOmeprazol e Rosuvastatin Calcium 10 [...] Cisneros D.P.M. Date:?05/06 Generated for Tejal lee/Ruben/Braydenitting on:?07/14/2024 11:38 AM EDT History and Physical Notes * HPI (History [...] any other sign of leg length discrepancy. FOOTWEAR EVALUATION: Shoe gearwere inspe cted and noted to be worn, but in [...]
== END 2024-07-14 14:32 | disposition home or self-care (01) ==
LOC: HO.HMCC 10:44
PROVIDERS: PCP Internal Medicine; Visit Provider Internal Medicine
DX: M65.4 Radial styloid tenosynovitis [de Quervain] (principal)

== ENCOUNTER → 2024-07-14 10:43 | Outpatient (BNVA) | payer BC, SELFPAY | PROVIDERS: PCP Internal Medicine; Visit Provider Internal Medicine | DX: M65.4 Radial styloid tenosynovitis [de Quervain] (principal) | CPT/HCPCS: 96127 ==

== ENCOUNTER 2024-07-19 10:36 | Outpatient (AMB) | payer BC, SELFPAY ==
--- NOTE | 2024-07-19 10:41 | AM.OFFWIN_ITS ---
Intake Vital Signs 07/19/24 10:43 Weight 163 lb BP 120/80 Blood Pressure Location Rt brachial Position Sitting Pulse 76 Pulse Source Pulse Oximeter Temp 98.2 F Temp Source Oral Pulse Oximetry (%) 100 Oxygen Delivery Method Room Air Intake Visit Reasons: EP-lt lower abd pain Intake Note: Patient here for left lower abdominal pain/diverticulitis? she has had this several times Patient Tobacco Use Status: Former Tobacco user Allergies No Known Allergies Allergy (Verified 07/19/24 10:42) Do you need a note to return to daycare/school/sports/work: No HPI HPI Comments History of Present Illness Details Patient is a 58yo F who presents to [facility] with LLQ pain She has hx of diverticulosis Hx of diverticulisis in 2022 managed in ER and by PCP with antibiotics She had a flare up of diverticulosis a few weeks ago and used liquid diet and bland diet and symptoms slight improvement She said once again now Day 3 of symptoms Feels like LLQ pain, pressure, urgency to urinate + urinary frequency Constant it is pressure LLQ; no pain scale given She has had some constipation a few weeks ago which triggered all of her symptom s (she believes) Increased fiber in diet with benifiber which increased flatulence No diarrhea; last BM yesterday No blood or melena noted No dysuria or hematuria She denies fever or chills PFSH Medical History Lumbar degenerative disc disease Right ankle sprain Left ankle sprain Anemia Constipation Chronic GERD Sinusitis Sore throat, chronic Vitamin D deficiency Impaired fasting blood sugar Lipid disorder Facet arthropathy Ankle pain, left Migraine headache Meralgia paresthetica of right side Osteoarthritis of right hip Right lumbar radiculitis Surgical History History of hip replacement, total Hx of foot surgery (~2018) Family History Father No problems noted. Mother No problems noted. Brother No problems noted. Brother No problems noted. Sister No problems noted. 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 Cognitive needs: No Hearing needs: No Vision needs: Yes Review of Systems Const Denies chills, Denies fatigue, Denies fever(s), Denies night sweats and Denies poor appetite ENT Denies nasal discharge and Denies throat swelling Card Denies chest pain and Denies dyspnea Resp Denies cough and Denies dyspnea GI Reports abdominal pain, Denies melena, Denies hematochezia, Reports constipation, Denies diarrhea, Denies nausea and Denies vomiting Denies genital lesions, Denies dysuria, Reports pelvic pain (pressure), Denies urinary incontinence, Reports urinary hesitancy and Reports urinary urgency Musc Denies back pain Skin/Breast Denies rash Endo Denies fatigue Aller/Immun Denies throat swelling Physical Exam Vital Signs: Last Vital Signs Temp 98.2 F 07/19/24 10:43 Pulse 76 07/19/24 10:43 BP 120/80 07/19/24 10:43 Pulse Ox 100 07/19/24 10:43 Oxygen Delivery Method Room Air 07/19/24 10:43 General: Non-toxic, NAD. Speaking full sentences. Skin: Warm dry throughout Respiratory: CTA bilaterally. No wheezes, rales or rhonchi Cardiac: RRR. No murmur Abdominal: BS present. + tendrness to deep palpation suprapubic and LLQ. No rebound or guarding. No palpable masses. No abdominal distention or pusatile mass. MSK: Full ROM extremities. Neurology: Alert. No aphasia or facial droop.Gait without abnormality Psych: Good mood and affect Results AMB Urinalysis, Automated UA Leukoctes 0 Erlinda/uL Last Edit by ANNAMARIA Workman on 07/19/24 11:33 UA Nitrite Negative Last Edit by ANNAMARIA Workman on 07/19/24 11:33 UA Urobilinogen 0.2 mg/dL Last Edit by ANNAMARIA Workman on 07/19/24 11:33 UA Protein 0 mg/dL Last Edit by ANNAMARIA Workman on 07/19/24 11:33 UA pH 6.0 Last Edit by ANNAMARIA Workman on 07/19/24 11:33 UA Blood 0 Calin/uL Last Edit by ANNAMARIA Workman on 07/19/24 11:33 UA Specific [place] 1.010 Last Edit by ANNAMARIA Workman on 07/19/24 11:33 UA Ketone Negative Last Edit by ANNAMARIA Workman on 07/19/24 11:33 UA Bilirubin 0 mg/dL Last Edit by ANNAMARIA Workman on 07/19/24 11:33 UA Glucose 0 mg/dL Last Edit by ANNAMARIA Workman on 07/19/24 11:33 Results Reviewed Results Reviewed: Laboratory Last Values Urine pH (Auto) 6.0 07/19/24 11:32 Specific [place] (Auto) 1.010 07/19/24 11:32 Urine Protein (Auto) 0 mg/dL 07/19/24 11:32 Glucose (UA)(Auto) 0 mg/dL 07/19/24 11:32 Urine Ketones (Auto) Negative 07/19/24 11:32 Urine Blood (Auto) 0 Calin/uL 07/19/24 11:32 Urine Nitrite (Auto) Negative 07/19/24 11:32 Urine Bilirubin (Auto) 0 mg/dL 07/19/24 11:32 Urine Urobilinogen (Auto) 0.2 mg/dL 07/19/24 11:32 Leukocyte Esterase (Auto) 0 Erlinda/uL 07/19/24 11:32 Assessment & Plan Assessment & Plan (1) Abdominal pain: Code(s): R10.9 - Unspecified abdominal pain Qualifiers: Abdominal location: left lower quadrant Qualified Code(s): R10.32 - Left lower quadrant pain Plan: Patient seen and evaluated. No acute abdomen on examination and her vital signs are stable U/a: negative Pt has already tried to first bland/liquid diet for uncomplicated outpatient tx diverticulitis She does not warrant ER eval due to non-acute abdomen and afebrile with stable vital signs. Will prescribe Augmenin to take and continue liquid/bland diet Discussed GI referral with pt and she will discuss with PCP. Clinical note sent to PCP Discussed ER s/s and patient gave verbal understanding and had no additional questions or concerns at time of discharge All questions answered Orders: Orders AMB Urinalysis Automated Today Z13.9 - Encounter for screening, unspecified Medications: New amoxicillin-pot clavulanate 875-125 mg 1 tab PO BID 14 tabs 0RF Coding Level of Care Code Est Pt Level 3 (05245) Diagnoses Left lower quadrant abdominal pain R10.32 Abdominal location: left lower quadrant
[2024-07-19 10:43] VITALS: BP 120/80; PULSE 76; TEMP 36.8; O2SAT 100
--- OUTSIDE RECORDS SUMMARY | 2024-07-19 12:30 | XMS_ITS | Data Portability ---
Author Organization [facility], [facility] Address [address] [place] [address] Care Team Providers Care Telephone Lines Repairer Name Role Phone FERNANDO OROZCO Primary Care [...] Medication Orders meloxicam 15 mg tablet 2023 [facility]acy #[id number], [address] [place], [address], 4 09:57:55 Medrol (Satya) 4 mg tablets in a dose pack 2023 024 [facility]arm[facility] #[id number], [address] [place], [address], 4 09:57:56 tizanidin e 4 mg tablet 2023 024 [facility] #[id number], [address] [place], [address], 4 09:57:56 Patient TargetsNo targets recorded. Patient InstructionsNo instructions recorded. Reason for Referral None Reported. Results Created Date Observation Date Name Description Value Unit Range Abnormal Flag Note LastModifiedBy Organization Detail LastModifiedTime 07/20/19 24 07/21/2023 CBC WITH DIFFE RENTI AL/PL ATELE T WBC 6.0 x10e3 /uL 3.4-10 .8 Not Available [facility] ([facility]) [address] [facility] [address], [place], [address], 07/21/2023 08:09:11 07/20/19 24 07/21/2023 CBC WITH DIFFE RENTI AL/PL ATELE T RBC 3.76 x10e6 /uL 3.77-5 .28 below low normal Not Available [facility] ([facility]) [address] [facility], [place], [address], 07/21/2023 08:09:11 07/20/19 24 07/21/2023 CBC WITH DIFFE RENTI AL/PL ATELE T hemoglobin 11.7 g/dL 11.1-1 5.9 Not Available [facility] ([facility]) [address] [facility], [place], [address], 07/21/2023 08:09:11 07/20/19 24 07/21/2023 CBC WITH DIFFE RENTI AL/PL ATELE T hematocrit 33.2 % 34.0-4 6.6 below low normal Not Available [facility] ([facility]) [address] [place], [address], 07/21/2023 08:09:11 07/20/19 24 07/21/2023 CBC WITH DIFFE RENTI AL/PL ATELE T MCV 88 fL 79-97 Not Available [facility] ([facility]) [address] [place], [address], 07/21/2023 08:09:11 07/20/19 24 07/21/2023 CBC WITH DIFFE RENTI AL/PL ATELE T MCH 31.1 pg 26.6-3 3.0 Not Available [facility] ([facility]) [address] [place], [address], 07/21/2023 08:09:11 07/20/19 24 07/21/2023 CBC WITH DIFFE RENTI AL/PL ATELE T MCHC 35.2 g/dL 31.5-3 5.7 Not Available [facility] ([facility]) [address] [facility], [place], [address], 07/21/2023 08:09:11 07/20/19 24 07/21/2023 CBC WITH DIFFE RENTI AL/PL ATELE T RDW 12.2 % 11.7-1 5.4 Not Available [facility] ([facility]) [address] [facility], [place], [address], 07/21/2023 08:09:11 07/20/19 24 07/21/2023 CBC WITH DIFFE RENTI AL/PL ATELE T platelets 255 x10e3 /uL 150-45 0 Not Available [facility] ([facility]) [address] [facility], [place], [address], 07/21/2023 08:09:11 07/20/19 24 07/21/2023 CBC WITH DIFFE RENTI AL/PL ATELE T neutrophils 58 % not estab. Not Available [facility] ([facility]) [address] [facility], [place], [address], 07/21/2023 08:09:11 07/20/19 24 07/21/2023 CBC WITH DIFFE RENTI AL/PL ATELE T lymphs 30 % not estab. Not Available [facility] ([facility]) [address] [facility], [place], [address], 07/21/2023 08:09:11 07/20/19 24 07/21/2023 CBC WITH DIFFE RENTI AL/PL ATELE T monocytes 10 % not estab. Not Available [facility] ([facility]) [address] [facility], [place], [address], 07/21/2023 08:09:11 07/20/19 24 07/21/2023 CBC WITH DIFFE RENTI AL/PL ATELE T eos 1 % not estab. Not Available [facility] ([facility]) [address] [facility], [place], [address], 07/21/2023 08:09:11 07/20/19 24 07/21/2023 CBC WITH DIFFE RENTI AL/PL ATELE T basos 1 % not estab. Not Available [facility] ([facility]) [address] [facility], [place], [address], 07/21/2023 08:09:11 07/20/19 24 07/21/2023 CBC WITH DIFFE RENTI AL/PL ATELE T immature cells PIPE INSPECTOR Not Available [facility] ([facility]) [address] [place], [address], 07/21/2023 08:09:11 07/20/19 24 07/21/2023 CBC WITH DIFFE RENTI AL/PL ATELE T neutrophils (absolute) 3.6 x10e3 /uL 1.4-7. 0 Not Available [facility] ([facility]) [address] [place], [address], 07/21/2023 08:09:11 07/20/19 24 07/21/2023 CBC WITH DIFFE RENTI AL/PL ATELE T lymphs (absolute) 1.8 x10e3 /uL 0.7-3. 1 Not Available [facility] ([facility]) [address] [place], [address], 07/21/2023 08:09:11 07/20/19 24 07/21/2023 CBC WITH DIFFE RENTI AL/PL ATELE T monocytes(ab solute) 0.6 x10e3 /uL 0.1-0. 9 Not Available [facility] ([facility]) [address] [place], [address], 07/21/2023 08:09:11 07/20/19 24 07/21/2023 CBC WITH DIFFE RENTI AL/PL ATELE T eos (absolute) 0.1 x10e3 /uL 0.0-0. 4 Not Available [facility] ([facility]) [address] [facility], [place], [address], 07/21/2023 08:09:11 07/20/19 24 07/21/2023 CBC WITH DIFFE RENTI AL/PL ATELE T baso (absolute) 0.0 x10e3 /uL 0.0-0. 2 Not Available [facility] ([facility]) [address] [facility], [place], [address], 07/21/2023 08:09:11 07/20/19 24 07/21/2023 CBC WITH DIFFE RENTI AL/PL ATELE T immature granulocytes 0 % not estab. Not Available [facility] ([facility]) [address] [facility], [place], [address], 07/21/2023 08:09:11 07/20/19 24 07/21/2023 CBC WITH DIFFE RENTI AL/PL ATELE T immature grans (abs) 0.0 x10e3 /uL 0.0-0. 1 Not Available [facility] ([facility]) [address] [facility], [place], [address], 07/21/2023 08:09:11 07/20/19 24 07/21/2023 CBC WITH DIFFE RENTI AL/PL ATELE T NRBC PIPE INSPECTOR Not Available [facility] ([facility]) [address] [facility], [place], [address], 07/21/2023 08:09:11 07/20/19 24 07/21/2023 CBC WITH DIFFE RENTI AL/PL ATELE T hematology comments: PIPE INSPECTOR Not Available [facility] ([facility]) [address] [facility], [place], [address], 07/21/2023 08:09:11 07/20/19 24 07/21/2023 SEDIM ENTAT ION RATE- WESTE RGREN sedimentatio n rate-westerg robert 15 mm/HR 0-40 Not Available [facility] ([facility]) [address] [facility], [place], [address], 07/21/2023 08:09:12 07/20/19 24 07/21/2023 C-QUIANA CTIVE PROTE IN, QUANT C-reactive protein, quant <1 mg/L 0-10 Not Available [facility] ([facility]) [address] [facility], [place], [address], 07/21/2023 08:09:12 12/04/19 24 11/01/2021 imagi ng/di [...] Address Organization Details Recorded Time No complaints 492903257 Active Status : 'A'; Not Available [facility] 4 09:25:19 Problem Notes None recorded. Procedures Surgical History Date Name Laterality Status Provider Name and Address Organization Details Recorded Time 4 Hip Kenalog 2cc Injection, L/R completed Fox Yip PA-C [address], [place], [address], [facility] 08/13/2023 12:37:47 Imaging Results [...] Updated DateTime 08/13/2023 165.1 cm 27.6 kg/m2 45414.33 g MYRNA MACARIO Chaves N [facility] 08/13/2023 09:29:50 Social History None recorded. Functional Status None recorded. Mental Status None recorded. Family History Nothing Reported. Medical History No medical history recorded. Gynecological HistoryNo gynecological history recorded. Obstetrics History GPAL:G 0 P 0 0 0 0 Past Encounters Encounter ID Performer Location Encounter Start Date Encounter Closed Date Diagnosis/Indication Diagnosis SNOMED-CT Code Diagnosis ICD10 Code Diagnosis Note [id number] GEMMA Camacho [address], [place] [address] 08/13/2023 09:06:51 08/25/2023 16:03:49 History of total replacement of right hip joint 1601363062 87575 Z96.641 Trochanter ic bursitis of right hip 1923636436 93014 M70.61 Lumbar radiculopathy 128 389688 M54.16 Health Concerns Section Related Observation LastModified by Organization Detai ls LastModified Time None Recorded Concern Status LastModified by Organization Details LastModified Time None Recorded Advance Directives Directive None Recorded Payers Encounter Date Sequence Insurance Name Policy Number Policy Escobedo Covered Member ID Escobedo Member ID Guarantor Name 08/13/2023 1 [place]: LIANG (PPO) [id number] 1 Fox Gorman [id number] Kim Gorman Notes Date Note Type [...] meloxicam as well as tizanidine. I did adult school counselor the patient on how to utilize [...] concerns were answered today. Fox Yip PA-C [address] [place], [place] [address] [address], [place], [address], [facility] 08/13/2023 12:38:45 OBGyn Episode No OBEpisode recorded.
--- OUTSIDE RECORDS SUMMARY | 2024-07-19 12:31 | XMS_ITS | Patient Health Record ---
[facility] Organization [facility] Address [address] [place] [address] Care Team Providers Care Valve Seater Operator Name Role Phone Tomer JONES, [facility] Primary Care Provider Rashad Coronado [phone] Allergies No Known Allergies Reason For Referral [...] 05/18/2024 Encounters Encounter Location Date [facility] [address] [place] [address] [place] [address] 05/18/2024 Rashad Cisneros Pain in left foot [...] X ray : Foot, right 3V 11/15/2017 84475 I&D ABSCESS- SIMPLE,SINGLE 019 19698, [id number]/INJECT, JOINT/BURSA 0 06/10/2018 10434,[id number] TENDON SHEATH/LIGAMENT 0 06/10/2018 24488,[id number] TENDON SHEATH/LIGAMENT 1 05/19/2020 Insurance Providers Payer Name Payer Address Payer Phone Subscriber Number Group Number Insured Name Patient Relationship to Insured Coverage Start Date Coverage End Date [facility] [address] [place] [address] [phone] [id number] Fox Gorman Spouse - patient is the spouse of the insured 3 Medical (General) History Medical History History ICD Code Chicken pox Surgical History Surgery Date(Month/Year) Vidhya Bergman 03/10/2018 Hip replacement right 10/20/2022
--- OUTSIDE RECORDS SUMMARY | 2024-07-19 12:31 | XMS_ITS ---
[facility] Organization [facility] [place] Address [address] [place] [address] Care Team Providers Care Orchid Worker Name Role Phone Tomer JONES, [facility] Primary Care Provider Rashad Coronado [phone] Allergies No Known Allergies REASON FOR VISIT [...] 05/18/2024 Encounters Encounter Location Date Provider Diagnosis [address] [place] [id number] 05/18/2024 Rashad Cisneros Pain in left foot M79.672 and Metatarsalgia, left foot M77.42 Assessments Encounter Date Diagnosis (ICD Code) Assessment Notes Treatment Notes Treatment Clinical Notes Section Notes 05/18/2024 Pain in left foot (ICD-10 - M79.672) 05/18/2024 Metatarsalgia, left foot (ICD-10 - M77.42) Plan Of Treatment Next Appt Details Follow Up: prn, Reason: Progress Notes * Kim GORMAN ADOB:[birth year] (58 yo F)Acc No.[id number]:05/18/2024 Progress Note Patient:?Kim GORMAN A Provider:?Rashad Cisneros D.P.M. :1965???Age:58 Y???Sex:Female D ate:05/18/2024 Address:[address] [place] [address] Pcp:Rodney Jeff MD Subjective: * Chief Complaints: [...] per week. ?Marital status: . 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 * Medications:?TakingOmeprazol e Rosuvastatin Calcium 10 MG [...] Cisneros D.P.M. Date:?05/06 Generated for Tejal lee/Ruben/Braydenitting on:?07/19/2024 12:30 PM EDT History and Physical Notes * HPI [...]
== END 2024-07-19 12:11 | disposition home or self-care (01) ==
PROVIDERS: PCP Internal Medicine; Visit Provider Physician Assistant
DX: R10.32 Left lower quadrant pain (principal); Z13.9 Encounter for screening, unspecified

== ENCOUNTER → 2024-07-19 10:36 | Outpatient (BNVA) | payer BC, SELFPAY | PROVIDERS: PCP Internal Medicine; Visit Provider Physician Assistant | DX: R10.32 Left lower quadrant pain (principal) | CPT/HCPCS: 81003 ==

== ENCOUNTER 2024-07-25 10:07 | Outpatient (AMB) | payer BC, SELFPAY ==
--- NOTE | 2024-07-25 10:12 | A.OFFPC_ITS ---
Vital Signs 07/25/24 10:13 Height 5 ft 4 in Weight 166 lb BMI 28.5 BP 104/70 Blood Pressure Location Rt brachial Position Sitting Respiration 16 Pulse 64 Pulse Source Pulse Oximeter Temp 98.2 F Temp Source Oral Pulse Oximetry (%) 98 Oxygen Delivery Method Room Air Intake Visit Reasons: F/U abdominal pain from walk-in Allergies No Known Allergies Allergy (Verified 07/25/24 10:12) Medication List - Last Reconciled 07/25/24 by Rodney Jeff MD amoxicillin-pot clavulanate 875-125 mg 1 tab PO BID omeprazole 20 mg PO DAILY 90 days oxycodone-acetaminophen 5-325 mg (Percocet) 1 tab PO Q8H PRN 7 days rosuvastatin 10 mg PO DAILY 90 days Tobacco use date assessed: 07/25/24 Dental Screening Dental Screen Date: 07/25/24 Did you have a dental visit in the last 12 months?: Yes Did you have a dental problem in the last 6 months where you did not have access to dental care?: No Was dental information given to patient?: Patient has dentist HPI F/U abdominal pain from walk-in HPI Details History - The patient is a 58-year-old female pr esenting with persistent abdominal pain. Left lower quadrant - She reports a history of diverticuliti s, with the last episode occurring approximately one year ago. - The current symptoms began about six w eeks ago, with the pain described as a persistent low-level ache varying from significant to mild. - Previous episodes of diverticulitis grijalva ve included severe symptoms post- surgery, but currently, she denies fever, shaking, or hot/cold flashes. - She experiences a sensation of needing to urinate frequently, with little relief upon urination. - She attempted dietary modifications, i ncluding soft and liquid diets, which provided temporary relief, but symptoms recurred a few weeks later. - she was evaluated in our walk-in clini c on July 19 this month and was prescribed Augmentin (Amoxicillin/Clavulanate) has not improved symptoms, and the patient reports that urinalysis was unremarkable. - A CT scan for diverticulitis was condu cted last year, confirming diverticulosis. She was feeling the same symptoms at that time as well Problem List - Diverticulitis - Diverticulosis Patient Instructions - Take the prescribed antibiotics, Metro nidazole and Levofloxacin, as directed. - Adhere to a diet primarily consisting of liquids or soft foods to aid recovery and minimize the workload on the digestive tract. - An appointment with a gastroenterologi st will be scheduled to further evaluate and manage gastrointestinal issues. - Contact healthcare provider if symptom s worsen or if new symptoms, such as fever or severe abdominal pain, occur. Review of Systems - General: No fever no chills - Neurological: No headaches no dizziness - Ear nose throat: No sore throat no hearing difficulty no ear pain - Cardiovascular: No syncope, no chest pain, no palpitations - Gastrointestinal: No nausea vomiting or diarrhea - Endocrine: No polyuria polydipsia no heat intolerance - Genitourinary: No dysuria , no blood in urine Physical Exam General: No acute distress HEENT: No acute findings Neck: Supple Respiratory system: Able to talk in full sentences, no audible wheeze Cardiovascular: S1-S2 regular in rate and rhythm Gastrointestinal: Pain present, left lower quadrant, bowel sounds positive no guarding rebound Extremities: No new findings SEWAGE PLANT ATTENDANT: Alert awake oriented x3 motor sensory intact Skin: Normal turgor [facility] Medical History Lumbar degenerative disc disease Right ankle sprain Left ankle sprain Anemia Constipation Chronic GERD Sinusitis Sore throat, chronic Vitamin D deficiency Impaired fasting blood sugar Lipid disorder Facet arthropathy Ankle pain, left Migraine headache Meralgia paresthetica of right side Osteoarthritis of right hip Right lumbar radiculitis Surgical History History of hip replacement, total Hx of foot surgery (~2018) Family History Father No problems noted. Mother No problems noted. Brother No problems noted. Brother No problems noted. Sister No problems noted. 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 Cognitive needs: No Hearing needs: No Vision needs: Yes Questionnaire Thrive Questionnaire Date Thrive assessed: 05/09/24 I am a: Patient What is your living situation today?: I have a steady place to live Within the past 12 months, did the food you bought not last and you didn't have the money to get more?: Never true Within the past 12 months, did you worry whether your food would run out before you got money to buy more?: Never true Do you have trouble paying for medicines?: No Do you have trouble getting transportation to medical appointments?: No Do you have trouble paying your heating and electricity bill?: No Do you have trouble taking care of your child, family member or friend?: No Do you have trouble with day-to-day activities such as bathing, preparing meals, shopping, managing finances, etc.?: I choose not to answer this question Are you currently unemployed and looking for a job?: No Are you interested in more education?: No Please select the resources that you would like help with: None Currently or been in a relationship where the following occur: I choose not to answer THRIVE Score: 0 DALY-7 AMB Questionnaire DALY-7 Date DALY - 7 assessed: 07/14/24 Source: Developed by Drs. Jose Jesus, Evy Glass, Stewart Hudson and colleagues, with an educational jameel from [employer]. Physical exam (Primary Care) Vital Signs: Last Vital Signs Temp 98.2 F 07/25/24 10:13 Pulse 64 07/25/24 10:13 Resp 16 07/25/24 10:13 BP 104/70 07/25/24 10:13 Pulse Ox 98 07/25/24 10:13 Oxygen Delivery Method Room Air 07/25/24 10:13 BMI result Body Mass Index 28.5 Tobacco/Smoking Status: Tobacco use Status Tobacco use date assessed 07/25/24 07/25/24 10:16 Patient Tobacco Use Status Former Tobacco user 07/25/24 10:16 Tobacco use type Cigarette 07/25/24 10:16 e-Cigarette/Vaping Use Never Used 07/25/24 10:16 Thrive Assessment: Date of Thrive Assessment Date Thrive assessed 05/09/24 07/25/24 10:16 Currently or been in a relationship where the following occur: I choose not to answer Coding Level of Care Code Est Pt Level 4 (92242) Diagnoses Acute diverticulitis K57.92 Assessment & Plan Assessment & Plan (1) Acute diverticulitis: Code(s): K57.92 - Diverticulitis of intestine, part unspecified, without perforation or abscess without bleeding Category: Medical Plan History - The patient is a 58-year-old female presenting with persistent abdominal pain. Left lower quadrant - She reports a history of diverticulitis, with the last episode occurring approximately one year ago. - The current symptoms began about six weeks ago, with the pain described as a persistent low-level ache varying from significant to mild. - Previous episodes of diverticulitis have included severe symptoms post- surgery, but currently, she denies fever, shaking, or hot/cold flashes. - She experiences a sensation of needing to urinate frequently, with little relief upon urination. - She attempted dietary modifications, including soft and liquid diets, which provided temporary relief, but symptoms recurred a few weeks later. - she was evaluated in our walk-in clinic on July 19 this month and was prescribed Augmentin (Amoxicillin/Clavulanate) has not improved symptoms, and the patient reports that urinalysis was unremarkable. - A CT scan for diverticulitis was conducted last year, confirming diverticulosis. She was feeling the same symptoms at that time as well Problem List - Diverticulitis - Diverticulosis Patient Instructions - Take the prescribed antibiotics, Metronidazole and Levofloxacin, as directed. - Adhere to a diet primarily consisting of liquids or soft foods to aid recovery and minimize the workload on the digestive tract. - An appointment with a outpatient clerk will be scheduled to further evaluate and manage gastrointestinal issues. - Contact healthcare provider if symptoms worsen or if new symptoms, such as fever or severe abdominal pain, occur. Orders: Referrals Gastroenterology Referral K57.92 - Diverticulitis of intestine, part unspecified, without perforation or abscess without bleeding Medications: New metronidazole 500 mg PO Q8H 21 tabs 0RF 7 days levofloxacin 500 mg PO DAILY 7 tabs 0RF 7 days Discontinued amoxicillin-pot clavulanate 875-125 mg Discontinued Reason: Patient Completed Course 1 tab PO BID 14 tabs 0RF
[2024-07-25 10:13] VITALS: BP 104/70; PULSE 64; RESP 16; TEMP 36.8; O2SAT 98; BMI 28.5
--- OUTSIDE RECORDS SUMMARY | 2024-07-25 11:35 | XMS_ITS | Patient Health Record ---
[facility] Address [address] [place] [address] Care Team Providers Care Spring Coverer Name Role Phone Tomer JONES, [facility] Primary Care Provider Rashad Coronado [phone] Allergies No Known Allergies Reason For Referral [...] 05/18/2024 Encounters Encounter Location Date [facility] [address] [place] [address] [place] [address] 05/18/2024 Rashad Cisneros Pain in left foot [...] X ray : Foot, right 3V 11/15/2017 58731 I&D ABSCESS- SIMPLE,SINGLE 019 03558, [id number]/INJECT, JOINT/BURSA 0 06/10/2018 [id number] TENDON SHEATH/LIGAMENT 0 06/10/2018 [id number] TENDON SHEATH/LIGAMENT 1 05/19/2020 Insurance Providers Payer Name Payer Address Payer Phone Subscriber Number Group Number Insured Name Patient Relationship to Insured Coverage Start Date Coverage End Date [facility] [address] [place] [address] [phone] [id number] Fox Gorman Spouse - patient is the spouse of the insured 3 Medical (General) History Medical History History ICD Code Chicken pox Surgical History Surgery Date(Month/Year) Vidhya Bergman 03/10/2018 Hip replacement right 10/20/2022
--- OUTSIDE RECORDS SUMMARY | 2024-07-25 11:35 | XMS_ITS ---
Author Organization [facility] [place] Address [address] [place] [address] Care Team Providers Care Software Applications Designer Name Role Phone [facility] Provider Rashad Coronado [phone] Allergies No Known Allergies REASON FOR VISIT [...] 05/18/2024 Encounters Encounter Location Date Provider Diagnosis [address] [place] [address] 05/18/2024 Rashad Cisneros Pain in left foot M79.672 and Metatarsalgia, left foot M77.42 Assessments Encounter Date Diagnosis (ICD Code) Assessment Notes Treatment Notes Treatment Clinical Notes Section Notes 05/18/2024 Pain in left foot (ICD-10 - M79.672) 05/18/2024 Metatarsalgia, left foot (ICD-10 - M77.42) Plan Of Treatment Next Appt Details Follow Up: prn, Reason: Progress Notes * Kim GORMAN ADOB:[birth year] (58 yo F)Acc No.[id number]:05/18/2024 Progress Note Patient:?Kim GORMAN A Provider:?Rashad Cisneros D.P.M. :1965???Age:58 Y???Sex:Female D ate:05/18/2024 Address:[address] [place] [address] Pcp:Rodney Jeff MD Subjective: * Chief Complaints: [...] per week. ?Marital status: . 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 * Medications:?TakingOmeprazol e Rosuvastatin Calcium 10 [...] Cisneros D.P.M. Date:?05/06 Generated for Tejal lee/Ruben/Braydenitting on:?07/25/2024 11:34 AM EDT History and Physical Notes * [...]
--- OUTSIDE RECORDS SUMMARY | 2024-07-25 11:35 | XMS_ITS | Data Portability ---
Author Organization [facility], [facility] Address [address] [place] [address] Care Team Providers Care Director Of Cardiology Name Role Phone FERNANDO OROZCO Primary Care [...] Medication Orders meloxicam 15 mg tablet 2023 [facility][id number], [address] [place], [address], 4 09:57:55 Medrol (Satya) 4 mg tablets in a dose pack 2023 024 [facility] #7[facility], [address] [place], [address], 4 09:57:56 tizanidin e 4 mg tablet 2023 024 [facility] #7111, [address] [place], [address], 4 09:57:56 Patient TargetsNo targets recorded. Patient InstructionsNo instructions recorded. Reason for Referral None Reported. Results Created Date Observation Date Name Description Value Unit Range Abnormal Flag Note LastModifiedBy Organization Detail LastModifiedTime 07/20/19 24 07/21/2023 CBC WITH DIFFE RENTI AL/PL ATELE T WBC 6.0 x10e3 /uL 3.4-10 .8 Not Available [facility] ([facility]) [address] [facility], [place], [address], 07/21/2023 08:09:11 07/20/19 24 07/21/2023 CBC WITH DIFFE RENTI AL/PL ATELE T RBC 3.76 x10e6 /uL 3.77-5 .28 below low normal Not Available [facility] ([facility]) [address] [facility], [place], [address], 07/21/2023 08:09:11 07/20/19 24 07/21/2023 CBC WITH DIFFE RENTI AL/PL ATELE T hemoglobin 11.7 g/dL 11.1-1 5.9 Not Available [facility] ([facility]) [address] [facility], [place], [address], 07/21/2023 08:09:11 07/20/19 24 07/21/2023 CBC WITH DIFFE RENTI AL/PL ATELE T hematocrit 33.2 % 34.0-4 6.6 below low normal Not Available [facility] ([facility]) [address] [place], [address], 07/21/2023 08:09:11 07/20/19 24 07/21/2023 CBC WITH DIFFE RENTI AL/PL ATELE T MCV 88 fL 79-97 Not Available [facility] ([facility]) [address] [place], [address], 07/21/2023 08:09:11 07/20/19 24 07/21/2023 CBC WITH DIFFE RENTI AL/PL ATELE T MCH 31.1 pg 26.6-3 3.0 Not Available [facility] ([facility]) [address] [place], [address], 07/21/2023 08:09:11 07/20/19 24 07/21/2023 CBC WITH DIFFE RENTI AL/PL ATELE T MCHC 35.2 g/dL 31.5-3 5.7 Not Available [facility] ([facility]) [address] [facility], [place], [address], 07/21/2023 08:09:11 07/20/19 24 07/21/2023 CBC WITH DIFFE RENTI AL/PL ATELE T RDW 12.2 % 11.7-1 5.4 Not Available [facility] ([facility]) [address] [facility], [place], [address], 07/21/2023 08:09:11 07/20/19 24 07/21/2023 CBC WITH DIFFE RENTI AL/PL ATELE T platelets 255 x10e3 /uL 150-45 0 Not Available [facility] ([facility]) [address] [facility], [place], [address], 07/21/2023 08:09:11 07/20/19 24 07/21/2023 CBC WITH DIFFE RENTI AL/PL ATELE T neutrophils 58 % not estab. Not Available [facility] ([facility]) [address] [facility], [place], [address], 07/21/2023 08:09:11 07/20/19 24 07/21/2023 CBC WITH DIFFE RENTI AL/PL ATELE T lymphs 30 % not estab. Not Available [facility] ([facility]) [address] [facility], [place], [address], 07/21/2023 08:09:11 07/20/19 24 07/21/2023 CBC WITH DIFFE RENTI AL/PL ATELE T monocytes 10 % not estab. Not Available [facility] ([facility]) [address] [facility], [place], [address], 07/21/2023 08:09:11 07/20/19 24 07/21/2023 CBC WITH DIFFE RENTI AL/PL ATELE T eos 1 % not estab. Not Available [facility] ([facility]) [address] [facility], [place], [address], 07/21/2023 08:09:11 07/20/19 24 07/21/2023 CBC WITH DIFFE RENTI AL/PL ATELE T basos 1 % not estab. Not Available [facility] ([facility]) [address] [facility], [place], [address], 07/21/2023 08:09:11 07/20/19 24 07/21/2023 CBC WITH DIFFE RENTI AL/PL ATELE T immature cells [employer] Not Available [facility] ([facility]) [address] [place], [address], 07/21/2023 08:09:11 07/20/19 24 07/21/2023 CBC WITH DIFFE RENTI AL/PL ATELE T neutrophils (absolute) 3.6 x10e3 /uL 1.4-7. 0 Not Available [facility] ([facility]) [address] [place], [address], 07/21/2023 08:09:11 07/20/19 24 07/21/2023 CBC WITH DIFFE RENTI AL/PL ATELE T lymphs (absolute) 1.8 x10e3 /uL 0.7-3. 1 Not Available [facility] ([facility]) [address] [place], [address], 07/21/2023 08:09:11 07/20/19 24 07/21/2023 CBC WITH DIFFE RENTI AL/PL ATELE T monocytes(ab solute) 0.6 x10e3 /uL 0.1-0. 9 Not Available [facility] ([facility]) [address] [place], [address], 07/21/2023 08:09:11 07/20/19 24 07/21/2023 CBC WITH DIFFE RENTI AL/PL ATELE T eos (absolute) 0.1 x10e3 /uL 0.0-0. 4 Not Available [facility] ([facility]) [address] [facility], [place], [address], 07/21/2023 08:09:11 07/20/19 24 07/21/2023 CBC WITH DIFFE RENTI AL/PL ATELE T baso (absolute) 0.0 x10e3 /uL 0.0-0. 2 Not Available [facility] ([facility]) [address] [facility], [place], [address], 07/21/2023 08:09:11 07/20/19 24 07/21/2023 CBC WITH DIFFE RENTI AL/PL ATELE T immature granulocytes 0 % not estab. Not Available [facility] ([facility]) [address] [facility], [place], [address], 07/21/2023 08:09:11 07/20/19 24 07/21/2023 CBC WITH DIFFE RENTI AL/PL ATELE T immature grans (abs) 0.0 x10e3 /uL 0.0-0. 1 Not Available [facility] ([facility]) [address] [facility], [place], [address], 07/21/2023 08:09:11 07/20/19 24 07/21/2023 CBC WITH DIFFE RENTI AL/PL ATELE T NRBC [employer] Not Available [facility] ([facility]) [address] [facility], [place], [address], 07/21/2023 08:09:11 07/20/19 24 07/21/2023 CBC WITH DIFFE RENTI AL/PL ATELE T hematology comments: [employer] Not Available [facility] ([facility]) [address] [facility], [place], [address], 07/21/2023 08:09:11 07/20/19 24 07/21/2023 SEDIM ENTAT ION RATE- WESTE RGREN sedimentatio n rate-westerg robert 15 mm/HR 0-40 Not Available [facility] ([facility]) [address] [facility], [place], [address], 07/21/2023 08:09:12 07/20/19 24 07/21/2023 C-QUIANA CTIVE PROTE IN, QUANT C-reactive protein, quant <1 mg/L 0-10 Not Available [facility] ([facility]) [address] [facility], [place], [address], 07/21/2023 08:09:12 12/04/19 24 11/01/2021 imagi ng/di [...] Address Organization Details Recorded Time No complaints [id number] Active Status : 'A'; Not Available [facility] 4 09:25:19 Problem Notes None recorded. Procedures Surgical History Date Name Laterality Status Provider Name and Address Organization Details Recorded Time 4 Hip Kenalog 2cc Injection, L/R completed Fox iYp PA-C [address] [facility] [address], [place], [address], [facility] - [facility] 08/13/2023 12:37:47 Imaging Results [...] Updated DateTime 08/13/2023 165.1 cm 27.6 kg/m2 62582.33 g MYRNA MACARIO Chaves N [facility] 08/13/2023 09:29:50 Social History None recorded. Functional Status None recorded. Mental Status None recorded. Family History Nothing Reported. Medical History No medical history recorded. Gynecological HistoryNo gynecological history recorded. Obstetrics History GPAL:G 0 P 0 0 0 0 Past Encounters Encounter ID Performer Location Encounter Start Date Encounter Closed Date Diagnosis/Indication Diagnosis SNOMED-CT Code Diagnosis ICD10 Code Diagnosis Note [id number] [facility] Camacho [address], [place] [address] 08/13/2023 09:06:51 08/25/2023 16:03:49 History of total replacement of right hip joint 4783790656 08422 Z96.641 Trochanter ic bursitis of right hip 7618088992 33429 M70.61 Lumbar radiculopathy 128 767020 M54.16 Health Concerns Section Related Observation LastModified by Organization Detai ls LastModified Time None Recorded Concern Status LastModified by Organization Details LastModified Time None Recorded Advance Directives Directive None Recorded Payers Encounter Date Sequence Insurance Name Policy Number Policy Escobedo Covered Member ID Escobedo Member ID Guarantor Name 08/13/2023 1 [place] ([place] [id number] 1 Fox Gorman [id number] Kim Gorman Notes Date Note Type [...] meloxicam as well as tizanidine. I did residential treatment counselor the patient on how to utilize [...] concerns were answered today. Fox Yip PA-C [address] [place], [place] [address] [address], [place], [address], [facility] - [facility] 08/13/2023 12:38:45 OBGyn Episode No OBEpisode recorded.
== END 2024-07-25 12:00 | disposition home or self-care (01) ==
LOC: HO.HMCC 10:08
PROVIDERS: PCP Internal Medicine; Visit Provider Internal Medicine
DX: K57.92 Diverticulitis of intestine, part unspecified, without perforation or abscess without bleeding (principal)

== ENCOUNTER → 2024-07-25 10:07 | Outpatient (BNVA) | payer BC, SELFPAY | PROVIDERS: PCP Internal Medicine; Visit Provider Internal Medicine ==

== ENCOUNTER 2024-08-04 07:54 | Outpatient (REF) | payer BC, SELFPAY ==
[2024-08-04 11:30] LABS: Bacterial Vaginosis PCR NEGATIVE (Negative); Candida Group PCR DETECTED (Not Detect); Candida glab krusei PCR NOT DETECTED (Not Detect); Trichomonas vaginalis PCR NOT DETECTED (Not Detect)
== END 2024-08-04 07:55 | disposition home or self-care (01) ==
LOC: HO.LNP 07:54
PROVIDERS: PCP Internal Medicine; Visit Provider Internal Medicine
DX: N76.0 Acute vaginitis (principal)
CPT/HCPCS: 81515

== ENCOUNTER 2024-08-04 07:54 | Outpatient (AMB) | payer BC, SELFPAY ==
--- OUTSIDE RECORDS SUMMARY | 2024-08-04 07:59 | XMS_ITS | Patient Health Record ---
Author Organization [facility] Bill[facility] kari [facility] Address [address] [place] [address] Care Team Providers Care Staff Assistant Name Role Phone Tomer JONES, [facility] Primary [facility] Provider Rashad Coronado [phone] Allergies No Known Allergies Reason For Referral [...] 05/18/2024 Encounters Encounter Location Date Provider [facility] [address] [place] [address] [place] [address] 05/18/2024 Rashad Cisneros Pain in left foot [...] X ray : Foot, right 3V 11/15/2017 34401 I&D ABSCESS- SIMPLE,SINGLE 019 54890, [id number]/INJECT, JOINT/BURSA 0 06/10/2018 [id number] TENDON SHEATH/LIGAMENT 0 06/10/2018 [id number] TENDON SHEATH/LIGAMENT 1 05/19/2020 Insurance Providers Payer Name Payer Address Payer Phone Subscriber Number Group Number Insured Name Patient Relationship to Insured Coverage Start Date Coverage End Date [facility] [address] [place] [address] [phone] [id number] Fox Gorman Spouse - patient is the spouse of the insured 3 Medical (General) History Medical History History ICD Code Chicken pox Surgical History Surgery Date(Month/Year) Vidhya Bergman 03/10/2018 Hip replacement right 10/20/2022
--- OUTSIDE RECORDS SUMMARY | 2024-08-04 07:59 | XMS_ITS ---
[facility] Address [address] [place] [address] Care Team Providers Care Records Management Engineer Name Role Phone Tomer JONES[facility] Primary [facility] Provider Rashad Coronado [phone] Allergies No Known Allergies REASON FOR VISIT [...] 05/18/2024 Encounters Encounter Location Date Provider Diagnosis [address] [place] [address] 05/18/2024 Rashad Cisneros Pain in left foot M79.672 and Metatarsalgia, left foot M77.42 Assessments Encounter Date Diagnosis (ICD Code) Assessment Notes Treatment Notes Treatment Clinical Notes Section Notes 05/18/2024 Pain in left foot (ICD-10 - M79.672) 05/18/2024 Metatarsalgia, left foot (ICD-10 - M77.42) Plan Of Treatment Next Appt Details Follow Up: prn, Reason: Progress Notes * Kim GORMAN ADOB:[birth year] (58 yo F)Acc No.[id number]:05/18/2024 Progress Note Patient:?Kim GORMAN A Provider:?Rashad Cisneros D.P.M. :1965???Age:58 Y???Sex:Female D ate:05/18/2024 Address:[address] [place] [address] Pcp:Rodney Jeff MD Subjective: * Chief Complaints: [...] per week. ?Marital status: . 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 * Medications:?TakingOmeprazol e Rosuvastatin Calcium 10 [...] Cisneros D.P.M. Date:?05/06 Generated for Tejal lee/Ruben/Braydenitting on:?08/04/2024 07:58 AM EDT History and Physical Notes * [...]
--- OUTSIDE RECORDS SUMMARY | 2024-08-04 07:59 | XMS_ITS | Data Portability ---
Author Organization [facility] Address [address] [place] [address] Care Team Providers Care Air Vice Marshal Name Role Phone FERNANDO OROZCO Primary Care Provider [phone] Assessment No assessment recorded. Plan of Treatment [...] Orders meloxicam [address] [facility]7111, [address] [place], [address], 4 09:57:55 Medrol (Satya) 4 mg tablets in a dose pack [address] [facility], [address] [place], [address], 4 09:57:56 tizanidin e 4 mg tablet [address] [facility], [address] [place], [address], 4 09:57:56 Patient TargetsNo targets recorded. Patient InstructionsNo instructions recorded. Reason for Referral None Reported. Results Created Date Observation Date Name Description Value Unit Range Abnormal Flag Note LastModifiedBy Organization Detail LastModifiedTime 07/20/19 24 07/21/2023 CBC WITH DIFFE RENTI AL/PL ATELE T WBC 6.0 x10e3 /uL 3.4-10 .8 Not Available [facility] ([facility]) [address] [facility], [place], [address], 07/21/2023 08:09:11 07/20/19 24 07/21/2023 CBC WITH DIFFE RENTI AL/PL ATELE T RBC 3.76 x10e6 /uL 3.77-5 .28 below low normal Not Available [facility] ([facility]) [address] [facility], [place], [address], 07/21/2023 08:09:11 07/20/19 24 07/21/2023 CBC WITH DIFFE RENTI AL/PL ATELE T hemoglobin 11.7 g/dL 11.1-1 5.9 Not Available [facility] ([facility]) [address] [facility], [place], [address], 07/21/2023 08:09:11 07/20/19 24 07/21/2023 CBC WITH DIFFE RENTI AL/PL ATELE T hematocrit 33.2 % 34.0-4 6.6 below low normal Not Available [facility] ([facility]) [address] [place], [address], 07/21/2023 08:09:11 07/20/19 24 07/21/2023 CBC WITH DIFFE RENTI AL/PL ATELE T MCV 88 fL 79-97 Not Available [facility] ([facility]) [address] [place], [address], 07/21/2023 08:09:11 07/20/19 24 07/21/2023 CBC WITH DIFFE RENTI AL/PL ATELE T MCH 31.1 pg 26.6-3 3.0 Not Available [facility] ([facility]) [address] [place], [address], 07/21/2023 08:09:11 07/20/19 24 07/21/2023 CBC WITH DIFFE RENTI AL/PL ATELE T MCHC 35.2 g/dL 31.5-3 5.7 Not Available [facility] ([facility]) [address] [facility], [place], [address], 07/21/2023 08:09:11 07/20/19 24 07/21/2023 CBC WITH DIFFE RENTI AL/PL ATELE T RDW 12.2 % 11.7-1 5.4 Not Available [facility] ([facility]) [address] [facility], [place], [address], 07/21/2023 08:09:11 07/20/19 24 07/21/2023 CBC WITH DIFFE RENTI AL/PL ATELE T platelets 255 x10e3 /uL 150-45 0 Not Available [facility] ([facility]) [address] [facility], [place], [address], 07/21/2023 08:09:11 07/20/19 24 07/21/2023 CBC WITH DIFFE RENTI AL/PL ATELE T neutrophils 58 % not estab. Not Available [facility] ([facility]) [address] [facility], [place], [address], 07/21/2023 08:09:11 07/20/19 24 07/21/2023 CBC WITH DIFFE RENTI AL/PL ATELE T lymphs 30 % not estab. Not Available [facility] ([facility]) [address] [facility], [place], [address], 07/21/2023 08:09:11 07/20/19 24 07/21/2023 CBC WITH DIFFE RENTI AL/PL ATELE T monocytes 10 % not estab. Not Available [facility] ([facility]) [address] [facility], [place], [address], 07/21/2023 08:09:11 07/20/19 24 07/21/2023 CBC WITH DIFFE RENTI AL/PL ATELE T eos 1 % not estab. Not Available [facility] ([facility]) [address] [facility], [place], [address], 07/21/2023 08:09:11 07/20/19 24 07/21/2023 CBC WITH DIFFE RENTI AL/PL ATELE T basos 1 % not estab. Not Available [facility] ([facility]) [address] [facility], [place], [address], 07/21/2023 08:09:11 07/20/19 24 07/21/2023 CBC WITH DIFFE RENTI AL/PL ATELE T immature cells J2EE DEVELOPER Not Available [facility] ([facility]) [address] [place], [address], 07/21/2023 08:09:11 07/20/19 24 07/21/2023 CBC WITH DIFFE RENTI AL/PL ATELE T neutrophils (absolute) 3.6 x10e3 /uL 1.4-7. 0 Not Available [facility] ([facility]) [address] [place], [address], 07/21/2023 08:09:11 07/20/19 24 07/21/2023 CBC WITH DIFFE RENTI AL/PL ATELE T lymphs (absolute) 1.8 x10e3 /uL 0.7-3. 1 Not Available [facility] ([facility]) [address] [place], [address], 07/21/2023 08:09:11 07/20/19 24 07/21/2023 CBC WITH DIFFE RENTI AL/PL ATELE T monocytes(ab solute) 0.6 x10e3 /uL 0.1-0. 9 Not Available [facility] ([facility]) [address] [place], [address], 07/21/2023 08:09:11 07/20/19 24 07/21/2023 CBC WITH DIFFE RENTI AL/PL ATELE T eos (absolute) 0.1 x10e3 /uL 0.0-0. 4 Not Available [facility] ([facility]) [address] [facility], [place], [address], 07/21/2023 08:09:11 07/20/19 24 07/21/2023 CBC WITH DIFFE RENTI AL/PL ATELE T baso (absolute) 0.0 x10e3 /uL 0.0-0. 2 Not Available [facility] ([facility]) [address] [facility], [place], [address], 07/21/2023 08:09:11 07/20/19 24 07/21/2023 CBC WITH DIFFE RENTI AL/PL ATELE T immature granulocytes 0 % not estab. Not Available [facility] ([facility]) [address] [facility], [place], [address], 07/21/2023 08:09:11 07/20/19 24 07/21/2023 CBC WITH DIFFE RENTI AL/PL ATELE T immature grans (abs) 0.0 x10e3 /uL 0.0-0. 1 Not Available [facility] ([facility]) [address] [facility], [place], [address], 07/21/2023 08:09:11 07/20/19 24 07/21/2023 CBC WITH DIFFE RENTI AL/PL ATELE T NRBC J2EE DEVELOPER Not Available [facility] ([facility]) [address] [facility], [place], [address], 07/21/2023 08:09:11 07/20/19 24 07/21/2023 CBC WITH DIFFE RENTI AL/PL ATELE T hematology comments: J2EE DEVELOPER Not Available [facility] ([facility]) [address] [facility], [place], [address], 07/21/2023 08:09:11 07/20/19 24 07/21/2023 SEDIM ENTAT ION RATE- WESTE RGREN sedimentatio n rate-westerg robert 15 mm/HR 0-40 Not Available [facility] ([facility]) [address] [facility], [place], [address], 07/21/2023 08:09:12 07/20/19 24 07/21/2023 C-QUIANA CTIVE PROTE IN, QUANT C-reactive protein, quant <1 mg/L 0-10 Not Available [facility] ([facility]) [address] [facility], [place], [address], 07/21/2023 08:09:12 12/04/19 24 11/01/2021 imagi ng/di [...] Address Organization Details Recorded Time No complaints [id number] Active Status : 'A'; Not Available [facility] 4 09:25:19 Problem Notes None recorded. Procedures Surgical History Date Name Laterality Status Provider Name and Address Organization Details Recorded Time 4 Hip Kenalog 2cc Injection, L/R completed Fox Yip PA-C [address] [facility] [address], [place], [address], [facility] - [facility] 08/13/2023 12:37:47 Imaging Results [...] Updated DateTime 08/13/2023 165.1 cm 27.6 kg/m2 26182.33 g MYRNA MACARIO Chaves N [facility] [...] SNOMED-CT Code Diagnosis ICD10 Code Diagnosis Note [id number] [facility] Camacho 2nd floor [address], [place] [address] 08/13/2023 09:06:51 08/25/2023 16:03:49 History of total replacement of right hip joint 2885951481 83169 Z96.641 Trochanter ic bursitis of right hip 5661048506 42328 M70.61 Lumbar radiculopathy 128 935370 M54.16 Health Concerns Section Related Observation LastModified by Organization Detai ls LastModified Time None Recorded Concern Status LastModified by Organization Details LastModified Time None Recorded Advance Directives Directive None Recorded Payers Encounter Date Sequence Insurance Name Policy Number Policy Escobedo Covered Member ID Escobedo Member ID Guarantor Name 08/13/2023 1 [place]) [id number] 1 Fox Gorman [id number] 16 Kim Gorman Notes Date Note Type [...] meloxicam as well as tizanidine. I did education counselor the patient on how to utilize [...] concerns were answered today. Fox Yip PA-C [address] [place], [place] [address] [address], [place], [address], [facility] 08/13/2023 12:38:45 OBGyn Episode No OBEpisode recorded.
[2024-08-04 08:08] VITALS: BP 102/66; PULSE 65; O2SAT 98; BMI 28.1
--- NOTE | 2024-08-04 08:08 | A.OFFPC_ITS ---
Vital Signs 08/04/24 08:08 Height 5 ft 4 in Weight 164 lb BMI 28.1 BP 102/66 Blood Pressure Location Lt brachial Position Sitting Pulse 65 Pulse Source Pulse Oximeter Pulse Oximetry (%) 98 Oxygen Delivery Method Room Air Intake Visit Reasons: UA Culture Peanut Vendor Required: No Accompanied by: Self / Same As Patient Allergies No Known Allergies Allergy (Verified 08/04/24 08:08) Medication List - Last Reconciled 08/04/24 by Rodney Jeff MD omeprazole 20 mg PO DAILY 90 days oxycodone-acetaminophen 5-325 mg (Percocet) 1 tab PO Q8H PRN 7 days rosuvastatin 10 mg PO DAILY 90 days Tobacco use date assessed: 07/25/24 Dental Screening Dental Screen Date: 07/25/24 HPI UA Culture HPI Details History - The patient is a 58-year-old female pr esenting with vaginal itching and irritation. - The patient reported experiencing vagi nal itching and burning sensations externally, which started worsening after completing a course of antibiotics two days prior to the visit. - She had taken Levaquin and metronidazo le, completing the regimen approximately two days ago. - The patient noted an improvement in di scharge after using Monistat, but the itching and burning persist. - Recent antibiotic use is suspected to have precipitated the vaginal symptoms. - The patient has experienced symptoms c onsistent with recurrent diverticulitis over the past month, noting sensitivity in the lower abdomen, but improved pain since initial onset. - The patient follows a careful diet, av oiding certain foods that may exacerbate symptoms. Problem List - Vaginal Candidiasis - Recurrent Diverticulitis - Back Pain Patient Instructions - Take the prescribed medication for the yeast infection, Diflucan 150 mg one dose immediately and the second dose three days later. - Schedule an appointment with Dr. Marshall brown at [facility] for further evaluation of recurrent diverticulitis. - Continue to monitor dietary intake car efully, avoiding foods that may trigger symptoms. - Seek medical attention if symptoms wor sen or if additional concerns arise. - we will get back to you after the vagi nal culture report that was taken today Review of Systems - General: No fever no chills - Neurological: No headaches no dizziness - Ear nose throat: No sore throat no hearing difficulty no ear pain - Cardiovascular: No syncope, no chest pain, no palpitations - Gastrointestinal: No nausea vomiting or diarrhea - Endocrine: No polyuria polydipsia no heat intolerance Physical Exam General: No acute distress HEENT: No acute findings Neck: Supple Respiratory system: Able to talk in full sentences, no audible wheeze Cardiovascular: S1-S2 regular in rate and rhythm Gastrointestinal: Better than before, no pain with palpation today l Extremities: No new findings 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: Alert awake oriented x3 motor sensory intact Skin: Normal turgor, but with burning sensation and irritation noted [facility] Medical History Lumbar degenerative disc disease Right ankle sprain Left ankle sprain Anemia Constipation Chronic GERD Sinusitis Sore throat, chronic Vitamin D deficiency Impaired fasting blood sugar Lipid disorder Facet arthropathy Ankle pain, left Migraine headache Meralgia paresthetica of right side Osteoarthritis of right hip Right lumbar radiculitis Surgical History History of hip replacement, total Hx of foot surgery (~2018) Family History Father No problems noted. Mother No problems noted. Brother No problems noted. Brother No problems noted. Sister No problems noted. 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 Cognitive needs: No Hearing needs: No Vision needs: Yes Questionnaire Thrive Questionnaire Date Thrive assessed: 05/09/24 I am a: Patient What is your living situation today?: I have a steady place to live Within the past 12 months, did the food you bought not last and you didn't have the money to get more?: Never true Within the past 12 months, did you worry whether your food would run out before you got money to buy more?: Never true Do you have trouble paying for medicines?: No Do you have trouble getting transportation to medical appointments?: No Do you have trouble paying your heating and electricity bill?: No Do you have trouble taking care of your child, family member or friend?: No Do you have trouble with day-to-day activities such as bathing, preparing meals, shopping, managing finances, etc.?: I choose not to answer this question Are you currently unemployed and looking for a job?: No Are you interested in more education?: No Please select the resources that you would like help with: None Currently or been in a relationship where the following occur: I choose not to answer THRIVE Score: 0 DALY-7 AMB Questionnaire DALY-7 Date DALY - 7 assessed: 07/14/24 Source: Developed by Drs. Jose Jesus, Evy Glass, Stewart Hudson and colleagues, with an educational jameel from [employer]. Physical exam (Primary Care) Vital Signs: Last Vital Signs Pulse 65 08/04/24 08:08 BP 102/66 08/04/24 08:08 Pulse Ox 98 08/04/24 08:08 Oxygen Delivery Method Room Air 08/04/24 08:08 BMI result Body Mass Index 28.1 Tobacco/Smoking Status: Tobacco use Status Tobacco use date assessed 07/25/24 08/04/24 08:08 Patient Tobacco Use Status Former Tobacco user 08/04/24 08:08 Tobacco use type Cigarette 08/04/24 08:08 e-Cigarette/Vaping Use Never Used 08/04/24 08:08 Thrive Assessment: Date of Thrive Assessment Date Thrive assessed 05/09/24 08/04/24 08:08 Currently or been in a relationship where the following occur: I choose not to answer Coding Level of Care Code Est Pt Level 3 (44366) Diagnoses Acute vaginitis N76.0 Chronicity: acute Diverticulitis K57.92 Right hip pain M25.551 Assessment & Plan Assessment & Plan (1) Vaginitis: Code(s): N76.0 - Acute vaginitis Category: Medical Qualifiers: Chronicity: acute Qualified Code(s): N76.0 - Acute vaginitis (2) Diverticulitis: Code(s): K57.92 - Diverticulitis of intestine, part unspecified, without perforation or abscess without bleeding Category: Medical (3) Right hip pain: Code(s): M25.551 - Pain in right hip Category: Medical Plan History - The patient is a 58-year-old female presenting with vaginal itching and irritation. - The patient reported experiencing vaginal itching and burning sensations externally, which started worsening after completing a course of antibiotics two days prior to the visit. - She had taken Levaquin and metronidazole, completing the regimen approximately two days ago. - The patient noted an improvement in discharge after using Monistat, but the itching and burning persist. - Recent antibiotic use is suspected to have precipitated the vaginal symptoms. - The patient has experienced symptoms consistent with recurrent diverticulitis over the past month, noting sensitivity in the lower abdomen, but improved pain since initial onset. - The patient follows a careful diet, avoiding certain foods that may exacerbate symptoms. Problem List - Vaginal Candidiasis - Recurrent Diverticulitis - Back Pain Patient Instructions - Take the prescribed medication for the yeast infection, Diflucan 150 mg one dose immediately and the second dose three days later. - Schedule an appointment with Dr. Bernard at [facility] for further evaluation of recurrent diverticulitis. - Continue to monitor dietary intake carefully, avoiding foods that may trigger symptoms. - Seek medical attention if symptoms worsen or if additional concerns arise. - we will get back to you after the vaginal culture report that was taken today Orders: Orders Bacterial Vaginosis Panel Today N76.0 - Acute vaginitis Referrals Gastroenterology Referral K57.92 - Diverticulitis of intestine, part unspecified, without perforation or abscess without bleeding Medications: New fluconazole may repeat second dose 72 hrs after first dose if symptoms persist 150 mg PO Q3D 2 doses 2 tabs 0RF
== END 2024-08-04 09:38 | disposition home or self-care (01) ==
LOC: HO.HMCC 07:55
PROVIDERS: PCP Internal Medicine; Visit Provider Internal Medicine
DX: N76.0 Acute vaginitis (principal); K57.92 Diverticulitis of intestine, part unspecified, without perforation or abscess without bleeding; M25.551 Pain in right hip

== ENCOUNTER 2024-08-10 15:20 | Outpatient (REF) | payer BC, SELFPAY ==
--- OUTSIDE RECORDS SUMMARY | 2024-08-10 15:54 | XMS_ITS | Data Portability ---
Author Organization [facility], [facility] Address [address] [place] [address] Care Team Providers Care Steam Frame Operator Name Role Phone EFRNANDO OROZCO Primary Care Provider Assessment No assessment [...] Medication Orders meloxicam 15 mg tablet 2023 [id number], [address] [place], [address], 4 09:57:55 Medrol (Satya) 4 mg tablets in a dose pack 2023 024 [id number], [address] [place], [address], 4 09:57:56 tizanidin e 4 mg tablet 2023 024 [id number], [address] [place], [address], 4 09:57:56 Patient TargetsNo targets recorded. Patient InstructionsNo instructions recorded. Reason for Referral None Reported. Results Created Date Observation Date Name Description Value Unit Range Abnormal Flag Note LastModifiedBy Organization Detail LastModifiedTime 07/20/19 24 07/21/2023 CBC WITH DIFFE RENTI AL/PL ATELE T WBC 6.0 x10e3 /uL 3.4-10 .8 Not Available [facility] [address] [facility], [place], [address], 07/21/2023 08:09:11 07/20/19 24 07/21/2023 CBC WITH DIFFE RENTI AL/PL ATELE T RBC 3.76 x10e6 /uL 3.77-5 .28 below low normal Not Available [facility] [address] [facility], [place], [address], 07/21/2023 08:09:11 07/20/19 24 07/21/2023 CBC WITH DIFFE RENTI AL/PL ATELE T hemoglobin 11.7 g/dL 11.1-1 5.9 Not Available [facility] [address] [facility], [place], [address], 07/21/2023 08:09:11 07/20/19 24 07/21/2023 CBC WITH DIFFE RENTI AL/PL ATELE T hematocrit 33.2 % 34.0-4 6.6 below low normal Not Available [facility] [address] [place], [address], 07/21/2023 08:09:11 07/20/19 24 07/21/2023 CBC WITH DIFFE RENTI AL/PL ATELE T MCV 88 fL 79-97 Not Available [facility] [address] [place], [address], 07/21/2023 08:09:11 07/20/19 24 07/21/2023 CBC WITH DIFFE RENTI AL/PL ATELE T MCH 31.1 pg 26.6-3 3.0 Not Available [facility] [address] [place], [address], 07/21/2023 08:09:11 07/20/19 24 07/21/2023 CBC WITH DIFFE RENTI AL/PL ATELE T MCHC 35.2 g/dL 31.5-3 5.7 Not Available [facility] [address] [facility], [place], [address], 07/21/2023 08:09:11 07/20/19 24 07/21/2023 CBC WITH DIFFE RENTI AL/PL ATELE T RDW 12.2 % 11.7-1 5.4 Not Available [facility] [address] [facility], [place], [address], 07/21/2023 08:09:11 07/20/19 24 07/21/2023 CBC WITH DIFFE RENTI AL/PL ATELE T platelets 255 x10e3 /uL 150-45 0 Not Available [facility] [address] [facility], [place], [address], 07/21/2023 08:09:11 07/20/19 24 07/21/2023 CBC WITH DIFFE RENTI AL/PL ATELE T neutrophils 58 % not estab. Not Available [facility] [address] [facility], [place], [address], 07/21/2023 08:09:11 07/20/19 24 07/21/2023 CBC WITH DIFFE RENTI AL/PL ATELE T lymphs 30 % not estab. Not Available [facility] [address] [facility], [place], [address], 07/21/2023 08:09:11 07/20/19 24 07/21/2023 CBC WITH DIFFE RENTI AL/PL ATELE T monocytes 10 % not estab. Not Available [facility] [address] [facility], [place], [address], 07/21/2023 08:09:11 07/20/19 24 07/21/2023 CBC WITH DIFFE RENTI AL/PL ATELE T eos 1 % not estab. Not Available [facility] [address] [facility], [place], [address], 07/21/2023 08:09:11 07/20/19 24 07/21/2023 CBC WITH DIFFE RENTI AL/PL ATELE T basos 1 % not estab. Not Available [facility] [address] [facility], [place], [address], 07/21/2023 08:09:11 07/20/19 24 07/21/2023 CBC WITH DIFFE RENTI AL/PL ATELE T immature cells MOLD MAKER PLASTER Not Available [facility] [address] [place], [address], 07/21/2023 08:09:11 07/20/19 24 07/21/2023 CBC WITH DIFFE RENTI AL/PL ATELE T neutrophils (absolute) 3.6 x10e3 /uL 1.4-7. 0 Not Available [facility] [address] [place], [address], 07/21/2023 08:09:11 07/20/19 24 07/21/2023 CBC WITH DIFFE RENTI AL/PL ATELE T lymphs (absolute) 1.8 x10e3 /uL 0.7-3. 1 Not Available [facility] [address] [place], [address], 07/21/2023 08:09:11 07/20/19 24 07/21/2023 CBC WITH DIFFE RENTI AL/PL ATELE T monocytes(ab solute) 0.6 x10e3 /uL 0.1-0. 9 Not Available [facility] [address] [place], [address], 07/21/2023 08:09:11 07/20/19 24 07/21/2023 CBC WITH DIFFE RENTI AL/PL ATELE T eos (absolute) 0.1 x10e3 /uL 0.0-0. 4 Not Available [facility] [address] [facility], [place], [address], 07/21/2023 08:09:11 07/20/19 24 07/21/2023 CBC WITH DIFFE RENTI AL/PL ATELE T baso (absolute) 0.0 x10e3 /uL 0.0-0. 2 Not Available [facility] [address] [facility], [place], [address], 07/21/2023 08:09:11 07/20/19 24 07/21/2023 CBC WITH DIFFE RENTI AL/PL ATELE T immature granulocytes 0 % not estab. Not Available [facility] [address] [facility], [place], [address], 07/21/2023 08:09:11 07/20/19 24 07/21/2023 CBC WITH DIFFE RENTI AL/PL ATELE T immature grans (abs) 0.0 x10e3 /uL 0.0-0. 1 Not Available [facility] [address] [facility], [place], [address], 07/21/2023 08:09:11 07/20/19 24 07/21/2023 CBC WITH DIFFE RENTI AL/PL ATELE T NRBC MOLD MAKER PLASTER Not Available [facility] [address] [facility], [place], [address], 07/21/2023 08:09:11 07/20/19 24 07/21/2023 CBC WITH DIFFE RENTI AL/PL ATELE T hematology comments: MOLD MAKER PLASTER Not Available [facility] [address] [facility], [place], [address], 07/21/2023 08:09:11 07/20/19 24 07/21/2023 SEDIM ENTAT ION RATE- WESTE RGREN sedimentatio n rate-westerg robert 15 mm/HR 0-40 Not Available [facility] [address] [facility], [place], [address], 07/21/2023 08:09:12 07/20/19 24 07/21/2023 C-QUIANA CTIVE PROTE IN, QUANT C-reactive protein, quant <1 mg/L 0-10 Not Available [facility] [address] [facility], [place], [address], 07/21/2023 08:09:12 12/04/19 24 11/01/2021 imagi ng/di [...] Address Organization Details Recorded Time No complaints 829909294 Active Status : 'A'; Not Available [facility] 4 09:25:19 Problem Notes None recorded. Procedures Surgical History Date Name Laterality Status Provider Name and Address Organization Details Recorded Time 4 Hip Kenalog 2cc Injection, L/R completed Fox Yip PA-C [address] [facility] [address], [place], [address], [facility] 08/13/2023 12:37:47 Imaging Results [...] Updated DateTime 08/13/2023 165.1 cm 27.6 kg/m2 05797.33 g MYRNA MACARIO [facility] 08/13/2023 09:29:50 Social History None recorded. Functional Status None recorded. Mental Status None recorded. Family History Nothing Reported. Medical History No medical history recorded. Gynecological HistoryNo gynecological history recorded. Obstetrics History GPAL:G 0 P 0 0 0 0 Past Encounters Encounter ID Performer Location Encounter Start Date Encounter Closed Date Diagnosis/Indication Diagnosis SNOMED-CT Code Diagnosis ICD10 Code Diagnosis Note [id number] GEMMA Camacho [address], [place] [address] 08/13/2023 09:06:51 08/25/2023 16:03:49 History of total replacement of right hip joint 2268113115 03927 Z96.641 Trochanter ic bursitis of right hip 4519736636 65977 M70.61 Lumbar radiculopathy 128 115896 M54.16 Health Concerns Section Related Observation LastModified by Organization Detai ls LastModified Time None Recorded Concern Status LastModified by Organization Details LastModified Time None Recorded Advance Directives Directive None Recorded Payers Encounter Date Sequence Insurance Name Policy Number Policy Escobedo Covered Member ID Escobedo Member ID Guarantor Name 08/13/2023 1 [place]: LIANG (PPO) [id number] 1 Fox Gorman [id number] Kim Gorman Notes Date Note Type [...] meloxicam as well as tizanidine. I did student loan counselor the patient on how to utilize [...] concerns were answered today. Fox Yip PA-C [address] [place], [place] [address] [address], [place], [address], [facility] 08/13/2023 12:38:45 OBGyn Episode No OBEpisode recorded.
--- OUTSIDE RECORDS SUMMARY | 2024-08-10 15:54 | XMS_ITS | Patient Health Record ---
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 Name Role Phone Tomer JONES, [facility] Primary [facility] Provider Rashad Coronado [phone] Allergies No Known Allergies Reason For Referral [...] 05/18/2024 Encounters Encounter Location Date [facility] [address] [place] [address] [place] [address] 05/18/2024 Rashad Cisneros Pain in left foot [...] X ray : Foot, right 3V 11/15/2017 [id number] I&D ABSCESS- SIMPLE,SINGLE 019 23236, [id number]/INJECT, JOINT/BURSA 0 06/10/2018 [id number] TENDON SHEATH/LIGAMENT 0 06/10/2018 [id number] TENDON SHEATH/LIGAMENT 1 05/19/2020 Insurance Providers Payer Name Payer Address Payer Phone Subscriber Number Group Number Insured Name Patient Relationship to Insured Coverage Start Date Coverage End Date [facility] [address] [place] [address] [phone] [id number] Fox Gorman Spouse - patient is the spouse of the insured 3 Medical (General) History Medical History History ICD Code Chicken pox Surgical History Surgery Date(Month/Year) Vidhya Bergman 03/10/2018 Hip replacement right 10/20/2022
--- OUTSIDE RECORDS SUMMARY | 2024-08-10 15:55 | XMS_ITS ---
[facility] Address [address] [place] [address] Care Team Providers Care Field Installation Technician Name Role Phone Tomer JONES, [facility] Primary Care Provider Rashad Coronado [phone] Allergies No Known Allergies REASON FOR VISIT [...] 05/18/2024 Encounters Encounter Location Date Provider Diagnosis [address] [place] [address] 05/18/2024 Rashad Cisneros Pain in left foot M79.672 and Metatarsalgia, left foot M77.42 Assessments Encounter Date Diagnosis (ICD Code) Assessment Notes Treatment Notes Treatment Clinical Notes Section Notes 05/18/2024 Pain in left foot (ICD-10 - M79.672) 05/18/2024 Metatarsalgia, left foot (ICD-10 - M77.42) Plan Of Treatment Next Appt Details Follow Up: prn, Reason: Progress Notes * Kim GORMAN ADOB:[birth year] (58 yo F)Acc No.[id number]:05/18/2024 Progress Note Patient:?Kim GORMAN A Provider:?Rashad Cisneros D.P.M. :1965???Age:58 Y???Sex:Female D ate:05/18/2024 Address:[address] [place] [address] Pcp:Rodney Jeff MD Subjective: * Chief Complaints: [...] per week. ?Marital status: . 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 * Medications:?TakingOmeprazol e Rosuvastatin Calcium 10 [...] Cisneros D.P.M. Date:?05/06 Generated for Tejal lee/Ruben/Braydenitting on:?08/10/2024 03:54 PM EDT History and Physical Notes * [...]
== END 2024-08-10 15:21 | disposition home or self-care (01) ==
LOC: HO.MAMMO 15:20
PROVIDERS: PCP Internal Medicine; Visit Provider Internal Medicine
DX: Z12.31 Encounter for screening mammogram for malignant neoplasm of breast (principal)
CPT/HCPCS: 77063; 77067

== ENCOUNTER → 2024-08-10 15:30 | Outpatient (BNV) | payer BC, SELFPAY | PROVIDERS: PCP Internal Medicine; Visit Provider Internal Medicine | DX: Z12.31 Encounter for screening mammogram for malignant neoplasm of breast (principal) | CPT/HCPCS: 77063; 77067 ==

== ENCOUNTER 2024-09-08 09:12 | Outpatient (REF) | payer BC, SELFPAY ==
--- NOTE | ~2024-09-08 | XR_ITS ---
CLINICAL HISTORY: M79.642 - Pain in left hand --- Additional Notes or Special Instructions: Tiffany ulrich Three views of the left hand. COMPARISON: None FINDINGS: Ring overlies the 4th proximal phalanx. Distal radius and ulna appear intact. Carpals and metacarpals appear intact and normal in alignment. Degenerative changes at the 1st CMC joint with small osteophytes. Phalanges appear intact. IMPRESSION: 1. No radiographic evidence of acute injury to the left hand. This document has been electronically signed by: Gianfranco Hernandez MD on 09/08/2024 12:59:18
== END 2024-09-08 09:13 | disposition home or self-care (01) ==
LOC: HO.HOSX 09:12
PROVIDERS: PCP Internal Medicine
DX: M79.642 Pain in left hand (principal)
CPT/HCPCS: 73130

== ENCOUNTER 2024-09-08 09:12 | Outpatient (AMB) | payer BC, SELFPAY ==
--- NOTE | 2024-09-08 09:16 | A.OFFVIS_ITS ---
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 Patient reports pain is located on the dorsal aspect of the left thumb. Denies numbness and tingling. Denies finger locking. Patient is using Tylenol and Ibuprofen as needed with minimal relief. Patient has also been applying ice and finds this helpful. She tried a brace in the past but it hurt her, thinks she was using the wrong brace. Denies prior injuries or surgeries to the left hand. 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 Patient reports pain is located on the dorsal aspect of the left thumb, at the . Denies numbness and tingling. Denies finger locking. Patient is using Tylenol and Ibuprofen as needed with minimal relief. Patient has also been applying ice and finds this helpful. She tried a brace in the past but it hurt her, thinks she was using the wrong brace. Denies prior injuries or surgeries to the left hand. [facility] Medical History Lumbar degenerative disc disease Right ankle sprain Left ankle sprain Anemia Constipation Chronic GERD Sinusitis Sore throat, chronic Vitamin D deficiency Impaired fasting blood sugar Lipid disorder Facet arthropathy Ankle pain, left Migraine headache Meralgia paresthetica of right side Osteoarthritis of right hip Right lumbar radiculitis Surgical History History of hip replacement, total Hx of foot surgery (~2018) Family History Father No problems noted. Mother No problems noted. Brother No problems noted. Brother No problems noted. Sister No problems noted. 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 Neuro: Normal sensation of the tips of all digits of the L hand at this time Vascular: Cap refill brisk Pain: No tenderness to palpation of the IP, MCP, CMC joint of L thumb Some discomfort with ROM of L thumb at MCP joint Pain with varus and valgus testing of L thumb MCP Negative Ana Negative CMC grind ROM: Patient is able to make a closed fist and extend all digits of the L hand fully Skin: No lacerations or abrasions. General: No ecchymosis, erythema, or evidence of infection. Psych: Appears grossly normal Affect normal Attitude cooperative Results Reviewed Results Reviewed: X-rays taken in the office today and reviewed by me demonstrate mild to moderate arthritis of the MCP joint of the L thumb Assessment & Plan Assessment & Plan (1) Osteoarthritis of left thumb: Code(s): M18.12 - Unilateral primary osteoarthritis of first carpometacarpal joint, left hand Category: Medical Plan 1. OA of left thumb Patient is educated about this condition Patient is educated about the typical recovery course At this time, patient is referred to OT for ROM and strengthening of the L hand Patient is advised on conservative pain management measures Patient understands these and is amenable to this plan F/u as needed Orders: Orders XR hand LT min 3V 09/08/24 M79.642 - Pain in left hand OT Evaluation and Treatment 09/08/24 M18.12 - Unilateral primary osteoarthritis of first carpometacarpal joint, left hand Coding Level of Care Code Est Pt Level 3 (15760) Diagnoses Osteoarthritis of left thumb M18.12
[2024-09-08 09:21] VITALS: BMI 26.9
--- OUTSIDE RECORDS SUMMARY | 2024-09-08 09:41 | XMS_ITS | Data Portability ---
Author Organization [facility], [facility] Address [address] [place] [address] Care Team Providers Care Candy Mixer Name Role Phone FERNANDO OROZCO Primary Care Provider [phone] Assessment No assessment recorded. Plan of Treatment [...] Medication Orders meloxicam 15 mg tablet 2023 [id number], [address] [place], [address], 4 09:57:55 Medrol (Satya) 4 mg tablets in a dose pack 2023 024 [id number], [address] [place], [address], 4 09:57:56 tizanidin e 4 mg tablet 2023 024 [id number], [address] [place], [address], 4 09:57:56 Patient TargetsNo targets recorded. Patient InstructionsNo instructions recorded. Reason for Referral None Reported. Results Created Date Observation Date Name Description Value Unit Range Abnormal Flag Note LastModifiedBy Organization Detail LastModifiedTime 07/20/19 24 07/21/2023 CBC WITH DIFFE RENTI AL/PL ATELE T WBC 6.0 x10e3 /uL 3.4-10 .8 Not Available [facility] ([facility]) [address], [place], [address], 07/21/2023 08:09:11 07/20/19 24 07/21/2023 CBC WITH DIFFE RENTI AL/PL ATELE T RBC 3.76 x10e6 /uL 3.77-5 .28 below low normal Not Available [facility] ([facility]) [address] [facility], [place], [address], 07/21/2023 08:09:11 07/20/19 24 07/21/2023 CBC WITH DIFFE RENTI AL/PL ATELE T hemoglobin 11.7 g/dL 11.1-1 5.9 Not Available [facility] ([facility]) [address] [facility], [place], [address], 07/21/2023 08:09:11 07/20/19 24 07/21/2023 CBC WITH DIFFE RENTI AL/PL ATELE T hematocrit 33.2 % 34.0-4 6.6 below low normal Not Available [facility] ([facility]) [address] [place], [address], 07/21/2023 08:09:11 07/20/19 24 07/21/2023 CBC WITH DIFFE RENTI AL/PL ATELE T MCV 88 fL 79-97 Not Available [facility] ([facility]) [address] [place], [address], 07/21/2023 08:09:11 07/20/19 24 07/21/2023 CBC WITH DIFFE RENTI AL/PL ATELE T MCH 31.1 pg 26.6-3 3.0 Not Available [facility] ([facility]) [address] [place], [address], 07/21/2023 08:09:11 07/20/19 24 07/21/2023 CBC WITH DIFFE RENTI AL/PL ATELE T MCHC 35.2 g/dL 31.5-3 5.7 Not Available [facility] ([facility]) [address] [facility], [place], [address], 07/21/2023 08:09:11 07/20/19 24 07/21/2023 CBC WITH DIFFE RENTI AL/PL ATELE T RDW 12.2 % 11.7-1 5.4 Not Available [facility] ([facility]) [address] [facility], [place], [address], 07/21/2023 08:09:11 07/20/19 24 07/21/2023 CBC WITH DIFFE RENTI AL/PL ATELE T platelets 255 x10e3 /uL 150-45 0 Not Available [facility] ([facility]) [address] [facility], [place], [address], 07/21/2023 08:09:11 07/20/19 24 07/21/2023 CBC WITH DIFFE RENTI AL/PL ATELE T neutrophils 58 % not estab. Not Available [facility] ([facility]) [address] [facility], [place], [address], 07/21/2023 08:09:11 07/20/19 24 07/21/2023 CBC WITH DIFFE RENTI AL/PL ATELE T lymphs 30 % not estab. Not Available [facility] ([facility]) [address] [facility], [place], [address], 07/21/2023 08:09:11 07/20/19 24 07/21/2023 CBC WITH DIFFE RENTI AL/PL ATELE T monocytes 10 % not estab. Not Available [facility] ([facility]) [address] [facility], [place], [address], 07/21/2023 08:09:11 07/20/19 24 07/21/2023 CBC WITH DIFFE RENTI AL/PL ATELE T eos 1 % not estab. Not Available [facility] ([facility]) [address] [facility], [place], [address], 07/21/2023 08:09:11 07/20/19 24 07/21/2023 CBC WITH DIFFE RENTI AL/PL ATELE T basos 1 % not estab. Not Available [facility] ([facility]) [address] [facility], [place], [address], 07/21/2023 08:09:11 07/20/19 24 07/21/2023 CBC WITH DIFFE RENTI AL/PL ATELE T immature cells INDUSTRIAL MECHANIC Not Available [facility] ([facility]) [address] [place], [address], 07/21/2023 08:09:11 07/20/19 24 07/21/2023 CBC WITH DIFFE RENTI AL/PL ATELE T neutrophils (absolute) 3.6 x10e3 /uL 1.4-7. 0 Not Available [facility] ([facility]) [address] [place], [address], 07/21/2023 08:09:11 07/20/19 24 07/21/2023 CBC WITH DIFFE RENTI AL/PL ATELE T lymphs (absolute) 1.8 x10e3 /uL 0.7-3. 1 Not Available [facility] ([facility]) [address] [place], [address], 07/21/2023 08:09:11 07/20/19 24 07/21/2023 CBC WITH DIFFE RENTI AL/PL ATELE T monocytes(ab solute) 0.6 x10e3 /uL 0.1-0. 9 Not Available [facility] ([facility]) [address] [place], [address], 07/21/2023 08:09:11 07/20/19 24 07/21/2023 CBC WITH DIFFE RENTI AL/PL ATELE T eos (absolute) 0.1 x10e3 /uL 0.0-0. 4 Not Available [facility] ([facility]) [address] [facility], [place], [address], 07/21/2023 08:09:11 07/20/19 24 07/21/2023 CBC WITH DIFFE RENTI AL/PL ATELE T baso (absolute) 0.0 x10e3 /uL 0.0-0. 2 Not Available [facility] ([facility]) [address] [facility], [place], [address], 07/21/2023 08:09:11 07/20/19 24 07/21/2023 CBC WITH DIFFE RENTI AL/PL ATELE T immature granulocytes 0 % not estab. Not Available [facility] ([facility]) [address] [facility], [place], [address], 07/21/2023 08:09:11 07/20/19 24 07/21/2023 CBC WITH DIFFE RENTI AL/PL ATELE T immature grans (abs) 0.0 x10e3 /uL 0.0-0. 1 Not Available [facility] ([facility]) [address] [facility], [place], [address], 07/21/2023 08:09:11 07/20/19 24 07/21/2023 CBC WITH DIFFE RENTI AL/PL ATELE T NRBC INDUSTRIAL MECHANIC Not Available [facility] ([facility]) [address] [facility], [place], [address], 07/21/2023 08:09:11 07/20/19 24 07/21/2023 CBC WITH DIFFE RENTI AL/PL ATELE T hematology comments: INDUSTRIAL MECHANIC Not Available [facility] ([facility]) [address] [facility], [place], [address], 07/21/2023 08:09:11 07/20/19 24 07/21/2023 SEDIM ENTAT ION RATE- WESTE RGREN sedimentatio n rate-westerg robert 15 mm/HR 0-40 Not Available [facility] ([facility]) [address] [facility], [place], [address], 07/21/2023 08:09:12 07/20/19 24 07/21/2023 C-QUIANA CTIVE PROTE IN, QUANT C-reactive protein, quant <1 mg/L 0-10 Not Available [facility] ([facility]) [address] [facility], [place], [address], 07/21/2023 08:09:12 12/04/19 24 11/01/2021 imagi ng/di [...] Address Organization Details Recorded Time No complaints 851309294 Active Status : 'A'; Not Available [facility] 4 09:25:19 Problem Notes None recorded. Procedures Surgical History Date Name Laterality Status Provider Name and Address Organization Details Recorded Time 4 Hip Kenalog 2cc Injection, L/R completed Fox Yip PA-C [address] [facility] [address], [place], [address], [facility] 08/13/2023 12:37:47 Imaging Results None recorded. Procedure Notes None recorded. Medical Equipment None [...] Updated DateTime 08/13/2023 165.1 cm 27.6 kg/m2 23948.33 g MYRNA Durand [facility] 08/13/2023 09:29:50 Social History None recorded. Functional Status None recorded. Mental Status None recorded. Family History Nothing Reported. Medical History No medical history recorded. Gynecological HistoryNo gynecological history recorded. Obstetrics History GPAL:G 0 P 0 0 0 0 Past Encounters Encounter ID Performer Location Encounter Start Date Encounter Closed Date Diagnosis/Indication Diagnosis SNOMED-CT Code Diagnosis ICD10 Code Diagnosis Note [id number] [facility] [address] [place] [address] 08/13/2023 09:06:51 08/25/2023 16:03:49 History of total replacement of right hip joint 9555095684 74633 Z96.641 Trochanter ic bursitis of right hip 2685057131 11104 M70.61 Lumbar radiculopathy 128 812301 M54.16 Health Concerns Section Related Observation LastModified by Organization Detai ls LastModified Time None Recorded Concern Status LastModified by Organization Details LastModified Time None Recorded Advance Directives Directive None Recorded Payers Encounter Date Sequence Insurance Name Policy Number Policy Escobedo Covered Member ID Escobedo Member ID Guarantor Name 08/13/2023 1 MARKIE (PPO) [id number] 1 Fox Gorman [id number] Kim Gorman Notes Date Note Type [...] meloxicam as well as tizanidine. I did eligibility counselor the patient on how to utilize [...] concerns were answered today. Fox Yip PA-C [address] [place] [address] [address], [place], [address], [facility] 08/13/2023 12:38:45 OBGyn Episode No OBEpisode recorded.
== END 2024-09-08 09:59 | disposition home or self-care (01) ==
PROVIDERS: PCP Internal Medicine
DX: M18.12 Unilateral primary osteoarthritis of first carpometacarpal joint, left hand (principal)
CPT/HCPCS: 99203

== ENCOUNTER → 2024-09-08 09:37 | Outpatient (BNV) | payer BC, SELFPAY | PROVIDERS: PCP Internal Medicine; Visit Provider Radiology Diagnostic Radiology | DX: M25.742 Osteophyte, left hand (principal) | CPT/HCPCS: 73130 ==

== ENCOUNTER 2024-09-22 09:53 | Outpatient (AMB) | payer BC, SELFPAY ==
[2024-09-22 09:58] VITALS: BP 110/76; PULSE 104; TEMP 37; O2SAT 99; BMI 28.1
--- NOTE | 2024-09-22 09:58 | MHC.OFFWIV ---
Intake Vital Signs 09/22/24 09:58 09/22/24 11:21 Height 5 ft 4 in Weight 164 lb BMI 28.1 BP 110/76 Blood Pressure Location Rt brachial Position Sitting Pulse 104 H 78 Pulse Source Pulse Oximeter Auscultation Temp 98.6 F Temp Source Oral Pulse Oximetry (%) 99 Oxygen Delivery Method Room Air Intake Visit Reasons: EP heart is running fast & ? UTI Patient Tobacco Use Status: Former Tobacco user Principal Librarian Required: No Allergies No Known Allergies Allergy (Verified 09/22/24 10:06) Do you need a note to return to daycare/school/sports/work: No HPI EP heart is running fast & ? UTI HPI Details This is a 58-year-old female patient who presents to the walk-in clinic today with report of on an off rapid heart rate since yesterday. She wears a smart watch, and noticed that with minimal activity, her heart rate was increasing up to the 160s. She states this was the same today while walking her dog. Heart rate will stay elevated like this, and then returned back down to the 70s after several minutes. Denies any shortness of breath or chest pain. States that she can tell when her heart is racing since she can feel it in her chest. No recent illnesses. No cardiac history per patient. Followed by Dr. Jeff for PCP. She has also reported a recent vulvar dermatitis. No urinary symptoms. No flank pain. No vaginal discharge/odor. [facility] Medical History Lumbar degenerative disc disease Right ankle sprain Left ankle sprain Anemia Constipation Chronic GERD Sinusitis Sore throat, chronic Vitamin D deficiency Impaired fasting blood sugar Lipid disorder Facet arthropathy Ankle pain, left Migraine headache Meralgia paresthetica of right side Osteoarthritis of right hip Right lumbar radiculitis Surgical History History of hip replacement, total Hx of foot surgery (~2018) Family History Father No problems noted. Mother No problems noted. Brother No problems noted. Brother No problems noted. Sister No problems noted. 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 Cognitive needs: No Hearing needs: No Vision needs: Yes Review of Systems Const All systems reviewed & are unremarkable except as noted in HPI and below Physical Exam Vital Signs: Last Vital Signs Temp 98.6 F 09/22/24 09:58 Pulse 104 H 09/22/24 09:58 BP 110/76 09/22/24 09:58 Pulse Ox 99 09/22/24 09:58 Oxygen Delivery Method Room Air 09/22/24 09:58 BMI result Body Mass Index 28.1 Const General: cooperative, healthy appearing, comfortable and no acute distress Limitations: no limitations HEENT Head: Yes normal to inspection Ears: hearing grossly normal bilaterally Resp Effort & Inspection: normal respiratory effort Auscultation: clear to auscultation bilaterally Cardio Jugular venous distension: no JVD Palpation: normal PMI Rate: regular rate Rhythm: regular rhythm Heart sounds: S1 normal heart sound present and S2 normal heart sound present Peripheral pulses: Peripheral pulses 2+ throughout Neuro General: no focal motor deficits Extrem General: Yes capillary refill normal and Yes no clubbing, cyanosis or edema Psych Appearance: grossly normal Mental Status: mental status grossly normal Speech and movement: Normal speech and movement present Results AMB Urinalysis, Automated UA Leukoctes 0 Erlinda/uL Last Edit by Marcell Joy CMA on 09/22/24 10:37 UA Nitrite Negative Last Edit by Marcell Joy CMA on 09/22/24 10:37 UA Urobilinogen 0.2 mg/dL Last Edit by Marcell Joy CMA on 09/22/24 10:37 UA Protein 0 mg/dL Last Edit by Marcell Joy CMA on 09/22/24 10:37 UA pH 6.0 Last Edit by Marcell Joy CMA on 09/22/24 10:37 UA Blood 0 Calin/uL Last Edit by Marcell Joy CMA on 09/22/24 10:37 UA Specific Mikado 1.025 Last Edit by Marcell Joy CMA on 09/22/24 10:37 UA Ketone Negative Last Edit by Marcell Joy CMA on 09/22/24 10:37 UA Bilirubin 0 mg/dL Last Edit by Marcell Joy CMA on 09/22/24 10:37 UA Glucose 0 mg/dL Last Edit by Marcell Joy CMA on 09/22/24 10:37 Assessment & Plan Assessment & Plan (1) Tachycardia, paroxysmal: Code(s): I47.9 - Paroxysmal tachycardia, unspecified Plan: I suspect patient is having paroxysmal episodes of SVT. I did not capture this via EKG, which showed normal sinus rhythm, 78. Exam is unremarkable today, however patient did show me multiple episodes of tachycardia up to the 160s on her smart watch, which records her heart rate continuously. Currently, she is asymptomatic. I am going to reach out to her PCP, Dr. Jeff, to see if she would like to see patient for follow-up and/or if she may be a candidate for a Holter monitor. I discussed with patient that should these symptoms recur/persist, and certainly if they are associated with any symptoms such as chest pain, shortness of breath, dizziness, she should go to the emergency department for evaluation. All questions were answered and patient verbalizes understanding and agrees to plan. (2) Dermatitis of vulva: Code(s): L30.9 - Dermatitis, unspecified Plan: Will try a triamcinolone cream to apply topically. Discussed this with patient. Orders: Orders AMB Urinalysis Automated Today Daina Lee PA-C Z13.9 - Encounter for screening, unspecified Medications: New triamcinolone acetonide 0.1% Apply to irritated area twice a day as needed until rash resolves 1 appl topical BID 30 grams 1RF GREG De La Torre L30.9 - Dermatitis, unspecified Coding Level of Care Code Est Pt Level 4 (93905) Diagnoses Tachycardia, paroxysmal I47.9 Dermatitis of vulva L30.9
--- OUTSIDE RECORDS SUMMARY | 2024-09-22 10:09 | XMS_ITS | Data Portability ---
Author Organization [facility], [facility] Address [address] [place] [address] Care Team Providers Care Supervisor Lending Activities Name Role Phone FERNANDO OROZCO Primary Care [...] Orders meloxicam 15 mg tablet 2023 [id number], [address] [place], [address], 4 09:57:55 Medrol (Satya) 4 mg tablets in a dose pack 2023 024 [id number], [address] [place], [address], 4 09:57:56 tizanidin e 4 mg tablet 2023 024 [id number], [address] [place], [address], 4 09:57:56 Patient TargetsNo targets recorded. Patient InstructionsNo instructions recorded. Reason for Referral None Reported. Results Created Date Observation Date Name Description Value Unit Range Abnormal Flag Note LastModifiedBy Organization Detail LastModifiedTime 07/20/19 24 07/21/2023 CBC WITH DIFFE RENTI AL/PL ATELE T WBC 6.0 x10e3 /uL 3.4-10 .8 Not Available [facility] ([facility]) [address] [facility], [place], [address], 07/21/2023 08:09:11 07/20/19 24 07/21/2023 CBC WITH DIFFE RENTI AL/PL ATELE T RBC 3.76 x10e6 /uL 3.77-5 .28 below low normal Not Available [facility] ([facility]) [address] [facility], [place], [address], 07/21/2023 08:09:11 07/20/19 24 07/21/2023 CBC WITH DIFFE RENTI AL/PL ATELE T hemoglobin 11.7 g/dL 11.1-1 5.9 Not Available [facility] ([facility]) [address] [facility], [place], [address], 07/21/2023 08:09:11 07/20/19 24 07/21/2023 CBC WITH DIFFE RENTI AL/PL ATELE T hematocrit 33.2 % 34.0-4 6.6 below low normal Not Available [facility] ([facility]) [address] [place], [address], 07/21/2023 08:09:11 07/20/19 24 07/21/2023 CBC WITH DIFFE RENTI AL/PL ATELE T MCV 88 fL 79-97 Not Available [facility] ([facility]) [address] [place], [address], 07/21/2023 08:09:11 07/20/19 24 07/21/2023 CBC WITH DIFFE RENTI AL/PL ATELE T MCH 31.1 pg 26.6-3 3.0 Not Available [facility] ([facility]) [address] [place], [address], 07/21/2023 08:09:11 07/20/19 24 07/21/2023 CBC WITH DIFFE RENTI AL/PL ATELE T MCHC 35.2 g/dL 31.5-3 5.7 Not Available [facility] ([facility]) [address] [facility], [place], [address], 07/21/2023 08:09:11 07/20/19 24 07/21/2023 CBC WITH DIFFE RENTI AL/PL ATELE T RDW 12.2 % 11.7-1 5.4 Not Available [facility] ([facility]) [address] [facility], [place], [address], 07/21/2023 08:09:11 07/20/19 24 07/21/2023 CBC WITH DIFFE RENTI AL/PL ATELE T platelets 255 x10e3 /uL 150-45 0 Not Available [facility] ([facility]) [address] [facility], [place], [address], 07/21/2023 08:09:11 07/20/19 24 07/21/2023 CBC WITH DIFFE RENTI AL/PL ATELE T neutrophils 58 % not estab. Not Available [facility] ([facility]) [address] [facility], [place], [address], 07/21/2023 08:09:11 07/20/19 24 07/21/2023 CBC WITH DIFFE RENTI AL/PL ATELE T lymphs 30 % not estab. Not Available [facility] ([facility]) [address] [facility], [place], [address], 07/21/2023 08:09:11 07/20/19 24 07/21/2023 CBC WITH DIFFE RENTI AL/PL ATELE T monocytes 10 % not estab. Not Available [facility] ([facility]) [address] [facility], [place], [address], 07/21/2023 08:09:11 07/20/19 24 07/21/2023 CBC WITH DIFFE RENTI AL/PL ATELE T eos 1 % not estab. Not Available [facility] ([facility]) [address] [facility], [place], [address], 07/21/2023 08:09:11 07/20/19 24 07/21/2023 CBC WITH DIFFE RENTI AL/PL ATELE T basos 1 % not estab. Not Available [facility] ([facility]) [address] [facility], [place], [address], 07/21/2023 08:09:11 07/20/19 24 07/21/2023 CBC WITH DIFFE RENTI AL/PL ATELE T immature cells YOGA COORDINATOR Not Available [facility] ([facility]) [address] [place], [address], 07/21/2023 08:09:11 07/20/19 24 07/21/2023 CBC WITH DIFFE RENTI AL/PL ATELE T neutrophils (absolute) 3.6 x10e3 /uL 1.4-7. 0 Not Available [facility] ([facility]) [address] [place], [address], 07/21/2023 08:09:11 07/20/19 24 07/21/2023 CBC WITH DIFFE RENTI AL/PL ATELE T lymphs (absolute) 1.8 x10e3 /uL 0.7-3. 1 Not Available [facility] ([facility]) [address] [place], [address], 07/21/2023 08:09:11 07/20/19 24 07/21/2023 CBC WITH DIFFE RENTI AL/PL ATELE T monocytes(ab solute) 0.6 x10e3 /uL 0.1-0. 9 Not Available [facility] ([facility]) [address] [place], [address], 07/21/2023 08:09:11 07/20/19 24 07/21/2023 CBC WITH DIFFE RENTI AL/PL ATELE T eos (absolute) 0.1 x10e3 /uL 0.0-0. 4 Not Available [facility] ([facility]) [address] [facility], [place], [address], 07/21/2023 08:09:11 07/20/19 24 07/21/2023 CBC WITH DIFFE RENTI AL/PL ATELE T baso (absolute) 0.0 x10e3 /uL 0.0-0. 2 Not Available [facility] ([facility]) [address] [facility], [place], [address], 07/21/2023 08:09:11 07/20/19 24 07/21/2023 CBC WITH DIFFE RENTI AL/PL ATELE T immature granulocytes 0 % not estab. Not Available [facility] ([facility]) [address] [facility], [place], [address], 07/21/2023 08:09:11 07/20/19 24 07/21/2023 CBC WITH DIFFE RENTI AL/PL ATELE T immature grans (abs) 0.0 x10e3 /uL 0.0-0. 1 Not Available [facility] ([facility]) [address] [facility], [place], [address], 07/21/2023 08:09:11 07/20/19 24 07/21/2023 CBC WITH DIFFE RENTI AL/PL ATELE T NRBC YOGA COORDINATOR Not Available [facility] ([facility]) [address] [facility], [place], [address], 07/21/2023 08:09:11 07/20/19 24 07/21/2023 CBC WITH DIFFE RENTI AL/PL ATELE T hematology comments: YOGA COORDINATOR Not Available [facility] ([facility]) [address] [facility], [place], [address], 07/21/2023 08:09:11 07/20/19 24 07/21/2023 SEDIM ENTAT ION RATE- WESTE RGREN sedimentatio n rate-westerg robert 15 mm/HR 0-40 Not Available [facility] ([facility]) [address] [facility], [place], [address], 07/21/2023 08:09:12 07/20/19 24 07/21/2023 C-QUIANA CTIVE PROTE IN, QUANT C-reactive protein, quant <1 mg/L 0-10 Not Available [facility] ([facility]) [address] [facility], [place], [address], 07/21/2023 08:09:12 12/04/19 24 11/01/2021 imagi ng/di [...] Address Organization Details Recorded Time No complaints [id number] Active Status : 'A'; Not Available [facility] 4 09:25:19 Problem Notes None recorded. Procedures Surgical History Date Name Laterality Status Provider Name and Address Organization Details Recorded Time 4 Hip Kenalog 2cc Injection, L/R completed Fox Yip PA-C [address] [facility] [address], [place], [address], [facility] 08/13/2023 12:37:47 Imaging Results [...] Updated DateTime 08/13/2023 165.1 cm 27.6 kg/m2 70544.33 g MYRNA Durand [facility] 08/13/2023 09:29:50 Social History None recorded. Functional Status None recorded. Mental Status None recorded. Family History Nothing Reported. Medical History No medical history recorded. Gynecological HistoryNo gynecological history recorded. Obstetrics History GPAL:G 0 P 0 0 0 0 Past Encounters Encounter ID Performer Location Encounter Start Date Encounter Closed Date Diagnosis/Indication Diagnosis SNOMED-CT Code Diagnosis ICD10 Code Diagnosis Note [id number] [facility] Camacho [address] [place] [address] 08/13/2023 09:06:51 08/25/2023 16:03:49 History of total replacement of right hip joint 6574051402 58210 Z96.641 Trochanter ic bursitis of right hip 1851332192 23708 M70.61 Lumbar radiculopathy 128 143517 M54.16 Health Concerns Section Related Observation LastModified by Organization Detai ls LastModified Time None Recorded Concern Status LastModified by Organization Details LastModified Time None Recorded Advance Directives Directive None Recorded Payers Insurance Date Sequence Insurance Name Policy Number Policy Escobedo Covered Member ID Escobedo Member ID Guarantor Name 11/11/2023 1 MARKIE (PPO) [id number] 1 Fox Gorman [id number] Kim Gorman Notes Date Note Type [...] reviewed, updated and is located in the patient s chart. Examination:Well appearing 57-year-old female in [...] meloxicam as well as tizanidine. I did weight loss counselor the patient on how to utilize [...] concerns were answered today. Fox Yip PA-C [address] [facility] [address], [place], [address], [facility] - [facility] 08/13/2023 12:38:45 OBGyn Episode No OBEpisode recorded.
[2024-09-22 11:21] VITALS: PULSE 78
== END 2024-09-22 11:27 | disposition home or self-care (01) ==
PROVIDERS: PCP Internal Medicine; Visit Provider Nurse Practitioner Family
DX: I47.9 Paroxysmal tachycardia, unspecified (principal); L30.9 Dermatitis, unspecified; Z13.9 Encounter for screening, unspecified

== ENCOUNTER → 2024-09-22 09:53 | Outpatient (BNVA) | payer BC, SELFPAY | PROVIDERS: PCP Internal Medicine | DX: I47.9 Paroxysmal tachycardia, unspecified (principal); L30.9 Dermatitis, unspecified | CPT/HCPCS: 81003 ==

== ENCOUNTER 2024-09-27 13:09 | Outpatient (AMB) | payer BC, SELFPAY ==
--- NOTE | 2024-09-27 13:15 | A.OFFPC_ITS ---
Vital Signs 09/27/24 13:17 Height 5 ft 4 in Weight 162 lb BMI 27.8 BP 110/70 Blood Pressure Location Rt brachial Position Sitting Respiration 16 Pulse 62 Pulse Source Pulse Oximeter Temp 98.3 F Temp Source Oral Pulse Oximetry (%) 96 Oxygen Delivery Method Room Air Intake Visit Reasons: Followup from Walk In Allergies No Known Allergies Allergy (Verified 09/27/24 13:15) Medication List - Last Reconciled 09/27/24 by Rodney Jeff MD omeprazole 20 mg PO DAILY 90 days rosuvastatin 10 mg PO DAILY 90 days triamcinolone acetonide 0.1% 1 appl topical BID Tobacco use date assessed: 09/27/24 Dental Screening Dental Screen Date: 09/27/24 Did you have a dental visit in the last 12 months?: Yes Did you have a dental problem in the last 6 months where you did not have access to dental care?: Yes Was dental information given to patient?: Patient has dentist HPI Followup from Walk In HPI Details History - The patient is a 58-year-old female pr esenting with history of tachycardia. - The patient experienced a racing heart on September 22 during a family picnic, which was not persistent but concerning enough to visit a walk-in clinic. - An EKG was performed at the walk-in [facility], showing normal results at the time, patient reported that the tachycardia did not persist. - Possible contributing factors included heat exposure, dehydration, and lack of sleep, as discussed during the visit. - The patient reported feeling better af ter hydrating and resting, with no current symptoms of tachycardia. - The patient has a history of impaired fasting glucose, with a fasting blood sugar level of 103 mg/dL noted in January. - Elevated liver enzymes and low vitamin D levels were also noted in previous lab results. - The patient is currently taking omepra zole and rosuvastatin, and adheres to a daily vitamin D supplement regimen. Problem List - Tachycardia - Impaired fasting glucose - Elevated liver enzymes - Vitamin D deficiency - due for labs, last set of lab was Dece mber of last year Patient Instructions - Continue to hydrate regularly, especia lly in hot weather. - Monitor for any recurrence of tachycar niraj and report if symptoms return. - Follow up with fasting lab tests as di scussed, including checks for vitamin D, cholesterol, kidney function, liver enzymes, and hemoglobin. Review of Systems - General: No fever no chills - Neurological: No headaches no dizziness - Ear nose throat: No sore throat no hearing difficulty no ear pain - Cardiovascular: No syncope, no chest pain, no more palpitations - Gastrointestinal: No nausea vomiting or diarrhea - Endocrine: No polyuria polydipsia no heat intolerance - Genitourinary: No dysuria , no blood in urine Physical Exam General: No acute distress HEENT: No acute findings Neck: Supple Respiratory system: Able to talk in full sentences, no audible wheeze Cardiovascular: Regular rate and rhythm, S1-S2 Gastrointestinal: No pain Extremities: No new findings 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 Mother No problems noted. Brother No problems noted. Brother No problems noted. Sister No problems noted. 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 Cognitive needs: No Hearing needs: No Vision needs: Yes Questionnaire Thrive Questionnaire Date Thrive assessed: 05/09/24 I am a: Patient What is your living situation today?: I have a steady place to live Within the past 12 months, did the food you bought not last and you didn't have the money to get more?: Never true Within the past 12 months, did you worry whether your food would run out before you got money to buy more?: Never true Do you have trouble paying for medicines?: No Do you have trouble getting transportation to medical appointments?: No Do you have trouble paying your heating and electricity bill?: No Do you have trouble taking care of your child, family member or friend?: No Do you have trouble with day-to-day activities such as bathing, preparing meals, shopping, managing finances, etc.?: I choose not to answer this question Are you currently unemployed and looking for a job?: No Are you interested in more education?: No Please select the resources that you would like help with: None Currently or been in a relationship where the following occur: I choose not to answer THRIVE Score: 0 DALY-7 AMB Questionnaire DALY-7 Date DALY - 7 assessed: 07/14/24 Source: Developed by Drs. Jose Jesus, Evy Glass, Stewart Hudson and colleagues, with an educational jameel from [employer]. Physical exam (Primary Care) Vital Signs: Last Vital Signs Temp 98.3 F 09/27/24 13:17 Pulse 62 09/27/24 13:17 Resp 16 09/27/24 13:17 BP 110/70 09/27/24 13:17 Pulse Ox 96 09/27/24 13:17 Oxygen Delivery Method Room Air 09/27/24 13:17 BMI result Body Mass Index 27.8 Tobacco/Smoking Status: Tobacco use Status Tobacco use date assessed 09/27/24 09/27/24 13:16 Patient Tobacco Use Status Former Tobacco user 09/27/24 13:16 Tobacco use type Cigarette 09/27/24 13:16 e-Cigarette/Vaping Use Never Used 09/27/24 13:16 Thrive Assessment: Date of Thrive Assessment Date Thrive assessed 05/09/24 09/27/24 13:16 Currently or been in a relationship where the following occur: I choose not to answer Coding Level of Care Code Est Pt Level 4 (02811) Diagnoses Palpitations R00.2 Lipid disorder E78.9 Impaired fasting blood sugar R73.01 Vitamin D deficiency E55.9 Chronic GERD K21.9 Assessment & Plan Assessment & Plan (1) Palpitations: Code(s): R00.2 - Palpitations Category: Medical (2) Lipid disorder: Code(s): E78.9 - Disorder of lipoprotein metabolism, unspecified Category: Medical (3) Impaired fasting blood sugar: Code(s): R73.01 - Impaired fasting glucose Category: Medical (4) Vitamin D deficiency: Code(s): E55.9 - Vitamin D deficiency, unspecified Category: Medical (5) Chronic GERD: Code(s): K21.9 - Gastro-esophageal reflux disease without esophagitis Category: Medical Plan History - The patient is a 58-year-old female presenting with history of tachycardia. - The patient experienced a racing heart on September 22 during a family picnic, which was not persistent but concerning enough to visit a walk-in clinic. - An EKG was performed at the walk-in clinic, showing normal results at the time, patient reported that the tachycardia did not persist. - Possible contributing factors included heat exposure, dehydration, and lack of sleep, as discussed during the visit. - The patient reported feeling better after hydrating and resting, with no current symptoms of tachycardia. - The patient has a history of impaired fasting glucose, with a fasting blood sugar level of 103 mg/dL noted in January. - Elevated liver enzymes and low vitamin D levels were also noted in previous lab results. - The patient is currently taking omeprazole and rosuvastatin, and adheres to a daily vitamin D supplement regimen. Problem List - Tachycardia - Impaired fasting glucose - Elevated liver enzymes - Vitamin D deficiency - due for labs, last set of lab was March of last year Patient Instructions - Continue to hydrate regularly, especially in hot weather. - Monitor for any recurrence of tachycardia and report if symptoms return. - Follow up with fasting lab tests as discussed, including checks for vitamin D, cholesterol, kidney function, liver enzymes, and hemoglobin. Orders: Orders Comprehensive [place]. Panel Fast Today E55.9 - Vitamin D deficiency, unspecified, E78.9 - Disorder of lipoprotein metabolism, unspecified, K21.9 - Gastro- esophageal reflux disease without esophagitis, R00.2 - Palpitations, R73.01 - Impaired fasting glucose Complete Blood Count Auto Diff Today E55.9 - Vitamin D deficiency, unspecified, E78.9 - Disorder of lipoprotein metabolism, unspecified, K21.9 - Gastro- esophageal reflux disease without esophagitis, R00.2 - Palpitations, R73.01 - Impaired fasting glucose Lipid Panel Today E55.9 - Vitamin D deficiency, unspecified, E78.9 - Disorder of lipoprotein metabolism, unspecified, K21.9 - Gastro-esophageal reflux disease without esophagitis, R00.2 - Palpitations, R73.01 - Impaired fasting glucose Vitamin D 25-OH (D2 and D3) Today E55.9 - Vitamin D deficiency, unspecified, E78.9 - Disorder of lipoprotein metabolism, unspecified, K21.9 - Gastro- esophageal reflux disease without esophagitis, R00.2 - Palpitations, R73.01 - Impaired fasting glucose Vitamin B12 Today E55.9 - Vitamin D deficiency, unspecified, E78.9 - Disorder of lipoprotein metabolism, unspecified, K21.9 - Gastro-esophageal reflux disease without esophagitis, R00.2 - Palpitations, R73.01 - Impaired fasting glucose
[2024-09-27 13:17] VITALS: BP 110/70; PULSE 62; RESP 16; TEMP 36.8; O2SAT 96; BMI 27.8
--- OUTSIDE RECORDS SUMMARY | 2024-09-27 15:22 | XMS_ITS | Data Portability ---
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 Patient InstructionsNo instructions recorded. Reason for Referral None Reported. Results Created Date Observation Date Name Description Value Unit Range Abnormal Flag Note LastModifiedBy Organization Detail LastModifiedTime 07/20/19 24 07/21/2023 CBC WITH DIFFE RENTI AL/PL ATELE T WBC 6.0 x10e3 /uL 3.4-10 .8 Not Available [facility] ([facility]) [address] [facility], [place], [address], 07/21/2023 08:09:11 07/20/19 24 07/21/2023 CBC WITH DIFFE RENTI AL/PL ATELE T RBC 3.76 x10e6 /uL 3.77-5 .28 below low normal Not Available [facility] ([facility]) [address] [place], [address], 07/21/2023 08:09:11 07/20/19 24 07/21/2023 CBC WITH DIFFE RENTI AL/PL ATELE T hemoglobin 11.7 g/dL 11.1-1 5.9 Not Available [facility] ([facility]) [address] [facility], [place], [address], 07/21/2023 08:09:11 07/20/19 24 07/21/2023 CBC WITH DIFFE RENTI AL/PL ATELE T hematocrit 33.2 % 34.0-4 6.6 below low normal Not Available [facility] ([facility]) [address] [place], [address], 07/21/2023 08:09:11 07/20/19 24 07/21/2023 CBC WITH DIFFE RENTI AL/PL ATELE T MCV 88 fL 79-97 Not Available [facility] ([facility]) [address] [place], [address], 07/21/2023 08:09:11 07/20/19 24 07/21/2023 CBC WITH DIFFE RENTI AL/PL ATELE T MCH 31.1 pg 26.6-3 3.0 Not Available [facility] ([facility]) [address] [place], [address], 07/21/2023 08:09:11 07/20/19 24 07/21/2023 CBC WITH DIFFE RENTI AL/PL ATELE T MCHC 35.2 g/dL 31.5-3 5.7 Not Available [facility] ([facility]) [address] [facility], [place], [address], 07/21/2023 08:09:11 07/20/19 24 07/21/2023 CBC WITH DIFFE RENTI AL/PL ATELE T RDW 12.2 % 11.7-1 5.4 Not Available [facility] ([facility]) [address] [facility], [place], [address], 07/21/2023 08:09:11 07/20/19 24 07/21/2023 CBC WITH DIFFE RENTI AL/PL ATELE T platelets 255 x10e3 /uL 150-45 0 Not Available [facility] ([facility]) [address] [facility], [place], [address], 07/21/2023 08:09:11 07/20/19 24 07/21/2023 CBC WITH DIFFE RENTI AL/PL ATELE T neutrophils 58 % not estab. Not Available [facility] ([facility]) [address] [facility], [place], [address], 07/21/2023 08:09:11 07/20/19 24 07/21/2023 CBC WITH DIFFE RENTI AL/PL ATELE T lymphs 30 % not estab. Not Available [facility] ([facility]) [address] [facility], [place], [address], 07/21/2023 08:09:11 07/20/19 24 07/21/2023 CBC WITH DIFFE RENTI AL/PL ATELE T monocytes 10 % not estab. Not Available [facility] ([facility]) [address] [place], [address], 07/21/2023 08:09:11 07/20/19 24 07/21/2023 CBC WITH DIFFE RENTI AL/PL ATELE T eos 1 % not estab. Not Available [facility] ([facility]) [address] [place], [address], 07/21/2023 08:09:11 07/20/19 24 07/21/2023 CBC WITH DIFFE RENTI AL/PL ATELE T basos 1 % not estab. Not Available [facility] ([facility]) [address] [facility], [place], [address], 07/21/2023 08:09:11 07/20/19 24 07/21/2023 CBC WITH DIFFE RENTI AL/PL ATELE T immature cells GANG KNIFE FISH CHOPPER Not Available [facility] ([facility]) [address] [facility], [place], [address], 07/21/2023 08:09:11 07/20/19 24 07/21/2023 CBC WITH DIFFE RENTI AL/PL ATELE T neutrophils (absolute) 3.6 x10e3 /uL 1.4-7. 0 Not Available [facility] ([facility]) [address] [place], [address], 07/21/2023 08:09:11 07/20/19 24 07/21/2023 CBC WITH DIFFE RENTI AL/PL ATELE T lymphs (absolute) 1.8 x10e3 /uL 0.7-3. 1 Not Available [facility] ([facility]) [address] [place], [address], 07/21/2023 08:09:11 07/20/19 24 07/21/2023 CBC WITH DIFFE RENTI AL/PL ATELE T monocytes(ab solute) 0.6 x10e3 /uL 0.1-0. 9 Not Available [facility] ([facility]) [address] [place], [address], 07/21/2023 08:09:11 07/20/19 24 07/21/2023 CBC WITH DIFFE RENTI AL/PL ATELE T eos (absolute) 0.1 x10e3 /uL 0.0-0. 4 Not Available [facility] ([facility]) [address] [facility], [place], [address], 07/21/2023 08:09:11 07/20/19 24 07/21/2023 CBC WITH DIFFE RENTI AL/PL ATELE T baso (absolute) 0.0 x10e3 /uL 0.0-0. 2 Not Available [facility] ([facility]) [address] [facility], [place], [address], 07/21/2023 08:09:11 07/20/19 24 07/21/2023 CBC WITH DIFFE RENTI AL/PL ATELE T immature granulocytes 0 % not estab. Not Available [facility] ([facility]) [address] [facility], [place], [address], 07/21/2023 08:09:11 07/20/19 24 07/21/2023 CBC WITH DIFFE RENTI AL/PL ATELE T immature grans (abs) 0.0 x10e3 /uL 0.0-0. 1 Not Available [facility] ([facility]) [address] [facility], [place], [address], 07/21/2023 08:09:11 07/20/19 24 07/21/2023 CBC WITH DIFFE RENTI AL/PL ATELE T NRBC GANG KNIFE FISH CHOPPER Not Available [facility] ([facility]) [address] [facility], [place], [address], 07/21/2023 08:09:11 07/20/19 24 07/21/2023 CBC WITH DIFFE RENTI AL/PL ATELE T hematology comments: GANG KNIFE FISH CHOPPER Not Available [facility] ([facility]) [address] [place], [address], 07/21/2023 08:09:11 07/20/19 24 07/21/2023 SEDIM ENTAT ION RATE- WESTE RGREN sedimentatio n rate-westerg robert 15 mm/HR 0-40 Not Available [facility] ([facility]) [address] [facility], [place], [address], 07/21/2023 08:09:12 07/20/19 24 07/21/2023 C-QUIANA CTIVE PROTE IN, QUANT C-reactive protein, quant <1 mg/L 0-10 Not Available [facility] ([facility]) [address] [facility], [place], [address], 07/21/2023 08:09:12 12/04/19 24 11/01/2021 imagi ng/di [...] Address Organization Details Recorded Time No complaints [id number] Active Status : 'A'; Not [facility] 4 09:25:19 Problem Notes None recorded. Procedures Surgical History Date Name Laterality Status Provider Name and Address Organization Details Recorded Time 4 Hip Kenalog 2cc Injection, L/R completed Fox Yip PA-C [address] [facility] [address], [place], [address], [facility] 08/13/2023 12:37:47 Imaging Results [...] Updated DateTime 08/13/2023 165.1 cm 27.6 kg/m2 54655.33 g MYRNA Durand [facility] 08/13/2023 09:29:50 Social History None recorded. Functional Status None recorded. Mental Status None recorded. Family History Nothing Reported. Medical History No medical history recorded. Gynecological HistoryNo gynecological history recorded. Obstetrics History GPAL:G 0 P 0 0 0 0 Past Encounters Encounter ID Performer Location Encounter Start Date Encounter Closed Date Diagnosis/Indication Diagnosis SNOMED-CT Code Diagnosis ICD10 Code Diagnosis Note [id number] GEMMA Camacho [address] [place] [address] 08/13/2023 09:06:51 08/25/2023 16:03:49 History of total replacement of right hip joint 5799973355 76793 Z96.641 Trochanter ic bursitis of right hip 5925809654 54894 M70.61 Lumbar radiculopathy 128 230841 M54.16 Health Concerns Section Related Observation LastModified by Organization Detai ls LastModified Time None Recorded Concern Status LastModified by Organization Details LastModified Time None Recorded Advance Directives Directive None Recorded Payers Insurance Date Sequence Insurance Name Policy Number Policy Esocbedo Covered Member ID Escobedo Member ID Guarantor Name 11/11/2023 1 MARKIE (PPO) [id number] 1 Fox Gorman [id number] Kim Gorman Notes Date Note Type [...] meloxicam as well as tizanidine. I did reimbursement counselor the patient on how to utilize [...] concerns were answered today. Fox Yip PA-C [address] [place], [place] [address] [address], [place], [address], [facility] 08/13/2023 12:38:45 OBGyn Episode No OBEpisode recorded.
== END 2024-09-27 14:31 | disposition home or self-care (01) ==
LOC: HO.HMCC 13:10
PROVIDERS: PCP Internal Medicine; Visit Provider Internal Medicine
DX: R00.2 Palpitations (principal); E78.9 Disorder of lipoprotein metabolism, unspecified; R73.01 Impaired fasting glucose; E55.9 Vitamin D deficiency, unspecified; K21.9 Gastro-esophageal reflux disease without esophagitis

== ENCOUNTER → 2024-09-27 13:09 | Outpatient (BNVA) | payer BC, SELFPAY | PROVIDERS: PCP Internal Medicine; Visit Provider Internal Medicine | DX: Z13.89 Encounter for screening for other disorder (principal) ==

== ENCOUNTER 2024-09-28 07:33 | Outpatient (REF) | payer BC, SELFPAY ==
[2024-09-28 10:06] LABS: MANUAL DIFF FLAG NO
[2024-09-28 10:09] LABS: Basophils Percent Auto 0.5 % (0-2); Eosinophils Absolute Auto 0.1 X10*3/uL (0.0-0.4); Eosinophils Percent Auto 1.8 % (0-4); Hematocrit 36.6 % (37.0-47.0); Hemoglobin 12.1 g/dl (12.0-16.0); Imm Gran Abs Auto 0.01 X10*3/uL (0.00-0.03); Imm Gran Pct Auto 0.2 % (0.0-0.4); Lymphocytes Absolute Auto 1.5 X10*3/uL (1.2-4.9); Lymphocytes Percent Auto 27.8 % (20-40); Mean Corpuscular HGB Conc 33.1 g/dl (31.0-35.0); Mean Corpuscular Hemoglobin 29.7 pg (27.0-33.0); Mean Corpuscular Volume 89.7 fL (80.0-98.0); Mean Platelet Volume 9.9 fL (9.4-12.3); Monocytes Absolute Auto 0.7 X10*3/uL (0.1-1.2); Monocytes Percent Auto 12.1 % (2-11); Neutrophils Absolute Auto 3.1 x10*3/uL (2.0-8.3); Neutrophils Percent Auto 57.6 % (45-73); Platelet Count 238 X10*3/uL (160-400); Red Blood Count 4.08 X10*6/uL (4.20-5.50); Red Cell Distribution Width 12.1 % (11.0-16.0); White Blood Count 5.5 X10*3/uL (4.8-10.8)
[2024-09-28 10:22] LABS: Alanine Aminotransferase 25 U/L (0-31); Albumin Level 4.6 g/dL (3.5-5.0); Alkaline Phosphatase 92 U/L (39-117); Anion Gap 12 (12-20); Aspartate Amino Transferase 25 U/L (5-31); Bilirubin Total 0.4 mg/dL (0.0-1.0); Blood Urea Nitrogen 14 mg/dL (9-16); Calcium 9.4 mg/dL (8.4-10.2); Carbon Dioxide 28 mmol/L (22-29); Chloride 106 mmol/L (96-108); Cholesterol 222 mg/dL (<200); Estimated Glomerular Filt Rate > 60; Glucose Fasting 100 mg/dL (60-99); HDL Cholesterol 77 mg/dL (>40); LDL Cholesterol Calculated 128 mg/dL (<100); Potassium 4.8 mmol/L (3.3-5.1); Sodium 141 mmol/L (135-145); Total Protein 7.4 g/dL (6.5-8.0); Triglycerides 85 mg/dL (<150)
[2024-09-28 10:51] LABS: Vitamin B12 560 pg/mL (200-900)
[2024-10-02 16:13] LABS: Vitamin D 25-OH, D2 <4 ng/mL; Vitamin D 25-OH, D3 28 ng/mL; Vitamin D 25-OH, Total 28 ng/mL (30-100)
== END 2024-09-28 07:34 | disposition home or self-care (01) ==
LOC: HO.HMGCLDS 07:33
PROVIDERS: PCP Internal Medicine; Visit Provider Internal Medicine
DX: R73.01 Impaired fasting glucose (principal); E78.9 Disorder of lipoprotein metabolism, unspecified; E55.9 Vitamin D deficiency, unspecified; K21.9 Gastro-esophageal reflux disease without esophagitis; R00.2 Palpitations
CPT/HCPCS: 36415; 80053; 80061; 82306; 82607; 85025

== ENCOUNTER 2024-11-29 12:44 | Outpatient (AMB) | payer BC, SELFPAY ==
--- NOTE | 2024-11-29 12:59 | MHC.OFFVIS ---
Vital Signs 11/29/24 13:16 Height 5 ft 4 in Weight 166 lb 3.657 oz BMI 28.5 BP 123/76 Blood Pressure Location Lt brachial Position Sitting Pulse 79 Intake Visit Reasons: Acute diverticulitis Intake Note: Patient is seen in office for acute diverticulitis. 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 She was initially treated with a ten-day course of Augmentin and she had some improvement but not complete resolution of symptoms. After stopping the antibiotic the pain returned and she called her primary care provider who put her on a course of Flagyl and Levaquin for 10 days. This gave her better improvement but not complete resolution. She continued to have quite a bit of bowel irritability increased gas and flatulence and borborygmi. She then looked up diverticulitis [employer] and put herself on a liquid diet for 4-5 days. This seemed to resolve her symptoms better. She now has minor left lower quadrant discomfort that she would rate 1/10. She obviously had a very hard time and severe pain so she does not want to have another attack. We discussed the fact that the Sciences mixed in terms of diet in the old days we had some avoid things like seeds popcorn etc. she may want do this initially to rest her got and then listen to her bowels and avoid foods that give her trouble. She generally eats well eating a lot of salads and grains and through intentional dieting has lost about 15 lb. She is trying to improve her overall health. I think we should be conservative and simply start her on a Benefiber supplement and have her advance her diet as tolerated. She is already taking a probiotic supplement which I encouraged. I educate her that is very common to have a lot of bowel irritability after attack diverticulitis and some people need more time to recover and certainly bowel rest was an appropriate intervention. Review of her last colonoscopy does not show severe diverticulosis or narrowing but I did educate her that if she continues to have attacks sometimes surgery is an option and or repeating the colonoscopy to see if anything has changed. For now if she feels she is having return of symptoms she can call the office and I will given antibiotics. She is agreeable with this plan. ROV 6 weeks. (2) Constipation: Code(s): K59.00 - Constipation, unspecified Her last colonoscopy was in [address] De Luna and showed only scattered diverticula. TODAY'S VISIT Patient has been lost to follow-up since 2022, it appears her primary care provider has been treating her empirically for lower abdominal pain calling it diverticulitis. There has been no imaging obtained. She has been treated with Augmentin and then with Flagyl and Levaquin. [facility] Medical History (Updated 11/29/24 @ 13:42 by JL Laureano) Vaginitis Encounter for general adult medical examination with abnormal findings Right ankle sprain Left ankle sprain UTI (urinary tract infection) Vaginal yeast infection Constipation Upper respiratory infection Sore throat Acute sinusitis Colon cancer screening Lumbar degenerative disc disease Anemia Chronic GERD Sinusitis Sore throat, chronic Vitamin D deficiency Impaired fasting blood sugar Lipid disorder Facet arthropathy Ankle pain, left Migraine headache Meralgia paresthetica of right side Osteoarthritis of right hip Right lumbar radiculitis Surgical History History of hip replacement, total Hx of foot surgery (~2018) Family History Father No problems noted. Mother No problems noted. Brother No problems noted. Brother No problems noted. Sister No problems noted. 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 Cognitive needs: No Hearing needs: No Vision needs: Yes Review of Systems Const Denies fatigue, Denies fever(s), Denies night sweats, Denies poor appetite and Denies weight loss Eyes Details: glasses Reports requires corrective lenses ENT Reports Normal hearing present, Denies dental pain, Denies dysphagia, Denies hearing loss, Denies mouth pain, Denies odynophagia, Denies throat swelling, Denies tongue swelling and Reports other (Dentition adequate) Card Reports no additional complaints Resp Reports no additional complaints GI Details: Reports abdominal pain, Denies melena, Reports bloating, Denies hematochezia, Denies constipation, Reports GI cramping, Denies dysphagia, Denies excessive flatus, Denies early satiety, Reports heartburn, Reports diarrhea, Denies nausea, Denies odynophagia, Denies vomiting and Denies hematemesis Musc Reports abnormal gait, Reports back pain, Reports myalgias, Reports arthralgias and Reports stiffness Skin/Breast Denies pruritus, Denies lesions, Denies rash and Denies jaundice Neuro Reports Normal hearing present, Denies Abnormal speech present and Reports abnormal gait Endo Denies fatigue Aller/Immun Denies throat swelling and Denies tongue swelling Physical Exam Vital Signs: Last Vital Signs Pulse 79 11/29/24 13:16 BP 123/76 11/29/24 13:16 BMI result Body Mass Index 28.5 Const General: cooperative, no acute distress, well developed and well groomed Nutritional Appearance: average body habitus and well nourished Orientation/consciousness: oriented to person, oriented to place and oriented to time Limitations: No language barrier HEENT Head: Yes normocephalic and Yes atraumatic Eyes General: appearance normal, both eyes and all related structures Pupils: Equal, round and reactive pupils present Neck Neck: Yes normal visual inspection and Yes no lymphadenopathy Thyroid: Thyroid normal Resp Effort & Inspection: normal respiratory effort and able to speak in complete sentences Auscultation: clear to auscultation bilaterally Cardio Rate: regular rate Rhythm: regular rhythm Heart sounds: Normal, physiologic split S2 sound present Peripheral pulses: radial pulses present and posterior tibial pulses present GI Inspection: No distended and No Abdominal panniculus present Palpation (GI): Soft to palpation, Tenderness to palpation present (GI) in the LLQ, no guarding, not rigid and No hepatosplenomegaly present Percussion: Yes normal to percussion Auscultation: normal bowel sounds Rectal Exam - Female: deferred Skin General skin exam: no rashes or lesions noted, turgor normal, skin not dry, no jaundice, No spider nevi and no striae Rashes: no rashes Nails: normal Neuro General: oriented to person, oriented to place and oriented to time Cranial nerves: Yes Equal, round and reactive pupils present and Yes Normal hearing present Speech: No Abnormal speech present Extrem General: Yes normal to inspection, No clubbing, No cyanosis and No edema Psych Appearance: grossly normal and well kempt Mental Status: mental status grossly normal Speech and movement: Normal speech and movement present Affect: Anxious affect present Attitude: cooperative Thought process: Normal thought process present and not confabulating Thought content: Normal thought content present Insight: Fair insight present (Psych) Judgement: Fair judgement present (Psych) Assessment & Plan Assessment & Plan (1) Left lower quadrant pain: Code(s): R10.32 - Left lower quadrant pain Category: Medical (2) Diarrhea: Code(s): R19.7 - Diarrhea, unspecified Category: Medical Plan - The patient is a 59-year-old female presenting with chronic diarrhea and abdominal pain post-?diverticulitis? diagnosis. - Experiences diverticulitis flare-ups with symptoms of cramping, bloating, and diarrhea occurring approximately every three months, lasting for two weeks each time. - She reports a recent episode of severe diarrhea a few weeks ago with no fever and has historically been a sudden change different from her usual bowel habits. This change has persisted since her initial presentation and presumptive diagnosis of diverticulitis based on CAT scan findings in 2022. - Pain is predominantly reported in the left lower quadrant ongoing since 2022, which she connected to symptoms recognized from prior episodes. - Notably, there is no familial colon disease history; the patient denies known food allergies and has trialed dietary modifications with little success. - She experiences musculoskeletal pain post-hip replacement surgery, specifically within the periformis muscle, and continues with multiple treatments aimed at managing that pain without success. Patient has been lost to follow-up since 2022, it appears her primary care provider has been treating her empirically for lower abdominal pain calling it diverticulitis. There has been no imaging obtained. She has been treated with Augmentin and then with Flagyl and Levaquin. At this point, my greatest concern if that we did may not have the correct diagnosis. I have not seen her since 2022, and apparently she thought that this was a rock solid diagnosis, however given the frequency of her attacks, combined with week evidence son passed scopes and imaging for severe diverticulosis, makes me think we are missing something. With this in mind, I want to get a repeat CAT scan to see if were missing a different pathology since it has been no recent imaging she has been treated on the basis a past diagnosis and clinical symptoms, we will repeat her colonoscopy to assess the sigmoid area, we will do a trial of dicyclomine to see if bowels spasm seems to be in the differential diagnosis, I also want to get a fecal calprotectin to see if this any inflammation along with some basic labs like a thyroid and a pancreatic a last taste to see if exocrine pancreatic insufficiency is driving her symptoms. Certainly the predominance of her diarrhea makes me suspicious. There are no prior problems with anesthesia or sedation. She denies any cardiac or respiratory problems. There are no infectious disease problems. There is no known family history of colon cancer, polyps, or any other diarrheal or bowel problems. Return office visit in 4 weeks Orders: Orders C Reactive Protein 11/29/24 R10.32 - Left lower quadrant pain, R19.7 - Diarrhea, unspecified Calprotectin, Fecal 11/29/24 R10.32 - Left lower quadrant pain, R19.7 - Diarrhea, unspecified Pancreatic Elastase-1 11/29/24 R10.32 - Left lower quadrant pain, R19.7 - Diarrhea, unspecified TSH reflex Free T4 11/29/24 R10.32 - Left lower quadrant pain, R19.7 - Diarrhea, unspecified Rast Allergen 11/29/24 R10.32 - Left lower quadrant pain, R19.7 - Diarrhea, unspecified Transglutaminase IgA 11/29/24 R10.32 - Left lower quadrant pain, R19.7 - Diarrhea, unspecified Transglutaminase Ab IgG 11/29/24 R10.32 - Left lower quadrant pain, R19.7 - Diarrhea, unspecified Colonoscopy - GI Use Only 11/29/24 R10.32 - Left lower quadrant pain, R19.7 - Diarrhea, unspecified CT abdomen pelvis w IV con 11/29/24 R10.32 - Left lower quadrant pain, R19.7 - Diarrhea, unspecified Medications: New sodium,potassium,mag sulfates 17.5-3.13-1.6 gram (Suprep Bowel Prep Kit) 480 mL orally; FOR COLONOSCOPY PREP 354 mL 0RF dicyclomine 10 mg PO QID 120 caps 3RF R10.32 - Left lower quadrant pain Coding Level of Care Code Est Pt Level 4 (71883) Diagnoses Left lower quadrant pain R10.32 Diarrhea R19.7 Time Spent (min) 38
--- OUTSIDE RECORDS SUMMARY | 2024-11-29 13:09 | XMS_ITS | Patient Health Record ---
Author Organization [facility] Billie kari [place] Address [address] [place] [address] Care Team Providers Care Senior Architect/Design Manager Name Role Phone Tomer JONES, [facility] Primary [facility] Provider Rashad Coronado [phone] Allergies No Known Allergies Reason For Referral No Information Medications Medication SIG (Take, Route, Frequency, Duration) Notes Start Date End Date Status Omeprazole Active Rosuvastatin Calcium 10 MG 1 tablet Orally Once a day Active Diclofenac Not-Takin g Diflucan 200 MG 1 tablet Orally Once a day; Duration: 10 day(s) Not-Taking Augmentin 500-125 MG 1 tablet Orally merry ry 8 hrs; Duration: 10 days 03/14/2019 Not-Takin g Immunizations Vaccine Route Administration Date Status Comme [...] 05/18/2024 [facility]counters [facility]counter [facility] [address] [place] [address] 05/18/2024 Rashad Cisneros Pain in left foot [...] X ray : Foot, right 3V 11/15/2017 [id number] I&D ABSCESS- SIMPLE,SINGLE 019 68740, [id number], JOINT/BURSA 0 06/10/2018 [id number] TENDON SHEATH/LIGAMENT 0 06/10/2018 [id number] TENDON SHEATH/LIGAMENT 1 05/19/2020 Insurance Providers Payer Name Payer Address Payer Phone Subscriber Number Group Number Insured Name Patient Relationship to Insured Coverage Start Date [facility] End Date [facility] [address] [place] [address] [id number] Fox Gorman Spouse - patient is the spouse of the insured 3 Medical (General) History Medical History History ICD Code Chicken pox Surgical History Surgery Date(Month/Year) Vidhya Bergman 03/10/2018 Hip replacement right 10/20/2022
[2024-11-29 13:16] VITALS: BP 123/76; PULSE 79; BMI 28.5
== END 2024-11-29 13:57 | disposition home or self-care (01) ==
LOC: HO.HGI 12:45
PROVIDERS: PCP Internal Medicine; Visit Provider Nurse Practitioner
DX: R10.32 Left lower quadrant pain (principal); R19.7 Diarrhea, unspecified
CPT/HCPCS: 99214

== ENCOUNTER 2024-12-15 07:33 | Outpatient (REF) | payer BC, SELFPAY ==
--- OUTSIDE RECORDS SUMMARY | 2024-12-15 07:37 | XMS_ITS | Patient Health Record ---
Author Organization [facility] Billie kari [place] Address [address] [place] [address] Care Team Providers Care Supervisor Production Name Role Phone Tomer JONES, [facility] Primary Care Provider Rashad Coronado [phone] Allergies No Known Allergies Reason For Referral [...] 05/18/2024 Encounters Encounter Location [facility] [address] [place] [address] 05/18/2024 Rashad Cisneros Pain in left foot [...] X ray : Foot, right 3V 11/15/2017 [id number] I&D ABSCESS- SIMPLE,SINGLE 019 76592, [id number]/INJECT, JOINT/BURSA 0 06/10/2018 [id number] TENDON SHEATH/LIGAMENT 0 06/10/2018 [id number] TENDON SHEATH/LIGAMENT 1 05/19/2020 Insurance Providers Payer Name Payer Address Payer Phone Subscriber Number Group Number Insured Name Patient Relationship to Insured Coverage Start Date [facility]age End Date [facility] [address] [place] [address] [id number] Fox Gorman Spouse - patient is the spouse of the insured 3 Medical (General) History Medical History History ICD Code Chicken pox Surgical History Surgery Date(Month/Year) Vidhya Bergman 03/10/2018 Hip replacement right 10/20/2022
[2024-12-18 22:48] LABS: Class Almond 0; Class Brazil Nut 0; Class Cashew 0; Class Codfish 0; Class Cow's Milk 0/1; Class Egg white 0; Class Hazelnut 0; Class Macadamia Nut 0; Class Peanut 0; Class Salmon 0; Class Scallop 0; Class Sesame Seed 0; Class Shrimp 0; Class Soybean 0; Class Tuna 0; Class Walnut 0; Class Wheat 0; F345-IgE Macadmia Nut <0.10 kU/L
[2024-12-21 11:28] LABS: Transglutaminase Ab IgG <1.0
== END 2024-12-15 07:34 | disposition home or self-care (01) ==
LOC: HO.HMGCLDS 07:33
PROVIDERS: PCP Internal Medicine; Visit Provider Nurse Practitioner
DX: Z01.84 Encounter for antibody response examination (principal); R10.32 Left lower quadrant pain; R19.7 Diarrhea, unspecified
CPT/HCPCS: 36415; 84443; 86003; 86140; 86364

== ENCOUNTER 2024-12-19 07:12 | Outpatient (REF) | payer BC, SELFPAY ==
--- OUTSIDE RECORDS SUMMARY | 2024-12-19 07:15 | XMS_ITS | Patient Health Record ---
Author Organization [facility] Billie kari Bryan Address [address] [place] [address] Care Team Providers Care Waxer Operator Name Role Phone Tomer JONES, [facility] Primary [facility] Provider Rashad Coronado [phone] Allergies No Known Allergies Reason For Referral [...] 05/18/2024 Encounters [facility]counter [facility] [address] [place] [address] 05/18/2024 Rashad Cisneros Pain in left foot [...] X ray : Foot, right 3V 11/15/2017 [id number] I&D ABSCESS- SIMPLE,SINGLE 019 [id number], [id number]/INJECT, JOINT/BURSA 0 06/10/2018 [id number] TENDON SHEATH/LIGAMENT 0 06/10/2018 [id number] TENDON SHEATH/LIGAMENT 1 05/19/2020 Insurance Providers Payer Name Payer Address Payer Phone Subscriber Number Group Number Insured Name Patient Relationship to Insured Coverage Start Date Coverage End Date [facility] [address] [place] [address] [id number] Spouse - patient is the spouse of the insured 3 Medical (General) History Medical History History ICD Code Chicken pox Surgical History Surgery Date(Month/Year) Vidhya Bergman 03/10/2018 Hip replacement right 10/20/2022
[2024-12-26 21:27] LABS: Calprotectin, Fecal 67 mcg/g
== END 2024-12-19 07:13 | disposition home or self-care (01) ==
LOC: HO.HMGCLNP 07:12
PROVIDERS: PCP Internal Medicine; Visit Provider Nurse Practitioner
DX: R10.32 Left lower quadrant pain (principal); R19.7 Diarrhea, unspecified
CPT/HCPCS: 82656; 83993

== ENCOUNTER 2024-12-27 12:01 | Outpatient (AMB) | payer BC, SELFPAY ==
--- NOTE | 2024-12-27 12:09 | MHC.OFFVIS ---
Vital Signs 12/27/24 12:14 Height 5 ft 4 in Weight 164 lb 14.492 oz BMI 28.3 BP 128/84 Blood Pressure Location Lt brachial Position Sitting Pulse 75 Intake Visit Reasons: 4wks Intake Note: Kim returns to in office follow up to discuss lab results. CC: Patient reports doing better for the last week. She statesthat she did not start the dicyclomine d/t concerns with her heart. 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 diagnosis. - Experiences diverticulitis flare-ups with symptoms of cramping, bloating, and diarrhea occurring approximately every three months, lasting for two weeks each time. - She reports a recent episode of severe diarrhea a few weeks ago with no fever and has historically been a sudden change different from her usual bowel habits. This change has persisted since her initial presentation and presumptive diagnosis of diverticulitis based on CAT scan findings in 2022. - Pain is predominantly reported in the left lower quadrant ongoing since 2022, which she connected to symptoms recognized from prior episodes. - Notably, there is no familial colon disease history; the patient denies known food allergies and has trialed dietary modifications with little success. - She experiences musculoskeletal pain post-hip replacement surgery, specifically within the periformis muscle, and continues with multiple treatments aimed at managing that pain without success. Patient has been lost to follow-up since 2022, it appears her primary care provider has been treating her empirically for lower abdominal pain calling it diverticulitis. There has been no imaging obtained. She has been treated with Augmentin and then with Flagyl and Levaquin. At this point, my greatest concern if that we did may not have the correct diagnosis. I have not seen her since 2022, and apparently she thought that this was a rock solid diagnosis, however given the frequency of her attacks, combined with week evidence son passed scopes and imaging for severe diverticulosis, makes me think we are missing something. With this in mind, I want to get a repeat CAT scan to see if were missing a different pathology since it has been no recent imaging she has been treated on the basis a past diagnosis and clinical symptoms, we will repeat her colonoscopy to assess the sigmoid area, we will do a trial of dicyclomine to see if bowels spasm seems to be in the differential diagnosis, I also want to get a fecal calprotectin to see if this any inflammation along with some basic labs like a thyroid and a pancreatic a last taste to see if exocrine pancreatic insufficiency is driving her symptoms. Certainly the predominance of her diarrhea makes me suspicious. There are no prior problems with anesthesia or sedation. She denies any cardiac or respiratory problems. There are no infectious disease problems. There is no known family history of colon cancer, polyps, or any other diarrheal or bowel problems. Return office visit in 4 weeks Orders: Orders C Reactive Protein 11/29/24 R10.32 - Left lower quadrant pain, R19.7 - Diarrhea, unspecified Calprotectin, Fecal 11/29/24 R10.32 - Left lower quadrant pain, R19.7 - Diarrhea, unspecified Pancreatic Elastase-1 11/29/24 R10.32 - Left lower quadrant pain, R19.7 - Diarrhea, unspecified TSH reflex Free T4 11/29/24 R10.32 - Left lower quadrant pain, R19.7 - Diarrhea, unspecified Rast Allergen 11/29/24 R10.32 - Left lower quadrant pain, R19.7 - Diarrhea, unspecified Transglutaminase IgA 11/29/24 R10.32 - Left lower quadrant pain, R19.7 - Diarrhea, unspecified Transglutaminase Ab IgG 11/29/24 R10.32 - Left lower quadrant pain, R19.7 - Diarrhea, unspecified Colonoscopy - GI Use Only 11/29/24 R10.32 - Left lower quadrant pain, R19.7 - Diarrhea, unspecified CT abdomen pelvis w IV con 11/29/24 R10.32 - Left lower quadrant pain, R19.7 - Diarrhea, unspecified Medications: New sodium,potassium,mag sulfates 17.5-3.13-1.6 gram (Suprep Bowel Prep Kit) 480 mL orally; FOR COLONOSCOPY PREP 354 mL 0RF dicyclomine 10 mg PO QID 120 caps 3RF R10.32 - Left lower quadrant pain LABS Laboratory Tests 12/15/24 12/19/24 07:39 06:30 C-Reactive Protein 0.11 TSH 1.17 Cow's Milk IgE Ab 0.15 H Stool Calprotectin 67 Stool Pancreat Elastase >800 Tiss Transglutamin IgG <1.0 Tiss Transglutamin IgA 3.6 CT ABD AND PELVIS 01/29/2025 COLONOSCOPY BIOPSY TODAYS VISIT [facility] Medical History Vaginitis Encounter for general adult medical examination with abnormal findings Right ankle sprain Left ankle sprain UTI (urinary tract infection) Vaginal yeast infection Constipation Upper respiratory infection Sore throat Acute sinusitis Colon cancer screening Lumbar degenerative disc disease Anemia Chronic GERD Sinusitis Sore throat, chronic Vitamin D deficiency Impaired fasting blood sugar Lipid disorder Facet arthropathy Ankle pain, left Migraine headache Meralgia paresthetica of right side Osteoarthritis of right hip Right lumbar radiculitis Surgical History History of hip replacement, total Hx of foot surgery (~2017) Family History Father No problems noted. Mother No problems noted. Brother No problems noted. Brother No problems noted. Sister No problems noted. 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 Cognitive needs: No Hearing needs: No Vision needs: Yes Review of Systems Const Denies fatigue, Denies fever(s), Denies night sweats, Denies poor appetite and Denies weight loss Eyes Details: glasses Reports requires corrective lenses ENT Reports Normal hearing present, Denies dental pain, Denies dysphagia, Denies hearing loss, Denies mouth pain, Denies odynophagia, Denies throat swelling, Denies tongue swelling and Reports other (Dentition adequate) Card Reports no additional complaints Resp Reports no additional complaints GI Details: Reports abdominal pain, Denies melena, Reports bloating, Denies hematochezia, Denies constipation, Denies GI cramping, Denies dysphagia, Denies excessive flatus, Denies early satiety, Reports heartburn, Denies diarrhea, Reports loose stools, Denies nausea, Denies odynophagia, Denies vomiting and Denies hematemesis Skin/Breast Denies pruritus, Denies lesions, Denies rash and Denies jaundice Neuro Reports Normal hearing present and Denies Abnormal speech present Endo Denies fatigue Aller/Immun Denies throat swelling and Denies tongue swelling Physical Exam Vital Signs: Last Vital Signs Pulse 75 12/27/24 12:14 BP 128/84 12/27/24 12:14 BMI result Body Mass Index 28.3 Const General: cooperative, no acute distress, well developed and well groomed Nutritional Appearance: average body habitus and well nourished Orientation/consciousness: oriented to person, oriented to place and oriented to time Limitations: No language barrier HEENT Head: Yes normocephalic and Yes atraumatic Eyes General: appearance normal, both eyes and all related structures Pupils: Equal, round and reactive pupils present Neck Neck: Yes normal visual inspection and Yes no lymphadenopathy Thyroid: Thyroid normal Resp Effort & Inspection: normal respiratory effort and able to speak in complete sentences Auscultation: clear to auscultation bilaterally Cardio Rate: regular rate Rhythm: regular rhythm Heart sounds: Normal, physiologic split S2 sound present Peripheral pulses: radial pulses present and posterior tibial pulses present GI Inspection: No distended and No Abdominal panniculus present Palpation (GI): Soft to palpation, nontender, no guarding, not rigid and No hepatosplenomegaly present Percussion: Yes normal to percussion Auscultation: normal bowel sounds Rectal Exam - Female: deferred Skin General skin exam: no rashes or lesions noted, turgor normal, skin not dry, no jaundice, No spider nevi and no striae Rashes: no rashes Nails: normal Neuro General: oriented to person, oriented to place and oriented to time Cranial nerves: Yes Equal, round and reactive pupils present and Yes Normal hearing present Speech: No Abnormal speech present Extrem General: Yes normal to inspection, No clubbing, No cyanosis and No edema Psych Appearance: grossly normal and well kempt Mental Status: mental status grossly normal Speech and movement: Normal speech and movement present Affect: normal affect Attitude: cooperative Thought process: Normal thought process present and not confabulating Thought content: Normal thought content present Insight: Fair insight present (Psych) Judgement: Fair judgement present (Psych) Assessment & Plan Assessment & Plan (1) Cow's milk allergy: Code(s): Z91.011 - Allergy to milk products Category: Medical (2) Chronic GERD: Code(s): K21.9 - Gastro-esophageal reflux disease without esophagitis Category: Medical (3) Diarrhea: Code(s): R19.7 - Diarrhea, unspecified Category: Medical (4) Left lower quadrant pain: Code(s): R10.32 - Left lower quadrant pain Category: Medical Plan - The patient is a 59-year old female presenting for follow-up for loose stools and bloating. I let her know that the RAST panel shows that she has a milk allergy. This could be largely what is causing her symptoms since milk as Omni present in the diet and she admits that she really enjoys eating cheese and ice cream. - she is going to try avoiding milk and I also educated her that this is not a situation where she can drink Lactaid milk as that is an intolerance and not a true allergy. - She has a unrelated complaints of what she is used to be widespread inflammation in her body. Has a history of hip replacement (2022) with ongoing pain and inflammation, receiving numerous treatments without full resolution. We stumble upon this topic because I notice she is taking turmeric which also can be very irritating to the GI system. While I do not think she necessarily needs to discontinue it I recommend she stay on the lower end of the recommended dosing which is 800 mg to 2000 mg a day. I also educated her that taking larger doses of turmeric can lead to liver failure. - Previous reports of experiencing fast, sporadic heart rate episodes. Because of this she never took the dicyclomine and that is fine. -she still has the CAT scan upcoming as I would like to tease out the differential diagnosis for her left lower quadrant pain between true diverticulitis versus cramping. Return office visit after her CAT scan Orders: Orders Blood Urea Nitrogen Today R10.32 - Left lower quadrant pain Creatinine Today R10.32 - Left lower quadrant pain Medications: New barium sulfate 2%(w/v) (Readi-Cat 2) for CT wscan 150 mL PO ONCE 300 mL 0RF 1 day R10.32 - Left lower quadrant pain On Hold dicyclomine Hold Comment: Doctor's Order 10 mg PO QID 120 caps 3RF R10.32 - Left lower quadrant pain Coding Level of Care Code Est Pt Level 4 (18502) Diagnoses Cow's milk allergy Z91.011 Chronic GERD K21.9 Diarrhea R19.7 Left lower quadrant pain R10.32 Time Spent (min) 36
[2024-12-27 12:14] VITALS: BP 128/84; PULSE 75; BMI 28.3
--- OUTSIDE RECORDS SUMMARY | 2024-12-27 14:53 | XMS_ITS | Patient Health Record ---
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 Gasoline Name Role Phone Tomer JONES, [facility] Rashad Coronado [phone] Allergies No Known Allergies Reason For Referral [...] 05/18/2024 [facility]counters [facility]counter [facility] [address] [place] [address] 05/18/2024 Rashad Cisneros Pain in left foot [...] X ray : Foot, right 3V 11/15/2017 53510 I&D ABSCESS- SIMPLE,SINGLE 019 [id number], [id number]/[id number], JOINT/BURSA 0 06/10/2018 [id number] TENDON SHEATH/LIGAMENT 0 06/10/2018 [id number] TENDON SHEATH/LIGAMENT 1 05/19/2020 Insurance Providers Payer Name Payer Address Payer Phone Subscriber Number Group Number Insured Name Patient Relationship to Insured Coverage Start Date [facility]age End Date [facility] [address] [place] [address] [phone] [id number] Spouse - patient is the spouse of the insured 3 Medical (General) History Medical History History ICD Code Chicken pox Surgical History Surgery Date(Month/Year) Vidhya Bergman 03/10/2018 Hip replacement right 10/20/2022
== END 2024-12-27 12:42 | disposition home or self-care (01) ==
LOC: HO.HGI 12:02
PROVIDERS: PCP Internal Medicine; Visit Provider Nurse Practitioner
DX: Z91.011 Allergy to milk products (principal); K21.9 Gastro-esophageal reflux disease without esophagitis; R19.7 Diarrhea, unspecified; R10.32 Left lower quadrant pain
CPT/HCPCS: 99214

== ENCOUNTER 2025-01-24 14:59 | Outpatient (AMB) | payer BC, SELFPAY ==
[2025-01-24 15:03] VITALS: BP 122/76; PULSE 74; O2SAT 98; BMI 29.2
--- NOTE | 2025-01-24 15:03 | A.OFFPC_ITS ---
Vital Signs 01/24/25 15:03 Height 5 ft 4 in Weight 170 lb BMI 29.2 BP 122/76 Blood Pressure Location Lt brachial Position Sitting Pulse 74 Pulse Source Pulse Oximeter Pulse Oximetry (%) 98 Intake Visit Reasons: blood when coughing Allergies No Known Allergies Allergy (Verified 01/24/25 15:04) Medication List - Last Reconciled 01/24/25 by Rodney Jeff MD barium sulfate 2%(w/v) (Readi-Cat 2) 150 mL PO ONCE 1 day dicyclomine 10 mg PO QID Held on 12/27/24. Instructions: Doctor's Order omeprazole 20 mg PO DAILY 90 days rosuvastatin 10 mg PO DAILY 90 days sodium,potassium,mag sulfates 17.5-3.13-1.6 gram (Suprep Bowel Prep Kit) 480 mL orally; FOR COLONOSCOPY PREP triamcinolone acetonide 0.1% 1 appl topical BID [turmeric 2 caps PO] Tobacco use date assessed: 09/27/24 Dental Screening Dental Screen Date: 09/27/24 HPI blood when coughing HPI Details History of Present Illness The patient is a 59-year-old female presenting with hemoptysis . Hemoptysis: - The patient describes experiencing blo od in her saliva after brushing her teeth on two occasions. - The first incident occurred after brus claudia her teeth on a Wednesday, after which all her spit looked bloody. - A second similar occurrence happened t day after under the same conditions. - The patient is concerned due to this b eing the first time experiencing such symptoms, given her age and smoking history. - She noted the blood to be mixed with s aliva and appeared more than streaks, but it was not thick blood. - The bleeding reduced after repeated ri nsing. Medical History: - History of smoking for over 20 years, with recent resumption after quitting for three months. - Chronic gastroesophageal reflux diseas e (GERD), currently managed with omeprazole. - Diagnosed with diverticulitis, sched ed for a CT scan. - Recently identified milk allergy. 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 - Long history of smoking with recent at tempts at cessation; resumed smoking and vaping. - occasional consumption of alcohol. . Diagnostic Results: - Strep test was performed and returned negative. Problem List - Hemoptysis - Throat irritation with white patches l eft tonsil - History of smoking - Gastroesophageal reflux disease (GERD) Plan - Initiate a course of amoxicillin for 7 days to address potential bacterial infection related to the throat irritation. - Conduct a lung cancer screening due to the extensive history of smoking, and ensure insurance criteria are met for coverage. - Monitor throat symptoms closely and co nsider referral to an bread supervisor if symptoms persist post-antibiotic treatment. - Continue scheduling and preparation fo r the CT scan for diverticulitis. - Reinforce the importance of smoking ce ssation and perhaps explore additional support through therapy or smoking cessation programs. 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: Alert awake oriented x3 motor intact Skin: Normal turgor [facility] Medical History Vaginitis Encounter for general adult medical examination with abnormal findings Right ankle sprain Left ankle sprain UTI (urinary tract infection) Vaginal yeast infection Constipation Upper respiratory infection Sore throat Acute sinusitis Colon cancer screening Lumbar degenerative disc disease Anemia Chronic GERD Sinusitis Sore throat, chronic Vitamin D deficiency Impaired fasting blood sugar Lipid disorder Facet arthropathy Ankle pain, left Migraine headache Meralgia paresthetica of right side Osteoarthritis of right hip Right lumbar radiculitis Surgical History History of hip replacement, total Hx of foot surgery (~2018) Family History Father No problems noted. Mother No problems noted. Brother No problems noted. Brother No problems noted. Sister No problems noted. 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 1. Little interest or pleasure in doing things: not at all 2. Feeling down, depressed, or hopeless: not at all 3. Trouble falling or staying asleep, or sleeping too much: not at all 4. Feeling tired or having little energy: not at all 5. Poor appetite or overeating: not at all 6. Feeling bad about yourself - or that you are a failure or have let yourself or your family down: not at all 7. Trouble concentrating on things, such as reading the newspaper or watching television: not at all 8. Moving or speaking so slowly that other people could have noticed. Or the opposite - being so fidgety or restless that you have been moving around a lot more than usual: not at all 9. Thoughts that you would be better off or of hurting yourself in some way: not at all Total score: 0 Depression Screening Interpretation: Negative Depression Screening Done: Yes 56776 - PHQ-9 Billing: Yes Source: Developed by Drs. Jose Jesus, Evy Glass, Stewart Hudson and colleagues, with an educational jameel from [employer]. Thrive Questionnaire Date Thrive assessed: 05/09/24 I am a: Patient What is your living situation today?: I have a steady place to live Within the past 12 months, did the food you bought not last and you didn't have the money to get more?: Never true Within the past 12 months, did you worry whether your food would run out before you got money to buy more?: Never true Do you have trouble paying for medicines?: No Do you have trouble getting transportation to medical appointments?: No Do you have trouble paying your heating and electricity bill?: No Do you have trouble taking care of your child, family member or friend?: No Do you have trouble with day-to-day activities such as bathing, preparing meals, shopping, managing finances, etc.?: I choose not to answer this question Are you currently unemployed and looking for a job?: No Are you interested in more education?: No Please select the resources that you would like help with: None Currently or been in a relationship where the following occur: I choose not to answer THRIVE Score: 0 AUDIT C Alcohol Use Questionnaire (AUDIT-C) 1. How often do you have a drink containing alcohol?: Monthly or less 2. How many drinks containing alcohol do you have on a typical day when you are drinking?: 1 or 2 3. How often do you have six or more drinks on one occasion?: Never Total Score: 1 Score Reviewed/Action Taken: Yes DALY-7 AMB Questionnaire DALY-7 Date DALY - 7 assessed: 07/14/24 Feeling nervous, anxious, or on edge: 0 = Not at all Not being able to stop or control worryin = Not at all Worrying too much about different things: 0 = Not at all Trouble relaxin = Not at all Being so restless that it is hard to sit still: 0 = Not at all Becoming easily annoyed or irritable: 0 = Not at all Feeling afraid as if something awful might happen: 0 = Not at all Total DALY-7 score (0-4 normal; 5-9 mild; 10-14 moderate; 15-21 severe): 0 Source: Developed by Drs. Jose Jesus, Evy Glass, Stewart Hudson and colleagues, with an educational jameel from [employer]. Physical exam (Primary Care) Vital Signs: Last Vital Signs Pulse 74 01/24/25 15:03 BP 122/76 01/24/25 15:03 Pulse Ox 98 01/24/25 15:03 BMI result Body Mass Index 29.2 Tobacco/Smoking Status: Tobacco use Status Tobacco use date assessed 09/27/24 01/24/25 15:04 Patient Tobacco Use Status Former Tobacco user 01/24/25 15:04 Tobacco use type Cigarette 01/24/25 15:04 e-Cigarette/Vaping Use Never Used 01/24/25 15:04 PHQ-9: PHQ-9 Score PHQ-9: Total score 0 01/24/25 15:27 Depression Screening Interpretation: Negative Thrive Assessment: Date of Thrive Assessment Date Thrive assessed 05/09/24 01/24/25 15:04 Currently or been in a relationship where the following occur: I choose not to answer Results AMB Rapid Strep AMB Rapid Strep Negative Last Edit by Marcell Joy CMA on 01/24/25 15 :35 Results Reviewed Results Reviewed: Laboratory Last Values Strep Scn Rapid Clinic Negative 01/24/25 15:30 Coding Level of Care Code Est Pt Level 4 (33645) Diagnoses Mouth hemorrhage K13.79 Exudative tonsillitis J03.90 Tobacco use Z72.0 Additional Codes PHQ-9 - 26853 - PHQ-9 Billing: Yes ([id number]) Assessment & Plan Assessment & Plan (1) Mouth hemorrhage: Code(s): K13.79 - Other lesions of oral mucosa Category: Medical (2) Exudative tonsillitis: Code(s): J03.90 - Acute tonsillitis, unspecified Category: Medical (3) Tobacco use: Code(s): Z72.0 - Tobacco use Category: Social Hx Plan Hemoptysis: - The patient describes experiencing blood in her saliva after brushing her teeth on two occasions. - The first incident occurred after brushing her teeth on a Wednesday, after which all her spit looked bloody. - A second similar occurrence happened the day after under the same conditions. - The patient is concerned due to this being the first time experiencing such symptoms, given her age and smoking history. - She noted the blood to be mixed with saliva and appeared more than streaks, but it was not thick blood. - The bleeding reduced after repeated rinsing. Medical History: - History of smoking for over 20 years, with recent resumption after quitting for three months. - Chronic gastroesophageal reflux disease (GERD), currently managed with omeprazole. - Diagnosed with diverticulitis, scheduled for a CT scan. - Recently identified milk allergy. 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 - occasional consumption of alcohol. . Diagnostic Results: - Strep test was performed and returned negative. Problem List - Hemoptysis - Throat irritation with white patches left tonsil - History of smoking - Gastroesophageal reflux disease (GERD) Plan - Initiate a course of amoxicillin for 7 days to address potential bacterial infection related to the throat irritation. - Conduct a lung cancer screening due to the extensive history of smoking, and ensure insurance criteria are met for coverage. - Monitor throat symptoms closely and consider referral to an bread supervisor if symptoms persist post-antibiotic treatment. - Continue scheduling and preparation for the CT scan for diverticulitis. - Reinforce the importance of smoking cessation and perhaps explore additional support through therapy or smoking cessation programs. - f/u 7 days Orders: Orders AMB Rapid Strep Screen Today Z13.9 - Encounter for screening, unspecified Referrals Lung Cancer Screening Referral K13.79 - Other lesions of oral mucosa, Z72.0 - Tobacco use Medications: New amoxicillin 500 mg PO Q8H 21 caps 0RF 7 days
--- OUTSIDE RECORDS SUMMARY | 2025-01-24 21:12 | XMS_ITS | Data Portability ---
Author Organization [facility], [facility] Address [address] [place] [address] Care Team Providers Care Operating Theatre Technician Name Role Phone FERNANDO OROZCO Primary Care [...] Orders meloxicam 15 mg tablet 2023 024 [id number], [address] [place], [address], 4 09:57:55 Medrol (Satya) 4 mg tablets in a dose pack 2023 024 [id number], [address] [place], [address], 4 09:57:56 tizanidin e 4 mg tablet 2023 024 [id number], [address] [place], [address], 4 09:57:56 Patient TargetsNo targets recorded. Patient InstructionsNo instructions recorded. Reason for Referral None Reported. Results Created Date Observation Date Name Description Value Unit Range Abnormal Flag Note LastModifiedBy Organization Detail LastModifiedTime 07/20/19 24 07/21/2023 CBC WITH DIFFE RENTI AL/PL ATELE T WBC 6.0 x10e3 /uL 3.4-10 .8 Not Available [facility] ([facility]) [address] [facility], [place], [address], 07/21/2023 08:09:11 07/20/19 24 07/21/2023 CBC WITH DIFFE RENTI AL/PL ATELE T RBC 3.76 x10e6 /uL 3.77-5 .28 below low normal Not Available [facility] ([facility]) [address] [place], [address], 07/21/2023 08:09:11 07/20/19 24 07/21/2023 CBC WITH DIFFE RENTI AL/PL ATELE T hemoglobin 11.7 g/dL 11.1-1 5.9 Not Available [facility] ([facility]) [address] [facility], [place], [address], 07/21/2023 08:09:11 07/20/19 24 07/21/2023 CBC WITH DIFFE RENTI AL/PL ATELE T hematocrit 33.2 % 34.0-4 6.6 below low normal Not Available [facility] ([facility]) [address] [place], [address], 07/21/2023 08:09:11 07/20/19 24 07/21/2023 CBC WITH DIFFE RENTI AL/PL ATELE T MCV 88 fL 79-97 Not Available [facility] ([facility]) [address] [place], [address], 07/21/2023 08:09:11 07/20/19 24 07/21/2023 CBC WITH DIFFE RENTI AL/PL ATELE T MCH 31.1 pg 26.6-3 3.0 Not Available [facility] ([facility]) [address] [place], [address], 07/21/2023 08:09:11 07/20/19 24 07/21/2023 CBC WITH DIFFE RENTI AL/PL ATELE T MCHC 35.2 g/dL 31.5-3 5.7 Not Available [facility] ([facility]) [address] [facility], [place], [address], 07/21/2023 08:09:11 07/20/19 24 07/21/2023 CBC WITH DIFFE RENTI AL/PL ATELE T RDW 12.2 % 11.7-1 5.4 Not Available [facility] ([facility]) [address] [facility], [place], [address], 07/21/2023 08:09:11 07/20/19 24 07/21/2023 CBC WITH DIFFE RENTI AL/PL ATELE T platelets 255 x10e3 /uL 150-45 0 Not Available [facility] ([facility]) [address] [facility], [place], [address], 07/21/2023 08:09:11 07/20/19 24 07/21/2023 CBC WITH DIFFE RENTI AL/PL ATELE T neutrophils 58 % not estab. Not Available [facility] ([facility]) [address] [facility], [place], [address], 07/21/2023 08:09:11 07/20/19 24 07/21/2023 CBC WITH DIFFE RENTI AL/PL ATELE T lymphs 30 % not estab. Not Available [facility] ([facility]) [address] [facility], [place], [address], 07/21/2023 08:09:11 07/20/19 24 07/21/2023 CBC WITH DIFFE RENTI AL/PL ATELE T monocytes 10 % not estab. Not Available [facility] ([facility]) [address] [place], [address], 07/21/2023 08:09:11 07/20/19 24 07/21/2023 CBC WITH DIFFE RENTI AL/PL ATELE T eos 1 % not estab. Not Available [facility] ([facility]) [address] [place], [address], 07/21/2023 08:09:11 07/20/19 24 07/21/2023 CBC WITH DIFFE RENTI AL/PL ATELE T basos 1 % not estab. Not Available [facility] ([facility]) [address] [facility], [place], [address], 07/21/2023 08:09:11 07/20/19 24 07/21/2023 CBC WITH DIFFE RENTI AL/PL ATELE T immature cells FACILITIES MAINTENANCE ASSISTANT Not Available [facility] ([facility]) [address] [facility], [place], [address], 07/21/2023 08:09:11 07/20/19 24 07/21/2023 CBC WITH DIFFE RENTI AL/PL ATELE T neutrophils (absolute) 3.6 x10e3 /uL 1.4-7. 0 Not Available [facility] ([facility]) [address] [place], [address], 07/21/2023 08:09:11 07/20/19 24 07/21/2023 CBC WITH DIFFE RENTI AL/PL ATELE T lymphs (absolute) 1.8 x10e3 /uL 0.7-3. 1 Not Available [facility] ([facility]) [address] [place], [address], 07/21/2023 08:09:11 07/20/19 24 07/21/2023 CBC WITH DIFFE RENTI AL/PL ATELE T monocytes(ab solute) 0.6 x10e3 /uL 0.1-0. 9 Not Available [facility] ([facility]) [address] [place], [address], 07/21/2023 08:09:11 07/20/19 24 07/21/2023 CBC WITH DIFFE RENTI AL/PL ATELE T eos (absolute) 0.1 x10e3 /uL 0.0-0. 4 Not Available [facility] ([facility]) [address] [facility], [place], [address], 07/21/2023 08:09:11 07/20/19 24 07/21/2023 CBC WITH DIFFE RENTI AL/PL ATELE T baso (absolute) 0.0 x10e3 /uL 0.0-0. 2 Not Available [facility] ([facility]) [address] [facility], [place], [address], 07/21/2023 08:09:11 07/20/19 24 07/21/2023 CBC WITH DIFFE RENTI AL/PL ATELE T immature granulocytes 0 % not estab. Not Available [facility] ([facility]) [address] [facility], [place], [address], 07/21/2023 08:09:11 07/20/19 24 07/21/2023 CBC WITH DIFFE RENTI AL/PL ATELE T immature grans (abs) 0.0 x10e3 /uL 0.0-0. 1 Not Available [facility] ([facility]) [address] [facility], [place], [address], 07/21/2023 08:09:11 07/20/19 24 07/21/2023 CBC WITH DIFFE RENTI AL/PL ATELE T NRBC FACILITIES MAINTENANCE ASSISTANT Not Available [facility] ([facility]) [address] [facility], [place], [address], 07/21/2023 08:09:11 07/20/19 24 07/21/2023 CBC WITH DIFFE RENTI AL/PL ATELE T hematology comments: FACILITIES MAINTENANCE ASSISTANT Not Available [facility] ([facility]) [address] [place], [address], 07/21/2023 08:09:11 07/20/19 24 07/21/2023 SEDIM ENTAT ION RATE- WESTE RGREN sedimentatio n rate-westerg robert 15 mm/HR 0-40 Not Available [facility] ([facility]) [address] [facility], [place], [address], 07/21/2023 08:09:12 07/20/19 24 07/21/2023 C-QUIANA CTIVE PROTE IN, QUANT C-reactive protein, quant <1 mg/L 0-10 Not Available [facility] ([facility]) [address] [facility], [place], [address], 07/21/2023 08:09:12 12/04/19 24 11/01/2021 imagi ng/di [...] Address Organization Details Recorded Time No complaints [id number] Active Status : 'A'; Not Available [facility] 4 09:25:19 Problem Notes None recorded. Procedures Surgical History Date Name Laterality Status Provider Name and Address Organization Details Recorded Time 4 Hip Kenalog 2cc Injection, L/R completed Fox Yip PA-C [address], [place], [address], [facility] 08/13/2023 12:37:47 Imaging Results [...] Updated DateTime 08/13/2023 165.1 cm 27.6 kg/m2 39356.33 g MYRNA Durand [facility] 08/13/2023 09:29:50 Social History None recorded. Functional Status None recorded. Mental Status None recorded. Family History Nothing Reported. Medical History No medical history recorded. Gynecological HistoryNo gynecological history recorded. Obstetrics History GPAL:G 0 P 0 0 0 0 Past Encounters Encounter ID Performer Location Encounter Start Date Encounter Closed Date Diagnosis/Indication Diagnosis SNOMED-CT Code Diagnosis ICD10 Code Diagnosis IMO Codes Diagnosis Note [id number] [facility] [place] [address] [place] [address] 08/13/2023 09:06:51 08/25/2023 16:03:49 History of total replacement of right hip joint 7903197345 08459 Z96.641 Trochanter ic bursitis of right hip 3046219130 89774 M70.61 Lumbar radiculopathy 128 408566 M54.16 Health Concerns Section Related Observation LastModified by Organization Detai ls LastModified Time None Recorded Concern Status LastModified by Organization Details LastModified Time None Recorded Advance Directives Directive None Recorded Payers Insurance Date Sequence Insurance Name Policy Number Policy Escobedo Covered Member ID Escobedo Member ID Guarantor Name 11/11/2023 1 MARKIE (PPO) [id number] 1 Fox Gorman [id number] Kim Gorman Notes Date Note Type Note Provider Name and Address Organization Details Recorded Time 08/13/2023 text/html ROS as noted in the HPI I am seeing the patient today under [...] meloxicam as well as tizanidine. I did veterans rehabilitation counselor the patient on how to utilize [...] were answered today. Fox Yip PA-C [address], [place], [address], [facility] 08/13/2023 12:38:45 OBGyn Episode No OBEpisode recorded.
--- OUTSIDE RECORDS SUMMARY | 2025-01-24 21:13 | XMS_ITS | Patient Health Record ---
Author Organization [facility] Billie kari David Address [address] [place] [address] Care Team Providers Care Tape Transferrer Name Role Phone Tomer JONES, [facility] Primary Care Provider Rashad Coronado [phone] Allergies No Known Allergies Reason For Referral [...] 05/18/2024 Encounters Encounter [facility] [address] [place] [address] 05/18/2024 Rashad Cisneros Pain in left foot [...] X ray : Foot, right 3V 11/15/2017 [id number] I&D ABSCESS- SIMPLE,SINGLE 019 [id number], [id number]/INJECT, JOINT/BURSA 0 06/10/2018 [id number] TENDON SHEATH/LIGAMENT 0 06/10/2018 [id number] TENDON SHEATH/LIGAMENT 1 05/19/2020 Insurance Providers Payer Name Payer Address Payer Phone Subscriber Number Group Number Insured Name Patient Relationship to Insured Coverage Start Date [facility]age End Date [facility] [address] [place] [address] [phone] [id number] Fox Gorman Spouse - patient is the spouse of the insured 3 Medical (General) History Medical History History ICD Code Chicken pox Surgical History Surgery Date(Month/Year) Vidhya Bergman 03/10/2018 Hip replacement right 10/20/2022
== END 2025-01-24 15:40 | disposition home or self-care (01) ==
LOC: HO.HMCC 15:00
PROVIDERS: PCP Internal Medicine; Visit Provider Internal Medicine
DX: K13.79 Other lesions of oral mucosa (principal); J03.90 Acute tonsillitis, unspecified; Z72.0 Tobacco use; Z13.9 Encounter for screening, unspecified

== ENCOUNTER → 2025-01-24 14:59 | Outpatient (BNVA) | payer BC, SELFPAY | PROVIDERS: PCP Internal Medicine; Visit Provider Internal Medicine | DX: R04.2 Hemoptysis (principal); K21.9 Gastro-esophageal reflux disease without esophagitis; K13.79 Other lesions of oral mucosa; J03.90 Acute tonsillitis, unspecified; F17.210 Nicotine dependence, cigarettes, uncomplicated | CPT/HCPCS: 87880; 96127 ==

== ENCOUNTER 2025-01-29 07:06 | Outpatient (REF) | payer BC, SELFPAY ==
--- NOTE | ~2025-01-29 | CT_ITS ---
EXAMINATION: CT ABDOMEN PELVIS WITH IV CONTRAST HISTORY: R10.32 - Left lower quadrant pain COMPARISON: Comparison is made with the prior examination dated 07/23/2022. TECHNIQUE: CT scan of the abdomen and pelvis was performed following administration of 85 mL Omnipaque 350 using standard departmental protocol. Coronal and sagittal reformatted images were generated and reviewed. The patient received oral contrast material. This CT exam was performed with one or more of the following dose reduction techniques: automated exposure control, adjustment of the mA and/or kV according to patient size, use of iterative reconstruction technique. DLP: 502 mGy-cm FINDINGS: LOWER CHEST: The visualized lung bases are clear. There is no pleural effusion. CARDIOVASCULATURE: The heart is normal in size. There is no pericardial effusion. LIVER: The liver is normal in size and contour. No liver mass is identified. The hepatic and portal veins are patent. GALLBLADDER / BILE DUCTS: The gallbladder is unremarkable. There is no intra or extrahepatic biliary ductal dilatation. SPLEEN: The spleen is normal in size. No focal splenic lesion is identified. PANCREAS: The pancreas is unremarkable in appearance. ADRENAL GLANDS: Within normal limits. KIDNEYS/RETROPERITONEUM: No renal calculi are identified. There is no hydronephrosis. No renal masses are identified. LYMPH NODES: No abdominal or pelvic lymphadenopathy. VASCULATURE: The abdominal aorta is normal in caliber. MESENTERY/PERITONEUM: No free fluid. No masses. There is no free intraperitoneal gas. STOMACH: The stomach is unremarkable. SMALL BOWEL: The small bowel is normal in caliber. COLON: There is diverticulosis of the descending and sigmoid colon, without evidence of diverticulitis. APPENDIX: Normal. URINARY BLADDER/PELVIC ORGANS: The urinary bladder is partially obscured by streak artifact from a right total hip arthroplasty. The uterus is also partially obscured. The ovaries are unremarkable. BONES / SOFT TISSUES: No suspicious bony or soft tissue abnormalities. CT/CT abdomen pelvis w IV con IMPRESSION: Diverticulosis of the descending and sigmoid colon, without evidence of diverticulitis. Electronically signed by: Jose Desir MD 01/29/2025 09:53 AM EDT
--- OUTSIDE RECORDS SUMMARY | 2025-01-29 07:08 | XMS_ITS | Data Portability ---
Author Organization [facility], [facility] Address [address] [place] [address] Care Team Providers Care Ct Scan Technician Name Role Phone FERNANDO OROZCO Primary [...] Orders meloxicam 15 mg tablet 2023 024 [facility] #[id number], [address] [place], [address], 4 09:57:55 Medrol (Satya) 4 mg tablets in a dose pack 2023 024 [facility] #[id number], [address] [place], [address], 4 09:57:56 tizanidin e 4 mg tablet 2023 024 [facility] #[id number], [address] [place], [address], 4 09:57:56 Patient TargetsNo targets recorded. Patient InstructionsNo instructions recorded. Reason for Referral None Reported. Results Created Date Observation Date Name Description Value Unit Range Abnormal Flag Note LastModifiedBy Organization Detail LastModifiedTime 07/20/19 24 07/21/2023 CBC WITH DIFFE RENTI AL/PL ATELE T WBC 6.0 x10e3 /uL 3.4-10 .8 Not Available [facility] ([facility]) [address], [place], [address], 07/21/2023 08:09:11 07/20/19 24 07/21/2023 CBC WITH DIFFE RENTI AL/PL ATELE T RBC 3.76 x10e6 /uL 3.77-5 .28 below low normal Not Available [facility] ([facility]) [address] [place], [address], 07/21/2023 08:09:11 07/20/19 24 07/21/2023 CBC WITH DIFFE RENTI AL/PL ATELE T hemoglobin 11.7 g/dL 11.1-1 5.9 Not Available [facility] ([facility]) [address], [place], [address], 07/21/2023 08:09:11 07/20/19 24 07/21/2023 CBC WITH DIFFE RENTI AL/PL ATELE T hematocrit 33.2 % 34.0-4 6.6 below low normal Not Available [facility] ([facility]) [address] [place], [address], 07/21/2023 08:09:11 07/20/19 24 07/21/2023 CBC WITH DIFFE RENTI AL/PL ATELE T MCV 88 fL 79-97 Not Available [facility] ([facility]) [address] [place], [address], 07/21/2023 08:09:11 07/20/19 24 07/21/2023 CBC WITH DIFFE RENTI AL/PL ATELE T MCH 31.1 pg 26.6-3 3.0 Not Available [facility] ([facility]) [address] [place], [address], 07/21/2023 08:09:11 07/20/19 24 07/21/2023 CBC WITH DIFFE RENTI AL/PL ATELE T MCHC 35.2 g/dL 31.5-3 5.7 Not Available [facility] ([facility]) [address], [place], [address], 07/21/2023 08:09:11 07/20/19 24 07/21/2023 CBC WITH DIFFE RENTI AL/PL ATELE T RDW 12.2 % 11.7-1 5.4 Not Available [facility] ([facility]) [address], [place], [address], 07/21/2023 08:09:11 07/20/19 24 07/21/2023 CBC WITH DIFFE RENTI AL/PL ATELE T platelets 255 x10e3 /uL 150-45 0 Not Available [facility] ([facility]) [address], [place], [address], 07/21/2023 08:09:11 07/20/19 24 07/21/2023 CBC WITH DIFFE RENTI AL/PL ATELE T neutrophils 58 % not estab. Not Available [facility] ([facility]) [address], [place], [address], 07/21/2023 08:09:11 07/20/19 24 07/21/2023 CBC WITH DIFFE RENTI AL/PL ATELE T lymphs 30 % not estab. Not Available [facility] ([facility]) [address], [place], [address], 07/21/2023 08:09:11 07/20/19 24 07/21/2023 CBC WITH DIFFE RENTI AL/PL ATELE T monocytes 10 % not estab. Not Available [facility] ([facility]) [address] [place], [address], 07/21/2023 08:09:11 07/20/19 24 07/21/2023 CBC WITH DIFFE RENTI AL/PL ATELE T eos 1 % not estab. Not Available [facility] ([facility]) [address] [place], [address], 07/21/2023 08:09:11 07/20/19 24 07/21/2023 CBC WITH DIFFE RENTI AL/PL ATELE T basos 1 % not estab. Not Available [facility] ([facility]) [address], [place], [address], 07/21/2023 08:09:11 07/20/19 24 07/21/2023 CBC WITH DIFFE RENTI AL/PL ATELE T immature cells MEASUREMENT SUPERVISOR Not Available [facility] ([facility]) [address], [place], [address], 07/21/2023 08:09:11 07/20/19 24 07/21/2023 CBC WITH DIFFE RENTI AL/PL ATELE T neutrophils (absolute) 3.6 x10e3 /uL 1.4-7. 0 Not Available [facility] ([facility]) [address] [place], [address], 07/21/2023 08:09:11 07/20/19 24 07/21/2023 CBC WITH DIFFE RENTI AL/PL ATELE T lymphs (absolute) 1.8 x10e3 /uL 0.7-3. 1 Not Available [facility] ([facility]) [address] [place], [address], 07/21/2023 08:09:11 07/20/19 24 07/21/2023 CBC WITH DIFFE RENTI AL/PL ATELE T monocytes(ab solute) 0.6 x10e3 /uL 0.1-0. 9 Not Available [facility] ([facility]) [address] [place], [address], 07/21/2023 08:09:11 07/20/19 24 07/21/2023 CBC WITH DIFFE RENTI AL/PL ATELE T eos (absolute) 0.1 x10e3 /uL 0.0-0. 4 Not Available [facility] ([facility]) [address], [place], [address], 07/21/2023 08:09:11 07/20/19 24 07/21/2023 CBC WITH DIFFE RENTI AL/PL ATELE T baso (absolute) 0.0 x10e3 /uL 0.0-0. 2 Not Available [facility] ([facility]) [address], [place], [address], 07/21/2023 08:09:11 07/20/19 24 07/21/2023 CBC WITH DIFFE RENTI AL/PL ATELE T immature granulocytes 0 % not estab. Not Available [facility] ([facility]) [address], [place], [address], 07/21/2023 08:09:11 07/20/19 24 07/21/2023 CBC WITH DIFFE RENTI AL/PL ATELE T immature grans (abs) 0.0 x10e3 /uL 0.0-0. 1 Not Available [facility] ([facility]) [address], [place], [address], 07/21/2023 08:09:11 07/20/19 24 07/21/2023 CBC WITH DIFFE RENTI AL/PL ATELE T NRBC MEASUREMENT SUPERVISOR Not Available [facility] ([facility]) [address], [place], [address], 07/21/2023 08:09:11 07/20/19 24 07/21/2023 CBC WITH DIFFE RENTI AL/PL ATELE T hematology comments: MEASUREMENT SUPERVISOR Not Available [facility] ([facility]) [address] [place], [address], 07/21/2023 08:09:11 07/20/19 24 07/21/2023 SEDIM ENTAT ION RATE- WESTE RGREN sedimentatio n rate-westerg robert 15 mm/HR 0-40 Not Available [facility] ([facility]) [address], [place], [address], 07/21/2023 08:09:12 07/20/19 24 07/21/2023 C-QUIANA CTIVE PROTE IN, QUANT C-reactive protein, quant <1 mg/L 0-10 Not Available [facility] ([facility]) [address], [place], [address], 07/21/2023 08:09:12 12/04/19 24 11/01/2021 imagi ng/di [...] Address Organization Details Recorded Time No complaints [id number] Active Status : 'A'; Not Available [facility] 4 09:25:19 Problem Notes None recorded. Procedures Surgical History Date Name Laterality Status Provider Name and Address Organization Details Recorded Time 4 Hip Kenalog 2cc Injection, L/R completed Fox Yip PA-C [address] [facility] [address], [place], [address], [facility] - [facility] 08/13/2023 12:37:47 Imaging Results [...] Updated DateTime 08/13/2023 165.1 cm 27.6 kg/m2 03616.33 g MYRNA [facility] 08/13/2023 [...] ICD10 Code Diagnosis IMO Codes Diagnosis Note [id number] GEMMA Camacho 2nd floor [address] [place] [address] 08/13/2023 09:06:51 08/25/2023 16:03:49 History of total replacement of right hip joint 5634566763 63569 Z96.641 Trochanter ic bursitis of right hip 1226948146 40079 M70.61 Lumbar radiculopathy 128 466460 M54.16 Health Concerns Section Related Observation LastModified by Organization Detai ls LastModified Time None Recorded Concern Status LastModified by Organization Details LastModified Time None Recorded Advance Directives Directive None Recorded Payers Insurance Date Sequence Insurance Name Policy Number Policy Escobedo Covered Member ID Escobedo Member ID Guarantor Name 11/11/2023 1 MARKIE (PPO) [id number] 1 Fox Gorman [id number] Kim Gorman Notes Date Note Type [...] meloxicam as well as tizanidine. I did baby counselor the patient on how to utilize [...] were answered today. Fox Yip PA-C [address], [place], [address], [facility] - [facility] 08/13/2023 12:38:45 OBGyn Episode No OBEpisode recorded.
--- OUTSIDE RECORDS SUMMARY | 2025-01-29 07:08 | XMS_ITS | Patient Health Record ---
Author Organization [facility] Billie kari David Address [address] [place] [address] Care Team Providers Care Paper Wrapping Machine Operator Name Role Phone Tomer JONES[facility] Primary [facility] Provider Rashad Coronado [phone] Allergies No Known Allergies Reason For Referral [...] Encounters Encounter Location Date [facility] [address] [place] [address] 05/18/2024 Rashad Cisneros Pain in left foot [...] X ray : Foot, right 3V 11/15/2017 [id number] I&D ABSCESS- SIMPLE,SINGLE 019 63172, [id number]/INJECT, JOINT/BURSA 0 06/10/2018 [id number] TENDON SHEATH/LIGAMENT 0 06/10/2018 [id number] TENDON SHEATH/LIGAMENT 1 05/19/2020 Insurance Providers Payer Name Payer Address Payer Phone Subscriber Number Group Number Insured Name Patient Relationship to Insured Coverage Start Date Coverage End Date [facility] [address] [place] [address] [phone] [id number] Fox Gorman Spouse - patient is the spouse of the insured 3 Medical (General) History Medical History History ICD Code Chicken pox Surgical History Surgery Date(Month/Year) Vidhya Bergman 03/10/2018 Hip replacement right 10/20/2022
[2025-01-29] MEDS: iohexoL 350 MG/ML 100 ML INFUS..BTL 85 ML IV (09:42)
[2025-01-29] MEDS: Barium Sulfate Oral (Berry) 450 ML ORAL.SUSP 900 ML PO (09:44)
[2025-01-30 15:33] LABS: Creatinine POC 0.6 mg/dL (0.5-1.4); GFR POC > 60
== END 2025-01-29 07:07 | disposition home or self-care (01) ==
LOC: HO.CT 07:06
PROVIDERS: PCP Internal Medicine; Visit Provider Nurse Practitioner
DX: R10.32 Left lower quadrant pain (principal); R19.7 Diarrhea, unspecified
CPT/HCPCS: 74177; 82565; Q9967

== ENCOUNTER → 2025-01-29 07:07 | Outpatient (BNV) | payer BC, SELFPAY | PROVIDERS: PCP Internal Medicine; Visit Provider Radiology Diagnostic Radiology | DX: K57.30 Diverticulosis of large intestine without perforation or abscess without bleeding (principal) | CPT/HCPCS: 74177 ==

== ENCOUNTER 2025-01-31 14:00 | Outpatient (AMB) | payer BC, SELFPAY ==
[2025-01-31 14:02] VITALS: BP 120/70; PULSE 82; RESP 16; TEMP 36.9; O2SAT 99; BMI 28.7
--- NOTE | 2025-01-31 14:02 | MHC.PC.OV ---
Vital Signs 01/31/25 14:02 Height 5 ft 4 in Weight 167 lb BMI 28.7 BP 120/70 Blood Pressure Location Rt brachial Position Sitting Respiration 16 Pulse 82 Pulse Source Pulse Oximeter Temp 98.4 F Temp Source Oral Pulse Oximetry (%) 99 Oxygen Delivery Method Room Air Intake Visit Reasons: 1 week f/u Allergies No Known Allergies Allergy (Verified 01/24/25 15:04) Medication List - Last Reconciled 01/31/25 by Rodney Jeff MD amoxicillin 500 mg PO Q8H 7 days barium sulfate 2%(w/v) (Readi-Cat 2) 150 mL PO ONCE 1 day dicyclomine 10 mg PO QID Held on 12/27/24. Instructions: Doctor's Order omeprazole 20 mg PO DAILY 90 days rosuvastatin 10 mg PO DAILY 90 days sodium,potassium,mag sulfates 17.5-3.13-1.6 gram (Suprep Bowel Prep Kit) 480 mL orally; FOR COLONOSCOPY PREP triamcinolone acetonide 0.1% 1 appl topical BID [turmeric 2 caps PO] Tobacco use date assessed: 09/27/24 Dental Screening Dental Screen Date: 09/27/24 HPI 1 week f/u HPI Details History of Present Illness The patient is a 59-year-old female presenting for follow on on hemoptysis and throat irritation. Hemoptysis: - The patient describes experiencing blood in her saliva after brushing her teeth on two occasions. Throat irritation: - The patient reports noticing throat irritation following the hemoptysis. - No recent history of postnasal drip or excessive mucus production was noted. - The irritation was observed to persist, with some redness noticed upon self-examination. Medical History: - History of smoking for over 20 years, with recent resumption after quitting for three months. - Chronic gastroesophageal reflux disease (GERD), currently managed with omeprazole. Diagnostic Results: - Strep test was performed and returned negative. Problem List - Hemoptysis - Throat irritation - white patch on left tonsil Plan - Pt was treated with amoxicillin for 7 days to address potential bacterial infection related to the throat irritation. - she is feelinng better , white patch has disappear, and there is no more bleeding Review of Systems - General: No fever no chills - Ear nose throat: No sore throat no hearing difficulty no ear pain Physical Exam General: No acute distress HEENT: WNL, there is a visible crater on left tonsil where food can get lodged Neck: Supple Respiratory system: Able to talk in full sentences, no audible wheeze Extremities: No new findings CESSATION SYSTEMS OUTREACH SPECIALIST: Alert awake oriented x3 motor intact Skin: Normal turgor PFSH Medical History Vaginitis Encounter for general adult medical examination with abnormal findings Right ankle sprain Left ankle sprain UTI (urinary tract infection) Vaginal yeast infection Constipation Upper respiratory infection Sore throat Acute sinusitis Colon cancer screening Lumbar degenerative disc disease Anemia Chronic GERD Sinusitis Sore throat, chronic Vitamin D deficiency Impaired fasting blood sugar Lipid disorder Facet arthropathy Ankle pain, left Migraine headache Meralgia paresthetica of right side Osteoarthritis of right hip Right lumbar radiculitis Surgical History History of hip replacement, total Hx of foot surgery (~2018) Family History Father No problems noted. Mother No problems noted. Brother No problems noted. Brother No problems noted. Sister No problems noted. 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 Cognitive needs: No Hearing needs: No Vision needs: Yes Questionnaire Thrive Questionnaire Date Thrive assessed: 05/09/24 I am a: Patient What is your living situation today?: I have a steady place to live Within the past 12 months, did the food you bought not last and you didn't have the money to get more?: Never true Within the past 12 months, did you worry whether your food would run out before you got money to buy more?: Never true Do you have trouble paying for medicines?: No Do you have trouble getting transportation to medical appointments?: No Do you have trouble paying your heating and electricity bill?: No Do you have trouble taking care of your child, family member or friend?: No Do you have trouble with day-to-day activities such as bathing, preparing meals, shopping, managing finances, etc.?: I choose not to answer this question Are you currently unemployed and looking for a job?: No Are you interested in more education?: No Please select the resources that you would like help with: None Currently or been in a relationship where the following occur: I choose not to answer THRIVE Score: 0 DALY-7 AMB Questionnaire DALY-7 Date DALY - 7 assessed: 07/14/24 Source: Developed by Drs. Jose Jesus, Evy Glass, Stewart Hudson and colleagues, with an educational jameel from [employer]. Physical exam (Primary Care) Vital Signs: Last Vital Signs Temp 98.4 F 01/31/25 14:02 Pulse 82 01/31/25 14:02 Resp 16 01/31/25 14:02 BP 120/70 01/31/25 14:02 Pulse Ox 99 01/31/25 14:02 Oxygen Delivery Method Room Air 01/31/25 14:02 BMI result Body Mass Index 28.7 Tobacco/Smoking Status: Tobacco use Status Tobacco use date assessed 09/27/24 01/31/25 14:07 Patient Tobacco Use Status Former Tobacco user 01/31/25 14:07 Tobacco use type Cigarette 01/31/25 14:07 e-Cigarette/Vaping Use Never Used 01/31/25 14:07 Thrive Assessment: Date of Thrive Assessment Date Thrive assessed 05/09/24 01/31/25 14:07 Currently or been in a relationship where the following occur: I choose not to answer Coding Level of Care Code Est Pt Level 3 (18559) Diagnoses 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 Hemoptysis: - The patient describes experiencing blood in her saliva after brushing her teeth on two occasions. Throat irritation: - The patient reports noticing throat irritation following the hemoptysis. - No recent history of postnasal drip or excessive mucus production was noted. - The irritation was observed to persist, with some redness noticed upon self-examination. Medical History: - History of smoking for over 20 years, with recent resumption after quitting for three months. - Chronic gastroesophageal reflux disease (GERD), currently managed with omeprazole. Diagnostic Results: - Strep test was performed and returned negative. Problem List - Hemoptysis - Throat irritation - white patch on left tonsil Plan - Pt was treated with amoxicillin for 7 days to address potential bacterial infection related to the throat irritation. - she is feelinng better , white patch has disappear, and there is no more bleeding
--- OUTSIDE RECORDS SUMMARY | 2025-01-31 17:59 | XMS_ITS | Patient Health Record ---
Author Organization [facility] Billie kari David Address [address] [place] [address] Care Team Providers Care Air Marshal Name Role Phone Tomer JONES, [facility] Primary Care Provider Rashad Coronado [phone] Allergies No Known Allergies Reason For Referral [...] 05/18/2024 Encounters Encounter [facility] [address] [place] [address] 05/18/2024 Rashad Cisneros Pain in left foot [...] X ray : Foot, right 3V 11/15/2017 56383 I&D ABSCESS- SIMPLE,SINGLE 019 51994, [id number]/[id number], JOINT/BURSA 0 06/10/2018 [id number] TENDON SHEATH/LIGAMENT 0 06/10/2018 [id number] TENDON SHEATH/LIGAMENT 1 05/19/2020 Insurance Providers Payer Name Payer Address Payer Phone Subscriber Number Group Number Insured Name Patient Relationship to Insured Coverage Start Date Coverage End Date [facility] [address] [place] [address] [id number] Fox Gorman Spouse - patient is the spouse of the insured 3 Medical (General) History Medical History History ICD Code Chicken pox Surgical History Surgery Date(Month/Year) Vidhya Bergman 03/10/2018 Hip replacement right 10/20/2022
--- OUTSIDE RECORDS SUMMARY | 2025-01-31 17:59 | XMS_ITS | Data Portability ---
Author Organization [facility], [facility] Address [address] [place] [address] Care Team Providers Care Apple Thinner Name Role Phone FERNANDO OROZCO Primary Care [...] Orders meloxicam 15 mg tablet 2023 024 [facility]armacy #[id number], [address] [place], [address], 4 09:57:55 Medrol (Satya) 4 mg tablets in a dose pack 2023 024 [facility]armacy #[id number], [address] [place], [address], 4 09:57:56 tizanidin e 4 mg tablet 2023 024 [facility]armacy #[id number], [address] [place], [address], 4 09:57:56 Patient TargetsNo targets recorded. Patient InstructionsNo instructions recorded. Reason for Referral None Reported. Results Created Date Observation Date Name Description Value Unit Range Abnormal Flag Note LastModifiedBy Organization Detail LastModifiedTime 07/20/19 24 07/21/2023 CBC WITH DIFFE RENTI AL/PL ATELE T WBC 6.0 x10e3 /uL 3.4-10 .8 Not Available [facility] ([facility]) [address] [facility], [place], [address], 07/21/2023 08:09:11 07/20/19 24 07/21/2023 CBC WITH DIFFE RENTI AL/PL ATELE T RBC 3.76 x10e6 /uL 3.77-5 .28 below low normal Not Available [facility] ([facility]) [address] [place], [address], 07/21/2023 08:09:11 07/20/19 24 07/21/2023 CBC WITH DIFFE RENTI AL/PL ATELE T hemoglobin 11.7 g/dL 11.1-1 5.9 Not Available [facility] ([facility]) [address] [facility], [place], [address], 07/21/2023 08:09:11 07/20/19 24 07/21/2023 CBC WITH DIFFE RENTI AL/PL ATELE T hematocrit 33.2 % 34.0-4 6.6 below low normal Not Available [facility] ([facility]) [address] [place], [address], 07/21/2023 08:09:11 07/20/19 24 07/21/2023 CBC WITH DIFFE RENTI AL/PL ATELE T MCV 88 fL 79-97 Not Available [facility] ([facility]) [address] [place], [address], 07/21/2023 08:09:11 07/20/19 24 07/21/2023 CBC WITH DIFFE RENTI AL/PL ATELE T MCH 31.1 pg 26.6-3 3.0 Not Available [facility] ([facility]) [address] [place], [address], 07/21/2023 08:09:11 07/20/19 24 07/21/2023 CBC WITH DIFFE RENTI AL/PL ATELE T MCHC 35.2 g/dL 31.5-3 5.7 Not Available [facility] ([facility]) [address] [facility], [place], [address], 07/21/2023 08:09:11 07/20/19 24 07/21/2023 CBC WITH DIFFE RENTI AL/PL ATELE T RDW 12.2 % 11.7-1 5.4 Not Available [facility] ([facility]) [address] [facility], [place], [address], 07/21/2023 08:09:11 07/20/19 24 07/21/2023 CBC WITH DIFFE RENTI AL/PL ATELE T platelets 255 x10e3 /uL 150-45 0 Not Available [facility] ([facility]) [address] [facility], [place], [address], 07/21/2023 08:09:11 07/20/19 24 07/21/2023 CBC WITH DIFFE RENTI AL/PL ATELE T neutrophils 58 % not estab. Not Available [facility] ([facility]) [address] [facility], [place], [address], 07/21/2023 08:09:11 07/20/19 24 07/21/2023 CBC WITH DIFFE RENTI AL/PL ATELE T lymphs 30 % not estab. Not Available [facility] ([facility]) [address] [facility], [place], [address], 07/21/2023 08:09:11 07/20/19 24 07/21/2023 CBC WITH DIFFE RENTI AL/PL ATELE T monocytes 10 % not estab. Not Available [facility] ([facility]) [address] [place], [address], 07/21/2023 08:09:11 07/20/19 24 07/21/2023 CBC WITH DIFFE RENTI AL/PL ATELE T eos 1 % not estab. Not Available [facility] ([facility]) [address] [place], [address], 07/21/2023 08:09:11 07/20/19 24 07/21/2023 CBC WITH DIFFE RENTI AL/PL ATELE T basos 1 % not estab. Not Available [facility] ([facility]) [address] [facility], [place], [address], 07/21/2023 08:09:11 07/20/19 24 07/21/2023 CBC WITH DIFFE RENTI AL/PL ATELE T immature cells RN [facility] Not Available [facility] ([facility]) [address] [facility], [place], [address], 07/21/2023 08:09:11 07/20/19 24 07/21/2023 CBC WITH DIFFE RENTI AL/PL ATELE T neutrophils (absolute) 3.6 x10e3 /uL 1.4-7. 0 Not Available [facility] ([facility]) [address] [place], [address], 07/21/2023 08:09:11 07/20/19 24 07/21/2023 CBC WITH DIFFE RENTI AL/PL ATELE T lymphs (absolute) 1.8 x10e3 /uL 0.7-3. 1 Not Available [facility] ([facility]) [address] [place], [address], 07/21/2023 08:09:11 07/20/19 24 07/21/2023 CBC WITH DIFFE RENTI AL/PL ATELE T monocytes(ab solute) 0.6 x10e3 /uL 0.1-0. 9 Not Available [facility] ([facility]) [address] [place], [address], 07/21/2023 08:09:11 07/20/19 24 07/21/2023 CBC WITH DIFFE RENTI AL/PL ATELE T eos (absolute) 0.1 x10e3 /uL 0.0-0. 4 Not Available [facility] ([facility]) [address] [facility], [place], [address], 07/21/2023 08:09:11 07/20/19 24 07/21/2023 CBC WITH DIFFE RENTI AL/PL ATELE T baso (absolute) 0.0 x10e3 /uL 0.0-0. 2 Not Available [facility] ([facility]) [address] [facility], [place], [address], 07/21/2023 08:09:11 07/20/19 24 07/21/2023 CBC WITH DIFFE RENTI AL/PL ATELE T immature granulocytes 0 % not estab. Not Available [facility] ([facility]) [address] [facility], [place], [address], 07/21/2023 08:09:11 07/20/19 24 07/21/2023 CBC WITH DIFFE RENTI AL/PL ATELE T immature grans (abs) 0.0 x10e3 /uL 0.0-0. 1 Not Available [facility] ([facility]) [address] [facility], [place], [address], 07/21/2023 08:09:11 07/20/19 24 07/21/2023 CBC WITH DIFFE RENTI AL/PL ATELE T NRBC RN [facility] Not Available [facility] ([facility]) [address] [facility], [place], [address], 07/21/2023 08:09:11 07/20/19 24 07/21/2023 CBC WITH DIFFE RENTI AL/PL ATELE T hematology comments: RN [facility] Not Available [facility] ([facility]) [address] [place], [address], 07/21/2023 08:09:11 07/20/19 24 07/21/2023 SEDIM ENTAT ION RATE- WESTE RGREN sedimentatio n rate-westerg robert 15 mm/HR 0-40 Not Available [facility] ([facility]) [address] [facility], [place], [address], 07/21/2023 08:09:12 07/20/19 24 07/21/2023 C-QUIANA CTIVE PROTE IN, QUANT C-reactive protein, quant <1 mg/L 0-10 Not Available [facility] ([facility]) [address] [facility], [place], [address], 07/21/2023 08:09:12 12/04/19 24 11/01/2021 imagi ng/di [...] Address Organization Details Recorded Time No complaints [id number] Active Status : 'A'; Not Available [facility] 4 09:25:19 Problem Notes None recorded. Procedures Surgical History Date Name Laterality Status Provider Name and Address Organization Details Recorded Time 4 Hip Kenalog 2cc Injection, L/R completed Fox Yip PA-C [address] [facility] [address], [place], [address], [facility] 08/13/2023 12:37:47 Imaging Results [...] Updated DateTime 08/13/2023 165.1 cm 27.6 kg/m2 36882.33 g MYRNA [facility] 08/13/2023 09:29:50 Social History None recorded. Functional Status None recorded. Mental Status None recorded. Family History Nothing Reported. Medical History No medical history recorded. Gynecological HistoryNo gynecological history recorded. Obstetrics History GPAL:G 0 P 0 0 0 0 Past Encounters Encounter ID Performer Location Encounter Start Date Encounter Closed Date Diagnosis/Indication Diagnosis SNOMED-CT Code Diagnosis ICD10 Code Diagnosis IMO Codes Diagnosis Note [id number] [facility] Cam[facility] [address]nd floor [address] [place] [address] 08/13/2023 09:06:51 08/25/2023 16:03:49 History of total replacement of right hip joint 2380630687 31550 Z96.641 Trochanter ic bursitis of right hip 0790985239 91959 M70.61 Lumbar radiculopathy 128 296217 M54.16 Health Concerns Section Related Observation LastModified by Organization Detai ls LastModified Time None Recorded Concern Status LastModified by Organization Details LastModified Time None Recorded Advance Directives Directive None Recorded Payers Insurance Date Sequence Insurance Name Policy Number Policy Escobedo Covered Member ID Escobedo Member ID Guarantor Name 11/11/2023 1 MARKIE (PPO) [id number] 1 Fox Gorman [id number] Kim Gorman Notes Date Note Type [...] meloxicam as well as tizanidine. I did community health counselor the patient on how to utilize [...] were answered today. Fox Yip PA-C [address] [facility] [address], [place], [address], [facility] 08/13/2023 12:38:45 OBGyn Episode No OBEpisode recorded.
== END 2025-01-31 14:37 | disposition home or self-care (01) ==
LOC: HO.HMCC 14:01
PROVIDERS: PCP Internal Medicine; Visit Provider Internal Medicine
DX: J35.8 Other chronic diseases of tonsils and adenoids (principal)

== ENCOUNTER 2025-02-20 11:30 | Outpatient (AMB) | payer BC, SELFPAY ==
[2025-02-20 11:32] VITALS: BP 121/80; PULSE 104; BMI 28.7
--- NOTE | 2025-02-20 11:32 | A.OFFVIS_ITS ---
Vital Signs 02/20/25 11:32 Height 5 ft 4 in Weight 167 lb BMI 28.7 BP 121/80 Blood Pressure Location Lt brachial Position Sitting Pulse 104 H Intake Visit Reasons: CT Scan follow up Intake Note: Kim presents to in office follow up CT scan. CC: Patient states that she is doing well and denies having any new GI symptoms. Drier Take Off Tender Required: No Accompanied by: Self / Same As Patient Allergies No Known Allergies Allergy (Verified 02/20/25 11:48) HPI HPI CT Scan follow up: Details: Assessment & Plan (1) Cow's milk allergy: Code(s): Z91.011 - Allergy to milk products Category: Medical (2) Chronic GERD: Code(s): K21.9 - Gastro-esophageal reflux disease without esophagitis Category: Medical (3) Diarrhea: Code(s): R19.7 - Diarrhea, unspecified Category: Medical (4) Left lower quadrant pain: Code(s): R10.32 - Left lower quadrant pain Category: Medical Plan - The patient is a 59-year old female presenting for follow-up for loose stools and bloating. I let her know that the RAST panel shows that she has a milk allergy. This could be largely what is causing her symptoms since milk as Omni present in the diet and she admits that she really enjoys eating cheese and ice cream. - she is going to try avoiding milk and I also educated her that this is not a situation where she can drink Lactaid milk as that is an intolerance and not a true allergy. - She has a unrelated complaints of what she is used to be widespread inflammation in her body. Has a history of hip replacement (2022) with ongoing pain and inflammation, receiving numerous treatments without full resolution. We stumble upon this topic because I notice she is taking turmeric which also can be very irritating to the GI system. While I do not think she necessarily needs to discontinue it I recommend she stay on the lower end of the recommended dosing which is 800 mg to 2000 mg a day. I also educated her that taking larger doses of turmeric can lead to liver failure. - Previous reports of experiencing fast, sporadic heart rate episodes. Because of this she never took the dicyclomine and that is fine. -she still has the CAT scan upcoming as I would like to tease out the differential diagnosis for her left lower quadrant pain between true diverticulitis versus cramping. Return office visit after her CAT scan Orders: Orders Blood Urea Nitrogen Today R10.32 - Left lower quadrant pain Creatinine Today R10.32 - Left lower quadrant pain Medications: New barium sulfate 2%(w/v) (Readi-Cat 2) for CT wscan 150 mL PO ONCE 300 mL 0RF 1 day R10.32 - Left lower quadrant pain On Hold dicyclomine Hold Comment: Doctor's Order 10 mg PO QID 120 caps 3RF R10.32 - Left lower quadrant pain CT ABDOMEN AND PELVIS 01/29/2025 FINDINGS: LOWER CHEST: The visualized lung bases are clear. There is no pleural effusion. CARDIOVASCULATURE: The heart is normal in size. There is no pericardial effusion. LIVER: The liver is normal in size and contour. No liver mass is identified. The hepatic and portal veins are patent. GALLBLADDER / BILE DUCTS: The gallbladder is unremarkable. There is no intra or extrahepatic biliary ductal dilatation. SPLEEN: The spleen is normal in size. No focal splenic lesion is identified. PANCREAS: The pancreas is unremarkable in appearance. ADRENAL GLANDS: Within normal limits. KIDNEYS/RETROPERITONEUM: No renal calculi are identified. There is no hydronephrosis. No renal masses are identified. LYMPH NODES: No abdominal or pelvic lymphadenopathy. VASCULATURE: The abdominal aorta is normal in caliber. MESENTERY/PERITONEUM: No free fluid. No masses. There is no free intraperitoneal gas. STOMACH: The stomach is unremarkable. SMALL BOWEL: The small bowel is normal in caliber. COLON: There is diverticulosis of the descending and sigmoid colon, without evidence of diverticulitis. APPENDIX: Normal. URINARY BLADDER/PELVIC ORGANS: The urinary bladder is partially obscured by streak artifact from a right total hip arthroplasty. The uterus is also partially obscured. The ovaries are unremarkable. BONES / SOFT TISSUES: No suspicious bony or soft tissue abnormalities. CT/CT abdomen pelvis w IV con IMPRESSION: Diverticulosis of the descending and sigmoid colon, without evidence of diverticulitis. TODAY'S VISIT Patient presents to review ongoing intermittent abdominal bloating and cramping. Recent CT scan reportedly showed no acute findings. Symptoms remain episodic without a clear trigger. Patient has trialed limiting dairy (ice cream, cheese) given concern for milk sensitivity; tried a dairy-free cheese once with transient gassiness but has tolerated it since. No clear dietary ?smoking gun.? Dicyclomine was not started due to concurrent evaluation for episodic palp itations. Reports episodes of rapid heart rate captured on Apple Watch up to 160?170 bpm occurring randomly at rest and with light activity; prior Holter years ago was unrevealing and a recent in-office EKG normalized when supine. Stress testing has not been performed. Additional history notable for right hip replacement with chronic gluteal/hip pain and weakness treated as piriformis- type syndrome; MRI reportedly showed muscle atrophy; extensive spine work-up including multiple MRIs and epidural injections without durable benefit; overexertion flares pain; continues daily PT and limited treadmill walking. Relevant Past Medical, Social, and Family History * Colonoscopy in 2020; no family history of colon cancer or polyps. [facility] Medical History (Updated 02/20/25 @ 12:12 by JL Laureano) Acute diverticulitis Nicotine dependence, cigarettes, uncomplicated Vaginitis Right ankle sprain Left ankle sprain UTI (urinary tract infection) Vaginal yeast infection Constipation Colon cancer screening Lumbar degenerative disc disease Anemia Chronic GERD Sore throat, chronic Vitamin D deficiency Impaired fasting blood sugar Lipid disorder Facet arthropathy Ankle pain, left Migraine headache Meralgia paresthetica of right side Osteoarthritis of right hip Right lumbar radiculitis Surgical History (Updated 02/20/25 @ 12:11 by JL Laureano) H/O colonoscopy History of bunionectomy History of total right hip replacement Family History Father No problems noted. Mother No problems noted. Brother No problems noted. Brother No problems noted. Sister No problems noted. 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 Cognitive needs: No Hearing needs: No Vision needs: Yes Review of Systems Const Denies fatigue, Denies fever(s), Denies night sweats, Denies poor appetite and Denies weight loss Eyes Details: GLASSES Reports requires corrective lenses ENT Reports Normal hearing present, Denies dental pain, Denies dysphagia, Denies hearing loss, Denies mouth pain, Denies odynophagia, Denies throat swelling, Denies tongue swelling and Reports other (Dentition adequate) Card Reports palpitations Resp Reports no additional complaints GI Details: Denies abdominal pain, Denies melena, Reports bloating, Denies hematochezia, Denies constipation, Reports GI cramping, Denies dysphagia, Denies excessive flatus, Denies early satiety, Denies heartburn, Reports diarrhea, Denies nausea, Denies odynophagia, Denies vomiting and Denies hematemesis Musc Reports back pain, Reports myalgias, Reports arthralgias, Reports numbness and Reports tingling Skin/Breast Denies pruritus, Denies lesions, Denies rash and Denies jaundice Neuro Reports Normal hearing present, Denies Abnormal speech present, Reports numbness and Reports tingling Endo Denies fatigue and Reports palpitations Aller/Immun Denies throat swelling and Denies tongue swelling Physical Exam Vital Signs: BMI result Body Mass Index 28.7 Const General: cooperative, no acute distress, well developed and well groomed Nutritional Appearance: well nourished and overweight Orientation/consciousness: oriented to person, oriented to place and oriented to time Limitations: No language barrier HEENT Head: Yes normocephalic and Yes atraumatic Eyes General: appearance normal, both eyes and all related structures Pupils: Equal, round and reactive pupils present Neck Neck: Yes normal visual inspection and Yes no lymphadenopathy Thyroid: Thyroid normal Resp Effort & Inspection: normal respiratory effort and able to speak in complete sentences Auscultation: clear to auscultation bilaterally Cardio Rate: regular rate Rhythm: regular rhythm Heart sounds: Normal, physiologic split S2 sound present Peripheral pulses: radial pulses present and posterior tibial pulses present GI Inspection: No distended, No Abdominal panniculus present and Yes obesity Palpation (GI): Soft to palpation, nontender, no guarding, not rigid and No hepatosplenomegaly present Percussion: Yes normal to percussion Auscultation: normal bowel sounds Rectal Exam - Female: deferred Skin General skin exam: no rashes or lesions noted, turgor normal, skin not dry, no jaundice, No spider nevi and no striae Rashes: no rashes Nails: normal Neuro General: oriented to person, oriented to place and oriented to time Cranial nerves: Yes Equal, round and reactive pupils present and Yes Normal hearing present Speech: No Abnormal speech present Extrem General: Yes normal to inspection, No clubbing, No cyanosis and No edema Psych Appearance: grossly normal and well kempt Mental Status: mental status grossly normal Speech and movement: Normal speech and movement present Affect: normal affect Attitude: cooperative Thought process: Normal thought process present and not confabulating Thought content: Normal thought content present Insight: Good insight present (Psych) Judgement: Good judgement present (Psych) Results Reviewed Results Reviewed: CT ABDOMEN AND PELVIS 01/29/2025 FINDINGS: LOWER CHEST: The visualized lung bases are clear. There is no pleural effusion. CARDIOVASCULATURE: The heart is normal in size. There is no pericardial effusion. LIVER: The liver is normal in size and contour. No liver mass is identified. The hepatic and portal veins are patent. GALLBLADDER / BILE DUCTS: The gallbladder is unremarkable. There is no intra or extrahepatic biliary ductal dilatation. SPLEEN: The spleen is normal in size. No focal splenic lesion is identified. PANCREAS: The pancreas is unremarkable in appearance. ADRENAL GLANDS: Within normal limits. KIDNEYS/RETROPERITONEUM: No renal calculi are identified. There is no hydronephrosis. No renal masses are identified. LYMPH NODES: No abdominal or pelvic lymphadenopathy. VASCULATURE: The abdominal aorta is normal in caliber. MESENTERY/PERITONEUM: No free fluid. No masses. There is no free intraperitoneal gas. STOMACH: The stomach is unremarkable. SMALL BOWEL: The small bowel is normal in caliber. COLON: There is diverticulosis of the descending and sigmoid colon, without evidence of diverticulitis. APPENDIX: Normal. URINARY BLADDER/PELVIC ORGANS: The urinary bladder is partially obscured by streak artifact from a right total hip arthroplasty. The uterus is also partially obscured. The ovaries are unremarkable. BONES / SOFT TISSUES: No suspicious bony or soft tissue abnormalities. CT/CT abdomen pelvis w IV con IMPRESSION: Diverticulosis of the descending and sigmoid colon, without evidence of diverticulitis. Assessment & Plan Assessment & Plan (1) Chronic GERD: Code(s): K21.9 - Gastro-esophageal reflux disease without esophagitis Category: Medical (2) IBS (irritable bowel syndrome): Code(s): K58.9 - Irritable bowel syndrome, unspecified Category: Medical (3) Left lower quadrant pain: Code(s): R10.32 - Left lower quadrant pain Category: Medical (4) Cow's milk allergy: Code(s): Z91.011 - Allergy to milk products Category: Medical (5) Palpitations: Code(s): R00.2 - Palpitations Category: Medical (6) Right hip pain: Code(s): M25.551 - Pain in right hip Category: Medical Plan Abdominal bloating and cramping, likely functional bowel/IBS-spectrum: CT negative. Symptoms intermittent without clear dietary trigger; patient is already reducing dairy intake. Given concurrent palpitations evaluation, will avoid anticholinergics for now and trial evidence-based peppermint therapy. * Recommend IBgard (enteric-coated peppermint oil) as first-line to minimize reflux; follow product instructions. * If using liquid peppermint oil, dose 0.2?0.4 mL three times daily as tolerated. * Avoid peppermint candy as it is not sufficiently concentrated. * Monitor for heartburn; discontinue if intolerable. * Continue dietary sleuthing/elimination approach based on symptom correlation. * Follow up in approximately 3 months (around April) to assess response. Colorectal cancer screening: Prior colonoscopy in 2019 with normal findings and no family history. * Cancel current colonoscopy order placed for cancer prevention. * Next screening colonoscopy due in 2030. Medications: Discontinued sodium,potassium,mag sulfates 17.5-3.13-1.6 gram (Suprep Bowel Prep Kit) Discontinued Reason: Doctor's Order 480 mL orally; FOR COLONOSCOPY PREP 354 mL 0RF Coding Level of Care Code Est Pt Level 3 (27660) Diagnoses Chronic GERD K21.9 IBS (irritable bowel syndrome) K58.9 Left lower quadrant pain R10.32 Cow's milk allergy Z91.011 Palpitations R00.2 Right hip pain M25.551
--- OUTSIDE RECORDS SUMMARY | 2025-02-21 02:30 | XMS_ITS | Patient Health Record ---
Author Organization [facility] Billie kari David Address [address] [place] [address] Care Team Providers Care Extruding Department Supervisor Name Role Phone Tomer JONES, [facility] Provider Rashad Coronado [phone] Allergies No Known Allergies Reason For Referral [...] Encounters En[facility] [address] [place] [address] [facility]/18/[facility]24 Rashad Cisneros Pain in left foot [...] X ray : Foot, right 3V 11/15/2017 [id number] I&D ABSCESS- SIMPLE,SINGLE 019 [id number], [id number]/[id number], JOINT/BURSA 0 06/10/2018 [id number] TENDON SHEATH/LIGAMENT 0 06/10/2018 [id number] TENDON SHEATH/LIGAMENT 1 05/19/2020 Insurance Providers Payer Name Payer Address Payer Phone Subscriber Number Group Number Insured Name Patient Relationship to Insured Coverage Start Date [facility]age End Date [facility] [address] [place] [address] [id number] Fox Gorman Spouse - patient is the spouse of the insured 3 Medical (General) History Medical History History ICD Code Chicken pox Surgical History Surgery Date(Month/Year) Vidhya Bergman 03/10/2018 Hip replacement right 10/20/2022
== END 2025-02-20 12:11 | disposition home or self-care (01) ==
LOC: HO.HGI 11:31
PROVIDERS: PCP Internal Medicine; Visit Provider Nurse Practitioner
DX: K21.9 Gastro-esophageal reflux disease without esophagitis (principal); K58.9 Irritable bowel syndrome, unspecified; R10.32 Left lower quadrant pain; Z91.0110 Allergy to milk products, unspecified; R00.2 Palpitations; M25.551 Pain in right hip
CPT/HCPCS: 99213

== ENCOUNTER 2025-03-07 10:24 | Outpatient (AMB) | payer BC, SELFPAY ==
[2025-03-07 10:27] VITALS: BP 120/80; PULSE 81; O2SAT 97; BMI 28.4
--- NOTE | 2025-03-07 10:27 | MHC.PC.OV ---
Vital Signs 03/07/25 10:27 Height 5 ft 4 in Weight 165 lb 4 oz BMI 28.4 BP 120/80 Blood Pressure Location Lt brachial Position Sitting Pulse 81 Pulse Source Pulse Oximeter Pulse Oximetry (%) 97 Intake Visit Reasons: Annual PE Voice Instructor Required: No Accompanied by: Self / Same As Patient Allergies No Known Allergies Allergy (Verified 03/07/25 10:27) Medication List - Last Reconciled 03/07/25 by Rodney Jeff MD omeprazole 20 mg PO DAILY 90 days rosuvastatin 10 mg PO DAILY 90 days triamcinolone acetonide 0.1% 1 appl topical BID [turmeric 2 caps PO] Tobacco use date assessed: 09/27/24 Dental Screening Dental Screen Date: 09/27/24 HPI HPI Comments History of Present Illness Details History of Present Illness The patient is a 59 year old individual presenting for a physical exam. Polyarthralgia: - The patient reports multiple joint pains, including arthritis in the left thumb described as bone on bone, for which injections are not an option due to the small joint size. - There is also pain in the wrist, with a history of being treated for carpal tunnel and tendinitis multiple times, and pain on the top of the foot. - Symptoms are noted to improve with movement. - For exercise, the patient uses a treadmill for 10 minutes at a time, several times a day, and stops when feeling tired . Gastrointestinal Issues: - The patient endorses a history of chronic abdominal cramping and bloating. - A recent CT scan revealed diverticulosis of the descending and sigmoid colon without acute diverticulitis. - A dairy allergy was recently identified. - The patient is attempting to follow an anti-inflammatory, gut-friendly diet and is keeping a food diary to track symptoms. - The patient stopped taking dicyclomine, which was suggested by a line camera operator, due to fear of cardiac side effects. - The last colonoscopy in 2019 was normal, and the next is due in 2029. - The patient denies a family history of colon issues. Health Maintenance: - The patient reports having a mammogram in August of this year. - The last colonoscopy was in 2019, with the next one scheduled for 2029. - An ELECTRIC METER TESTER HELPER visit was completed this year. - The patient has stopped smoking and drinking wine. - The patient is taking rosuvastatin 10 mg for cholesterol. - Fasting labs to check cholesterol and glucose levels have been ordered, as the last metabolic profile was in September. Social History: - Substance Use: The patient has quit smoking and is no longer drinking wine. - Diet: The patient is attempting to follow an anti-inflammatory, gut-friendly diet, avoiding dairy. - Diet: The patient is keeping a food diary to identify triggers. - Exercise: The patient walks on a treadmill for 10 minutes at a time, several times a day, in addition to performing physical therapy stretches. - Activity: The patient is on disability. - Living Situation: The patient has dogs, which the walks. - Activities: The patient has a certified therapy dog and will be visiting facilities. Health Maintenance - Mammogram: Completed in August of the current year. - Colonoscopy: Last performed in 2019 with normal results; next is due in 2029. - Gynecological Exam: Last ELECTRIC METER TESTER HELPER visit was within the current year. - Labs: Due for fasting blood work to check cholesterol and glucose levels. - Vaccinations: Will receive an influenza vaccine during this visit. - Lifestyle: The patient has quit smoking and drinking wine. [facility] Medical History Acute diverticulitis Nicotine dependence, cigarettes, uncomplicated Vaginitis Right ankle sprain Left ankle sprain UTI (urinary tract infection) Vaginal yeast infection Constipation Colon cancer screening Lumbar degenerative disc disease Anemia Chronic GERD Sore throat, chronic Vitamin D deficiency Impaired fasting blood sugar Lipid disorder Facet arthropathy Ankle pain, left Migraine headache Meralgia paresthetica of right side Osteoarthritis of right hip Right lumbar radiculitis Surgical History H/O colonoscopy History of bunionectomy History of total right hip replacement Family History Father No problems noted. Mother No problems noted. Brother No problems noted. Brother No problems noted. Sister No problems noted. 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 Cognitive needs: No Hearing needs: No Vision needs: Yes Questionnaire Thrive Questionnaire Date Thrive assessed: 05/09/24 I am a: Patient What is your living situation today?: I have a steady place to live Within the past 12 months, did the food you bought not last and you didn't have the money to get more?: Never true Within the past 12 months, did you worry whether your food would run out before you got money to buy more?: Never true Do you have trouble paying for medicines?: No Do you have trouble getting transportation to medical appointments?: No Do you have trouble paying your heating and electricity bill?: No Do you have trouble taking care of your child, family member or friend?: No Do you have trouble with day-to-day activities such as bathing, preparing meals, shopping, managing finances, etc.?: I choose not to answer this question Are you currently unemployed and looking for a job?: No Are you interested in more education?: No Please select the resources that you would like help with: None Currently or been in a relationship where the following occur: I choose not to answer THRIVE Score: 0 DALY-7 AMB Questionnaire DALY-7 Date DALY - 7 assessed: 07/14/24 Source: Developed by Drs. Jose Jesus, Evy Glass, Stewart Hudson and colleagues, with an educational jameel from [employer]. Review of Systems Narrative Review of Systems no fever no chills - Neurological: No headaches no dizziness - Ear nose throat: No sore throat no hearing difficulty no ear pain - Cardiovascular: No syncope, no chest pain, no palpitations - Endocrine: No polyuria polydipsia no heat intolerance - Genitourinary: No dysuria - Skin: No new complaints Physical exam (Primary Care) Vital Signs: Last Vital Signs Pulse 81 03/07/25 10:27 BP 120/80 03/07/25 10:27 Pulse Ox 97 03/07/25 10:27 BMI result Body Mass Index 28.4 Tobacco/Smoking Status: Tobacco use Status Tobacco use date assessed 09/27/24 03/07/25 10:28 Patient Tobacco Use Status Former Tobacco user 03/07/25 10:28 Tobacco use type Cigarette 03/07/25 10:28 e-Cigarette/Vaping Use Never Used 03/07/25 10:28 Thrive Assessment: Date of Thrive Assessment Date Thrive assessed 05/09/24 03/07/25 10:28 Currently or been in a relationship where the following occur: I choose not to answer Narrative Diagnostic results Physical Exam General: Cooperative, healthy appearing, comfortable, no acute distress Orientation: Patient oriented x3 Head: Normal to inspection Ears: Within normal limit visually Nose: Normal external nose present Face and sinus: Normal facial exam Eyes: Appearance normal, extraocular movement intact pupils reactive Neck: Normal visual inspection and supple Respiratory: Normal respiratory effort and able to speak in complete sentences. Clear to auscultation, no stridor Cardiovascular: S1 and S2 RRR breast exam by obgyn GI: Normal to inspection. Soft to palpation and nontender Skin: Turgor normal, no acute findings, a little bit of acne noted Neuro: Patient oriented x3, motor sensory intact, balance intact, tandem pass Extremities: Normal to inspection, ROM intact Office Procedures Flu Questionnaire Does the patient have a severe egg allergy?: No Does the patient have severe life threatening allergies?: No Does the patient have a fever or illness today?: No Has the patient ever had Guillain-[place] Ple[place] Syndrome?: No Has the patient ever had any past reaction to a flu shot?: No Immunizations Fluarix [id number] (PF) 45 mcg (15 mcg x 3)/0.5 mL IM syringe Performing Provider: Rodney Jeff MD Performing Location: [facility] [place] [facility] Administered by: Marcell Joy CMA on 03/07/25 10:59 Dose Route Admin Location Dispensed Lot Number Expiration Date [facility] Metal Sprayer Protective Coating 0.5 mL IM Left Deltoid 0.5 mL [id number] 10/02/25 [id number] [employer] VIS Given Date VIS Provided VIS Publication Date 03/07/25 Single Vaccine 24 Eligibility Eligibility Date Funding Source Not [facility] Eligible 03/07/25 Private Coding Level of Care Code Est Pt Level 3 (80566) Est Pt Prev Care 40-64y(37827) Diagnoses Encounter for general adult medical examination without abnormal findings Z00.00 Lipid disorder E78.9 Impaired fasting blood sugar R73.01 Vitamin D deficiency E55.9 Chronic GERD K21.9 Irritable bowel syndrome with both constipation and diarrhea K58.2 Irritable bowel syndrome type: with both diarrhea and constipation Right lumbar radiculitis M54.16 Arthralgia of multiple sites, bilateral M25.50 Assessment & Plan Assessment & Plan (1) Encounter for general adult medical examination without abnormal findings: Code(s): Z00.00 - Encounter for general adult medical examination without abnormal findings Category: Medical (2) Lipid disorder: Code(s): E78.9 - Disorder of lipoprotein metabolism, unspecified Category: Medical (3) Impaired fasting blood sugar: Code(s): R73.01 - Impaired fasting glucose Category: Medical (4) Vitamin D deficiency: Code(s): E55.9 - Vitamin D deficiency, unspecified Category: Medical (5) Chronic GERD: Code(s): K21.9 - Gastro-esophageal reflux disease without esophagitis Category: Medical (6) IBS (irritable bowel syndrome): Code(s): K58.9 - Irritable bowel syndrome, unspecified Category: Medical Qualifiers: Irritable bowel syndrome type: with both diarrhea and constipation Qualified Code(s): K58.2 - Mixed irritable bowel syndrome (7) Right lumbar radiculitis: Comment: stable Code(s): M54.16 - Radiculopathy, lumbar region Category: Medical (8) Arthralgia of multiple sites, bilateral: Code(s): M25.50 - Pain in unspecified joint Category: Medical Plan Patient Instructions - Please get the fasting blood test done to check your cholesterol and sugar levels. - Expect a call from the [facility] Rheumatology department for an appointment. - Continue keeping a food diary to see which foods may be causing your symptoms. - Try eating more cooked vegetables and rice-based products like rice pasta and rice bread. Be sure to read the ingredients. - Continue taking your current doses of omeprazole and rosuvastatin. - A flu vaccine will be given to you during today's visit. - Schedule a follow-up visit for your next annual physical exam in one year. Orders: Orders Lipid Panel Today E55.9 - Vitamin D deficiency, unspecified, E78.9 - Disorder of lipoprotein metabolism, unspecified, K21.9 - Gastro-esophageal reflux disease without esophagitis, K58.9 - Irritable bowel syndrome, unspecified, M54.16 - Radiculopathy, lumbar region, R73.01 - Impaired fasting glucose, Z00.00 - Encounter for general adult medical examination without abnormal findings TSH reflex Free T4 Today E55.9 - Vitamin D deficiency, unspecified, E78.9 - Disorder of lipoprotein metabolism, unspecified, K21.9 - Gastro-esophageal reflux disease without esophagitis, K58.9 - Irritable bowel syndrome, unspecified, M54.16 - Radiculopathy, lumbar region, R73.01 - Impaired fasting glucose, Z00.00 - Encounter for general adult medical examination without abnormal findings Vitamin B12 Today E55.9 - Vitamin D deficiency, unspecified, E78.9 - Disorder of lipoprotein metabolism, unspecified, K21.9 - Gastro-esophageal reflux disease without esophagitis, K58.9 - Irritable bowel syndrome, unspecified, M54.16 - Radiculopathy, lumbar region, R73.01 - Impaired fasting glucose, Z00.00 - Encounter for general adult medical examination without abnormal findings Influenza [id number] Immunization Today Z23 - Encounter for immunization Complete Blood Count Auto Diff Today E55.9 - Vitamin D deficiency, unspecified, E78.9 - Disorder of lipoprotein metabolism, unspecified, K21.9 - Gastro-esophageal reflux disease without esophagitis, K58.9 - Irritable bowel syndrome, unspecified, M54.16 - Radiculopathy, lumbar region, R73.01 - Impaired fasting glucose, Z00.00 - Encounter for general adult medical examination without abnormal findings Comprehensive [place]. Panel Fast Today E55.9 - Vitamin D deficiency, unspecified, E78.9 - Disorder of lipoprotein metabolism, unspecified, K21.9 - Gastro-esophageal reflux disease without esophagitis, K58.9 - Irritable bowel syndrome, unspecified, M54.16 - Radiculopathy, lumbar region, R73.01 - Impaired fasting glucose, Z00.00 - Encounter for general adult medical examination without abnormal findings Vitamin D 25-OH (D2 and D3) Today E55.9 - Vitamin D deficiency, unspecified, E78.9 - Disorder of lipoprotein metabolism, unspecified, K21.9 - Gastro-esophageal reflux disease without esophagitis, K58.9 - Irritable bowel syndrome, unspecified, M54.16 - Radiculopathy, lumbar region, R73.01 - Impaired fasting glucose, Z00.00 - Encounter for general adult medical examination without abnormal findings Referrals Rheumatology Referral M25.50 - Pain in unspecified joint
== END 2025-03-07 11:23 | disposition home or self-care (01) ==
LOC: HO.HMCC 10:25
PROVIDERS: PCP Internal Medicine; Visit Provider Internal Medicine
DX: Z00.00 Encounter for general adult medical examination without abnormal findings (principal); E78.9 Disorder of lipoprotein metabolism, unspecified; R73.01 Impaired fasting glucose; E55.9 Vitamin D deficiency, unspecified; K21.9 Gastro-esophageal reflux disease without esophagitis; K58.2 Mixed irritable bowel syndrome; M54.16 Radiculopathy, lumbar region; M25.50 Pain in unspecified joint; Z23 Encounter for immunization

== ENCOUNTER → 2025-03-07 10:24 | Outpatient (BNVA) | payer BC, SELFPAY | PROVIDERS: PCP Internal Medicine; Visit Provider Internal Medicine | DX: Z00.00 Encounter for general adult medical examination without abnormal findings (principal); M54.16 Radiculopathy, lumbar region; E78.9 Disorder of lipoprotein metabolism, unspecified; R73.01 Impaired fasting glucose; E55.9 Vitamin D deficiency, unspecified; K21.9 Gastro-esophageal reflux disease without esophagitis; K58.2 Mixed irritable bowel syndrome; M25.50 Pain in unspecified joint; Z23 Encounter for immunization | CPT/HCPCS: 90471; 90656 ==